=== PATIENT | male | born 1955 | race Caucasian/White ===

== ENCOUNTER 2023-07-23 20:56 | Emergency (ER) | payer MEDICARE ==
--- NOTE | 2023-07-23 22:10 | ED ---
Skin/Abscess/FB HPI - General Chief complaint: Skin/Abscess/Foreign Body Stated complaint: Left foot infection Time Seen by Provider: 07/23/23 21:07 Source: family, RN notes reviewed, old records reviewed Mode of arrival: wheelchair Limitations: no limitations - History of Present Illness Initial comments: This is a 66-year-old male to the emergency department for evaluation today. Stay patient presents for evaluation of left foot pain. Significant swelling and redness to left foot with known foot ulcer. Patient has no significant drainage from the ulcer is not malodorous but is here for wound evaluation and reevaluation as family saw nonhealing ulcer today and bandage had not been change in a few days. MD complaint: other Location: L foot Severity: mild (Lesion is painless) Improves with: none Worsens with: none Context: none Associated symptoms: denies other symptoms Treatments Prior to Arrival: bandages, antibiotic - Related Data Allergies Allergy/AdvReac Type Severity Reaction Status Date / Time No Known Allergies Allergy Verified 07/23/23 21:03 Review of Systems ROS Statement: Those systems with pertinent positive or pertinent negative responses have been documented in the HPI. ROS Other: All systems not noted in ROS Statement are negative. Past Medical History Past Medical History: Diabetes Mellitus History of Any Multi-Drug Resistant Organisms: MRSA Past Surgical History: No Surgical Hx Reported Past Psychological History: Anxiety Smoking Status: Former smoker Past Alcohol Use History: Occasional Past Drug Use History: None Reported General Exam Limitations: no limitations General appearance: alert, in no apparent distress Head exam: Present: atraumatic, normocephalic, normal inspection Eye exam: Present: normal appearance, PERRL, EOMI. Absent: scleral icterus, conjunctival injection, periorbital swelling ENT exam: Present: normal exam, mucous membranes moist Neck exam: Present: normal inspection. Absent: tenderness, meningismus, lymphadenopathy Respiratory exam: Present: normal lung sounds bilaterally. Absent: respiratory distress, wheezes, rales, rhonchi, stridor Cardiovascular Exam: Present: regular rate, normal rhythm, normal heart sounds. Absent: systolic murmur, diastolic murmur, rubs, gallop, clicks GI/Abdominal exam: Present: soft, normal bowel sounds. Absent: distended, tenderness, guarding, rebound, rigid Extremities exam: Present: normal inspection, full ROM, normal capillary refill. Absent: tenderness, pedal edema, joint swelling, calf tenderness Back exam: Present: normal inspection Neurological exam: Present: alert, oriented X3, CN II-XII intact Psychiatric exam: Present: normal affect, normal mood Skin exam: Present: warm, dry, intact, normal color. Absent: rash Course Vital Signs 07/23/23 07/23/23 21:00 22:31 Temperature 97.9 F 98.0 F Pulse Rate 78 77 Respiratory 18 16 Rate Blood Pressure 116/64 137/61 O2 Sat by Pulse 99 96 Oximetry - Reevaluation(s) Reevaluation #1: 07/23/23 22:09 Medical record is reviewed Reevaluation #2: 07/23/23 22:09 Patient informed of wound care, questions answered Reevaluation #3: 07/23/23 22:09 Patient himself remains without complaint Reevaluation #4: 07/23/23 22:56 Was pt. sent in by a medical professional or institution (, PA, UNHAIRING MACHINE OPERATOR, urgent care, hospital, or alf...) When possible be specific @ -no Did you speak to anyone other than the patient for history (EMS, parent, family, police, friend...)? What history was obtained from this source @ -no Did you review nursing and triage notes (agree or disagree)? Why? @ -agree Are old charts reviewed (outside hosp., previous admission, EMS record, old EKG, old radiological studies, urgent care reports/EKG's, alf records)? Report findings @ -yes Differential Diagnosis (chest pain, altered mental status, abdominal pain women, abdominal pain men, vaginal bleeding, weakness, fever, dyspnea, syncope, headache, dizziness, GI bleed, back pain, seizure, CVA, palpatations, mental health, musculoskeletal)? @ -prior EKG interpreted by me (3pts min.). @ -no X-rays interpreted by me (1pt min.). @ -no CT interpreted by me (1pt min.). @ -no U/S interpreted by me (1pt. min.). @ -no What testing was considered but not performed or refused? (CT, X-rays, U/S, labs)? Why? @ -none What meds were considered but not given or refused? Why? @ -none Did you discuss the management of the patient with other professionals (professionals i.e. , PA, UNHAIRING MACHINE OPERATOR, lab, RT, psych nurse, forensic social worker, rack production worker, te acher, chief resource officer, pillowcase cutter)? Give summary @ -no Was smoking cessation discussed for >3mins.? @ -no Was critical care preformed (if so, how long)? @ -no Were there social determinants of health that impacted care today? How? (Homelessness, low income, unemployed, alcoholism, drug addiction, transportation, low edu. Level, literacy, decrease access to med. care, assisted, rehab)? @ -none Was there de-escalation of care discussed even if they declined (Discuss DNR or withdrawal of care, Hospice)? DNR status @ -no What co-morbidities impacted this encounter? (DM, HTN, Smoking, COPD, CAD, Cancer, CVA, ARF, Chemo, Hep., AIDS, mental health diagnosis, sleep apnea, morbid obesity)? @ -none Was patient admitted / discharged? Hospital course, mention meds given and route, prescriptions, significant lab abnormalities, going to OR and other pertinent info. @ - 68 female to the ER for evaluation of left foot diabetic ulcer, healing well and in stages. Patient informed and educated on wound care and cleaning and can be discharged home Discharge Undiagnosed new problem with uncertain prognosis? @ -no Drug Therapy requiring intensive monitoring for toxicity (Heparin, Nitro, Insulin, Cardizem)? @ -no Were any procedures done? @ -no Diagnosis/symptom? @ -Diabetic foot ulcer, wound care Acute, or Chronic, or Acute on Chronic? @ -Acute Uncomplicated (without systemic symptoms) or Complicated (systemic symptoms)? @ -Complicated Side effects of treatment? @ -no Exacerbation, Progression, or Severe Exacerbation? @ -exacerbation Poses a threat to life or bodily function? How? (Chest pain, [place], [place], pneumonia, PE, COPD, DKA, ARF, appy, cholecystitis, CVA, Diverticulitis, Homicidal, Suicidal, threat to staff... and all critical care pts) @ -no Medical Decision Making - Medical Decision Making 68 female to the ER for evaluation of left foot diabetic ulcer, healing well and in stages. Patient informed and educated on wound care and cleaning and can be discharged home Disposition Clinical Impression: Foot ulcer, left, Diabetic foot ulcer Disposition: HOME SELF-CARE Instructions (If sedation given, give patient instructions): Foot Care for People with Diabetes (ED), Acute Wound Care (ED), Chronic Wound Care (ED), Diabetic Foot Ulcers (ED), Pressure Injury (ED) Is patient prescribed a controlled substance at d/c from ED?: No Referrals: None,Stated [REFERRING] - 1-2 days Time of Disposition: 22:00
[2023-07-23 22:47] VITALS: BP 137/61; PULSE 77; RESP 16; TEMP 98
== END 2023-07-23 22:50 | disposition home or self-care (01) ==
LOC: EC 20:56
DX: E11.621 Type 2 diabetes mellitus with foot ulcer (principal); L97.529 Non-pressure chronic ulcer of other part of left foot with unspecified severity; Z87.891 Personal history of nicotine dependence
CPT/HCPCS: 99283

== ENCOUNTER 2023-08-20 14:35 | Inpatient (IN) | payer MEDICARE ==
--- NOTE | 2023-08-20 14:43 | ED ---
General Adult HPI - General Source: patient, RN notes reviewed Mode of arrival: ambulatory Limitations: no limitations <Nolan De Paz - Last Filed: 08/20/23 14:42> <Nacho Llamas - Last Filed: 08/20/23 18:39> - General Stated complaint: abscess foot-sent by drs Time Seen by Provider: 08/20/23 14:42 - History of Present Illness Initial comments: 68-year-old male presents emergency Department chief complaint left foot infection. Patient was sent over here by Dr. Zurita for admission, surgery. Patient reportedly is having worsening infection of his foot. Patient is known diabetic. (Nolan De Paz) This is a 68-year-old male who was sent into the emergency department by Dr. Zurita the patient has a wound which according to Sayilana was expressing pus in the left foot. Patient is to be put on antibiotics have a CAT scan of the foot he also wants vascular surgery as well as himself on consult. Patient himself states the foot is been getting worse for quite a while now (Nacho Llamas) - Related Data Allergies Allergy/AdvReac Type Severity Reaction Status Date / Time bupropion [From Wellbutrin] Allergy Unknown Verified 08/20/23 14:46 varenicline [From Chantix] Allergy Unknown Verified 08/20/23 14:45 Review of Systems ROS Other: All systems not noted in ROS Statement are negative. <Nolan De Paz - Last Filed: 08/20/23 14:42> ROS Other: All systems not noted in ROS Statement are negative. <Nacho Llamas - Last Filed: 08/20/23 18:39> ROS Statement: Those systems with pertinent positive or pertinent negative responses have been documented in the HPI. Past Medical History Past Medical History: Diabetes Mellitus History of Any Multi-Drug Resistant Organisms: MRSA Past Surgical History: No Surgical Hx Reported Past Psychological History: Anxiety Smoking Status: Former smoker Past Alcohol Use History: Occasional Past Drug Use History: None Reported <Nolan De Paz - Last Filed: 08/20/23 14:42> General Exam <Nolan De Paz - Last Filed: 08/20/23 14:42> <Nacho Llamas - Last Filed: 08/20/23 18:39> - General Exam Comments Initial Comments: Visual Physical Exam Vital signs reviewed General: Well-appearing, nontoxic, no acute distress. Head: Normocephalic, atraumatic Eyes: PERRLA, EOMI ENT: Airway patent Chest: Nonlabored breathing Skin: No visual rash, normal skin tone Neuro: Alert and oriented 3 Musculoskeletal: No gross abnormalities (Nolan De Paz) GENERAL: Patient is well-developed and well-nourished. Patient is nontoxic and well- hydrated and is in no acute distress. ENT: Neck is soft and supple. No significant lymphadenopathy is noted. Oropharynx is clear. Moist mucous membranes. Neck has full range of motion without eliciting any pain. EYES: The sclera were anicteric and conjunctiva were pink and moist. Extraocular movements were intact and pupils were equal round and reactive to light. Eyelids were unremarkable. PULMONARY: Unlabored respirations. Good breath sounds bilaterally. No audible rales rhonchi or wheezing was noted. CARDIOVASCULAR: There is a regular rate and rhythm without any murmurs gallops or rubs. ABDOMEN: Soft and nontender with normal bowel sounds. SKIN: Skin is clear with no lesions or rashes and otherwise unremarkable. NEUROLOGIC: Patient is alert and oriented x3. Cranial nerves II through XII are grossly intact. Motor and sensory are also intact. Normal speech, volume and content. Symmetrical smile. MUSCULOSKELETAL: Normal extremities with adequate strength and full range of motion. Patient has a left foot wound that is malodorous and draining some pus LYMPHATICS: No significant lymphadenopathy is noted PSYCHIATRIC: Normal psychiatric evaluation. (Nacho Llamas) Course Vital Signs 08/20/23 08/20/23 08/20/23 14:40 16:23 18:01 Temperature 98 F Pulse Rate 101 H 81 80 Respiratory 16 18 18 Rate Blood Pressure 114/64 132/76 128/65 O2 Sat by Pulse 99 98 98 Oximetry Medical Decision Making <Nolan De Paz - Last Filed: 08/20/23 14:42> - Lab Data Result diagrams: 08/20/23 15:04 08/20/23 15:04 <Nacho Llamas - Last Filed: 08/20/23 18:39> - Medical Decision Making I performed a quick note portion of this chart signed Nolan De Paz PA-C (Nolan De Paz) Was pt. sent in by a medical professional or institution (EMILY Malcolm, COLLATERAL SPECIALIST, urgent care, hospital, or skilled nursing...) When possible be specific @ -Patient was sent in by Dr. Zurita Did you speak to anyone other than the patient for history (EMS, parent, family, police, friend...)? What history was obtained from this source @ -Dr. Zurita gave most of the history prior to arrival Did you review nursing and triage notes (agree or disagree)? Why? @ -[I reviewed and agree with nursing and triage notes] Were old charts reviewed (outside hosp., previous admission, EMS record, old EKG, old radiological studies, urgent care reports/EKG's, skilled nursing records)? Report findings @ -I reviewed prior charts lab work on this patient Differential Diagnosis (chest pain, altered mental status, abdominal pain women, abdominal pain men, vaginal bleeding, weakness, fever, dyspnea, syncope, headache, dizziness, GI bleed, back pain, seizure, CVA, palpatations, mental health, musculoskeletal)? @ -Differential Fever: Pneumonia, viral URI, endocarditis, myocarditis, pericarditis, otitis, sinusi tis, peritonsillar Abscess, retropharyngeal Abscess, epiglottitis, peritonitis, appendicitis, Betina cystitis, diverticulitis, hepatitis, colitis, UTI, PID, TOA, pyelonephritis, prostatitis, epididymitis, meningitis, encephalitis, pulmonary embolism, CVA, thyroid storm, pancreatitis, adrenal crisis, cavernous sinus thrombosis, this is not meant to be an all-inclusive list. EKG interpreted by me (3pts min.). @ -[As above] X-rays interpreted by me (1pt min.). @ -[None done] CT interpreted by me (1pt min.). @ -Showed a Charcot joint with possible osteomyelitis U/S interpreted by me (1pt. min.). @ -[None done] What testing was considered but not performed or refused? (CT, X-rays, U/S, labs)? Why? @ -[None] What meds were considered but not given or refused? Why? @ -[None] Did you discuss the management of the patient with other professionals (professionals i.e. EMILY Malcolm, COLLATERAL SPECIALIST, lab, RT, psych nurse, social service director, internal control consultant, teacher, cash management officer, medical case worker)? Give summary @ -I spoke with Dr. Torres and he accepted the patient Was smoking cessation discussed for >3mins.? @ -[No] Was critical care preformed (if so, how long)? @ -[No] Were there social determinants of health that impacted care today? How? (H omelessness, low income, unemployed, alcoholism, drug addiction, transportation, low edu. Level, literacy, decrease access to med. care, skilled nursing, rehab)? @ -[No] Was there de-escalation of care discussed even if they declined (Discuss DNR or withdrawal of care, Hospice)? DNR status @ -[No] What co-morbidities impacted this encounter? (DM, HTN, Smoking, COPD, CAD, Cancer, CVA, ARF, Chemo, Hep., AIDS, mental health diagnosis, sleep apnea, morbid obesity)? @ -Diabetes Was patient admitted / discharged? Hospital course, mention meds given and route, prescriptions, significant lab abnormalities, going to OR and other pertinent info. @ -Patient was started on Unasyn and vancomycin. CT of the foot showed a Charcot joint with osteomyelitis and patient will be admitted to Dr. Torres and consult for vascular as well as infectious disease Undiagnosed new problem with uncertain prognosis? @ -[No] Drug Therapy requiring intensive monitoring for toxicity (Heparin, Nitro, Insulin, Cardizem)? @ -[No] Were any procedures done? @ -[No] Diagnosis/symptom? @ -Osteomyelitis left foot Acute, or Chronic, or Acute on Chronic? @ -Acute on chronic Uncomplicated (without systemic symptoms) or Complicated (systemic symptoms)? @ -Complicated Side effects of treatment? @ -[No] Exacerbation, Progression, or Severe Exacerbation? @ -[No] Poses a threat to life or bodily function? How? (Chest pain, [place], [place], pneumonia, PE, COPD, DKA, ARF, appy, cholecystitis, CVA, Diverticulitis, Homicidal, Suicidal, threat to staff... and all critical care pts) @ -Yes this leads to sepsis and possible end organ dysfunction (Carrington Llamas) - Lab Data Lab Results 08/20/23 08/20/23 08/20/23 Range/Units 15:04 15:04 15:04 WBC 7.9 (3.8-10.6) k/uL RBC 3.17 L (4.30-5.90) m/uL Hgb 8.7 L (13.0-17.5) gm/dL Hct 27.0 L (39.0-53.0) % MCV 85.2 (80.0-100.0) fL MCH 27.3 (25.0-35.0) pg MCHC 32.1 (31.0-37.0) g/dL RDW 14.0 (11.5-15.5) % Plt Count 496 H (150-450) k/uL MPV 7.4 Neutrophils % 69 % Lymphocytes % 21 % Monocytes % 5 % Eosinophils % 3 % Basophils % 0 % Neutrophils # 5.4 (1.3-7.7) k/uL Lymphocytes # 1.7 (1.0-4.8) k/uL Monocytes # 0.4 (0-1.0) k/uL Eosinophils # 0.3 (0-0.7) k/uL Basophils # 0.0 (0-0.2) k/uL Hypochromasia Slight ESR 125 H (0-15) mm/hr Sodium 138 (137-145) mmol/L Potassium 4.3 (3.5-5.1) mmol/L Chloride 104 (98-107) mmol/L Carbon Dioxide 20 L (22-30) mmol/L Anion Gap 14 mmol/L BUN 37 H (9-20) mg/dL Creatinine 1.41 H (0.66-1.25) mg/dL Est GFR (CKD-EPI)AfAm 59 (>60 ml/min/1.73 sqM) Est GFR (CKD-EPI)NonAf 51 (>60 ml/min/1.73 sqM) Glucose 134 H (74-99) mg/dL Plasma Lactic Acid Isael 1.1 (0.7-2.0) mmol/L Calcium 9.1 (8.4-10.2) mg/dL Total Bilirubin 0.4 (0.2-1.3) mg/dL AST 24 (17-59) U/L ALT 16 (4-49) U/L Alkaline Phosphatase 73 (38-126) U/L C-Reactive Protein 7.8 H (<1.0) mg/dL Total Protein 7.3 (6.3-8.2) g/dL Albumin 3.6 (3.5-5.0) g/dL Disposition <Nolan De Paz - Last Filed: 08/20/23 14:42> Time of Disposition: 18:39 <Nacho Llamas - Last Filed: 08/20/23 18:39> Clinical Impression: Diabetic foot ulcer, Osteomyelitis Disposition: ADMITTED IP TO THIS HOSP Referrals: Barrington Swanson MD [Primary Care Provider] - 1-2 days
[2023-08-20] MEDS ORDERED: AMPICILLIN-SULBACTAM 3 GM in SODIUM CHLORIDE 0.9% 100 ML IVPB STA (14:58)
[2023-08-20] MEDS ORDERED: VANCOMYCIN IV PER PHARMACY 1 EACH MISC MISCELLANE PRN (14:59)
[2023-08-20] MEDS ORDERED: VANCOMYCIN 1,500 MG in SODIUM CHLORIDE 0.9% 500 ML 500 ML IVPB STA (15:06)
[2023-08-20 15:41] LABS: ALT 16 U/L (4-49); AST 24 U/L (17-59); African American GFR (CKD) 59 (>60 ml/min/1.73 sqM); Albumin 3.6 g/dL (3.5-5.0); Alkaline Phosphatase 73 U/L (38-126); Anion Gap 14 mmol/L; Blood Urea Nitrogen 37 mg/dL (9-20); C Reactive Protein 7.8 mg/dL (<1.0); Calcium 9.1 mg/dL (8.4-10.2); Carbon Dioxide 20 mmol/L (22-30); Chloride 104 mmol/L (98-107); Glucose 134 mg/dL (74-99); Non-African American GFR(CKD) 51 (>60 ml/min/1.73 sqM); Potassium 4.3 mmol/L (3.5-5.1); Sodium 138 mmol/L (137-145); Total Bilirubin 0.4 mg/dL (0.2-1.3); Total Protein 7.3 g/dL (6.3-8.2)
[2023-08-20 15:42] LABS: Basophils % (A) 0 %; Eosinophils # (A) 0.3 k/uL (0-0.7); Eosinophils % (A) 3 %; HGB 8.7 gm/dL (13.0-17.5); Hypochromasia Slight; Lymphocytes # (A) 1.7 k/uL (1.0-4.8); Lymphocytes % (A) 21 %; MCH 27.3 pg (25.0-35.0); MCHC 32.1 g/dL (31.0-37.0); MCV 85.2 fL (80.0-100.0); Mean Platelet Volume 7.4; Monocytes # (A) 0.4 k/uL (0-1.0); Monocytes % (A) 5 %; Neutrophils # (A) 5.4 k/uL (1.3-7.7); Neutrophils % (A) 69 %; Platelet Count 496 k/uL (150-450); RBC 3.17 m/uL (4.30-5.90); WBC 7.9 k/uL (3.8-10.6)
--- NOTE | 2023-08-20 17:51 | CT ---
EXAMINATION TYPE: CT foot LT w con CT DLP: 349.10 mGycm, Automated exposure control for dose reduction was used. DATE OF EXAM: 08/20/2023 5:23 PM COMPARISON: None CLINICAL INDICATION:Male, 68 years old with history of Infection foot; PHH, LT foot abscess TECHNIQUE: Axial images were obtained of the . Additional coronal and sagittal reformatted images an d soft tissue and bone window were obtained for review. 3-D reconstruction was created on a separate workstation. Contrast used:80 mL of Isovue 300 with IV Contrast, Oral contrast used: None FINDINGS: There is diffuse abnormality to the midfoot with osseous erosion, sclerosis of the osseous structures present. Joint spaces are relatively destroyed. No discrete acute fracture line definitive ly visualized. There is foci of gas present in the dorsal aspect of the foot. Diffuse soft tissue swe lling is present. 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
[2023-08-20 18:23] LABS: Erythrocyte Sedimentation Rate 125 mm/hr (0-15)
[2023-08-20] MEDS: AMPICILLIN-SULBACTAM 3 GM in SODIUM CHLORIDE 0.9% 100 ML IVPB SCH (21:46)
[2023-08-20 22:37] LABS: Glucose,Whole Blood 205 mg/dL (70-110)
[2023-08-20] MEDS ORDERED: DEXTROSE 50% SYRINGE 50 ML IVP PRN ×2 (23:24)
[2023-08-20] MEDS: ALPRAZolam 1 MG TAB PO SCH (23:44)
[2023-08-20] MEDS: INSULIN ASPART (NovoLOG) 100 UNIT/ML VIAL SQ SCH (23:44)
[2023-08-21] MEDS: AMPICILLIN-SULBACTAM 3 GM in SODIUM CHLORIDE 0.9% 100 ML IVPB SCH ×4 (03:29→21:16)
[2023-08-21] MEDS ORDERED: VANCOMYCIN IV PER PHARMACY 1 EACH MISC MISCELLANE PRN (04:12)
--- NOTE | 2023-08-21 04:13 | P.HPIM ---
History of Present Illness H&P Date: 08/20/23 Chief Complaint: left foot wound 68 year old male with DM Patient was sent in from his infectious disease specialist office for worsening left foot wound despite outpatient antibiotics for the past 10 days. Patient reports that he has large wound over the dorsum of his left foot approximately which has been going on all summer he believes it's been healing no drainage . However 10 days ago he noticed another wound over the sole of his left foot which has been draining for the past 10 days despite regular visits to his infectious disease specialist office and antibiotics at home with clindamycin and Augmentin he denies any fevers or chills denies any nausea vom iting chest pain or trouble breathing he is not sure of type of injury that resulted in the wound at the bottom of his left foot he noticed increased swelling and edema over the past few days along with increased drainage for which his doctor suggested he comes to the ED for IV antibiotics He denies any tobacco smoking and illicit drugs or alcohol review of systems Pertinent positives as noted in HPI. All other systems were reviewed and are negative on exam Constitutional: No acute distress, conversant, pleasant Eyes: Anicteric sclerae, moist conjunctiva, Pupils equal round reactive to light ENMT: NC/AT Oropharynx clear, no erythema, or exudates Neck: Supple, no masses, or JVD No carotid bruits No thyromegaly Lungs: Clear to auscultation Clear to percussion Normal respiratory effort, no accessory muscle use Cardiovascular: Heart regular in rate and rhythm, No murmurs, gallops, or rubs No peripheral edema Abdominal: Soft Nontender, no guarding, rebound or rigidity Abdomen moving with respiration Normoactive bowel sounds No hepatomegaly, No splenomegaly No palpable mass No abdominal wall hernia noted Skin: Large 5 x 5 cm wound over the dorsum of the left foot proximally no surrounding erythema or induration no active drainage. Small deep wound on the plantar aspect of his left foot distally with. Purulent Discharge Extremities: No digital cyanosis No clubbing Pedal pulses intact and symmetrical Radial pulses intact and symmetrical No calf tenderness Psychiatric: Alert and oriented to person, place and time Appropriate affect fair judgement Neuro Muscles Strength 5/5 in all 4 extremities Decreased sensation over bilateral feet to light touch Cranial nerves II-XII grossly intact Lymphatics: no palpable cervical or supraclavicular lymph nodes Past Medical History Past Medical History: Diabetes Mellitus, Hypertension History of Any Multi-Drug Resistant Organisms: MRSA Date of last positivie culture/infection: 1997 MDRO Source:: Unsure Past Surgical History: No Surgical Hx Reported Additional Past Surgical History / Comment(s): eye surgery Past Anesthesia/Blood Transfusion Reactions: No Reported Reaction Past Psychological History: Anxiety Smoking Status: Former smoker Past Alcohol Use History: Occasional Past Drug Use History: None Reported Medications and Allergies Home Medications Medication Instructions Recorded Confirmed Type ALPRAZolam [Xanax] 1 mg PO BID PRN 08/20/23 08/20/23 History ALPRAZolam [Xanax] 1 mg PO HS 08/20/23 08/20/23 History Lisinopril-Hctz 20-12.5 mg 2 tab PO DAILY 08/20/23 08/20/23 History [Zestoretic 20-12.5] amLODIPine [Norvasc] 5 mg PO DAILY 08/20/23 08/20/23 History metFORMIN HCL [Glucophage] 1,000 mg PO W/BRKFST 08/20/23 08/20/23 History metFORMIN HCL [Glucophage] 500 mg PO W/SUPPER 08/20/23 08/20/23 History Allergies Allergy/AdvReac Type Severity Reaction Status Date / Time bupropion [From Wellbutrin] Allergy Unknown Verified 08/20/23 19:07 varenicline [From Chantix] Allergy Unknown Verified 08/20/23 19:07 Physical Exam Vitals: Vital Signs Temp Pulse Pulse Resp BP BP BP 08/21/23 01:58 97.8 F 70 16 97/57 08/20/23 19:54 98.2 F 85 16 119/65 08/20/23 18:01 80 18 128/65 08/20/23 16:23 81 18 132/76 08/20/23 14:40 98 F 101 H 16 114/64 Pulse Ox 08/21/23 01:58 97 08/20/23 19:54 98 08/20/23 18:01 98 08/20/23 16:23 98 08/20/23 14:40 99 Intake and Output 08/20/23 08/20/23 08/21/23 14:59 22:59 06:59 Other: Weight 98.43 kg 98.43 kg Results CBC & Chem 7: 08/20/23 15:04 08/20/23 15:04 Labs: Abnormal Lab Results - Last 24 Hours (Table) 08/20/23 08/20/23 08/20/23 Range/Units 15:04 15:04 22:36 RBC 3.17 L (4.30-5.90) m/uL Hgb 8.7 L (13.0-17.5) gm/dL Hct 27.0 L (39.0-53.0) % Plt Count 496 H (150-450) k/uL ESR 125 H (0-15) mm/hr Carbon Dioxide 20 L (22-30) mmol/L BUN 37 H (9-20) mg/dL Creatinine 1.41 H (0.66-1.25) mg/dL Glucose 134 H (74-99) mg/dL POC Glucose (mg/dL) 205 H (70-110) mg/dL C-Reactive Protein 7.8 H (<1.0) mg/dL Thrombosis Risk Factor Assmnt - Choose All That Apply Each Factor Represents 1 point: Obesity (BMI >25), Swollen legs (current) Each Risk Factor Represents 2 Points: Age 61-74 years Each Risk Factor Represents 3 Points: History of DVT/PE Thrombosis Risk Factor Assessment Total Risk Factor Score: 7 Thrombosis Risk Factor Assessment Level: High Risk Assessment and Plan Assessment: [id number] male with diabetes mellitus coming in for worsening left foot wound I discussed the case with the ED doctor I accepted the admission for diabetic foot ulcer failed outpatient therapy with anticipated length of stay more than 2 nights Diabetic foot ulcer failed outpatient therapy with antibiotics Cellulitis and osteomyelitis Follow-up cultures Initiated on Unasyn 3 g IV piggyback every 6 hours Vancomycin dosing by pharmacy Infectious disease consult vascular surgery consult Pain control with opiates Tylenol for fever and Gentle IV fluid hydration normal saline 75 mL per hour R Computed tomography scan of the foot showing chart current hepatic osteo- arthroplasty with collapse of the foot suspected underlying cellulitis/osteomyelitis involving majority of the joints of the foot ESR 125 CRP 7.8 White count 7.9 Diabetes mellitus Insulin sliding scale Hypertension Continue amlodipine Hold lisinopril secondary to unknown baseline renal function Anemia 18.7 Denies GI bleeding Continue to monitor hemoglobin No baseline Unknown baseline renal function Creatinine 1.4 BUN 37 both elevated Sodium 138 potassium 4.3 Trend renal function Monitor urine output Avoid toxic meds Full code DVT prophylaxis heparin subcu 3 times a day
[2023-08-21 05:09] LABS: Glucose,Whole Blood 124 mg/dL (70-110)
[2023-08-21] MEDS: INSULIN ASPART (NovoLOG) 100 UNIT/ML VIAL SQ SCH ×4 (05:31→21:17)
[2023-08-21] MEDS: SODIUM CHLORIDE 0.9% 1,000 ML IV SCH ×2 (05:43→18:35)
[2023-08-21] MEDS ORDERED: VANCOMYCIN 1,500 MG in SODIUM CHLORIDE 0.9% 500 ML 500 ML IVPB SCH (08:00)
[2023-08-21] MEDS ORDERED: LISINOPRIL-HCTZ 20-12.5 MG 1 EACH TAB PO SCH (09:00)
[2023-08-21 09:08] LABS: HCT 23.5 % (39.6-50.0); HGB 7.3 d/dL (13.0-17.0); MCH 26.4 pg (27.0-32.0); MCHC 31.1 d/dL (32.0-37.0); MCV 85.1 FL (80.0-97.0); NRBC Per 100 WBC 0 X 10*3/uL (0.00-0.01); Platelet Count 395 X 10*3/uL (140-440); RBC 2.76 X 10*6/uL (4.40-5.60); WBC 4.84 X 10*3/uL (4.50-10.00)
[2023-08-21 09:09] LABS: Basophils # (A) 0.02 X 10*3/uL (0.00-0.10); Basophils % (A) 0.4 %; Eosinophils # (A) 0.25 X 10*3/uL (0.04-0.35); Eosinophils % (A) 5.2 %; Lymphocytes # (A) 1.61 X 10*3/uL (0.90-5.00); Lymphocytes % (A) 33.3 %; Monocytes # (A) 0.42 X 10*3/uL (0.20-1.00); Monocytes % (A) 8.7 %; Neutrophils % (A) 51.6 %
--- NOTE | 2023-08-21 09:27 | P.GSCN ---
History of Present Illness Consult date: 08/21/23 Reason for Consult: Osteomyelitis left foot Requesting physician: Phyllis Zurita History of present illness: Bhupinder is 68-year-old male who was sent into the emergency department by his infectious disease physician . States today was his first appointment to see him regarding a wound on his left foot that has not been healing. He has had the wound to the dorsal aspect that started off as a blister at the beg inning of the summer. He has been seeing a condenser setter out of [place] for wound care. He noticing a wound to the bottom of his foot with drainage, he was started on oral antibiotics for last 10 days. No improvement. He was sent to infectious disease for further evaluation. He has a past medical history including hypertension and diabetes mellitus. He is a former smoker. States that he recently had lower extremity arterial studies done at [facility] that were inconclusive. He has pain to the left foot and has not been able to walk much. States he has had swelling to that left lower extremity however in the last 10 days he started noticing more of a change to his overall foot. He denies much feeling in his left foot at this time. He denies any shortness of breath, chest pain, abdominal pain, fevers or chills. He is afebrile on admission. Elevated sed rate and CRP. 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 Review of Systems A 14 point review systems was completed all pertinent positives and negatives as stated in the HPI. Past Medical History Past Medical History: Diabetes Mellitus, Hypertension History of Any Multi-Drug Resistant Organisms: MRSA Year Discovered:: 1997 MDRO Source:: Unsure Past Surgical History: No Surgical Hx Reported Additional Past Surgical History / Comment(s): eye surgery Past Anesthesia/Blood Transfusion Reactions: No Reported Reaction Past Psychological History: Anxiety Smoking Status: Former smoker Past Alcohol Use History: Occasional Past Drug Use History: None Reported Medications and Allergies Home Medications Medication Instructions Recorded Confirmed Type ALPRAZolam [Xanax] 1 mg PO BID PRN 08/20/23 08/20/23 History ALPRAZolam [Xanax] 1 mg PO HS 08/20/23 08/20/23 History Lisinopril-Hctz 20-12.5 mg 2 tab PO DAILY 08/20/23 08/20/23 History [Zestoretic 20-12.5] amLODIPine [Norvasc] 5 mg PO DAILY 08/20/23 08/20/23 History metFORMIN HCL [Glucophage] 1,000 mg PO W/BRKFST 08/20/23 08/20/23 History metFORMIN HCL [Glucophage] 500 mg PO W/SUPPER 08/20/23 08/20/23 History Allergies Allergy/AdvReac Type Severity Reaction Status Date / Time bupropion [From Wellbutrin] Allergy Unknown Verified 08/20/23 19:07 varenicline [From Chantix] Allergy Unknown Verified 08/20/23 19:07 Surgical - Exam Vital Signs Temp Pulse Resp BP Pulse Ox 98 F 101 H 16 114/64 99 08/20/23 14:40 08/20/23 14:40 08/20/23 14:40 08/20/23 14:40 08/20/23 14:40 General appearance: The patient is alert, oriented, appears in no acute distress. HET: Head is normocephalic and atraumatic. Pupils are equal and reactive. Neck: Supple. Heart: Regular. Lungs: Equal expansion, normal respiratory effort. Abdomen: Soft, nontender, nondistended. Extremities: Palpable bilateral femoral pulses. Bilateral lower extremities warm to touch. Left lower extremity swelling, left Charcot foot with diabetic wound to the dorsal aspect as well as small wound with clear drainage from the plantar aspect. Right foot with great toe distal tip with a healed wound. Left foot able to gas pedal, but no movement in his toes. Neurological: No focal deficits. Alert and oriented 3 Results - Labs 08/20/23 15:04 08/20/23 15:04 Abnormal Lab Results - Last 24 Hours (Table) 08/20/23 08/20/23 08/20/23 Range/Units 15:04 15:04 22:36 RBC 3.17 L (4.30-5.90) m/uL Hgb 8.7 L (13.0-17.5) gm/dL Hct 27.0 L (39.0-53.0) % Plt Count 496 H (150-450) k/uL ESR 125 H (0-15) mm/hr Carbon Dioxide 20 L (22-30) mmol/L BUN 37 H (9-20) mg/dL Creatinine 1.41 H (0.66-1.25) mg/dL Glucose 134 H (74-99) mg/dL POC Glucose (mg/dL) 205 H (70-110) mg/dL C-Reactive Protein 7.8 H (<1.0) mg/dL 08/21/23 Range/Units 05:07 RBC (4.30-5.90) m/uL Hgb (13.0-17.5) gm/dL Hct (39.0-53.0) % Plt Count (150-450) k/uL ESR (0-15) mm/hr Carbon Dioxide (22-30) mmol/L BUN (9-20) mg/dL Creatinine (0.66-1.25) mg/dL Glucose (74-99) mg/dL POC Glucose (mg/dL) 124 H (70-110) mg/dL C-Reactive Protein (<1.0) mg/dL Diabetes panel 08/20/23 Range/Units 15:04 Sodium 138 (137-145) mmol/L Potassium 4.3 (3.5-5.1) mmol/L Chloride 104 (98-107) mmol/L Carbon Dioxide 20 L (22-30) mmol/L BUN 37 H (9-20) mg/dL Creatinine 1.41 H (0.66-1.25) mg/dL Glucose 134 H (74-99) mg/dL Calcium 9.1 (8.4-10.2) mg/dL AST 24 (17-59) U/L ALT 16 (4-49) U/L Alkaline Phosphatase 73 (38-126) U/L Total Protein 7.3 (6.3-8.2) g/dL Albumin 3.6 (3.5-5.0) g/dL Calcium panel 08/20/23 Range/Units 15:04 Calcium 9.1 (8.4-10.2) mg/dL Albumin 3.6 (3.5-5.0) g/dL Pituitary panel 08/20/23 Range/Units 15:04 Sodium 138 (137-145) mmol/L Potassium 4.3 (3.5-5.1) mmol/L Chloride 104 (98-107) mmol/L Carbon Dioxide 20 L (22-30) mmol/L BUN 37 H (9-20) mg/dL Creatinine 1.41 H (0.66-1.25) mg/dL Glucose 134 H (74-99) mg/dL Calcium 9.1 (8.4-10.2) mg/dL Adrenal panel 08/20/23 Range/Units 15:04 Sodium 138 (137-145) mmol/L Potassium 4.3 (3.5-5.1) mmol/L Chloride 104 (98-107) mmol/L Carbon Dioxide 20 L (22-30) mmol/L BUN 37 H (9-20) mg/dL Creatinine 1.41 H (0.66-1.25) mg/dL Glucose 134 H (74-99) mg/dL Calcium 9.1 (8.4-10.2) mg/dL Total Bilirubin 0.4 (0.2-1.3) mg/dL AST 24 (17-59) U/L ALT 16 (4-49) U/L Alkaline Phosphatase 73 (38-126) U/L Total Protein 7.3 (6.3-8.2) g/dL Albumin 3.6 (3.5-5.0) g/dL - Imaging Comments: CT of the left foot with contrast which reported 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 Assessment and Plan Assessment: 1. Infected Left diabetic foot wounds 2. Left Charcot foot, Osteomyelitis 3. Diabetes mellitus 4. Hypertension Plan: 1. Keep patient nothing by mouth 2. Antibiotic recommendations per infectious disease 3. Plan for left foot debridement with deep tissue cultures this afternoon 4. Offload weight to left foot Thank you for this consultation, we will continue to follow. The impression and plan of care has been dictated as directed. I performed a history and examination of this patient, discussed the same with the dictator. I agree with the dictator's note ,documented as a scribe. Any additional findings or plans will be noted.
[2023-08-21] MEDS: ALPRAZolam 1 MG TAB PO PRN (09:39)
[2023-08-21] MEDS: amLODIPine 5 MG TAB PO SCH (09:39)
[2023-08-21] MEDS: HEPARIN SODIUM,PORCINE 5,000 UNIT/ML 1 ML VIAL SQ SCH ×2 (09:40→21:15)
[2023-08-21 09:42] LABS: ALT 12 U/L (10-49); AST 13 U/L (14-35); Albumin 3.2 d/dL (3.8-4.9); Albumin/Globulin Ratio 1.19 Ratio (1.60-3.17); Alkaline Phosphatase 57 U/L (41-126); BUN/Creat Ratio 28.64 Ratio (12.00-20.00); Blood Urea Nitrogen 31.5 mg/dL (9.0-27.0); Calcium 8.4 mg/dL (8.7-10.3); Carbon Dioxide 22.9 mmol/L (21.6-31.8); Chloride 104 mmol/L (96-109); Globulin 2.7 d/dL (1.6-3.3); Glucose 111 mg/dL (70-110); Potassium 4.2 mmol/L (3.5-5.5); Sodium 140 mmol/L (135-145); Total Bilirubin <0.2 mg/dL (0.3-1.2); Total Protein 5.9 d/dL (6.2-8.2)
[2023-08-21 11:24] LABS: Erythrocyte Sedimentation Rate 96 mm/Hr (0-20)
[2023-08-21 11:41] LABS: Glucose,Whole Blood 133 mg/dL (70-110)
[2023-08-21 12:22] VITALS: BMI 31.1
--- NOTE | 2023-08-21 13:07 | P.PN ---
Subjective Progress Note Date: 08/21/23 68-year-old male with PMH of hypertension, diabetes mellitus presents to the ED after being told to come in by Dr. Zurita for failed outpatient treatment of PO antibiotics (Augmentin and Clindamycin) for the past 10 days. He reports a blister that started in March that has been progressively getting worse. In the ED, he was noted to be tachycardic with heart rate in the 100s. Vital signs were otherwise stable. CBC showed hemoglobin of 8.7 and platelet count of 496. ESR was 125. CMP showed bicarb of 20, BUN 37, creatinine 1.41, glucose 134. CRP was 7.8. Lactic acid 1.1. Foot CT showed Charcot neuropathic osteoarthropathy with suspected underlying cellulitis/osteomyelitis involving the majority of the joints of the foot. Patient was admitted for further management of symptoms. 08/21 Patient was seen and examined. No acute events overnight. He reports well-controlled pain of his left foot. Vascular surgery has seen the patient and plans for wound debridement and deep culture later on today. He is continued on vancomycin dosed per pharmacy and Unasyn 3 g IV every 6 hours. CBC shows hemoglobin of 7.3. ESR is 96. CMP shows BUN 31.5, glucose 111, calcium 8.4, albumin 3.1. CRP is 7.9. Hemoglobin A1c 8.4. General: non toxic, no distress, appears at stated age Derm: warm, dry Head: atraumatic, normocephalic, symmetric Eyes: EOMI, no lid lag, anicteric sclera Cardiovascular: S1S2 reg, no murmur Lungs: CTA bilateral, no rhonchi, no rales , no accessory muscle use Ext: no gross muscle atrophy, no edema, no contractures, wound over the dorsum of the left foot, wound over the plantar aspect of the left foot with purulent drainage Neuro: no focal neuro deficits Psych: Alert, oriented, appropriate affect Diabetic foot ulcer with cellulitis Osteomyelitis of the left foot Normocytic anemia Prerenal azotemia Chronic conditions: Hypertension, diabetes mellitus Based on my assessment of this patient, this patient meets a high complexity level of care. Patient has an acute diagnosis of cellulitis of the L foot with concerns for osteomyelitis in the setting of DM and poor wound healing that poses a threat to life or bodily function. Diabetic foot ulcer with cellulitis: Continue Vancomycin dosed by pharmacy and Unasyn 3g IV Q8H. Daily monitoring of renal function given nephrotoxicty of Vancomycin. Plans for debridement and deep WCx today by Vascular surgery. ID consulted. Osteomyelitis of the left foot: As above. Normocytic anemia: Obtain iron studies, B12, Folate. Transfuse if Hg < 7. Prerenal azotemia: NS at 75 cc/hr. Continue Amlodipine 5 mg PO QD. Restart Lisinopril 20 mg PO QD but hold HCTZ. ISS with Accuechecks ACHS and hypoglycemic precations. I have reviewed the following network consultant notes: Vascular surgery notes. I have reviewed the results of the following tests: CBC, CMP, ESR, CRP, A1c. I have ordered the following tests: CBC, BMP. Iron studies. B12, Folate. I have discussed the care of this patient with the following independent histori an: I have independently interpreted the following test below: I have discussed the management of this patient with the following physician: Objective - Vital Signs Vital signs: Vital Signs Temp 98.5 F 08/21/23 07:28 Pulse 68 08/21/23 07:28 Resp 16 08/21/23 07:28 BP 104/55 08/21/23 07:28 Pulse Ox 97 08/21/23 07:28 FiO2 Intake & Output 08/20/23 08/21/23 08/21/23 18:59 06:59 18:59 Weight 98.43 kg 98.43 kg 98.43 kg Other: Voiding Method Toilet # Voids 1 - Labs CBC & Chem 7: 08/21/23 05:28 08/21/23 05:28 Labs: Abnormal Lab Results - Last 24 Hours (Table) 08/20/23 08/20/23 08/20/23 Range/Units 15:04 15:04 22:36 RBC 3.17 L (4.30-5.90) m/uL Hgb 8.7 L (13.0-17.5) gm/dL Hct 27.0 L (39.0-53.0) % MCH (27.0-32.0) pg MCHC (32.0-37.0) d/dL Plt Count 496 H (150-450) k/uL MPV (9.5-12.2) FL ESR 125 H (0-15) mm/hr Carbon Dioxide 20 L (22-30) mmol/L Anion Gap (4.00-12.00) mmol/L BUN 37 H (9-20) mg/dL Creatinine 1.41 H (0.66-1.25) mg/dL BUN/Creatinine Ratio (12.00-20.00) Ratio Glucose 134 H (74-99) mg/dL POC Glucose (mg/dL) 205 H (70-110) mg/dL Hemoglobin A1c (<=6.0) % Calcium (8.7-10.3) mg/dL Total Bilirubin (0.3-1.2) mg/dL AST (14-35) U/L C-Reactive Protein 7.8 H (<1.0) mg/dL Total Protein (6.2-8.2) d/dL Albumin (3.8-4.9) d/dL Albumin/Globulin Ratio (1.60-3.17) Ratio 08/21/23 08/21/23 08/21/23 Range/Units 05:07 05:28 05:28 RBC 2.76 L (4.30-5.90) m/uL Hgb 7.3 L (13.0-17.5) gm/dL Hct 23.5 L (39.0-53.0) % MCH 26.4 L (27.0-32.0) pg MCHC 31.1 L (32.0-37.0) d/dL Plt Count (150-450) k/uL MPV 9.0 L (9.5-12.2) FL ESR 96 H (0-15) mm/hr Carbon Dioxide (22-30) mmol/L Anion Gap 13.10 H (4.00-12.00) mmol/L BUN 31.5 H (9-20) mg/dL Creatinine (0.66-1.25) mg/dL BUN/Creatinine Ratio 28.64 H (12.00-20.00) Ratio Glucose 111 H (74-99) mg/dL POC Glucose (mg/dL) 124 H (70-110) mg/dL Hemoglobin A1c (<=6.0) % Calcium 8.4 L (8.7-10.3) mg/dL Total Bilirubin <0.2 L (0.3-1.2) mg/dL AST 13 L (14-35) U/L C-Reactive Protein 7.90 H (<1.0) mg/dL Total Protein 5.9 L (6.2-8.2) d/dL Albumin 3.2 L (3.8-4.9) d/dL Albumin/Globulin Ratio 1.19 L (1.60-3.17) Ratio 08/21/23 08/21/23 Range/Units 05:28 11:38 RBC (4.30-5.90) m/uL Hgb (13.0-17.5) gm/dL Hct (39.0-53.0) % MCH (27.0-32.0) pg MCHC (32.0-37.0) d/dL Plt Count (150-450) k/uL MPV (9.5-12.2) FL ESR (0-15) mm/hr Carbon Dioxide (22-30) mmol/L Anion Gap (4.00-12.00) mmol/L BUN (9-20) mg/dL Creatinine (0.66-1.25) mg/dL BUN/Creatinine Ratio (12.00-20.00) Ratio Glucose (74-99) mg/dL POC Glucose (mg/dL) 133 H (70-110) mg/dL Hemoglobin A1c 8.4 H (<=6.0) % Calcium (8.7-10.3) mg/dL Total Bilirubin (0.3-1.2) mg/dL AST (14-35) U/L C-Reactive Protein (<1.0) mg/dL Total Protein (6.2-8.2) d/dL Albumin (3.8-4.9) d/dL Albumin/Globulin Ratio (1.60-3.17) Ratio
[2023-08-21] MEDS ORDERED: DEXAMETHASONE SOD PHOSPHATE 4 MG/ML 1 ML VIAL IV ONE (15:58)
[2023-08-21] MEDS ORDERED: ONDANSETRON 4 MG/2 ML VIAL IVP ONE ×2 (15:58→16:26)
[2023-08-21] MEDS ORDERED: LACTATED RINGERS 1,000 ML IV ONE (16:11)
[2023-08-21 16:18] LABS: Glucose,Whole Blood 117 mg/dL (70-110)
[2023-08-21] MEDS ORDERED: KETAMINE HCL IN 0.9 % NACL 50 MG/5 ML SYRINGE ONE (16:26)
[2023-08-21] MEDS ORDERED: fentaNYL (PF) 50 MCG/ML 2 ML AMP ONE (16:26)
[2023-08-21] MEDS ORDERED: PROPOFOL 10 MG/ML 20 ML VIAL IV ONE (16:26)
[2023-08-21] MEDS ORDERED: MIDAZOLAM 2 MG/2 ML VIAL ONE (16:26)
--- NOTE | 2023-08-21 17:03 | P.OP ---
Date of Procedure: 08/21/23 Preoperative Diagnosis: Chronic left foot wound with deep abscess Chronic left foot osteo Postoperative Diagnosis: same Procedure(s) Performed: Excisional debridement left dorsal foot wound measuring 7 x 5 cm Incision and drainage of deep foot abscess Anesthesia: MAC Surgeon: Carroll Tinajero Pathology: other (Deep wound culture) Condition: stable Disposition: PACU Indications for Procedure: 68-year-old gentleman with history of diabetic foot ulcer, Charcot foot with chronic dorsal foot wound which he has been dealing with for several months without any improvement. He has been on antibiotics in the past. He underwent imaging during his hospitalization and computed tomography scan demonstrated osteomyelitis involving the bones of the foot. I did discuss with the patient options including drainage of the abscess as well as possible need of amputation in the future which would involve the below-knee amputation. He does not want to go forward with any amputation at this time and would like to try IV antibiotics and continued wound treatment. Description of Procedure: After written and informed consent was obtained the patient all risks benefits and complications were described the patient is brought to the operative suite and laid in the supine position. The area of the left foot was prepped and draped in usual sterile fashion after appropriate anesthetic was performed per the anesthesiologist. A timeout was performed in normal fashion. He is current ly on antibiotics. Utilizing a 10 blade scalpel the dorsal wound which measured 7 x 5 cm with 1 mm in depth down to the subcutaneous tissue was debrided sharply. The wound had hyper-granulation tissue that was debrided down to good bleeding subcutaneous tissue. There was no exposed tendon or bone. Attention was then placed to the plantar wound. There was a hole within the plantar surface which was incised and utilizing a stat the subcutaneous tissue was fractured with large amount of gelatinous-appearing material and serosanguineous fluid remove. The wound extended throughout the deep aspect of the foot and there was noted bone fragments floating within the foot. Deep wound cultures were obtained at that point. The area was then copiously irrigated and packed with iodoform gauze packing. Skin was then cleansed and dressed with Adaptic 4 x 4 and Kerlix. Patient tolerated procedure well and was sent to PACU for recovery. Due to the extent of bone involvement and destruction and the unlikelihood of healing, he will likely require a below-knee amputation.
[2023-08-21 17:15] LABS: Glucose,Whole Blood 129 mg/dL (70-110)
[2023-08-21] MEDS: LACTATED RINGERS 1,000 ML IV SCH (18:35)
[2023-08-21 20:35] LABS: Glucose,Whole Blood 176 mg/dL (70-110)
[2023-08-21] MEDS: ALPRAZolam 1 MG TAB PO SCH (21:16)
[2023-08-21] MEDS: VANCOMYCIN 1,500 MG in SODIUM CHLORIDE 0.9% 500 ML 500 ML IVPB SCH (23:03)
[2023-08-22] MEDS: AMPICILLIN-SULBACTAM 3 GM in SODIUM CHLORIDE 0.9% 100 ML IVPB SCH ×3 (03:57→17:19)
[2023-08-22 05:39] LABS: Glucose,Whole Blood 130 mg/dL (70-110)
[2023-08-22 05:59] LABS: HCT 27.3 % (39.0-53.0); HGB 8.8 gm/dL (13.0-17.5); Hypochromasia Slight; MCH 27.9 pg (25.0-35.0); MCHC 32.1 g/dL (31.0-37.0); MCV 86.9 fL (80.0-100.0); Mean Platelet Volume 7.2; Platelet Count 397 k/uL (150-450); RBC 3.14 m/uL (4.30-5.90); RDW 14.2 % (11.5-15.5); WBC 5.5 k/uL (3.8-10.6)
[2023-08-22 06:11] LABS: African American GFR (CKD) 82 (>60 ml/min/1.73 sqM); Anion Gap 8 mmol/L; Blood Urea Nitrogen 22 mg/dL (9-20); Calcium 8.3 mg/dL (8.4-10.2); Carbon Dioxide 25 mmol/L (22-30); Chloride 107 mmol/L (98-107); Glucose 127 mg/dL (74-99); Non-African American GFR(CKD) 71 (>60 ml/min/1.73 sqM); Sodium 140 mmol/L (137-145)
[2023-08-22] MEDS: HEPARIN SODIUM,PORCINE 5,000 UNIT/ML 1 ML VIAL SQ SCH ×3 (06:38→21:08)
[2023-08-22] MEDS ORDERED: HYDROmorphone 0.5 MG/0.5 ML SYRINGE IVP PRN (07:00)
[2023-08-22] MEDS: INSULIN ASPART (NovoLOG) 100 UNIT/ML VIAL SQ SCH ×4 (08:08→21:08)
--- NOTE | 2023-08-22 08:30 | P.CONS ---
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 with collapse of the midfoot suspected underlying cellulitis osteomyelitis involving the majority of the joints of the foot, patient was started on vancomycin and Unasyn infectious disease was consulted for further management of antibiotic therapy Patient on today's evaluation that is 08/21/2023, the patient denies having any fever or any chills, patient did have diabetic neuropathy denies pain to the left foot area still complaining of nonhealing of the wound to the dorsum and the plantar aspect of his left foot that has been there for few months now overall drainage from from the wound on the plantar spine has decreased no foul- smelling still have swelling and redness to the left foot area patient denies having any chest pain shortness of breath or cough no nausea vomiting no abdominal pain no diarrhea, patient has been evaluated by vascular surgery planning for surgery this afternoon Review of Systems Positive point and negatives has been mentioned in the HPI, complete review of systems was performed and all other systems are negative Past Medical History Past Medical History: Diabetes Mellitus, Hypertension History of Any Multi-Drug Resistant Organisms: MRSA Year Discovered:: 1997 MDRO Source:: Unsure Past Surgical History: No Surgical Hx Reported Additional Past Surgical History / Comment(s): eye surgery Past Anesthesia/Blood Transfusion Reactions: No Reported Reaction Past Psychological History: Anxiety Smoking Status: Former smoker Past Alcohol Use History: Occasional Past Drug Use History: None Reported Medications and Allergies Home Medications Medication Instructions Recorded Confirmed Type ALPRAZolam [Xanax] 1 mg PO BID PRN 08/20/23 08/20/23 History ALPRAZolam [Xanax] 1 mg PO HS 08/20/23 08/20/23 History Lisinopril-Hctz 20-12.5 mg 2 tab PO DAILY 08/20/23 08/20/23 History [Zestoretic 20-12.5] amLODIPine [Norvasc] 5 mg PO DAILY 08/20/23 08/20/23 History metFORMIN HCL [Glucophage] 1,000 mg PO W/BRKFST 08/20/23 08/20/23 History metFORMIN HCL [Glucophage] 500 mg PO W/SUPPER 08/20/23 08/20/23 History Allergies Allergy/AdvReac Type Severity Reaction Status Date / Time bupropion [From Wellbutrin] Allergy Unknown Verified 08/20/23 19:07 varenicline [From Chantix] Allergy Unknown Verified 08/20/23 19:07 Physical Exam Vitals: Vital Signs Temp Pulse Pulse Resp BP BP BP 08/21/23 07:28 98.5 F 68 16 104/55 08/21/23 01:58 97.8 F 70 16 97/57 08/20/23 19:54 98.2 F 85 16 119/65 08/20/23 18:01 80 18 128/65 08/20/23 16:23 81 18 132/76 08/20/23 14:40 98 F 101 H 16 114/64 Pulse Ox 08/21/23 07:28 97 08/21/23 01:58 97 08/20/23 19:54 98 08/20/23 18:01 98 08/20/23 16:23 98 08/20/23 14:40 99 Intake and Output 08/20/23 08/21/23 08/21/23 22:59 06:59 14:59 Other: Voiding Method Toilet # Voids 1 Weight 98.43 kg GENERAL DESCRIPTION: Elderly male lying in bed, no distress. No tachypnea or accessory muscle of respiration use. HEENT: Shows Pallor , no scleral icterus. Oral mucous membrane is dry. NECK: Trachea central, no thyromegaly. LUNGS: Unlabored breathing. Clear to auscultation anteriorly. No wheeze or crackle. HEART: S1, S2, regular rate and rhythm. No loud murmur ABDOMEN: Soft, no tenderness , EXTREMITIES: Left foot dorsum wound with no slough tissue with associated swelling with a wound on the plantar aspect but no foul-smelling drainage today SKIN: No rash, no masses palpable. NEUROLOGICAL: The patient is awake, alert, oriented x3, mood and affect normal. Results CBC & Chem 7: 08/22/23 05:23 08/22/23 05:23 Labs: Abnormal Lab Results - Last 24 Hours (Table) 08/20/23 08/20/23 08/20/23 Range/Units 15:04 15:04 22:36 RBC 3.17 L (4.30-5.90) m/uL Hgb 8.7 L (13.0-17.5) gm/dL Hct 27.0 L (39.0-53.0) % MCH (27.0-32.0) pg MCHC (32.0-37.0) d/dL Plt Count 496 H (150-450) k/uL MPV (9.5-12.2) FL ESR 125 H (0-15) mm/hr Carbon Dioxide 20 L (22-30) mmol/L Anion Gap (4.00-12.00) mmol/L BUN 37 H (9-20) mg/dL Creatinine 1.41 H (0.66-1.25) mg/dL BUN/Creatinine Ratio (12.00-20.00) Ratio Glucose 134 H (74-99) mg/dL POC Glucose (mg/dL) 205 H (70-110) mg/dL Hemoglobin A1c (<=6.0) % Calcium (8.7-10.3) mg/dL Total Bilirubin (0.3-1.2) mg/dL AST (14-35) U/L C-Reactive Protein 7.8 H (<1.0) mg/dL Total Protein (6.2-8.2) d/dL Albumin (3.8-4.9) d/dL Albumin/Globulin Ratio (1.60-3.17) Ratio 08/21/23 08/21/23 08/21/23 Range/Units 05:07 05:28 05:28 RBC 2.76 L (4.30-5.90) m/uL Hgb 7.3 L (13.0-17.5) gm/dL Hct 23.5 L (39.0-53.0) % MCH 26.4 L (27.0-32.0) pg MCHC 31.1 L (32.0-37.0) d/dL Plt Count (150-450) k/uL MPV 9.0 L (9.5-12.2) FL ESR (0-15) mm/hr Carbon Dioxide (22-30) mmol/L Anion Gap 13.10 H (4.00-12.00) mmol/L BUN 31.5 H (9-20) mg/dL Creatinine (0.66-1.25) mg/dL BUN/Creatinine Ratio 28.64 H (12.00-20.00) Ratio Glucose 111 H (74-99) mg/dL POC Glucose (mg/dL) 124 H (70-110) mg/dL Hemoglobin A1c (<=6.0) % Calcium 8.4 L (8.7-10.3) mg/dL Total Bilirubin <0.2 L (0.3-1.2) mg/dL AST 13 L (14-35) U/L C-Reactive Protein 7.90 H (<1.0) mg/dL Total Protein 5.9 L (6.2-8.2) d/dL Albumin 3.2 L (3.8-4.9) d/dL Albumin/Globulin Ratio 1.19 L (1.60-3.17) Ratio 08/21/23 Range/Units 05:28 RBC (4.30-5.90) m/uL Hgb (13.0-17.5) gm/dL Hct (39.0-53.0) % MCH (27.0-32.0) pg MCHC (32.0-37.0) d/dL Plt Count (150-450) k/uL MPV (9.5-12.2) FL ESR (0-15) mm/hr Carbon Dioxide (22-30) mmol/L Anion Gap (4.00-12.00) mmol/L BUN (9-20) mg/dL Creatinine (0.66-1.25) mg/dL BUN/Creatinine Ratio (12.00-20.00) Ratio Glucose (74-99) mg/dL POC Glucose (mg/dL) (70-110) mg/dL Hemoglobin A1c 8.4 H (<=6.0) % Calcium (8.7-10.3) mg/dL Total Bilirubin (0.3-1.2) mg/dL AST (14-35) U/L C-Reactive Protein (<1.0) mg/dL Total Protein (6.2-8.2) d/dL Albumin (3.8-4.9) d/dL Albumin/Globulin Ratio (1.60-3.17) Ratio Assessment and Plan (1) Diabetic foot ulcer Current Visit: Yes Status: Acute Code(s): E11.621 - TYPE 2 DIABETES MELLITUS WITH FOOT ULCER; L97.509 - NON-PRESSURE CHRONIC ULCER OTH PRT UNSP FOOT W UNSP SEVERITY SNOMED Code(s): 188003693 (2) Osteomyelitis Current Visit: Yes Status: Acute Code(s): M86.9 - OSTEOMYELITIS, UNSPECIFIED SNOMED Code(s): 86817556 Plan: 1patient with a left diabetic foot wound and infection with Charcot foot and concerning for underlying osteomyelitis and abscess we will need to cover for the gram-positive as well as gram-negative pathogen failing outpatient oral antibiotic therapy. 2await surgical debridement and deep culture. 3vancomycin pharmacy to dose with a target trough of 15 while watching kidney function and Vanco trough closely. And Unasyn should provide adequate empiric coverage while waiting for the culture to finalize. 4patient will likely need a PICC line for outpatient IV antibiotic therapy. We will follow on clinical condition and cultures to further adjust medication if needed Thank you for this consultation we will follow the patient along with you Dictation was produced using [employer] software. please excuse any grammatical, word or spelling errors.
[2023-08-22 09:11] LABS: % Iron Saturation 11.65 (15.00-50.00)
[2023-08-22] MEDS: VANCOMYCIN 1,500 MG in SODIUM CHLORIDE 0.9% 500 ML 500 ML IVPB SCH ×2 (09:20→21:01)
[2023-08-22] MEDS: amLODIPine 5 MG TAB PO SCH (09:21)
[2023-08-22] MEDS: lisinopriL 20 MG TAB PO SCH (09:21)
[2023-08-22] MEDS: SODIUM CHLORIDE 0.9% 1,000 ML IV SCH ×2 (10:16→22:03)
--- NOTE | 2023-08-22 10:38 | P.CONS ---
History of Present Illness - Reason for Consult Consult date: 08/22/23 wound care - History of Present Illness This is a 68-year-old gentleman being seen by the wound care center for a nonhealing ulceration to the left plantar foot and the left dorsal foot. Patient underwent a surgical debridement with Dr. Benjamin engel for the dorsal and plantar foot. Plantar foot had bone distraction with bone fragments noted and significant amount of Brinda and numbness and serosanguineous drainage. The u lceration to the plantar foot measures approximately 1.5 x 0.6 x 1.2 cm. Bone involvement with necrosis, tunneling noted with undermining. Serosanguineous drainage. Periwound shows maceration. Foot ulceration measures approximately 7 x 5 x 0.1 cm. Fat layer exposed elation seen throughout the wound bed nonviable tissue and slough noted to the lateral aspect of the ulceration. Discussed in length with patient options for planning care. Patient a public speak with his foot doctor before he proceeds with any further plans. Review Of Systems: Constitutional: No fever, no chills, no night sweats. No weight change. No weakness, fatigue or lethargy. No daytime sleepiness. Integumentary:reports wounds, no lesions. No rash or pruritus. No unusual bruising. No change in hair or nails. Physical exam: General Appearance: Alert, cooperative, no distress, appears stated age. Skin: See HPI all other Skin color, texture, tugor normal, no rashes or lesions. Neurologic: Alert oriented x3 Assessment: 1. Nonhealing ulceration with fat layer exposed left dorsal foot 2. Nonhealing ulceration with bone necrosis left plantar foot 3. Diabetic foot ulcer 4. Osteomyelitis Plan: 1.Left dorsal foot: Apply honey gel and border foam. Left plantar foot apply absorptive silver rope, saline moistened gauze, dry gauze, rolled gauze and secure with paper tape. Change Sunday. Nonweightbearing to the left forefoot. Utilize a walker. Discussed in length with patient options for planning care. Patient a public speak with his foot doctor before he proceeds with any further plans. We will be happy to see the patient in the wound care center upon discharge. Thank you for the consultation any questions please contact the wound care center DNP note has been reviewed and discussed with Dr. Graf and the impression and plan of care has been directed as dictated. Past Medical History Past Medical History: Diabetes Mellitus, Hypertension History of Any Multi-Drug Resistant Organisms: MRSA Year Discovered:: 1997 MDRO Source:: Unsure Past Surgical History: No Surgical Hx Reported Additional Past Surgical History / Comment(s): eye surgery Past Anesthesia/Blood Transfusion Reactions: No Reported Reaction Past Psychological History: Anxiety Smoking Status: Former smoker Past Alcohol Use History: Occasional Past Drug Use History: None Reported Medications and Allergies Home Medications Medication Instructions Recorded Confirmed Type ALPRAZolam [Xanax] 1 mg PO BID PRN 08/20/23 08/20/23 History ALPRAZolam [Xanax] 1 mg PO HS 08/20/23 08/20/23 History Lisinopril-Hctz 20-12.5 mg 2 tab PO DAILY 08/20/23 08/20/23 History [Zestoretic 20-12.5] amLODIPine [Norvasc] 5 mg PO DAILY 08/20/23 08/20/23 History metFORMIN HCL [Glucophage] 1,000 mg PO W/BRKFST 08/20/23 08/20/23 History metFORMIN HCL [Glucophage] 500 mg PO W/SUPPER 08/20/23 08/20/23 History Allergies Allergy/AdvReac Type Severity Reaction Status Date / Time bupropion [From Wellbutrin] Allergy Unknown Verified 08/20/23 19:07 varenicline [From Chantix] Allergy Unknown Verified 08/20/23 19:07 Physical Exam Vitals: Vital Signs Temp Pulse Pulse Pulse Pulse Resp BP 08/22/23 07:04 99.2 F 86 17 08/22/23 01:52 98.2 F 93 17 08/21/23 21:13 98.4 F 77 16 119/66 08/21/23 21:09 98.4 F 77 16 119/66 08/21/23 20:00 98.3 F 93 16 08/21/23 19:01 98.3 F 83 16 115/70 08/21/23 18:41 98.3 F 93 16 104/68 08/21/23 18:31 98.2 F 92 16 129/74 08/21/23 17:22 67 16 08/21/23 17:08 74 16 08/21/23 16:53 97.4 F L 70 16 08/21/23 16:17 92 16 08/21/23 12:55 97.7 F 78 14 BP BP Pulse Ox 08/22/23 07:04 121/68 98 08/22/23 01:52 143/69 98 08/21/23 21:13 99 08/21/23 21:09 99 08/21/23 20:00 128/64 98 08/21/23 19:01 08/21/23 18:41 98 08/21/23 18:31 100 08/21/23 17:22 141/68 98 08/21/23 17:08 135/64 99 08/21/23 16:53 114/63 97 08/21/23 16:17 124/59 99 08/21/23 12:55 119/68 98 Intake and Output 08/21/23 08/22/23 08/22/23 22:59 06:59 14:59 Intake Total 628 Output Total 0 Balance 628 Intake: IV 350 Blood Product 278 Rc Pheresis 2 As3 Unit 278 [id number] Output: Estimated Blood Loss 0 Other: # Voids 4 1 Weight 98.43 kg Results CBC & Chem 7: 08/22/23 05:23 08/22/23 05:23 Labs: Abnormal Lab Results - Last 24 Hours (Table) 08/21/23 08/21/23 08/21/23 Range/Units 05:28 11:38 14:23 RBC (4.30-5.90) m/uL Hgb (13.0-17.5) gm/dL Hct (39.0-53.0) % ESR 96 H (0-20) mm/Hr BUN (9-20) mg/dL Glucose (74-99) mg/dL POC Glucose (mg/dL) 133 H (70-110) mg/dL Calcium (8.4-10.2) mg/dL Iron (65-175) UG/DL TIBC (228-460) UG/DL % Saturation (15.00-50.00) Transferrin (204.0-354.0) mg/dL Ferritin (22.0-322.0) ng/mL Vitamin B12 (200.0-944.0) pg/mL Crossmatch See Detail 08/21/23 08/21/23 08/21/23 Range/Units 16:15 17:13 20:33 RBC (4.30-5.90) m/uL Hgb (13.0-17.5) gm/dL Hct (39.0-53.0) % ESR (0-20) mm/Hr BUN (9-20) mg/dL Glucose (74-99) mg/dL POC Glucose (mg/dL) 117 H 129 H 176 H (70-110) mg/dL Calcium (8.4-10.2) mg/dL Iron (65-175) UG/DL TIBC (228-460) UG/DL % Saturation (15.00-50.00) Transferrin (204.0-354.0) mg/dL Ferritin (22.0-322.0) ng/mL Vitamin B12 (200.0-944.0) pg/mL Crossmatch 08/22/23 08/22/23 08/22/23 Range/Units 05:23 05:23 05:23 RBC 3.14 L (4.30-5.90) m/uL Hgb 8.8 L (13.0-17.5) gm/dL Hct 27.3 L (39.0-53.0) % ESR (0-20) mm/Hr BUN 22 H (9-20) mg/dL Glucose 127 H (74-99) mg/dL POC Glucose (mg/dL) (70-110) mg/dL Calcium 8.3 L (8.4-10.2) mg/dL Iron 24 L (65-175) UG/DL TIBC 206 L (228-460) UG/DL % Saturation 11.65 L (15.00-50.00) Transferrin 147.0 L (204.0-354.0) mg/dL Ferritin 396.0 H (22.0-322.0) ng/mL Vitamin B12 1151.0 H (200.0-944.0) pg/mL Crossmatch 08/22/23 Range/Units 05:38 RBC (4.30-5.90) m/uL Hgb (13.0-17.5) gm/dL Hct (39.0-53.0) % ESR (0-20) mm/Hr BUN (9-20) mg/dL Glucose (74-99) mg/dL POC Glucose (mg/dL) 130 H (70-110) mg/dL Calcium (8.4-10.2) mg/dL Iron (65-175) UG/DL TIBC (228-460) UG/DL % Saturation (15.00-50.00) Transferrin (204.0-354.0) mg/dL Ferritin (22.0-322.0) ng/mL Vitamin B12 (200.0-944.0) pg/mL Crossmatch Microbiology - Last 24 Hours (Table) 08/20/23 15:04 Blood Culture - Preliminary Blood 08/20/23 15:04 Blood Culture - Preliminary Blood Assessment and Plan (1) Non-pressure chronic ulcer of other part of left foot with necrosis of bone Current Visit: Yes Status: Acute Code(s): L97.524 - NON-PRS CHRONIC ULCER OTH PRT LEFT FOOT W NECROSIS OF BONE SNOMED Code(s): 76489116829042015 (2) Non-pressure chronic ulcer of other part of left foot with fat layer exposed Current Visit: Yes Status: Acute Code(s): L97.522 - NON-PRS CHRONIC ULCER OTH PRT LEFT FOOT W FAT LAYER EXPOSED SNOMED Code(s): 19976501650797061 (3) Diabetic foot ulcer Current Visit: Yes Status: Acute Code(s): E11.621 - TYPE 2 DIABETES MELLITUS WITH FOOT ULCER; L97.509 - NON-PRESSURE CHRONIC ULCER OTH PRT UNSP FOOT W UNSP SEVERITY SNOMED Code(s): 667894089 (4) Osteomyelitis Current Visit: Yes Status: Acute Code(s): M86.9 - OSTEOMYELITIS, UNSPECIFIED SNOMED Code(s): 96263205
--- NOTE | 2023-08-22 11:03 | P.PN ---
Subjective Progress Note Date: 08/22/23 Principal diagnosis: Left foot infection Patient was seen and examined today as follow-up. Yesterday he underwent excisional debridement of his left foot wound with incision and drainage of deep foot abscess. Wound plantar surface wound was incised and drained with noted to latissimus-appearing material and serosanguineous fluid removed wound was extending throughout the deep aspect of the foot and there was noted bone fragments floating within the foot. Deep wound cultures were obtained and are currently pending. Patient states he is having some pain in that foot he has not asked for any pain medication at this time. Denies any fevers or chills, and has been afebrile. He remains on Unasyn and vancomycin. Objective - Vital Signs Vital signs: Vital Signs Temp 99.2 F 08/22/23 07:04 Pulse 86 08/22/23 07:04 Resp 17 08/22/23 07:04 BP 121/68 08/22/23 07:04 Pulse Ox 98 08/22/23 07:04 FiO2 Intake & Output 08/21/23 08/22/23 08/22/23 18:59 06:59 18:59 Intake Total 350 278 Output Total 0 Balance 350 278 Weight 98.43 kg Intake: IV 350 Blood Product 0 278 Rc Pheresis 2 As3 Unit 0 278 [id number] Output: Estimated Blood Loss 0 Other: Voiding Method Toilet # Voids 4 1 - Exam General appearance: The patient is alert, oriented, appears in no acute distre ss. HET: Head is normocephalic and atraumatic. Pupils are equal and reactive. Neck: Supple. Abdomen: Soft, nondistended. Extremities: Left lower extremity swelling, Charcot foot with dressing with serosanguineous drainage. Neurological: No focal deficits. - Labs CBC & Chem 7: 08/22/23 05:23 08/22/23 05:23 Labs: Abnormal Lab Results - Last 24 Hours (Table) 08/21/23 08/21/23 08/21/23 Range/Units 05:28 11:38 14:23 RBC (4.30-5.90) m/uL Hgb (13.0-17.5) gm/dL Hct (39.0-53.0) % ESR 96 H (0-20) mm/Hr BUN (9-20) mg/dL Glucose (74-99) mg/dL POC Glucose (mg/dL) 133 H (70-110) mg/dL Calcium (8.4-10.2) mg/dL Iron (65-175) UG/DL TIBC (228-460) UG/DL % Saturation (15.00-50.00) Transferrin (204.0-354.0) mg/dL Ferritin (22.0-322.0) ng/mL Vitamin B12 (200.0-944.0) pg/mL Crossmatch See Detail 08/21/23 08/21/23 08/21/23 Range/Units 16:15 17:13 20:33 RBC (4.30-5.90) m/uL Hgb (13.0-17.5) gm/dL Hct (39.0-53.0) % ESR (0-20) mm/Hr BUN (9-20) mg/dL Glucose (74-99) mg/dL POC Glucose (mg/dL) 117 H 129 H 176 H (70-110) mg/dL Calcium (8.4-10.2) mg/dL Iron (65-175) UG/DL TIBC (228-460) UG/DL % Saturation (15.00-50.00) Transferrin (204.0-354.0) mg/dL Ferritin (22.0-322.0) ng/mL Vitamin B12 (200.0-944.0) pg/mL Crossmatch 08/22/23 08/22/23 08/22/23 Range/Units 05:23 05:23 05:23 RBC 3.14 L (4.30-5.90) m/uL Hgb 8.8 L (13.0-17.5) gm/dL Hct 27.3 L (39.0-53.0) % ESR (0-20) mm/Hr BUN 22 H (9-20) mg/dL Glucose 127 H (74-99) mg/dL POC Glucose (mg/dL) (70-110) mg/dL Calcium 8.3 L (8.4-10.2) mg/dL Iron 24 L (65-175) UG/DL TIBC 206 L (228-460) UG/DL % Saturation 11.65 L (15.00-50.00) Transferrin 147.0 L (204.0-354.0) mg/dL Ferritin 396.0 H (22.0-322.0) ng/mL Vitamin B12 1151.0 H (200.0-944.0) pg/mL Crossmatch 08/22/23 Range/Units 05:38 RBC (4.30-5.90) m/uL Hgb (13.0-17.5) gm/dL Hct (39.0-53.0) % ESR (0-20) mm/Hr BUN (9-20) mg/dL Glucose (74-99) mg/dL POC Glucose (mg/dL) 130 H (70-110) mg/dL Calcium (8.4-10.2) mg/dL Iron (65-175) UG/DL TIBC (228-460) UG/DL % Saturation (15.00-50.00) Transferrin (204.0-354.0) mg/dL Ferritin (22.0-322.0) ng/mL Vitamin B12 (200.0-944.0) pg/mL Crossmatch Microbiology - Last 24 Hours (Table) 08/20/23 15:04 Blood Culture - Preliminary Blood 08/20/23 15:04 Blood Culture - Preliminary Blood Assessment and Plan Assessment: 1. Infected Left diabetic foot wounds, status post excisional debridement and I&D of abscess 2. Left Charcot foot, Osteomyelitis 3. Diabetes mellitus 4. Hypertension Plan: 1. Patient is status post excisional debridement of left foot dorsal wound and I&D of plantar wound 2. Wound care clinic consulted for continued local wound care and outpatient follow-up 3. Continue with antibiotic recommendations from infectious disease 4. Consult to physical therapy, offload weight to left foot It was discussed with patient due to the extent of bone involvement and destruction there is a likelihood of healing and will likely require [id number] amputation. Patient verbalizes understanding and would like to continue to move forward with IV antibiotics and wound care. Thank you for this consultation, we will continue to follow. The impression and plan of care has been dictated as directed. Dr. Humphreys I performed a history and examination of this patient, discussed the same with the dictator. I agree with the dictator's note ,documented as a scribe. Any additional findings or plans will be noted.
[2023-08-22 11:24] LABS: Glucose,Whole Blood 229 mg/dL (70-110)
--- NOTE | 2023-08-22 12:00 | P.PN ---
Subjective Progress Note Date: 08/22/23 Principal diagnosis: Left diabetic foot/osteomyelitis Patient is a 68-year-old male with a past medical history significant for diabetes mellitus and hypertension patient has been dealing with a nonhealing wound on the dorsal aspect of his left foot that has been there since March 2023, admitted to the hospital with worsening left diabetic foot infection with underlying osteomyelitis in this patient who is status post debridement of the wound on the dorsal as well as the plantar aspect by surgery on 08/21/2023 On today's evaluation had that is 08/22/2023, the patient continues to be afebrile, the patient is breathing on room air, the patient denies chest pain and no cough, patient denies abdominal pain, no nausea/vomiting /diarrhea , patient denies any pain to the left foot Patient did have a white count of 5.5, creatinine is 1.07 cultures are currently pending Objective - Vital Signs Vital signs: Vital Signs Temp 99.2 F 08/22/23 07:04 Pulse 86 08/22/23 07:04 Resp 17 08/22/23 07:04 BP 121/68 08/22/23 07:04 Pulse Ox 98 08/22/23 07:04 FiO2 Intake & Output 08/21/23 08/22/23 08/22/23 18:59 06:59 18:59 Intake Total 350 278 Output Total 0 Balance 350 278 Weight 98.43 kg Intake: IV 350 Blood Product 0 278 Rc Pheresis 2 As3 Unit 0 278 [id number] Output: Estimated Blood Loss 0 Other: Voiding Method Toilet # Voids 4 1 - Exam GENERAL DESCRIPTION: An elderly male lying in bed in no distress RESPIRATORY SYSTEM: Unlabored breathing , decreased breath sounds at bases HEART: S1 S2 regular rate and rhythm , ABDOMEN: Soft , no tenderness EXTREMITIES: Left foot is currently dressed - Labs CBC & Chem 7: 08/22/23 05:23 08/22/23 05:23 Labs: Abnormal Lab Results - Last 24 Hours (Table) 08/21/23 08/21/23 08/21/23 Range/Units 05:28 11:38 14:23 RBC (4.30-5.90) m/uL Hgb (13.0-17.5) gm/dL Hct (39.0-53.0) % ESR 96 H (0-20) mm/Hr BUN (9-20) mg/dL Glucose (74-99) mg/dL POC Glucose (mg/dL) 133 H (70-110) mg/dL Calcium (8.4-10.2) mg/dL Iron (65-175) UG/DL TIBC (228-460) UG/DL % Saturation (15.00-50.00) Transferrin (204.0-354.0) mg/dL Ferritin (22.0-322.0) ng/mL Vitamin B12 (200.0-944.0) pg/mL Crossmatch See Detail 08/21/23 08/21/23 08/21/23 Range/Units 16:15 17:13 20:33 RBC (4.30-5.90) m/uL Hgb (13.0-17.5) gm/dL Hct (39.0-53.0) % ESR (0-20) mm/Hr BUN (9-20) mg/dL Glucose (74-99) mg/dL POC Glucose (mg/dL) 117 H 129 H 176 H (70-110) mg/dL Calcium (8.4-10.2) mg/dL Iron (65-175) UG/DL TIBC (228-460) UG/DL % Saturation (15.00-50.00) Transferrin (204.0-354.0) mg/dL Ferritin (22.0-322.0) ng/mL Vitamin B12 (200.0-944.0) pg/mL Crossmatch 08/22/23 08/22/23 08/22/23 Range/Units 05:23 05:23 05:23 RBC 3.14 L (4.30-5.90) m/uL Hgb 8.8 L (13.0-17.5) gm/dL Hct 27.3 L (39.0-53.0) % ESR (0-20) mm/Hr BUN 22 H (9-20) mg/dL Glucose 127 H (74-99) mg/dL POC Glucose (mg/dL) (70-110) mg/dL Calcium 8.3 L (8.4-10.2) mg/dL Iron 24 L (65-175) UG/DL TIBC 206 L (228-460) UG/DL % Saturation 11.65 L (15.00-50.00) Transferrin 147.0 L (204.0-354.0) mg/dL Ferritin 396.0 H (22.0-322.0) ng/mL Vitamin B12 1151.0 H (200.0-944.0) pg/mL Crossmatch 08/22/23 Range/Units 05:38 RBC (4.30-5.90) m/uL Hgb (13.0-17.5) gm/dL Hct (39.0-53.0) % ESR (0-20) mm/Hr BUN (9-20) mg/dL Glucose (74-99) mg/dL POC Glucose (mg/dL) 130 H (70-110) mg/dL Calcium (8.4-10.2) mg/dL Iron (65-175) UG/DL TIBC (228-460) UG/DL % Saturation (15.00-50.00) Transferrin (204.0-354.0) mg/dL Ferritin (22.0-322.0) ng/mL Vitamin B12 (200.0-944.0) pg/mL Crossmatch Microbiology - Last 24 Hours (Table) 08/20/23 15:04 Blood Culture - Preliminary Blood 08/20/23 15:04 Blood Culture - Preliminary Blood Assessment and Plan (1) Diabetic foot ulcer Current Visit: Yes Status: Acute Code(s): E11.621 - TYPE 2 DIABETES MELLITUS WITH FOOT ULCER; L97.509 - NON-PRESSURE CHRONIC ULCER OTH PRT UNSP FOOT W UNSP SEVERITY SNOMED Code(s): 882817547 (2) Osteomyelitis Current Visit: Yes Status: Acute Code(s): M86.9 - OSTEOMYELITIS, UNSPECIFIED SNOMED Code(s): 77084652 Plan: 1patient with a left diabetic foot wound and infection with Charcot foot and concerning for underlying osteomyelitis and abscess we will need to cover for the gram-positive as well as gram-negative pathogen failing outpatient oral antibiotic therapy. 2patient is status post surgical debridement and deep culture which are currently pending. 3patient to continue with vancomycin pharmacy to dose with a target trough of 15 And Unasyn while waiting for the cultures to finalize Dictation was produced using [employer] dictation software. please excuse any grammatical, word or spelling errors. Time with Patient: Less than 30
[2023-08-22] MEDS: Acetaminophen-Codeine 300-30mg TAB PO PRN ×2 (12:07→21:06)
[2023-08-22 16:35] LABS: Glucose,Whole Blood 154 mg/dL (70-110)
[2023-08-22] MEDS: LACTATED RINGERS 1,000 ML IV SCH (16:49)
[2023-08-22] MEDS: ALPRAZolam 1 MG TAB PO PRN (17:22)
[2023-08-22 20:18] LABS: Glucose,Whole Blood 167 mg/dL (70-110)
--- NOTE | 2023-08-22 20:33 | P.PN ---
Subjective Progress Note Date: 08/22/23 (delayed charting seen at 1145) Patient is a 68-year-old male with hypertension, diabetes mellitus, and neuropathy who presented to the ED at the direction of Dr. Zurita for failed outpatient treatment of infected diabetic foot ulcer (Augmentin and Clindamycin). In the ED, he was found to be tachycardic with heart rate in the 100s. Initial laboratory analysis was remarkable for CBC hemoglobin of 8.7, platelet count of 496, ESR 125, bicarb 20, BUN 37, creatinine 1.41, and CRP was 7.8.Foot CT showed Charcot neuropathic osteoarthropathy with suspected underlying cellulitis/osteomyelitis involving the majority of the joints of the foot. Patient was admitted for further management. Infectious disease and vascular surgery were consulted. He was started on IV antibiotics. On 09/17/23 patient 1 excisional debridement of the left dorsal foot wound measuring 7 x 5 m with incision and drainage of deep foot abscess. Vascular surgery recommended BKA. Patient seen and examined at bedside. He is worried about losing his foot, and he is also worried about the infection getting worse and moving further of his leg requiring further amputation. He would like to discuss this with the gelatin maker utility he isn't seeing in [place] but then would likely like to proceed with BKA. He denies any chest pain, shortness breath, nausea, vomiting, diarrhea. Vital signs reviewed General: nontoxic, no distress, appears at stated age Cardiovascular: S1S2 reg, no murmur, positive posterior tibial pulse bilateral, Lungs: Decreased breath sounds bilateral bilateral, no rhonchi, no rales , no accessory muscle use Ext: no gross muscle atrophy, no edema b/l lower extremities, no contractures, left foot with dressing in place Neuro: CN II-XI grossly intact, no focal neuro deficits Psych: Alert, oriented, appropriate affect Assessment/Plan: Left foot osteal myelitis secondary to diabetic foot ulcer, failed outpatient treatment Anemia of chronic disease and accommodation with iron deficiency anemia -Start Tylenol 3 one tablet every 6 hours as needed for pain -Continue with Unasyn 3 g IV piggyback every 6 hours day #3 -Continue with vancomycin 1500 mg IV piggyback every 12 hours day #3. Monitor for renal toxicity with vancomycin trough and creatinine - await cultures from wound Diabetes mellitus type 2 with hyperglycemia -Hemoglobin A1 C8.4 -Continue with sliding scale insulin -Hold Glucophage -Will likely need increased diabetic medications on discharge Acute kidney injury, resolved Anion gap metabolic acidosis, resolved Imaging: None new Data Review: Labs reviewed from today include CBC, basic metabolic profile, iron studies, B12, and folic acid and they are remarkable for hemoglobin 8.8, iron 24, TIBC 206, percent sat 11.5, ferritin 396, B12 1151 Wound cultures-pending Blood cultures-negative 24 hours DVT prophylaxis: Heparin Anticipated discharge date: Pending clinical Course Anticipated discharge place: Pending clinical Course This dictation was prepared using [employer] voice recognition software. Though every attempt is made to correct errors during dictation some may still exist. Objective - Vital Signs Vital signs: Vital Signs Temp 99.5 F 08/22/23 19:08 Pulse 81 08/22/23 19:08 Resp 17 08/22/23 19:08 BP 112/68 08/22/23 19:08 Pulse Ox 96 08/22/23 19:08 FiO2 Intake & Output 08/22/23 08/22/23 08/23/23 06:59 18:59 06:59 Intake Total 278 Balance 278 Intake: Blood Product 278 Rc Pheresis 2 As3 Unit 278 [id number] Other: # Voids 1 3 - Labs CBC & Chem 7: 08/22/23 05:23 08/22/23 05:23 Labs: Abnormal Lab Results - Last 24 Hours (Table) 08/21/23 08/21/23 08/22/23 Range/Units 14:23 20:33 05:23 RBC (4.30-5.90) m/uL Hgb (13.0-17.5) gm/dL Hct (39.0-53.0) % BUN (9-20) mg/dL Glucose (74-99) mg/dL POC Glucose (mg/dL) 176 H (70-110) mg/dL Calcium (8.4-10.2) mg/dL Iron 24 L (65-175) UG/DL TIBC 206 L (228-460) UG/DL % Saturation 11.65 L (15.00-50.00) Transferrin 147.0 L (204.0-354.0) mg/dL Ferritin 396.0 H (22.0-322.0) ng/mL Vitamin B12 1151.0 H (200.0-944.0) pg/mL Crossmatch See Detail 08/22/23 08/22/23 08/22/23 Range/Units 05:23 05:23 05:38 RBC 3.14 L (4.30-5.90) m/uL Hgb 8.8 L (13.0-17.5) gm/dL Hct 27.3 L (39.0-53.0) % BUN 22 H (9-20) mg/dL Glucose 127 H (74-99) mg/dL POC Glucose (mg/dL) 130 H (70-110) mg/dL Calcium 8.3 L (8.4-10.2) mg/dL Iron (65-175) UG/DL TIBC (228-460) UG/DL % Saturation (15.00-50.00) Transferrin (204.0-354.0) mg/dL Ferritin (22.0-322.0) ng/mL Vitamin B12 (200.0-944.0) pg/mL Crossmatch 08/22/23 08/22/23 08/22/23 Range/Units 11:23 16:33 20:16 RBC (4.30-5.90) m/uL Hgb (13.0-17.5) gm/dL Hct (39.0-53.0) % BUN (9-20) mg/dL Glucose (74-99) mg/dL POC Glucose (mg/dL) 229 H 154 H 167 H (70-110) mg/dL Calcium (8.4-10.2) mg/dL Iron (65-175) UG/DL TIBC (228-460) UG/DL % Saturation (15.00-50.00) Transferrin (204.0-354.0) mg/dL Ferritin (22.0-322.0) ng/mL Vitamin B12 (200.0-944.0) pg/mL Crossmatch Microbiology - Last 24 Hours (Table) 08/21/23 16:46 Gram Stain - Preliminary Foot - Left Wound Culture - Preliminary 08/20/23 15:04 Blood Culture - Preliminary Blood 08/20/23 15:04 Blood Culture - Preliminary Blood
[2023-08-22] MEDS: ALPRAZolam 1 MG TAB PO SCH (22:03)
[2023-08-23] MEDS: AMPICILLIN-SULBACTAM 3 GM in SODIUM CHLORIDE 0.9% 100 ML IVPB SCH ×5 (00:37→20:18)
[2023-08-23 06:21] LABS: Glucose,Whole Blood 133 mg/dL (70-110)
[2023-08-23] MEDS: INSULIN ASPART (NovoLOG) 100 UNIT/ML VIAL SQ SCH ×4 (06:26→20:18)
[2023-08-23] MEDS: HEPARIN SODIUM,PORCINE 5,000 UNIT/ML 1 ML VIAL SQ SCH ×3 (06:28→20:18)
[2023-08-23] MEDS: amLODIPine 5 MG TAB PO SCH (07:39)
[2023-08-23] MEDS: lisinopriL 20 MG TAB PO SCH (07:39)
[2023-08-23] MEDS: Acetaminophen-Codeine 300-30mg TAB PO PRN ×2 (07:40→20:15)
[2023-08-23] MEDS ORDERED: VANCOMYCIN TROUGH DUE 1 EACH MISC MISCELLANE ONE (09:00)
[2023-08-23] MEDS: VANCOMYCIN 1,500 MG in SODIUM CHLORIDE 0.9% 500 ML 500 ML IVPB SCH (09:51)
--- NOTE | 2023-08-23 10:12 | P.PN ---
Subjective Progress Note Date: 08/23/23 Principal diagnosis: Left foot infection Adenosine as a follow-up. He is status post left foot debridement and I&D of abscess. He remains on IV antibiotics. He denies any fevers, chills, abdominal pain, nausea, vomiting or diarrhea. He does state today that he would like to proceed with the left lower extremity below the knee amputation however would like to do it as an outpatient. He had a low-grade temp through the night with max temp of 99.8, afebrile this morning. Objective - Vital Signs Vital signs: Vital Signs Temp 98.5 F 08/23/23 07:21 Pulse 77 08/23/23 07:21 Resp 18 08/23/23 07:21 BP 113/68 08/23/23 07:21 Pulse Ox 97 08/23/23 07:21 FiO2 Intake & Output 08/22/23 08/23/23 08/23/23 18:59 06:59 18:59 Weight 98.43 kg Other: # Voids 3 - Exam General appearance: The patient is alert, oriented, appears in no acute distress. HET: Head is normocephalic and atraumatic. Pupils are equal and reactive. Neck: Supple. Abdomen: Soft, nondistended. Extremities: Left lower extremity swelling, Charcot foot with dressing clean dry and intact. Neurological: No focal deficits. - Labs CBC & Chem 7: 08/22/23 05:23 08/22/23 05:23 Labs: Abnormal Lab Results - Last 24 Hours (Table) 08/22/23 08/22/23 08/22/23 Range/Units 11:23 16:33 20:16 POC Glucose (mg/dL) 229 H 154 H 167 H (70-110) mg/dL 08/23/23 Range/Units 06:18 POC Glucose (mg/dL) 133 H (70-110) mg/dL Microbiology - Last 24 Hours (Table) 08/20/23 15:04 Blood Culture - Preliminary Blood 08/20/23 15:04 Blood Culture - Preliminary Blood 08/21/23 16:46 Gram Stain - Preliminary Foot - Left Wound Culture - Preliminary Assessment and Plan Assessment: 1. Infected Left diabetic foot wounds, status post excisional debridement and I&D of abscess 2. Left Charcot foot, Osteomyelitis 3. Diabetes mellitus 4. Hypertension Plan: 1. Patient is status post excisional debridement of left foot dorsal wound and I&D of plantar wound 2. Wound care clinic consulted for continued local wound care and outpatient follow-up 3. Continue with antibiotic recommendations from infectious disease 4. Consult to physical therapy, nonweightbearing left foot It was discussed with patient due to the extent of bone involvement and destruction there is a likelihood of not healing and will likely require [id number] amputation. Patient has now decided he would like to move forward with [id number] amputation, however he would like to do this as an outpatient and follow-up with his primary medical physician first. We feel this is reasonable and can certainly set up an outpatient follow-up appointment next week with scheduling then of a left [id number] amputation. Thank you for this consultation, we will continue to follow. The impression and plan of care has been dictated as directed. Dr. Hernández I performed a history and examination of this patient, discussed the same with the dictator. I agree with the dictator's note ,documented as a scribe. Any additional findings or plans will be noted.
[2023-08-23] MEDS: SODIUM CHLORIDE 0.9% 1,000 ML IV SCH ×2 (11:02→23:38)
[2023-08-23 11:23] LABS: Glucose,Whole Blood 156 mg/dL (70-110)
--- NOTE | 2023-08-23 14:56 | P.PN ---
Subjective Progress Note Date: 08/23/23 Principal diagnosis: Left diabetic foot/osteomyelitis Patient is a 68-year-old male with a past medical history significant for diabetes mellitus and hypertension patient has been dealing with a nonhealing wound on the dorsal aspect of his left foot that has been there since March 2023, admitted to the hospital with worsening left diabetic foot infection with underlying osteomyelitis in this patient who is status post debridement of the wound on the dorsal as well as the plantar aspect by surgery on 08/21/2023 On today's evaluation had that is 08/23/2023, the patient remains to be afebrile, the patient is breathing comfortably on room air , the patient denies chest pain shortness of breath or cough, patient denies nausea/vomiting /diarrhea and no abdominal pain patient denies any pain to the left foot Patient did have a white count of 5.5, creatinine is 1.07 as of yesterday no CBC was done today cultures are currently pending Objective - Vital Signs Vital signs: Vital Signs Temp 98.5 F 08/23/23 07:21 Pulse 77 08/23/23 07:21 Resp 18 08/23/23 07:21 BP 113/68 08/23/23 07:21 Pulse Ox 97 08/23/23 07:21 FiO2 Intake & Output 08/22/23 08/23/23 08/23/23 18:59 06:59 18:59 Weight 98.43 kg Other: # Voids 3 - Exam GENERAL DESCRIPTION: An elderly male lying in bed in no distress RESPIRATORY SYSTEM: Unlabored breathing , decreased breath sounds at bases HEART: S1 S2 regular rate and rhythm , ABDOMEN: Soft , no tenderness EXTREMITIES: Left foot is currently dressed - Labs CBC & Chem 7: 08/22/23 05:23 08/22/23 05:23 Labs: Abnormal Lab Results - Last 24 Hours (Table) 08/22/23 08/22/23 08/23/23 Range/Units 16:33 20:16 06:18 POC Glucose (mg/dL) 154 H 167 H 133 H (70-110) mg/dL 08/23/23 Range/Units 11:22 POC Glucose (mg/dL) 156 H (70-110) mg/dL Microbiology - Last 24 Hours (Table) 08/20/23 15:04 Blood Culture - Preliminary Blood 08/20/23 15:04 Blood Culture - Preliminary Blood 08/21/23 16:46 Gram Stain - Preliminary Foot - Left Wound Culture - Preliminary Assessment and Plan (1) Diabetic foot ulcer Current Visit: Yes Status: Acute Code(s): E11.621 - TYPE 2 DIABETES MELLITUS WITH FOOT ULCER; L97.509 - NON-PRESSURE CHRONIC ULCER OTH PRT UNSP FOOT W UNSP SEVERITY SNOMED Code(s): 087217455 (2) Osteomyelitis Current Visit: Yes Status: Acute Code(s): M86.9 - OSTEOMYELITIS, UNSPECIFIED SNOMED Code(s): 66219649 Plan: 1patient with a left diabetic foot wound and infection with Charcot foot and concerning for underlying osteomyelitis and abscess we will need to cover for the gram-positive as well as gram-negative pathogen failing outpatient oral antibiotic therapy. 2patient is status post surgical debridement and deep culture which are currently pending. 3patient to continue with vancomycin pharmacy to dose with a target trough of 15 And Unasyn, patient seemed to be agreeable for left [id number] amputation if that happens the patient will not need any IV antibiotics on discharge Dictation was produced using [employer] dictation software. please excuse any grammatical, word or spelling errors. Time with Patient: Less than 30
[2023-08-23] MEDS: LACTATED RINGERS 1,000 ML IV SCH (15:06)
[2023-08-23 16:12] LABS: Glucose,Whole Blood 161 mg/dL (70-110)
[2023-08-23 16:34] LABS: Calcium 8.4 mg/dL (8.7-10.3); Carbon Dioxide 24.3 mmol/L (21.6-31.8); Chloride 109 mmol/L (96-109); Glucose 157 mg/dL (70-110); Potassium 4.8 mmol/L (3.5-5.5); Sodium 142 mmol/L (135-145)
[2023-08-23 16:49] LABS: HCT 27.6 % (39.6-50.0); HGB 8.3 d/dL (13.0-17.0); MCH 26.6 pg (27.0-32.0); MCHC 30.1 d/dL (32.0-37.0); MCV 88.5 FL (80.0-97.0); Mean Platelet Volume 9.6 FL (9.5-12.2); NRBC Per 100 WBC 0 X 10*3/uL (0.00-0.01); Platelet Count 381 X 10*3/uL (140-440); RBC 3.12 X 10*6/uL (4.40-5.60); WBC 6.35 X 10*3/uL (4.50-10.00)
[2023-08-23] MEDS: ALPRAZolam 1 MG TAB PO PRN (17:08)
--- NOTE | 2023-08-23 18:19 | P.PN ---
Subjective Progress Note Date: 08/23/23 (delayed charting seen at approx 1020) Patient is a 68-year-old male with hypertension, diabetes mellitus, and neuropathy who presented to the ED at the direction of Dr. Zurita for failed o utpatient treatment of infected diabetic foot ulcer (Augmentin and Clindamycin). In the ED, he was found to be tachycardic with heart rate in the 100s. Initial laboratory analysis was remarkable for CBC hemoglobin of 8.7, platelet count of 496, ESR 125, bicarb 20, BUN 37, creatinine 1.41, and CRP was 7.8.Foot CT showed Charcot neuropathic osteoarthropathy with suspected underlying cellulitis/osteomyelitis involving the majority of the joints of the foot. Patient was admitted for further management. Infectious disease and vascular surgery were consulted. He was started on IV antibiotics. On 09/17/23 patient 1 excisional debridement of the left dorsal foot wound measuring 7 x 5 m with in cision and drainage of deep foot abscess. Vascular surgery recommended BKA. Patient seen and examined at bedside. He reports pain was well-controlled. He denies any nausea, vomiting, diarrhea. We again discussed plan of care. Patient thought he ought to go home to have an amputation performed at a later date. I explianed to him that this does not have to be the case, but that he had requested such. Vital signs reviewed General: nontoxic, no distress, appears at stated age Cardiovascular: S1S2 reg, no murmur, positive posterior tibial pulse bilateral, Lungs: Decreased breath sounds bilateral bilateral, no rhonchi, no rales , no accessory muscle use Ext: no gross muscle atrophy, no edema b/l lower extremities, no contractures, left foot with dressing in place Neuro: CN II-XI grossly intact, no focal neuro deficits Psych: Alert, oriented, appropriate affect Assessment/Plan: Left foot osteal myelitis secondary to diabetic foot ulcer, failed outpatient treatment Anemia of chronic disease and accommodation with iron deficiency anemia -Case discussed with Lawrence, nurse practitioner with vascular surgery multiple times throughout the day. Plan of care will now be for patient to undergo BKA on 08/25/23. -Infectious disease note reviewed: Continue with vancomycin and Unasyn. If the patient does undergo BKA he will not need IV antibiotics on discharge. -Tylenol #3 one tablet every 6 hours as needed for pain -Continue with Unasyn 3 g IV piggyback every 6 hours day #4 -Continue with vancomycin 1500 mg IV piggyback every 12 hours day #4. Monitor for renal toxicity with vancomycin trough and creatinine Diabetes mellitus type 2 with hyperglycemia -Hemoglobin A1C 8.4 -Continue with sliding scale insulin -Hold Glucophage -Will likely need increased diabetic medications on discharge Acute kidney injury, resolved Anion gap metabolic acidosis, resolved Imaging: None new Data Review: Patient's T-max last 24 hours 99.7 -Labs reviewed from today include CBC, basic metabolic profile, and vancomycin trough which are remarkable for hemoglobin 8.3 (stable from yesterday). Wound culture- no growth at 48 hours Blood cultures-negative 48 hours DVT prophylaxis: Heparin Anticipated discharge date: Pending clinical Course Anticipated discharge place: Pending clinical Course This dictation was prepared using [employer] voice recognition software. Though every attempt is made to correct errors during dictation some may still exist. Objective - Vital Signs Vital signs: Vital Signs Temp 98.6 F 08/23/23 13:26 Pulse 77 08/23/23 07:21 Resp 18 08/23/23 13:26 BP 145/72 08/23/23 13:26 Pulse Ox 99 08/23/23 13:26 FiO2 Intake & Output 08/22/23 08/23/23 08/23/23 18:59 06:59 18:59 Weight 98.43 kg Other: # Voids 3 4 - Labs CBC & Chem 7: 08/23/23 08:34 08/23/23 08:34 Labs: Abnormal Lab Results - Last 24 Hours (Table) 08/22/23 08/23/23 08/23/23 Range/Units 20:16 06:18 08:34 RBC 3.12 L (4.40-5.60) X 10*6/uL Hgb 8.3 L (13.0-17.0) d/dL Hct 27.6 L (39.6-50.0) % MCH 26.6 L (27.0-32.0) pg MCHC 30.1 L (32.0-37.0) d/dL BUN/Creatinine Ratio (12.00-20.00) Ratio Glucose (70-110) mg/dL POC Glucose (mg/dL) 167 H 133 H (70-110) mg/dL Calcium (8.7-10.3) mg/dL 08/23/23 08/23/23 08/23/23 Range/Units 08:34 11:22 16:10 RBC (4.40-5.60) X 10*6/uL Hgb (13.0-17.0) d/dL Hct (39.6-50.0) % MCH (27.0-32.0) pg MCHC (32.0-37.0) d/dL BUN/Creatinine Ratio 21.00 H (12.00-20.00) Ratio Glucose 157 H (70-110) mg/dL POC Glucose (mg/dL) 156 H 161 H (70-110) mg/dL Calcium 8.4 L (8.7-10.3) mg/dL Microbiology - Last 24 Hours (Table) 08/21/23 16:46 Gram Stain - Final Foot - Left Wound Culture - Final 08/20/23 15:04 Blood Culture - Preliminary Blood 08/20/23 15:04 Blood Culture - Preliminary Blood
[2023-08-23 19:46] LABS: Glucose,Whole Blood 178 mg/dL (70-110)
[2023-08-23] MEDS: ALPRAZolam 1 MG TAB PO SCH (20:18)
[2023-08-23] MEDS: VANCOMYCIN 1,750 MG in SODIUM CHLORIDE 0.9% 500 ML 500 ML IVPB SCH (23:38)
[2023-08-24] MEDS: AMPICILLIN-SULBACTAM 3 GM in SODIUM CHLORIDE 0.9% 100 ML IVPB SCH ×4 (04:23→20:09)
[2023-08-24 06:27] LABS: Glucose,Whole Blood 141 mg/dL (70-110)
[2023-08-24] MEDS: INSULIN ASPART (NovoLOG) 100 UNIT/ML VIAL SQ SCH ×4 (06:29→21:01)
[2023-08-24] MEDS: HEPARIN SODIUM,PORCINE 5,000 UNIT/ML 1 ML VIAL SQ SCH ×3 (06:31→20:08)
[2023-08-24 06:54] LABS: African American GFR (CKD) 85 (>60 ml/min/1.73 sqM); Non-African American GFR(CKD) 73 (>60 ml/min/1.73 sqM)
[2023-08-24 08:09] LABS: HGB 8.1 gm/dL (13.0-17.5); Hypochromasia Marked; MCH 27.4 pg (25.0-35.0); MCHC 31.1 g/dL (31.0-37.0); MCV 88.3 fL (80.0-100.0); Mean Platelet Volume 7.9; Platelet Count 348 k/uL (150-450); RBC 2.94 m/uL (4.30-5.90); RDW 14.3 % (11.5-15.5); WBC 5.9 k/uL (3.8-10.6)
--- NOTE | 2023-08-24 08:36 | P.PN ---
Subjective Progress Note Date: 08/24/23 Principal diagnosis: Left foot infection Patient is seen and examined today as a follow-up for left foot osteomyelitis. He is status post debridement and I&D. Decision was made to move forward with left inneo-uxx-wost amputation. Patient is scheduled for tomorrow. He is with out any acute changes through the night. He denies any increased pain, fevers, chills, nausea or vomiting. No shortness breath or chest pain. Patient was transfused with 1 unit of blood on 08/21/2023 with repeat hemoglobin today at 8.1. Anemia profile shows iron deficiency anemia. Objective - Vital Signs Vital signs: Vital Signs Temp 98.9 F 08/24/23 00:42 Pulse 76 08/24/23 00:42 Resp 15 08/24/23 00:42 BP 128/74 08/24/23 00:42 Pulse Ox 96 08/24/23 00:42 FiO2 Intake & Output 08/23/23 08/24/23 08/24/23 18:59 06:59 18:59 Output Total 300 Balance -300 Weight 98.43 kg Output: Urine 300 Other: Voiding Method Toilet # Voids 4 - Exam General appearance: The patient is alert, oriented, appears in no acute distress. HET: Head is normocephalic and atraumatic. Pupils are equal and reactive. Neck: Supple. Abdomen: Soft, nondistended. Extremities: Left lower extremity swelling, Charcot foot with dressing clean dry and intact. Neurological: No focal deficits. - Labs CBC & Chem 7: 08/24/23 05:56 08/24/23 05:56 Labs: Abnormal Lab Results - Last 24 Hours (Table) 08/23/23 08/23/23 08/23/23 Range/Units 08:34 08:34 11:22 RBC 3.12 L (4.40-5.60) X 10*6/uL Hgb 8.3 L (13.0-17.0) d/dL Hct 27.6 L (39.6-50.0) % MCH 26.6 L (27.0-32.0) pg MCHC 30.1 L (32.0-37.0) d/dL BUN/Creatinine Ratio 21.00 H (12.00-20.00) Ratio Glucose 157 H (70-110) mg/dL POC Glucose (mg/dL) 156 H (70-110) mg/dL Calcium 8.4 L (8.7-10.3) mg/dL 08/23/23 08/23/23 08/24/23 Range/Units 16:10 19:45 05:56 RBC 2.94 L (4.40-5.60) X 10*6/uL Hgb 8.1 L (13.0-17.0) d/dL Hct 26.0 L (39.6-50.0) % MCH (27.0-32.0) pg MCHC (32.0-37.0) d/dL BUN/Creatinine Ratio (12.00-20.00) Ratio Glucose (70-110) mg/dL POC Glucose (mg/dL) 161 H 178 H (70-110) mg/dL Calcium (8.7-10.3) mg/dL 08/24/23 Range/Units 06:26 RBC (4.40-5.60) X 10*6/uL Hgb (13.0-17.0) d/dL Hct (39.6-50.0) % MCH (27.0-32.0) pg MCHC (32.0-37.0) d/dL BUN/Creatinine Ratio (12.00-20.00) Ratio Glucose (70-110) mg/dL POC Glucose (mg/dL) 141 H (70-110) mg/dL Calcium (8.7-10.3) mg/dL Microbiology - Last 24 Hours (Table) 08/21/23 16:46 Anaerobic Culture - Preliminary Foot - Left 08/20/23 15:04 Blood Culture - Preliminary Blood 08/20/23 15:04 Blood Culture - Preliminary Blood 08/21/23 16:46 Gram Stain - Final Foot - Left Wound Culture - Final Assessment and Plan Assessment: 1. Infected Left diabetic foot wounds, status post excisional debridement and I&D of abscess 2. Left Charcot foot, Osteomyelitis 3. Diabetes mellitus 4. Hypertension 5. Anemia of chronic disease with iron deficiency anemia Plan: 1. Patient is status post excisional debridement of left foot dorsal wound and I&D of plantar wound 2. Wound care clinic consulted for continued local wound care and outpatient follow-up 3. Continue with antibiotic recommendations from infectious disease 4. Nothing by mouth after midnight 5. Plan for a left xiqwh-uqn-tntr amputation tomorrow 6. Will give 1 unit of PRBC transfusion for preop hemoglobin 8.1 Thank you for this consultation, we will continue to follow. The impression and plan of care has been dictated as directed. Dr. Hernández I performed a history and examination of this patient, discussed the same with the dictator. I agree with the dictator's note ,documented as a scribe. Any additional findings or plans will be noted.
[2023-08-24] MEDS: amLODIPine 5 MG TAB PO SCH (08:59)
[2023-08-24] MEDS: lisinopriL 20 MG TAB PO SCH (08:59)
[2023-08-24] MEDS: ALPRAZolam 1 MG TAB PO PRN (09:11)
--- NOTE | 2023-08-24 10:24 | P.PN ---
Subjective Progress Note Date: 08/24/23 Principal diagnosis: Left diabetic foot/osteomyelitis Patient is a 68-year-old male with a past medical history significant for diabetes mellitus and hypertension patient has been dealing with a nonhealing wound on the dorsal aspect of his left foot that has been there since March 2023, admitted to the hospital with worsening left diabetic foot infection with underlying osteomyelitis in this patient who is status post debridement of the wound on the dorsal as well as the plantar aspect by surgery on 08/21/2023 On today's evaluation had that is 08/24/2023, the patient is afebrile, the patient is breathing comfortably on room air , the patient denies chest pain or cough, patient denies Abdominal pain , no nausea/vomiting /diarrhea patient continued to deny any pain to the left foot Patient did have a white count of 5.9, creatinine is 1.04, cultures are currently pending Objective - Vital Signs Vital signs: Vital Signs Temp 98.9 F 08/24/23 00:42 Pulse 76 08/24/23 00:42 Resp 15 08/24/23 00:42 BP 128/74 08/24/23 00:42 Pulse Ox 96 08/24/23 00:42 FiO2 Intake & Output 08/23/23 08/24/23 08/24/23 18:59 06:59 18:59 Output Total 300 Balance -300 Weight 98.43 kg Output: Urine 300 Other: Voiding Method Toilet # Voids 4 - Exam GENERAL DESCRIPTION: An elderly male lying in bed in no distress RESPIRATORY SYSTEM: Unlabored breathing , decreased breath sounds at bases HEART: S1 S2 regular rate and rhythm , ABDOMEN: Soft , no tenderness EXTREMITIES: Left foot is currently dressed - Labs CBC & Chem 7: 08/24/23 05:56 08/24/23 05:56 Labs: Abnormal Lab Results - Last 24 Hours (Table) 08/23/23 08/23/23 08/23/23 Range/Units 08:34 08:34 11:22 RBC 3.12 L (4.40-5.60) X 10*6/uL Hgb 8.3 L (13.0-17.0) d/dL Hct 27.6 L (39.6-50.0) % MCH 26.6 L (27.0-32.0) pg MCHC 30.1 L (32.0-37.0) d/dL BUN/Creatinine Ratio 21.00 H (12.00-20.00) Ratio Glucose 157 H (70-110) mg/dL POC Glucose (mg/dL) 156 H (70-110) mg/dL Calcium 8.4 L (8.7-10.3) mg/dL 08/23/23 08/23/23 08/24/23 Range/Units 16:10 19:45 05:56 RBC 2.94 L (4.40-5.60) X 10*6/uL Hgb 8.1 L (13.0-17.0) d/dL Hct 26.0 L (39.6-50.0) % MCH (27.0-32.0) pg MCHC (32.0-37.0) d/dL BUN/Creatinine Ratio (12.00-20.00) Ratio Glucose (70-110) mg/dL POC Glucose (mg/dL) 161 H 178 H (70-110) mg/dL Calcium (8.7-10.3) mg/dL 08/24/23 Range/Units 06:26 RBC (4.40-5.60) X 10*6/uL Hgb (13.0-17.0) d/dL Hct (39.6-50.0) % MCH (27.0-32.0) pg MCHC (32.0-37.0) d/dL BUN/Creatinine Ratio (12.00-20.00) Ratio Glucose (70-110) mg/dL POC Glucose (mg/dL) 141 H (70-110) mg/dL Calcium (8.7-10.3) mg/dL Microbiology - Last 24 Hours (Table) 08/21/23 16:46 Anaerobic Culture - Preliminary Foot - Left 08/20/23 15:04 Blood Culture - Preliminary Blood 08/20/23 15:04 Blood Culture - Preliminary Blood 08/21/23 16:46 Gram Stain - Final Foot - Left Wound Culture - Final Assessment and Plan (1) Diabetic foot ulcer Current Visit: Yes Status: Acute Code(s): E11.621 - TYPE 2 DIABETES MELLITUS WITH FOOT ULCER; L97.509 - NON-PRESSURE CHRONIC ULCER OTH PRT UNSP FOOT W UNSP SEVERITY SNOMED Code(s): 230522834 (2) Osteomyelitis Current Visit: Yes Status: Acute Code(s): M86.9 - OSTEOMYELITIS, UNSPECIFIED SNOMED Code(s): 32528889 Plan: 1patient with a left diabetic foot wound and infection with Charcot foot and concerning for underlying osteomyelitis and abscess we will need to cover for the gram-positive as well as gram-negative pathogen failing outpatient oral antibiotic therapy. 2patient is status post surgical debridement and deep culture which are current ly pending. 3patient to continue with vancomycin pharmacy to dose And Unasyn, patient seemed to be agreeable for left eskna-evh-usfq amputation which has been scheduled for tomorrow morning, patient will not need any IV antibiotics on discharge Dictation was produced using [employer] dictation software. please excuse any grammatical, word or spelling errors.
[2023-08-24 11:21] LABS: Glucose,Whole Blood 160 mg/dL (70-110)
[2023-08-24] MEDS: SODIUM CHLORIDE 0.9% 1,000 ML IV SCH (12:15)
[2023-08-24] MEDS: LACTATED RINGERS 1,000 ML IV SCH (16:13)
[2023-08-24 16:40] LABS: Glucose,Whole Blood 205 mg/dL (70-110)
--- NOTE | 2023-08-24 16:41 | P.PN ---
Subjective Progress Note Date: 08/24/23 (delayed charting seen at 1005) Patient is a 68-year-old male with hypertension, diabetes mellitus, and neuropathy who presented to the ED at the direction of Dr. Zurita for failed outpatient treatment of infected diabetic foot ulcer (Augmentin and Clindamycin). In the ED, he was found to be tachycardic with heart rate in the 100s. Initial laboratory analysis was remarkable for CBC hemoglobin of 8.7, platelet count of 496, ESR 125, bicarb 20, BUN 37, creatinine 1.41, and CRP was 7.8.Foot CT showed Charcot neuropathic osteoarthropathy with suspected underlying cellulitis/osteomyelitis involving the majority of the joints of the foot. Patient was admitted for further management. Infectious disease and vascular surgery were consulted. He was started on IV antibiotics. On 09/17/23 patient 1 excisional debridement of the left dorsal foot wound measuring 7 x 5 m with incision and drainage of deep foot abscess. Vascular surgery recommended BKA. Patient seen and examined at bedside. He has no complaints today. No significant changes from yesterday. Pain is well tolerated. He agreed to amputation has been scheduled for tomorrow. Vital signs reviewed General: nontoxic, no distress, appears at stated age Cardiovascular: S1S2 reg, no murmur, positive posterior tibial pulse bilateral, Lungs: Decreased breath sounds bilateral bilateral, no rhonchi, no rales , no accessory muscle use Ext: no gross muscle atrophy, no edema b/l lower extremities, no contractures, left foot with dressing in place Neuro: CN II-XI grossly intact, no focal neuro deficits Psych: Alert, oriented, appropriate affect Assessment/Plan: Left Charcot foot with osteomyelitis, secondary to diabetic foot ulcer, failed outpatient treatment Anemia of chronic disease and accommodation with iron deficiency anemia -Infectious disease note reviewed: Continue with vancomycin and Unasyn. She will not need IV antibiotics on discharge. - Vascular surgery note reviewed. 1 unit PRBCs for preop hemoglobin of 8.1, left BKA tomorrow -Tylenol #3 one tablet every 6 hours as needed for pain -Continue with Unasyn 3 g IV piggyback every 6 hours day #5 -Continue with vancomycin 1500 mg IV piggyback every 12 hours day #5. Monitor for renal toxicity with vancomycin trough and creatinine Diabetes mellitus type 2 with hyperglycemia -Hemoglobin A1C 8.4 -Continue with sliding scale insulin -Hold Glucophage -Will likely need increased diabetic medications on discharge Acute kidney injury, resolved Anion gap metabolic acidosis, resolved Imaging: None new Data Review: T max in the last 24 hours 99.4 Lab reviewed from today and remarkable for hemoglobin 8.1 Wound culture- no growth at 48 hours Blood cultures-negative 48 hours DVT prophylaxis: Heparin Anticipated discharge date: Pending clinical Course Anticipated discharge place: Pending clinical Course This dictation was prepared using [employer] voice recognition software. Though every attempt is made to correct errors during dictation some may still exist. Objective - Vital Signs Vital signs: Vital Signs Temp 98.7 F 08/24/23 14:44 Pulse 75 08/24/23 14:44 Resp 16 08/24/23 14:44 BP 130/73 08/24/23 14:44 Pulse Ox 97 08/24/23 14:44 FiO2 Intake & Output 08/23/23 08/24/23 08/24/23 18:59 06:59 18:59 Intake Total 310 Output Total 300 Balance -300 310 Weight 98.43 kg Intake: Blood Product 310 Rc As-1 Unit 310 [id number] Output: Urine 300 Other: Voiding Method Toilet # Voids 4 - Labs CBC & Chem 7: 08/24/23 05:56 08/24/23 05:56 Labs: Abnormal Lab Results - Last 24 Hours (Table) 08/21/23 08/23/23 08/23/23 Range/Units 14:23 08:34 08:34 RBC 3.12 L (4.40-5.60) X 10*6/uL Hgb 8.3 L (13.0-17.0) d/dL Hct 27.6 L (39.6-50.0) % MCH 26.6 L (27.0-32.0) pg MCHC 30.1 L (32.0-37.0) d/dL BUN/Creatinine Ratio 21.00 H (12.00-20.00) Ratio Glucose 157 H (70-110) mg/dL POC Glucose (mg/dL) (70-110) mg/dL Calcium 8.4 L (8.7-10.3) mg/dL Crossmatch See Detail 08/23/23 08/24/23 08/24/23 Range/Units 19:45 05:56 06:26 RBC 2.94 L (4.40-5.60) X 10*6/uL Hgb 8.1 L (13.0-17.0) d/dL Hct 26.0 L (39.6-50.0) % MCH (27.0-32.0) pg MCHC (32.0-37.0) d/dL BUN/Creatinine Ratio (12.00-20.00) Ratio Glucose (70-110) mg/dL POC Glucose (mg/dL) 178 H 141 H (70-110) mg/dL Calcium (8.7-10.3) mg/dL Crossmatch 08/24/23 Range/Units 11:18 RBC (4.40-5.60) X 10*6/uL Hgb (13.0-17.0) d/dL Hct (39.6-50.0) % MCH (27.0-32.0) pg MCHC (32.0-37.0) d/dL BUN/Creatinine Ratio (12.00-20.00) Ratio Glucose (70-110) mg/dL POC Glucose (mg/dL) 160 H (70-110) mg/dL Calcium (8.7-10.3) mg/dL Crossmatch Microbiology - Last 24 Hours (Table) 08/21/23 16:46 Anaerobic Culture - Preliminary Foot - Left 08/20/23 15:04 Blood Culture - Preliminary Blood 08/20/23 15:04 Blood Culture - Preliminary Blood 08/21/23 16:46 Gram Stain - Final Foot - Left Wound Culture - Final
[2023-08-24] MEDS: VANCOMYCIN 1,750 MG in SODIUM CHLORIDE 0.9% 500 ML 500 ML IVPB SCH (16:55)
[2023-08-24] MEDS: ALPRAZolam 1 MG TAB PO SCH (20:08)
[2023-08-24 20:41] LABS: Glucose,Whole Blood 154 mg/dL (70-110)
[2023-08-25] MEDS: SODIUM CHLORIDE 0.9% 1,000 ML IV SCH ×2 (03:24→16:05)
[2023-08-25] MEDS: AMPICILLIN-SULBACTAM 3 GM in SODIUM CHLORIDE 0.9% 100 ML IVPB SCH ×4 (03:31→21:45)
[2023-08-25] MEDS: HEPARIN SODIUM,PORCINE 5,000 UNIT/ML 1 ML VIAL SQ SCH ×3 (04:27→21:45)
[2023-08-25 05:14] LABS: HCT 28.2 % (39.0-53.0); Hypochromasia Moderate; MCH 28.2 pg (25.0-35.0); MCHC 31.9 g/dL (31.0-37.0); MCV 88.4 fL (80.0-100.0); Mean Platelet Volume 7.4; Platelet Count 318 k/uL (150-450); RBC 3.19 m/uL (4.30-5.90); RDW 14.5 % (11.5-15.5)
[2023-08-25 05:29] LABS: African American GFR (CKD) >90 (>60 ml/min/1.73 sqM); Non-African American GFR(CKD) 86 (>60 ml/min/1.73 sqM)
[2023-08-25 06:12] LABS: Glucose,Whole Blood 144 mg/dL (70-110)
[2023-08-25] MEDS: INSULIN ASPART (NovoLOG) 100 UNIT/ML VIAL SQ SCH ×4 (06:15→21:45)
[2023-08-25] MEDS ORDERED: MIDAZOLAM 2 MG/2 ML VIAL ONE (08:07)
[2023-08-25] MEDS ORDERED: NEOSTIGMINE 1 MG/ML 10 ML VIAL ONE (08:07)
[2023-08-25] MEDS ORDERED: SUCCINYLCHOLINE CHLORIDE 200 MG/10 ML VIAL IV ONE (08:07)
[2023-08-25] MEDS ORDERED: DEXAMETHASONE SOD PHOSPHATE 4 MG/ML 1 ML VIAL ONE (08:07)
[2023-08-25] MEDS ORDERED: fentaNYL (PF) 50 MCG/ML 2 ML AMP ONE (08:07)
[2023-08-25] MEDS ORDERED: PROPOFOL 10 MG/ML 20 ML VIAL IV ONE (08:07)
[2023-08-25] MEDS ORDERED: GLYCOPYRROLATE 0.2 MG/ML 2 ML VIAL ONE (08:07)
[2023-08-25] MEDS ORDERED: HYDROmorphone (PF) 1 MG/ML ONE (08:07)
[2023-08-25] MEDS ORDERED: ONDANSETRON 4 MG/2 ML VIAL ONE (08:07)
[2023-08-25] MEDS ORDERED: ROCURONIUM 10 MG/ML (5 ML VIAL) IV ONE (08:07)
[2023-08-25] MEDS ORDERED: LIDOCAINE 1% INJ 10MG/ML (20 ML MDV) ONE (08:07)
[2023-08-25] MEDS ORDERED: LACTATED RINGERS 1,000 ML IV ONE ×2 (08:10→10:13)
--- NOTE | 2023-08-25 10:39 | P.OP ---
Date of Procedure: 08/25/23 Preoperative Diagnosis: Irreversible ischemia left lower extremity. Postoperative Diagnosis: Same. Procedure(s) Performed: Left below the knee amputation. Anesthesia: OPHELIA Surgeon: Malcolm Hernández Estimated Blood Loss (ml): 300 Pathology: other (Left below the amputation.) Condition: stable Disposition: PACU Indications for Procedure: Patient is a 68-year-old male with a long-standing history of diabetes who presented with a chronic wound of the left foot. The patient had severe Charcot foot as result of diabetic vascular disease. This was not felt to be amenable to repair/islam and the patient was offered below the knee amputation. The procedure, risk and benefits were discussed. All questions were answered to patient's satisfaction. Description of Procedure: Patient was brought the upper and placed in the supine position Mr. general endotracheal anesthesia admission by the department anesthesiology. Patient received his ongoing antibiotic regimen. The left lower extremity sterilely prepped and draped in usual manner. Beginning 10 cm below the tibial tuberosity skin incision was made carried both medially and laterally. Hemostasis was achieved using electrocautery. The incision was then extended inferiorly both medially and laterally. Incision was deepened through the subcutaneous tissues. The muscle groups were divided with electrocautery. The great saphenous vein was identified, doubly ligated and transected. Periosteum was elevated off the tibia and the tibia was then transected. The fibula was then transected approximate 1 cm proximal to the transection line of the tibia. The amputation was then completed with an amputation knife and the specimen sent to pathology. The neural muscular bundle was identified and controlled. The femoral nerve was mobilized as far proximally as possible and transected after being ligated. The distal popliteal artery/tibial arteries and accompanying veins were ligated with silk suture and transected. The tibia anteriorly was beveled. Additional muscle tissue was removed with the aid of electrocautery. Bleeding points were controlled with electrocautery and suture ligature where appropriate. The wound was then copiously irrigated. Hemostasis was judged be adequate. Fascia was closed with 2-0 Vicryl suture with a Dipika drain placed from the medial to lateral aspect. Skin tio were used to approximate this skin. Adaptic, fluffs, Kerlix and a Calvin wrap were then applied. The leg was then placed in a knee immobilizer. Patient tolerated the procedure well and was taken the recovery area satisfactory and stable condition.
[2023-08-25] MEDS ORDERED: MORPHINE SULFATE 2 MG/ML SYRINGE IVP PRN (10:41)
[2023-08-25] MEDS ORDERED: HYDROmorphone 0.5 MG/0.5 ML SYRINGE IVP ONE (10:45)
--- NOTE | 2023-08-25 11:31 | P.PN ---
Subjective Progress Note Date: 08/25/23 Principal diagnosis: Left diabetic foot/osteomyelitis Patient is a 68-year-old male with a past medical history significant for diabetes mellitus and hypertension patient has been dealing with a nonhealing wound on the dorsal aspect of his left foot that has been there since March 2023, admitted to the hospital with worsening left diabetic foot infection with underlying osteomyelitis in this patient who is status post debridement of the wound on the dorsal as well as the plantar aspect by surgery on 08/21/2023, the patient is status post left [id number]-[id number]-xpil amputation completed on 08/25/2023 On today's evaluation that is 08/25/2023, the patient remains to be afebrile, the patient is breathing comfortably on room air, the patient denies chest pain shortness of breath and no cough, patient denies nausea/vomiting /diarrhea, and denies any abdominal pain, the patient pain to the left BKA stump is controlled Patient did have a white count of 5.0, cultures are currently pending Objective - Vital Signs Vital signs: Vital Signs Temp 98.5 F 08/25/23 10:27 Pulse 80 08/25/23 10:42 Resp 16 08/25/23 10:42 BP 129/56 08/25/23 10:42 Pulse Ox 91 L 08/25/23 10:42 FiO2 Intake & Output 08/24/23 08/25/23 08/25/23 18:59 06:59 18:59 Intake Total 310 1000 Output Total 300 Balance 310 700 Intake: IV 1000 Blood Product 310 Rc As-1 Unit 310 [id number] Output: Estimated Blood Loss 300 Other: Voiding Method Toilet # Voids 3 2 # Bowel Movements 0 0 - Exam GENERAL DESCRIPTION: An elderly male lying in bed in no distress RESPIRATORY SYSTEM: Unlabored breathing , decreased breath sounds at bases HEART: S1 S2 regular rate and rhythm , ABDOMEN: Soft , no tenderness EXTREMITIES: Left BKA stump is covered in surgical dressing - Labs CBC & Chem 7: 08/25/23 04:14 08/25/23 04:14 Labs: Abnormal Lab Results - Last 24 Hours (Table) 08/21/23 08/24/23 08/24/23 Range/Units 14:23 11:18 16:39 RBC (4.30-5.90) m/uL Hgb (13.0-17.5) gm/dL Hct (39.0-53.0) % POC Glucose (mg/dL) 160 H 205 H (70-110) mg/dL Crossmatch See Detail 08/24/23 08/25/23 08/25/23 Range/Units 20:39 04:14 06:10 RBC 3.19 L (4.30-5.90) m/uL Hgb 9.0 L (13.0-17.5) gm/dL Hct 28.2 L (39.0-53.0) % POC Glucose (mg/dL) 154 H 144 H (70-110) mg/dL Crossmatch Microbiology - Last 24 Hours (Table) 08/20/23 22:33 Gram Stain - Preliminary Foot - Left 08/20/23 18:01 Anaerobic Culture - Final Foot - Left Assessment and Plan (1) Diabetic foot ulcer Current Visit: Yes Status: Acute Code(s): E11.621 - TYPE 2 DIABETES MELLITUS WITH FOOT ULCER; L97.509 - NON-PRESSURE CHRONIC ULCER OTH PRT UNSP FOOT W UNSP SEVERITY SNOMED Code(s): 727418187 (2) Osteomyelitis Current Visit: Yes Status: Acute Code(s): M86.9 - OSTEOMYELITIS, UNSPECIFIED SNOMED Code(s): 44227051 Plan: 1patient with a left diabetic foot wound and infection with Charcot foot and concerning for underlying osteomyelitis and abscess we will need to cover for the gram-positive as well as gram-negative pathogen failing outpatient oral antibiotic therapy. 2patient is status post surgical debridement and deep culture which are currently pending. Patient is status post left [id number]-[id number] amputation completed on 08/25/2023 3patient to continue with vancomycin pharmacy to dose And Unasyn, however the patient will not need any IV antibiotics on discharge Dictation was produced using [employer] dictation software. please excuse any grammatical, word or spelling errors. Time with Patient: Less than 30
[2023-08-25] MEDS: VANCOMYCIN 1,750 MG in SODIUM CHLORIDE 0.9% 500 ML 500 ML IVPB SCH (11:57)
[2023-08-25] MEDS: lisinopriL 20 MG TAB PO SCH (12:07)
[2023-08-25] MEDS: amLODIPine 5 MG TAB PO SCH (12:08)
--- NOTE | 2023-08-25 12:10 | P.PN ---
Subjective Progress Note Date: 08/25/23 Patient is a 68-year-old male with hypertension, diabetes mellitus, and neuropathy who presented to the ED at the direction of Dr. Zurita for failed outpatient treatment of infected diabetic foot ulcer (Augmentin and Clindamycin). In the ED, he was found to be tachycardic with heart rate in the 100s. Initial laboratory analysis was remarkable for CBC hemoglobin of 8.7, platelet count of 496, ESR 125, bicarb 20, BUN 37, creatinine 1.41, and CRP was 7.8.Foot CT showed Charcot neuropathic osteoarthropathy with suspected underlying cellulitis/osteomyelitis involving the majority of the joints of the foot. Patient was admitted for further management. Infectious disease and vascular surgery were consulted. He was started on IV antibiotics. On 09/17/23 patient 1 excisional debridement of the left dorsal foot wound measuring 7 x 5 m with incision and drainage of deep foot abscess. Vascular surgery recommended Left BKA which was completed on 08/25/23. Patient seen and examined at bedside. He recently returned from the OR after having his left BKA performed. He is distressed as he still feels like he feels his toes on his left side. He denies any nausea, vomiting, lightheadedness, dizziness. Vital signs reviewed General: nontoxic, no distress, appears at stated age Cardiovascular: S1S2 reg, no murmur, positive posterior tibial pulse bilateral, Lungs: Decreased breath sounds bilateral bilateral, no rhonchi, no rales , no accessory muscle use Ext: no gross muscle atrophy, no edema b/l lower extremities, no contractures, left foot with dressing in place Neuro: CN II-XI grossly intact, no focal neuro deficits Psych: Alert, oriented, appropriate affect Assessment/Plan: Left Charcot foot with osteomyelitis, secondary to diabetic foot ulcer, failed outpatient treatment Anemia of chronic disease and accommodation with iron deficiency anemia Phantomy limb pain -Infectious disease note reviewed: Continue with Vanco and Unasyn. Will not need IV antibiotics on discharge. - s/p 2 units pRBC -Tylenol #3 one tablet every 6 hours as needed for pain -Continue with Unasyn 3 g IV piggyback every 6 hours day #6 -Continue with vancomycin 1500 mg IV piggyback every 12 hours day #6. Monitor for renal toxicity with vancomycin trough and creatinine -Gabapentin 300 mg 3 times daily Diabetes mellitus type 2 with hyperglycemia -Hemoglobin A1C 8.4 -Continue with sliding scale insulin -Hold Glucophage -Will likely need increased diabetic medications on discharge Acute kidney injury, resolved Anion gap metabolic acidosis, resolved Imaging: None new Data Review: Labs reviewed from today include CBC, creatinine, and blood sugars which are r emarkable for hemoglobin 9. Glucose 144. Wound culture- no growth at 48 hours Blood cultures-negative 72 hours DVT prophylaxis: Heparin Anticipated discharge date: Pending clinical Course Anticipated discharge place: Pending clinical Course This dictation was prepared using [employer] voice recognition software. Though every attempt is made to correct errors during dictation some may still exist. Objective - Vital Signs Vital signs: Vital Signs Temp 98.1 F 08/25/23 11:41 Pulse 80 08/25/23 11:56 Resp 17 08/25/23 11:56 BP 146/73 08/25/23 11:56 Pulse Ox 96 08/25/23 11:56 FiO2 Intake & Output 08/24/23 08/25/23 08/25/23 18:59 06:59 18:59 Intake Total 310 1600 Output Total 300 Balance 310 1300 Intake: IV 1600 Blood Product 310 Rc As-1 Unit 310 [id number] Output: Estimated Blood Loss 300 Other: Voiding Method Toilet # Voids 3 2 # Bowel Movements 0 0 - Labs CBC & Chem 7: 08/25/23 04:14 08/25/23 04:14 Labs: Abnormal Lab Results - Last 24 Hours (Table) 08/21/23 08/24/23 08/24/23 Range/Units 14:23 16:39 20:39 RBC (4.30-5.90) m/uL Hgb (13.0-17.5) gm/dL Hct (39.0-53.0) % POC Glucose (mg/dL) 205 H 154 H (70-110) mg/dL Crossmatch See Detail 08/25/23 08/25/23 Range/Units 04:14 06:10 RBC 3.19 L (4.30-5.90) m/uL Hgb 9.0 L (13.0-17.5) gm/dL Hct 28.2 L (39.0-53.0) % POC Glucose (mg/dL) 144 H (70-110) mg/dL Crossmatch Microbiology - Last 24 Hours (Table) 08/20/23 22:33 Gram Stain - Preliminary Foot - Left 08/20/23 18:01 Anaerobic Culture - Final Foot - Left
[2023-08-25 12:32] LABS: Glucose,Whole Blood 196 mg/dL (70-110)
[2023-08-25] MEDS: GABAPENTIN 300 MG CAP PO SCH ×3 (13:03→21:45)
[2023-08-25] MEDS: oxyCODONE-APAP 5-325MG 1 EACH TAB PO PRN ×2 (16:04→21:45)
[2023-08-25] MEDS: LACTATED RINGERS 1,000 ML IV SCH (16:06)
[2023-08-25 17:28] LABS: Glucose,Whole Blood 234 mg/dL (70-110)
[2023-08-25 21:36] LABS: Glucose,Whole Blood 246 mg/dL (70-110)
[2023-08-25] MEDS: ALPRAZolam 1 MG TAB PO SCH (21:45)
[2023-08-25 22:56] LABS: HCT 27.4 % (39.6-50.0); HGB 8.6 d/dL (13.0-17.0); MCH 27.2 pg (27.0-32.0); MCHC 31.4 d/dL (32.0-37.0); MCV 86.7 FL (80.0-97.0); Mean Platelet Volume 9.7 FL (9.5-12.2); NRBC Per 100 WBC 0 X 10*3/uL (0.00-0.01); Platelet Count 364 X 10*3/uL (140-440); RBC 3.16 X 10*6/uL (4.40-5.60); RDW 13.6 % (11.5-14.5); WBC 6.67 X 10*3/uL (4.50-10.00)
[2023-08-25 23:29] LABS: Glucose,Whole Blood 262 mg/dL (70-110)
[2023-08-26] MEDS: oxyCODONE-APAP 5-325MG 1 EACH TAB PO PRN ×4 (01:48→19:48)
[2023-08-26] MEDS: AMPICILLIN-SULBACTAM 3 GM in SODIUM CHLORIDE 0.9% 100 ML IVPB SCH ×4 (04:07→19:48)
[2023-08-26] MEDS: SODIUM CHLORIDE 0.9% 1,000 ML IV SCH ×2 (04:07→19:49)
[2023-08-26 06:21] LABS: Glucose,Whole Blood 225 mg/dL (70-110)
[2023-08-26] MEDS: INSULIN ASPART (NovoLOG) 100 UNIT/ML VIAL SQ SCH ×4 (06:26→21:03)
[2023-08-26] MEDS: HEPARIN SODIUM,PORCINE 5,000 UNIT/ML 1 ML VIAL SQ SCH ×3 (06:26→19:49)
[2023-08-26 06:42] LABS: HGB 8.1 gm/dL (13.0-17.5); Hypochromasia Moderate; MCH 27.3 pg (25.0-35.0); MCHC 31.2 g/dL (31.0-37.0); MCV 87.5 fL (80.0-100.0); Mean Platelet Volume 7.4; Platelet Count 326 k/uL (150-450); RBC 2.97 m/uL (4.30-5.90); RDW 14.4 % (11.5-15.5)
[2023-08-26 07:03] LABS: African American GFR (CKD) >90 (>60 ml/min/1.73 sqM); Anion Gap 8 mmol/L; Blood Urea Nitrogen 17 mg/dL (9-20); Calcium 7.9 mg/dL (8.4-10.2); Carbon Dioxide 23 mmol/L (22-30); Chloride 107 mmol/L (98-107); Glucose 203 mg/dL (74-99); Non-African American GFR(CKD) >90 (>60 ml/min/1.73 sqM); Potassium 4.1 mmol/L (3.5-5.1); Sodium 138 mmol/L (137-145)
[2023-08-26] MEDS: GABAPENTIN 300 MG CAP PO SCH ×3 (08:18→19:48)
[2023-08-26] MEDS: lisinopriL 20 MG TAB PO SCH (08:18)
[2023-08-26] MEDS: amLODIPine 5 MG TAB PO SCH (08:18)
[2023-08-26 12:16] LABS: Glucose,Whole Blood 168 mg/dL (70-110)
[2023-08-26] MEDS: guaiFENesin SYRUP 100MG/5ML 200 MG/10 ML CUP PO PRN ×2 (12:30→21:43)
--- NOTE | 2023-08-26 13:24 | P.PN ---
Subjective Progress Note Date: 08/26/23 Principal diagnosis: Left diabetic foot/osteomyelitis Patient is a 68-year-old male with a past medical history significant for diabetes mellitus and hypertension patient has been dealing with a nonhealing wound on the dorsal aspect of his left foot that has been there since March 2023, admitted to the hospital with worsening left diabetic foot infection with underlying osteomyelitis in this patient who is status post debridement of the wound on the dorsal as well as the plantar aspect by surgery on 08/21/2023, the patient is status post left [id number]-qver amputation completed on 08/25/2023 On today's evaluation that is 08/26/2023, the patient continues to be afebrile, the patient is breathing comfortably on room air, the patient denies chest pain or cough, patient denies abdominal pain and no nausea/vomiting /diarrhea, the patient pain to the left BKA stump is controlled Patient did have a white count of 7.0, creatinine 0.75 culture has been negative Objective - Vital Signs Vital signs: Vital Signs Temp 97.7 F 08/26/23 08:00 Pulse 85 08/26/23 08:00 Resp 17 08/26/23 08:00 BP 131/73 08/26/23 08:00 Pulse Ox 93 L 08/26/23 08:00 FiO2 Intake & Output 08/25/23 08/26/23 08/26/23 18:59 06:59 18:59 Intake Total 2955 Output Total 550 600 Balance 2405 -600 Intake: IV 1600 Intake, IV Titration 875 Amount Ampicillin-Sulbactam 3 gm 200 In Sodium Chloride 0.9% 100 ml @ 200 mls/hr IVPB Q6H [facility] Rx#:[id number] Sodium Chloride 0.9% 1, 675 000 ml @ 75 mls/hr IV . [id number] [facility] Rx#:[id number] Oral 480 Output: Urine 250 600 Estimated Blood Loss 300 Other: Voiding Method Toilet Urinal Urinal # Voids 2 # Bowel Movements 0 0 - Exam GENERAL DESCRIPTION: An elderly male lying in bed in no distress RESPIRATORY SYSTEM: Unlabored breathing , decreased breath sounds at bases HEART: S1 S2 regular rate and rhythm , ABDOMEN: Soft , no tenderness EXTREMITIES: Left BKA stump is covered in surgical dressing - Labs CBC & Chem 7: 08/26/23 06:03 08/26/23 06:03 Labs: Abnormal Lab Results - Last 24 Hours (Table) 08/25/23 08/25/23 08/25/23 Range/Units 17:26 18:13 21:35 RBC 3.16 L (4.40-5.60) X 10*6/uL Hgb 8.6 L (13.0-17.0) d/dL Hct 27.4 L (39.6-50.0) % MCHC 31.4 L (32.0-37.0) d/dL Glucose (74-99) mg/dL POC Glucose (mg/dL) 234 H 246 H (70-110) mg/dL Calcium (8.4-10.2) mg/dL 08/25/23 08/26/23 08/26/23 Range/Units 23:28 06:03 06:03 RBC 2.97 L (4.40-5.60) X 10*6/uL Hgb 8.1 L (13.0-17.0) d/dL Hct 26.0 L (39.6-50.0) % MCHC (32.0-37.0) d/dL Glucose 203 H (74-99) mg/dL POC Glucose (mg/dL) 262 H (70-110) mg/dL Calcium 7.9 L (8.4-10.2) mg/dL 08/26/23 08/26/23 Range/Units 06:20 12:14 RBC (4.40-5.60) X 10*6/uL Hgb (13.0-17.0) d/dL Hct (39.6-50.0) % MCHC (32.0-37.0) d/dL Glucose (74-99) mg/dL POC Glucose (mg/dL) 225 H 168 H (70-110) mg/dL Calcium (8.4-10.2) mg/dL Microbiology - Last 24 Hours (Table) 08/21/23 16:46 Anaerobic Culture - Final Foot - Left 08/20/23 15:04 Blood Culture - Final Blood 08/20/23 15:04 Blood Culture - Final Blood 08/20/23 22:33 Gram Stain - Preliminary Foot - Left Wound Culture - Preliminary Assessment and Plan (1) Diabetic foot ulcer Current Visit: Yes Status: Acute Code(s): E11.621 - TYPE 2 DIABETES MELLITUS WITH FOOT ULCER; L97.509 - NON-PRESSURE CHRONIC ULCER OTH PRT UNSP FOOT W UNSP SEVERITY SNOMED Code(s): 513269915 (2) Osteomyelitis Current Visit: Yes Status: Acute Code(s): M86.9 - OSTEOMYELITIS, UNSPECIFIED SNOMED Code(s): 07490490 Plan: 1patient with a left diabetic foot wound and infection with Charcot foot and concerning for underlying osteomyelitis and abscess we will need to cover for the gram-positive as well as gram-negative pathogen failing outpatient oral antibiotic therapy. 2patient is status post surgical debridement and deep culture which are so far negative. Patient is status post left yoraa-[id number]-gihj amputation completed on 08/25/2023 3patient to continue with Unasyn, vancomycin has been discontinued and Unasyn can be discontinued on discharge as well Dictation was produced using [employer]un[employer] dictation software. please excuse any grammatical, word or spelling errors.
--- NOTE | 2023-08-26 13:56 | P.PN ---
Subjective Progress Note Date: 08/26/23 (delayed charting seen at 1015) Patient is a 68-year-old male with hypertension, diabetes mellitus, and neuropathy who presented to the ED at the direction of Dr. Zurita for failed outpatient treatment of infected diabetic foot ulcer (Augmentin and Clindamycin). In the ED, he was found to be tachycardic with heart rate in the 100s. Initial laboratory analysis was remarkable for CBC hemoglobin of 8.7, platelet count of 496, ESR 125, bicarb 20, BUN 37, creatinine 1.41, and CRP was 7.8.Foot CT showed Charcot neuropathic osteoarthropathy with suspected underlying cellulitis/osteomyelitis involving the majority of the joints of the foot. Patient was admitted for further management. Infectious disease and vascular surgery were consulted. He was started on IV antibiotics. On 09/17/23 patient 1 excisional debridement of the left dorsal foot wound measuring 7 x 5 m with incision and drainage of deep foot abscess. Vascular surgery recommended Left BKA which was completed on 08/25/23. Patient seen and examined at bedside. Patient complains of still being able to feel his left lower extremity. He denies any chest pain, shortness breath, nausea, vomiting. Vital signs reviewed General: nontoxic, no distress, appears at stated age Cardiovascular: S1S2 reg, no murmur, positive posterior tibial pulse bilateral, Lungs: Decreased breath sounds bilateral bilateral, no rhonchi, no rales , no accessory muscle use Ext: no gross muscle atrophy, no edema b/l lower extremities, no contractures, Left leg with immobilizer in place Neuro: CN II-XI grossly intact, no focal neuro deficits Psych: Alert, oriented, appropriate affect Assessment/Plan: Left Charcot foot with osteomyelitis, secondary to diabetic foot ulcer, failed outpatient treatment s/p Left BKA Anemia of chronic disease and accommodation with iron deficiency anemia Phantomy limb pain - infectious disease note reviewed: Continue with Unasyn, discontinue vancomycin, Unasyn can be discontinued on discharge -Tylenol #3 one tablet every 6 hours as needed for pain, Percocet and morphine for pain per vascular surgery - s/p 2 units pRBC -Continue with Unasyn 3 g IV piggyback every 6 hours day #7 -Gabapentin 300 mg 3 times daily Diabetes mellitus type 2 with hyperglycemia -Hemoglobin A1C 8.4 -Continue with sliding scale insulin, Levemir 5 units at night. -Hold Glucophage -Will likely need increased diabetic medications on discharge Acute kidney injury, resolved Anion gap metabolic acidosis, resolved Imaging: None new Data Review: Afebrile for the last 24 hours Labs from today include CBC and basic metabolic profile which were remarkable for hemoglobin 8.1 and glucose 203 Wound culture- no growth Blood cultures-negative DVT prophylaxis: Heparin Anticipated discharge date: Pending clinical Course Anticipated discharge place: Pending clinical Course This dictation was prepared using [employer] voice recognition software. Though every attempt is made to correct errors during dictation some may still exist. Objective - Vital Signs Vital signs: Vital Signs Temp 97.7 F 08/26/23 08:00 Pulse 85 08/26/23 08:00 Resp 17 08/26/23 08:00 BP 131/73 08/26/23 08:00 Pulse Ox 93 L 08/26/23 08:00 FiO2 Intake & Output 08/25/23 08/26/23 08/26/23 18:59 06:59 18:59 Intake Total 2955 Output Total 550 600 Balance 2405 -600 Intake: IV 1600 Intake, IV Titration 875 Amount Ampicillin-Sulbactam 3 gm 200 In Sodium Chloride 0.9% 100 ml @ 200 mls/hr IVPB Q6H [facility] Rx#:[id number] Sodium Chloride 0.9% 1, 675 000 ml @ 75 mls/hr IV . [id number] [facility] Rx#:[id number] Oral 480 Output: Urine 250 600 Estimated Blood Loss 300 Other: Voiding Method Toilet Urinal Urinal # Voids 2 # Bowel Movements 0 0 - Labs CBC & Chem 7: 08/26/23 06:03 08/26/23 06:03 Labs: Abnormal Lab Results - Last 24 Hours (Table) 08/25/23 08/25/23 08/25/23 Range/Units 17:26 18:13 21:35 RBC 3.16 L (4.40-5.60) X 10*6/uL Hgb 8.6 L (13.0-17.0) d/dL Hct 27.4 L (39.6-50.0) % MCHC 31.4 L (32.0-37.0) d/dL Glucose (74-99) mg/dL POC Glucose (mg/dL) 234 H 246 H (70-110) mg/dL Calcium (8.4-10.2) mg/dL 08/25/23 08/26/23 08/26/23 Range/Units 23:28 06:03 06:03 RBC 2.97 L (4.40-5.60) X 10*6/uL Hgb 8.1 L (13.0-17.0) d/dL Hct 26.0 L (39.6-50.0) % MCHC (32.0-37.0) d/dL Glucose 203 H (74-99) mg/dL POC Glucose (mg/dL) 262 H (70-110) mg/dL Calcium 7.9 L (8.4-10.2) mg/dL 08/26/23 08/26/23 Range/Units 06:20 12:14 RBC (4.40-5.60) X 10*6/uL Hgb (13.0-17.0) d/dL Hct (39.6-50.0) % MCHC (32.0-37.0) d/dL Glucose (74-99) mg/dL POC Glucose (mg/dL) 225 H 168 H (70-110) mg/dL Calcium (8.4-10.2) mg/dL Microbiology - Last 24 Hours (Table) 08/21/23 16:46 Anaerobic Culture - Final Foot - Left 08/20/23 15:04 Blood Culture - Final Blood 08/20/23 15:04 Blood Culture - Final Blood 08/20/23 22:33 Gram Stain - Preliminary Foot - Left Wound Culture - Preliminary
[2023-08-26] MEDS ORDERED: VANCOMYCIN TROUGH DUE 1 EACH MISC MISCELLANE ONE (15:00)
[2023-08-26] MEDS: LACTATED RINGERS 1,000 ML IV SCH (15:11)
[2023-08-26 16:52] LABS: Glucose,Whole Blood 184 mg/dL (70-110)
[2023-08-26] MEDS: ALPRAZolam 1 MG TAB PO SCH (19:48)
[2023-08-26 20:57] LABS: Glucose,Whole Blood 171 mg/dL (70-110)
[2023-08-26] MEDS: INSULIN DETEMIR (LEVEMIR) 100 UNIT/ML SYR SQ SCH (21:03)
[2023-08-27] MEDS: oxyCODONE-APAP 5-325MG 1 EACH TAB PO PRN ×4 (03:42→20:36)
[2023-08-27] MEDS: AMPICILLIN-SULBACTAM 3 GM in SODIUM CHLORIDE 0.9% 100 ML IVPB SCH ×4 (03:42→20:38)
[2023-08-27] MEDS: ALPRAZolam 1 MG TAB PO PRN ×2 (05:20→15:24)
[2023-08-27] MEDS: guaiFENesin SYRUP 100MG/5ML 200 MG/10 ML CUP PO PRN ×3 (05:24→20:36)
[2023-08-27 06:11] LABS: Glucose,Whole Blood 160 mg/dL (70-110)
[2023-08-27] MEDS: INSULIN ASPART (NovoLOG) 100 UNIT/ML VIAL SQ SCH ×4 (06:14→20:36)
[2023-08-27] MEDS: HEPARIN SODIUM,PORCINE 5,000 UNIT/ML 1 ML VIAL SQ SCH ×3 (06:15→20:35)
[2023-08-27] MEDS: Acetaminophen-Codeine 300-30mg TAB PO PRN (06:29)
[2023-08-27] MEDS: SODIUM CHLORIDE 0.9% 1,000 ML IV SCH ×2 (09:12→20:38)
--- NOTE | 2023-08-27 09:19 | P.PN ---
Subjective Progress Note Date: 08/27/23 Postoperative day #2, status post left below the knee amputation. Objective - Vital Signs Vital signs: Vital Signs Temp 98.4 F 08/27/23 07:11 Pulse 97 08/27/23 07:11 Resp 17 08/27/23 07:11 BP 155/74 08/27/23 07:11 Pulse Ox 96 08/27/23 07:11 FiO2 Intake & Output 08/26/23 08/27/23 08/27/23 18:59 06:59 18:59 Output Total 350 400 Balance -350 -400 Output: Urine 350 400 Other: Voiding Method Urinal Urinal # Bowel Movements 0 - Exam Patient is awake and alert. Indicates pain is relatively well controlled. He is anxious to proceed with rehab etc. Surgical dressings are taken down. The wound is healing appropriately. Surgical drain is removed. The wound is redressed. It was discussed with the patient the need for him to flex and extend his knee to help avoid flexion contracture. Indicated that physical therapy will begin. We will have the prostatitis evaluate the patient. Hemoglobin remained stable. - Labs CBC & Chem 7: 08/26/23 06:03 08/26/23 06:03 Labs: Abnormal Lab Results - Last 24 Hours (Table) 08/26/23 08/26/23 08/26/23 Range/Units 12:14 16:50 20:56 POC Glucose (mg/dL) 168 H 184 H 171 H (70-110) mg/dL 08/27/23 Range/Units 06:10 POC Glucose (mg/dL) 160 H (70-110) mg/dL Microbiology - Last 24 Hours (Table) 08/20/23 22:33 Gram Stain - Final Foot - Left Wound Culture - Final Assessment and Plan Assessment: 1: Status post left below the knee amputation for irreversible ischemia. Wound is healing well. Begin physical therapy and anesthetic care. Plan: Physical therapy and prosthetic evaluation. Excellent discussed with Dr. Jim Time with Patient: Less than 30
[2023-08-27] MEDS: GABAPENTIN 300 MG CAP PO SCH ×3 (09:29→20:36)
[2023-08-27] MEDS: lisinopriL 20 MG TAB PO SCH (09:29)
[2023-08-27] MEDS: amLODIPine 5 MG TAB PO SCH (09:29)
[2023-08-27 11:26] LABS: Glucose,Whole Blood 151 mg/dL (70-110)
[2023-08-27] MEDS ORDERED: bisacodyL 5 MG TABLET.DR PO PRN (15:27)
--- NOTE | 2023-08-27 15:34 | P.PN ---
Subjective Progress Note Date: 08/27/23 Patient is a 68-year-old male with hypertension, diabetes mellitus, and neuropathy who presented to the ED at the direction of Dr. Zurita for failed outpatient treatment of infected diabetic foot ulcer (Augmentin and Clindamycin). In the ED, he was found to be tachycardic with heart rate in the 100s. Initial laboratory analysis was remarkable for CBC hemoglobin of 8.7, platelet count of 496, ESR 125, bicarb 20, BUN 37, creatinine 1.41, and CRP was 7.8.Foot CT showed Charcot neuropathic osteoarthropathy with suspected underlying cellulitis/osteomyelitis involving the majority of the joints of the foot. Patient was admitted for further management. Infectious disease and vascular surgery were consulted. He was started on IV antibiotics. On 09/17/23 patient 1 excisional debridement of the left dorsal foot wound measuring 7 x 5 m with incision and drainage of deep foot abscess. Vascular surgery recommended Left BKA which was completed on 08/25/23. Patient seen and examined at bedside. He is doing okay. Pain is managemenable. No chest pain or shortness of breath. Still no BM in 6 days . Vital signs reviewed General: nontoxic, no distress, appears at stated age Cardiovascular: S1S2 reg, no murmur, positive posterior tibial pulse bilateral, Lungs: Decreased breath sounds bilateral bilateral, no rhonchi, no rales , no accessory muscle use Ext: no gross muscle atrophy, no edema b/l lower extremities, no contractures, Left leg with immobilizer in place Neuro: CN II-XI grossly intact, no focal neuro deficits Psych: Alert, oriented, appropriate affect Assessment/Plan: Left Charcot foot with osteomyelitis, secondary to diabetic foot ulcer, failed outpatient treatment s/p Left BKA Anemia of chronic disease in combination with iron deficiency anemia Phantom limb pain - Await further infectious disease recs - D/W Dr. Munoz who will ask mohit and Krish to start on work for prosthesis. Okay for discharge to rehab. -Tylenol #3 one tablet every 6 hours as needed for pain, Percocet and morphine for pain per vascular surgery - s/p 2 units pRBC -Continue with Unasyn 3 g IV piggyback every 6 hours day #8, could likely D/C as 48 hours after amputation -Gabapentin 300 mg 3 times daily - ferrous sulfated 325 mg daily Constipation - add dulcolax prn - miralax scheduled daily Diabetes mellitus type 2 with hyperglycemia -Hemoglobin A1C 8.4 -Continue with sliding scale insulin, Levemir 5 units at night. -Hold Glucophage -Will likely need increased diabetic medications on discharge Acute kidney injury, resolved Anion gap metabolic acidosis, resolved HTN, elevated - Continue with Norvasc 5 mg daily, lisinopril 20 mg daily, resume hydrochlorothiazide 12.5 mg daily -Follow blood pressures Imaging: None new Data Review: Afebrile for the last 24 hours Labs from today show blood sugars around 150s DVT prophylaxis: Heparin Anticipated discharge date: Pending clinical Course Anticipated discharge place: Pending clinical Course This dictation was prepared using [employer] voice recognition software. Though every attempt is made to correct errors during dictation some may still exist. Active Medications Generic Name Dose Route Start Last Admin Trade Name Freq PRN Reason Stop Dose Admin Acetaminophen/Codeine Phosphate 1 each 08/22/23 11:44 08/27/23 06:29 Acetaminophen-Codeine 300-30mg Tab PO 1 each Q6HR PRN Administration Pain Alprazolam 1 mg 08/20/23 23:24 08/27/23 15:24 Alprazolam 1 Mg Tab PO 1 mg BID PRN Administration Anxiety Alprazolam 1 mg 08/20/23 23:30 08/26/23 19:48 Alprazolam 1 Mg Tab PO 1 mg HS [facility] Administration Amlodipine Besylate 5 mg 08/21/23 09:00 08/27/23 09:29 Amlodipine 5 Mg Tab PO 5 mg DAILY [facility] Administration Bisacodyl 5 mg 08/27/23 15:27 Bisacodyl 5 Mg Tablet.Dr PO DAILY PRN Constipation Dextrose/Water 25 ml 08/20/23 23:24 Dextrose 50% Syringe 50 Ml IVP PER PROTOCOL PRN Hypoglycemia Protocol Dextrose/Water 50 ml 08/20/23 23:24 Dextrose 50% Syringe 50 Ml IVP PER PROTOCOL PRN Hypoglycemia Protocol Gabapentin 300 mg 08/25/23 12:15 08/27/23 15:19 Gabapentin 300 Mg Cap PO 300 mg TID [facility] Administration Guaifenesin 200 mg 08/26/23 12:15 08/27/23 12:05 Guaifenesin Syrup 100mg/5ml 200 Mg/10 Ml Cup PO 200 mg Q6HR PRN Administration Cough Heparin Sodium (Porcine) 5,000 unit 08/22/23 06:00 08/27/23 15:19 Heparin Sodium,Porcine 5,000 Unit/Ml 1 Ml Vial SQ 5,000 unit Q8H [facility] Administration Ampicillin Sodium/Sulbactam 100 mls @ 200 mls/hr 08/20/23 22:00 08/27/23 15:18 Sodium 3 gm/ Sodium Chloride IVPB 200 mls/hr Q6H [facility] Administration Protocol Sodium Chloride 1,000 mls @ 75 mls/hr 08/21/23 05:00 08/27/23 09:12 Saline 0.9% IV 75 mls/hr .[id number] [facility] Administration Lactated Ringer's 1,000 mls @ 20 mls/hr 08/21/23 16:00 08/26/23 15:11 Lactated Ringers IV Not Given .Q24H [facility] Insulin Aspart 0 unit 08/20/23 23:24 08/27/23 12:27 Insulin Aspart (Novolog) 100 Unit/Ml Vial SQ 3 unit ACHS [facility] Administration Protocol Insulin Detemir 5 unit 08/26/23 21:00 08/26/23 21:03 Insulin Detemir (Levemir) 100 Unit/Ml Syr SQ 5 unit HS [facility] Administration Lisinopril 20 mg 08/22/23 09:00 08/27/23 09:29 Lisinopril 20 Mg Tab PO 20 mg DAILY [facility] Administration Morphine Sulfate 2 mg 08/25/23 10:41 08/25/23 11:48 Morphine Sulfate 2 Mg/Ml Syringe IVP 2 mg Q4HR PRN Administration Pain/Discomfort Oxycodone/Acetaminophen 1 each 08/25/23 10:41 08/27/23 14:05 Oxycodone-Apap 5-325mg 1 Each Tab PO 1 each Q4HR PRN Administration Pain Polyethylene Glycol 17 gm 08/28/23 09:00 Polyethylene Glycol 3350 17 Gm Powd.Pack PO DAILY [facility] Objective - Vital Signs Vital signs: Vital Signs Temp 98.2 F 08/27/23 13:56 Pulse 94 08/27/23 13:56 Resp 16 08/27/23 13:56 BP 156/70 08/27/23 13:56 Pulse Ox 98 08/27/23 13:56 FiO2 Intake & Output 08/26/23 08/27/23 08/27/23 18:59 06:59 18:59 Output Total 750 056 4512 Balance -350 -400 -1150 Output: Urine 256 043 0916 Other: Voiding Method Urinal Urinal # Bowel Movements 0 - Labs CBC & Chem 7: 08/26/23 06:03 08/26/23 06:03 Labs: Abnormal Lab Results - Last 24 Hours (Table) 08/26/23 08/26/23 08/27/23 Range/Units 16:50 20:56 06:10 POC Glucose (mg/dL) 184 H 171 H 160 H (70-110) mg/dL 08/27/23 Range/Units 11:25 POC Glucose (mg/dL) 151 H (70-110) mg/dL Microbiology - Last 24 Hours (Table) 08/20/23 22:33 Gram Stain - Final Foot - Left Wound Culture - Final
[2023-08-27] MEDS: LACTATED RINGERS 1,000 ML IV SCH (15:59)
[2023-08-27] MEDS: hydroCHLOROthiazide 12.5 MG CAP PO SCH (16:18)
[2023-08-27 16:30] LABS: Glucose,Whole Blood 151 mg/dL (70-110)
[2023-08-27 19:24] LABS: Glucose,Whole Blood 156 mg/dL (70-110)
[2023-08-27] MEDS: ALPRAZolam 1 MG TAB PO SCH (20:35)
[2023-08-27] MEDS: INSULIN DETEMIR (LEVEMIR) 100 UNIT/ML SYR SQ SCH (20:36)
[2023-08-28] MEDS: AMPICILLIN-SULBACTAM 3 GM in SODIUM CHLORIDE 0.9% 100 ML IVPB SCH ×2 (03:42→09:28)
[2023-08-28] MEDS: oxyCODONE-APAP 5-325MG 1 EACH TAB PO PRN ×2 (03:44→09:11)
[2023-08-28 06:09] LABS: Glucose,Whole Blood 147 mg/dL (70-110)
[2023-08-28] MEDS: INSULIN ASPART (NovoLOG) 100 UNIT/ML VIAL SQ SCH ×2 (06:25→11:49)
[2023-08-28] MEDS: HEPARIN SODIUM,PORCINE 5,000 UNIT/ML 1 ML VIAL SQ SCH (06:27)
[2023-08-28] MEDS ORDERED: polyethylene glycoL 3350 17 GM POWD.PACK PO SCH (09:00)
[2023-08-28] MEDS: guaiFENesin SYRUP 100MG/5ML 200 MG/10 ML CUP PO PRN (09:11)
--- NOTE | 2023-08-28 09:15 | P.PN ---
Subjective Progress Note Date: 08/28/23 Principal diagnosis: Left foot infection Patient seen and examined today as a follow-up. He is postop day #3 for left [id number] amputation. Yesterday he was fitted for stump vehicle operator technician and rigid dressing. He currently has those in place along with the knee immobilizer. Maykel grossman sitting up in the chair. He has been seen and evaluated by physical therapy. Plan is for discharge to subacute rehab. He has been afebrile. Objective - Vital Signs Vital signs: Vital Signs Temp 98.6 F 08/28/23 01:41 Pulse 93 08/28/23 01:41 Resp 18 08/28/23 01:41 BP 163/71 08/28/23 01:41 Pulse Ox 93 L 08/28/23 01:41 FiO2 Intake & Output 08/27/23 08/28/23 08/28/23 18:59 06:59 18:59 Intake Total 1100 Output Total 1550 2000 Balance -1550 -900 Intake: Intake, IV Titration 1100 Amount Ampicillin-Sulbactam 3 gm 200 In Sodium Chloride 0.9% 100 ml @ 200 mls/hr IVPB Q6H [facility] Rx#:[id number] Sodium Chloride 0.9% 1, 900 000 ml @ 75 mls/hr IV . [id number] [facility] Rx#:[id number] Output: Urine 1550 1999 - Exam General appearance: The patient is alert, oriented, appears in no acute distress. HET: Head is normocephalic and atraumatic. Pupils are equal and reactive. Neck: Supple. Abdomen: Soft, nondistended. Extremities: Left lower extremity with stump vehicle operator technician, rigid dressing and knee immobilizer in place. Neurological: No focal deficits. - Labs CBC & Chem 7: 08/26/23 06:03 08/26/23 06:03 Labs: Abnormal Lab Results - Last 24 Hours (Table) 08/27/23 08/27/23 08/27/23 Range/Units 11:25 16:28 19:23 POC Glucose (mg/dL) 151 H 151 H 156 H (70-110) mg/dL 08/28/23 Range/Units 06:08 POC Glucose (mg/dL) 147 H (70-110) mg/dL Assessment and Plan Assessment: 1. Infected Left diabetic foot wounds, osteomyelitis status post left owyxk-ytq-yomw amputation. 2. Diabetes mellitus 3. Hypertension 4. Anemia of chronic disease with iron deficiency anemia Plan: 1. Patient is status post left pycpf-qmi-xpty amputation 2. Continue with stump vehicle operator technician, rigid dressing and knee immobilizer 3. Recommend inpatient rehab 4. Patient is cleared from vascular surgery for discharge The impression and plan of care has been dictated as directed. I performed a history and examination of this patient, discussed the same with the dictator. I agree with the dictator's note ,documented as a scribe. Any additional findings or plans will be noted.
[2023-08-28] MEDS: amLODIPine 5 MG TAB PO SCH (09:28)
[2023-08-28] MEDS: lisinopriL 20 MG TAB PO SCH (09:28)
[2023-08-28] MEDS: hydroCHLOROthiazide 12.5 MG CAP PO SCH (09:28)
[2023-08-28] MEDS: GABAPENTIN 300 MG CAP PO SCH (09:28)
[2023-08-28 09:31] VITALS: BP 160/68; PULSE 89; RESP 14; TEMP 98.9
[2023-08-28] MEDS: ALPRAZolam 1 MG TAB PO PRN (09:35)
[2023-08-28 11:12] LABS: HCT 26.5 % (39.6-50.0); HGB 8.1 d/dL (13.0-17.0); MCH 27.1 pg (27.0-32.0); MCHC 30.6 d/dL (32.0-37.0); MCV 88.6 FL (80.0-97.0); Mean Platelet Volume 9.6 FL (9.5-12.2); NRBC Per 100 WBC 0 X 10*3/uL (0.00-0.01); Platelet Count 356 X 10*3/uL (140-440); RBC 2.99 X 10*6/uL (4.40-5.60); RDW 14.2 % (11.5-14.5); WBC 7.87 X 10*3/uL (4.50-10.00)
[2023-08-28 11:17] LABS: BUN/Creat Ratio 20.75 Ratio (12.00-20.00); Blood Urea Nitrogen 16.6 mg/dL (9.0-27.0); Calcium 8.1 mg/dL (8.7-10.3); Carbon Dioxide 25.4 mmol/L (21.6-31.8); Chloride 107 mmol/L (96-109); Glucose 128 mg/dL (70-110); Potassium 4.3 mmol/L (3.5-5.5); Sodium 140 mmol/L (135-145)
[2023-08-28 11:50] LABS: Glucose,Whole Blood 151 mg/dL (70-110)
[2023-08-28] MEDS ORDERED: FERROUS SULFATE 325 MG TAB PO SCH (12:30)
--- NOTE | 2023-08-28 13:48 | P.DS ---
Providers Date of admission: 08/20/23 18:39 Expected date of discharge: 08/28/23 Attending physician: Gillian Torres MD Consults: 08/20/23 18:39 Consult Physician Urgent Consulting Provider: Bria Humphreys Consult Reason/Comments: Osteomyelitis foot Do you want consulting provider notified?: Yes Consult Physician Urgent Consulting Provider: Phyllis Zurita Consult Reason/Comments: Osteomyelitis of the foot Do you want consulting provider notified?: Yes Primary care physician: Barrington Dexter [facility] [place] Course: Patient is a 68-year-old male with hypertension, diabetes mellitus, and neuropathy who presented to the ED at the direction of Dr. Zurita for failed outpatient treatment of infected diabetic foot ulcer (Augmentin and Clindamycin). In the ED, he was found to be tachycardic with heart rate in the 100s. Initial laboratory analysis was remarkable for CBC hemoglobin of 8.7, platelet count of 496, ESR 125, bicarb 20, BUN 37, creatinine 1.41, and CRP was 7.8.Foot CT showed Charcot neuropathic osteoarthropathy with suspected underlying cellulitis/osteomyelitis involving the majority of the joints of the foot. Patient was admitted for further management. Infectious disease and vascular surgery were consulted. He was started on IV antibiotics. On 09/17/23 patient 1 excisional debridement of the left dorsal foot wound measuring 7 x 5 m with incision and drainage of deep foot abscess. Vascular surgery recommended Left BKA which was completed on 08/25/23. 08/28 Patient seen and examined at bedside. Pain is manageable. No chest pain or shortness of breath. Pertinent studies include foot CT. Pertinent procedures include excisional debridement left dorsal foot wound measuring 7 x 5 cm, incision and drainage of deep foot abscess, left below the knee amputation. Plans to discharge to SNF today. No antibiotics on discharge. Follow up with PCP within 1-2 days of discharge. Follow up with Vascular surgery within 2 week of discharge. Vital signs reviewed General: nontoxic, no distress, appears at stated age Cardiovascular: S1S2 reg, no murmur Lungs: Decreased breath sounds bilateral bilateral, no rhonchi, no rales , no accessory muscle use Ext: no gross muscle atrophy, no contractures, Left leg with immobilizer in place Neuro: no focal neuro deficits Psych: Alert, oriented, appropriate affect Discharge Diagnosis: Left Charcot foot with osteomyelitis, secondary to diabetic foot ulcer, failed outpatient treatment s/p Left BKA Anemia of chronic disease in combination with iron deficiency anemia Phantom limb pain Constipation Diabetes mellitus type 2 with hyperglycemia Acute kidney injury, resolved Anion gap metabolic acidosis, resolved HTN, elevated This complex discharge took 35 minutes to complete. Patient Condition at Discharge: Stable Plan - Discharge Summary Discharge Rx Participant: No New Discharge Prescriptions: New Ferrous Sulfate [Iron (65 MG Elemental)] 325 mg PO W/LUNCH #0 tab guaiFENesin SYRUP 100MG/5ML [Robitussin] 200 mg PO Q6HR PRN ml PRN Reason: Cough bisacodyL [Dulcolax] 5 mg PO DAILY PRN tab PRN Reason: Constipation Insulin Detemir (Levemir) [Levemir] 5 unit SQ HS each polyethylene glycoL 3350 [Miralax] 17 gm PO DAILY packet Gabapentin [Neurontin] 300 mg PO TID #9 cap oxyCODONE-APAP 5-325MG [Percocet 5-325 mg] 1 each PO Q4HR PRN #18 tab PRN Reason: Pain Acetaminophen-Codeine 300-30mg [Tylenol w/codeine #3] 1 each PO Q6HR PRN #12 tab PRN Reason: Pain Continue amLODIPine [Norvasc] 5 mg PO DAILY metFORMIN HCL [Glucophage] 1,000 mg PO W/BRKFST ALPRAZolam [Xanax] 1 mg PO BID PRN #6 tab PRN Reason: Anxiety ALPRAZolam [Xanax] 1 mg PO HS #3 tab Lisinopril-Hctz 20-12.5 mg [Zestoretic 20-12.5] 2 tab PO DAILY metFORMIN HCL [Glucophage] 500 mg PO W/SUPPER Discharge Medication List Lisinopril-Hctz 20-12.5 mg [Zestoretic 20-12.5] 2 tab PO DAILY 08/20/23 [History] amLODIPine [Norvasc] 5 mg PO DAILY 08/20/23 [History] metFORMIN HCL [Glucophage] 1,000 mg PO W/BRKFST 08/20/23 [History] metFORMIN HCL [Glucophage] 500 mg PO W/SUPPER 08/20/23 [History] ALPRAZolam [Xanax] 1 mg PO BID PRN #6 tab 08/28/23 [Rx] ALPRAZolam [Xanax] 1 mg PO HS #3 tab 08/28/23 [Rx] Acetaminophen-Codeine 300-30mg [Tylenol w/codeine #3] 1 each PO Q6HR PRN #12 tab 08/28/23 [Rx] Ferrous Sulfate [Iron (65 MG Elemental)] 325 mg PO W/LUNCH #0 tab 08/28/23 [Rx] Gabapentin [Neurontin] 300 mg PO TID #9 cap 08/28/23 [Rx] Insulin Detemir (Levemir) [Levemir] 5 unit SQ HS each 08/28/23 [Rx] bisacodyL [Dulcolax] 5 mg PO DAILY PRN tab 08/28/23 [Rx] guaiFENesin SYRUP 100MG/5ML [Robitussin] 200 mg PO Q6HR PRN ml 08/28/23 [Rx] oxyCODONE-APAP 5-325MG [Percocet 5-325 mg] 1 each PO Q4HR PRN #18 tab 08/28/23 [Rx] polyethylene glycoL 3350 [Miralax] 17 gm PO DAILY packet 08/28/23 [Rx] Follow up Appointment(s)/Referral(s): Malcolm Hernández DO [Doctor of Osteopathic Medicine] - 2 Weeks [facility], [NON-STAFF] - 1 Week ([facility] homecare will call you to arrange a visit) [facility], [REFERRING] - 1 Week ([facility] will service your iv abx need) [facility] [NON-STAFF] - 1 Week Barrington Swanson MD [Primary Care Provider] - 1-2 days Activity/Diet/Wound Care/Special Instructions: Plans to discharge to SNF today. No antibiotics on discharge. Follow up with PCP within 1-2 days of discharge. Follow up with Vascular surgery within 2 week of discharge. Discharge Disposition: TRANSFER TO SNF/ECF
[2023-08-28] MEDS: SODIUM CHLORIDE 0.9% 1,000 ML IV SCH (14:02)
--- NOTE | 2023-08-28 14:57 | P.PN ---
Subjective Progress Note Date: 08/27/23 Principal diagnosis: Left diabetic foot/osteomyelitis Patient is a 68-year-old male with a past medical history significant for diabetes mellitus and hypertension patient has been dealing with a nonhealing wound on the dorsal aspect of his left foot that has been there since March 2023, admitted to the hospital with worsening left diabetic foot infection with underlying osteomyelitis in this patient who is status post debridement of the wound on the dorsal as well as the plantar aspect by surgery on 08/21/2023, the patient is status post left [id number] amputation completed on 08/25/2023 On today's evaluation that is 08/27/2023, the patient denies any fever or any chills, the patient is breathing comfortably on room air and no need for supplemental oxygen, patient denies abdominal pain and no nausea/vomiting /diarrhea,the patient denies chest pain or cough, no new symptoms, the patient still complaining of pain to the left BKA stump, no new symptoms, Patient did have a white count of 7.0, creatinine 0.75 as of yesterday no lab draw today culture has been negative Objective - Vital Signs Vital signs: Vital Signs Temp 98.4 F 08/27/23 07:11 Pulse 97 08/27/23 07:11 Resp 17 08/27/23 07:11 BP 155/74 08/27/23 07:11 Pulse Ox 96 08/27/23 07:11 FiO2 Intake & Output 08/26/23 08/27/23 08/27/23 18:59 06:59 18:59 Output Total 350 400 850 Balance -350 -400 -850 Output: Urine 350 400 850 Other: Voiding Method Urinal Urinal # Bowel Movements 0 - Exam GENERAL DESCRIPTION: An elderly male lying in bed in no distress RESPIRATORY SYSTEM: Unlabored breathing , decreased breath sounds at bases HEART: S1 S2 regular rate and rhythm , ABDOMEN: Soft , no tenderness EXTREMITIES: Left BKA stump is covered in surgical dressing - Labs CBC & Chem 7: 08/28/23 07:47 08/28/23 07:47 Labs: Abnormal Lab Results - Last 24 Hours (Table) 08/26/23 08/26/23 08/27/23 Range/Units 16:50 20:56 06:10 POC Glucose (mg/dL) 184 H 171 H 160 H (70-110) mg/dL 08/27/23 Range/Units 11:25 POC Glucose (mg/dL) 151 H (70-110) mg/dL Microbiology - Last 24 Hours (Table) 08/20/23 22:33 Gram Stain - Final Foot - Left Wound Culture - Final Assessment and Plan (1) Diabetic foot ulcer Current Visit: Yes Status: Acute Code(s): E11.621 - TYPE 2 DIABETES MELLITUS WITH FOOT ULCER; L97.509 - NON-PRESSURE CHRONIC ULCER OTH PRT UNSP FOOT W UNSP SEVERITY SNOMED Code(s): 321584054 (2) Osteomyelitis Current Visit: Yes Status: Acute Code(s): M86.9 - OSTEOMYELITIS, UNSPECIFIED SNOMED Code(s): 09143328 Plan: 1patient with a left diabetic foot wound and infection with Charcot foot and concerning for underlying osteomyelitis and abscess we will need to cover for the gram-positive as well as gram-negative pathogen failing outpatient oral antibiotic therapy. 2patient is status post surgical debridement and deep culture which are so far negative. Patient is status post left [id number] amputation completed on 08/25/2023 3patient to continue with Unasyn which can be discontinued on discharge Dictation was produced using [employer] dictation software. please excuse any grammatical, word or spelling errors. Time with Patient: Less than 30
--- NOTE | 2023-08-28 15:00 | P.PN ---
Subjective Progress Note Date: 08/28/23 Principal diagnosis: Left diabetic foot/osteomyelitis Patient is a 68-year-old male with a past medical history significant for diabetes mellitus and hypertension patient has been dealing with a nonhealing wound on the dorsal aspect of his left foot that has been there since March 2023, admitted to the hospital with worsening left diabetic foot infection with underlying osteomyelitis in this patient who is status post debridement of the wound on the dorsal as well as the plantar aspect by surgery on 08/21/2023, the patient is status post left [id number] amputation completed on 08/25/2023 On today's evaluation that is 08/28/2023, the patient remains to be afebrile the patient is breathing comfortably on room air, the patient denies having any chest pain shortness of breath or cough, patient denies abdominal pain and no nausea/vomiting /diarrhea, the patient pain to the left BKA stump is controlled Patient did have a white count of 7.87, creatinine 0.8 Objective - Vital Signs Vital signs: Vital Signs Temp 98.9 F 08/28/23 07:00 Pulse 89 08/28/23 07:00 Resp 14 08/28/23 07:00 BP 160/68 08/28/23 07:00 Pulse Ox 96 08/28/23 07:00 FiO2 Intake & Output 08/27/23 08/28/23 08/28/23 18:59 06:59 18:59 Intake Total 1100 Output Total 1550 2000 400 Balance -1550 -900 -400 Weight 98.43 kg Intake: Intake, IV Titration 1100 Amount Ampicillin-Sulbactam 3 gm 200 In Sodium Chloride 0.9% 100 ml @ 200 mls/hr IVPB Q6H [facility] Rx#:[id number] Sodium Chloride 0.9% 1, 900 000 ml @ 75 mls/hr IV . [id number] [facility] Rx#:[id number] Output: Urine 1550 2000 400 Other: # Bowel Movements 1 - Exam GENERAL DESCRIPTION: An elderly male lying in bed in no distress RESPIRATORY SYSTEM: Unlabored breathing , decreased breath sounds at bases HEART: S1 S2 regular rate and rhythm , ABDOMEN: Soft , no tenderness EXTREMITIES: Left BKA stump is covered in surgical dressing - Labs CBC & Chem 7: 08/28/23 07:47 08/28/23 07:47 Labs: Abnormal Lab Results - Last 24 Hours (Table) 08/27/23 08/27/23 08/28/23 Range/Units 16:28 19:23 06:08 RBC (4.40-5.60) X 10*6/uL Hgb (13.0-17.0) d/dL Hct (39.6-50.0) % MCHC (32.0-37.0) d/dL BUN/Creatinine Ratio (12.00-20.00) Ratio Glucose (70-110) mg/dL POC Glucose (mg/dL) 151 H 156 H 147 H (70-110) mg/dL Calcium (8.7-10.3) mg/dL 08/28/23 08/28/23 08/28/23 Range/Units 07:47 07:47 11:49 RBC 2.99 L (4.40-5.60) X 10*6/uL Hgb 8.1 L (13.0-17.0) d/dL Hct 26.5 L (39.6-50.0) % MCHC 30.6 L (32.0-37.0) d/dL BUN/Creatinine Ratio 20.75 H (12.00-20.00) Ratio Glucose 128 H (70-110) mg/dL POC Glucose (mg/dL) 151 H (70-110) mg/dL Calcium 8.1 L (8.7-10.3) mg/dL Assessment and Plan (1) Diabetic foot ulcer Current Visit: Yes Status: Acute Code(s): E11.621 - TYPE 2 DIABETES MELLITUS WITH FOOT ULCER; L97.509 - NON-PRESSURE CHRONIC ULCER OTH PRT UNSP FOOT W UNSP SEVERITY SNOMED Code(s): 354672730 (2) Osteomyelitis Current Visit: Yes Status: Acute Code(s): M86.9 - OSTEOMYELITIS, UNSPECIFIED SNOMED Code(s): 36007926 Plan: 1patient with a left diabetic foot wound and infection with Charcot foot and concerning for underlying osteomyelitis and abscess we will need to cover for the gram-positive as well as gram-negative pathogen failing outpatient oral antibiotic therapy. 2patient is status post surgical debridement and deep culture which are so far negative. Patient is status post left [id number] amputation completed on 3no need for any antibiotics on discharge Dictation was produced using [employer] dictation software. please excuse any grammatical, word or spelling errors. Time with Patient: Less than 30
== END 2023-08-28 16:20 | DRG 617 ==
LOC: EC 14:35 → 4SSUR 18:39
PROVIDERS: ADMIT Family Medicine; ATTEND Family Medicine
PROC: 0JBR0ZZ Excision of Left Foot Subcutaneous Tissue and Fascia, Open Approach (ICD-10-PCS; 2023-08-21)
PROC: 30233N1 Transfusion of Nonautologous Red Blood Cells into Peripheral Vein, Percutaneous Approach (ICD-10-PCS; 2023-08-21)
PROC: 0Y6J0Z1 Detachment at Left Lower Leg, High, Open Approach (ICD-10-PCS; principal; 2023-08-25 08:00)
DX: E11.621 Type 2 diabetes mellitus with foot ulcer (principal); E87.20 Acidosis, unspecified; L02.611 Cutaneous abscess of right foot; L03.116 Cellulitis of left lower limb; M86.9 Osteomyelitis, unspecified; D50.9 Iron deficiency anemia, unspecified; D63.8 Anemia in other chronic diseases classified elsewhere; L97.522 Non-pressure chronic ulcer of other part of left foot with fat layer exposed; E11.40 Type 2 diabetes mellitus with diabetic neuropathy, unspecified; E11.69 Type 2 diabetes mellitus with other specified complication; F41.9 Anxiety disorder, unspecified; G54.6 Phantom limb syndrome with pain; E11.65 Type 2 diabetes mellitus with hyperglycemia; I11.9 Hypertensive heart disease without heart failure; K59.00 Constipation, unspecified; L97.524 Non-pressure chronic ulcer of other part of left foot with necrosis of bone; L98.494 Non-pressure chronic ulcer of skin of other sites with necrosis of bone; N17.9 Acute kidney failure, unspecified; Z79.4 Long term (current) use of insulin; Z79.84 Long term (current) use of oral hypoglycemic drugs; Z79.899 Other long term (current) drug therapy; Z88.8 Allergy status to other drugs, medicaments and biological substances; Z87.891 Personal history of nicotine dependence
CPT/HCPCS: 36415; 80048; 80053; 80202; 82565; 82607; 82728; 82746; 83036; 83540; 83550; 83605; 85025; 85027; 85652; 86140; 86850; 86900; 86901; 86920; 87040; 87070; 87075; 87205; 94760; 96365; 96366; 96367; 99285

== ENCOUNTER 2024-04-12 13:36 | Inpatient (IN) | payer MEDICARE ==
--- NOTE | 2024-04-12 14:48 | ED ---
General Adult HPI - General Chief complaint: Extremity Injury, Lower Stated complaint: R foot issue Source: patient, RN notes reviewed Mode of arrival: ambulatory Limitations: no limitations - History of Present Illness Initial comments: 68 year old male presents to the emergency department for evaluation of right foot pain, redness. He reports that has been painful for the past 3 to 4 days. He is able to ambulate on it but it causes pain. He denies any significant injury. He denies fever, chills. He reports that he has had similar issue with the left foot in which he developed osteomyelitis and underwent amputation. He does report that after this he had been bearing more weight on his right but denies injury from this. - Related Data Home Medications Medication Instructions Recorded Confirmed Lisinopril-Hctz 20-12.5 mg 2 tab PO DAILY 08/20/23 04/12/24 [Zestoretic 20-12.5] amLODIPine [Norvasc] 5 mg PO DAILY 08/20/23 04/12/24 metFORMIN HCL [Glucophage] 1,000 mg PO AC-BID 08/20/23 04/12/24 Acetaminophen Tab [Tylenol Tab] 1,000 mg PO Q6HR PRN 04/12/24 04/12/24 Empagliflozin [Jardiance] 25 mg PO DAILY 04/12/24 04/12/24 Insulin Glargine,Hum.rec.anlog 5 units SQ HS 04/12/24 04/12/24 [Lantus Solostar Pen] Previous Rx's Medication Instructions Recorded ALPRAZolam [Xanax] 1 mg PO BID PRN #6 tab 08/28/23 Allergies Allergy/AdvReac Type Severity Reaction Status Date / Time bupropion [From Wellbutrin] Allergy Unknown Verified 04/12/24 18:35 varenicline [From Chantix] Allergy Unknown Verified 04/12/24 18:35 Review of Systems ROS Statement: Those systems with pertinent positive or pertinent negative responses have been documented in the HPI. ROS Other: All systems not noted in ROS Statement are negative. Past Medical History Past Medical History: Diabetes Mellitus, Hypertension History of Any Multi-Drug Resistant Organisms: MRSA Date of last positivie culture/infection: 1997 MDRO Source:: Unsure Past Surgical History: No Surgical Hx Reported Additional Past Surgical History / Comment(s): eye surgery Past Anesthesia/Blood Transfusion Reactions: No Reported Reaction Past Psychological History: Anxiety Smoking Status: Former smoker Past Alcohol Use History: Occasional Past Drug Use History: None Reported General Exam Limitations: no limitations General appearance: alert, in no apparent distress Head exam: Present: atraumatic, normocephalic, normal inspection Respiratory exam: Present: normal lung sounds bilaterally. Absent: respiratory distress, wheezes, rales, rhonchi, stridor Cardiovascular Exam: Present: regular rate, normal rhythm, normal heart sounds. Absent: systolic murmur, diastolic murmur, rubs, gallop, clicks Extremities exam: Present: full ROM, tenderness, normal capillary refill, other (Ulceration, erythema, tenderness over the medial forefoot, tarsal bone) Neurological exam: Present: alert, oriented X3 Psychiatric exam: Present: normal affect, normal mood Skin exam: Present: warm, dry, other (Ulceration, erythema, tenderness over the medial forefoot, tarsal bone). Absent: intact, normal color Course Vital Signs 04/12/24 04/12/24 04/12/24 13:39 15:46 18:00 Temperature 97.7 F 98 F Pulse Rate 84 80 78 Respiratory 16 18 18 Rate Blood Pressure 149/76 130/57 154/78 O2 Sat by Pulse 98 97 97 Oximetry 04/12/24 21:10 Temperature 98.3 F Pulse Rate 75 Respiratory 18 Rate Blood Pressure 156/78 O2 Sat by Pulse 100 Oximetry Medical Decision Making - Medical Decision Making Was pt. sent in by a medical professional or institution (, PA, DOCUMENT PREPARER [employer], urgent ca re, hospital, or [facility]...) When possible be specific @ -No Did you speak to anyone other than the patient for history (EMS, parent, family, police, friend...)? What history was obtained from this source @ -No Did you review nursing and triage notes (agree or disagree)? Why? @ -I reviewed and agree with nursing and triage notes Were old charts reviewed (outside hosp., previous admission, EMS record, old EKG, old radiological studies, urgent care reports/EKG's, [facility] records)? Report findings @ -Reviewed records from August 2023 including prior Charcot foot and osteomyelitis of the left lower extremity leading to amputation Differential Diagnosis (chest pain, altered mental status, abdominal pain women, abdominal pain men, vaginal bleeding, weakness, fever, dyspnea, syncope, headache, dizziness, GI bleed, back pain, seizure, CVA, palpatations, mental health, musculoskeletal)? @ -Differential Musculoskeletal Muscular strain, contusion, ligament sprain, fracture, arthritis, septic arthritis, bursitis, cellulitis, muscle spasm, nerve compression, DVT, arterial occlusion, herpes zoster, electrolyte abnormality, tumor.... This is not meant to be in all inclusive list EKG interpreted by me (3pts min.). @ -None X-rays interpreted by me (1pt min.). @ -X-ray of the right foot shows changes consistent with Charcot arthropathy versus Lisfranc injury CT interpreted by me (1pt min.). @ -None done U/S interpreted by me (1pt. min.). @ -None done What testing was considered but not performed or refused? (CT, X-rays, U/S, labs)? Why? @ -None What meds were considered but not given or refused? Why? @ -None Did you discuss the management of the patient with other professionals (professionals i.e. , PA, DOCUMENT PRE[employer], lab, RT, psych nurse, social service agency director, engraver ornamental design, teacher, artillery officer, case planner)? Give summary @ -Case discussed with Dr. Oviedo who is accepting of the admission Was smoking cessation discussed for >3mins.? @ -No Was critical care preformed (if so, how long)? @ -No Were there social determinants of health that impacted care today? How? (Home lessness, low income, unemployed, alcoholism, drug addiction, transportation, low edu. Level, literacy, decrease access to med. care, senior living, rehab)? @ -No Was there de-escalation of care discussed even if they declined (Discuss DNR or withdrawal of care, Hospice)? DNR status @ -No What co-morbidities impacted this encounter? (DM, HTN, Smoking, COPD, CAD, Cancer, CVA, ARF, Chemo, Hep., AIDS, mental health diagnosis, sleep apnea, morbid obesity)? @ -Diabetes Was patient admitted / discharged? Hospital course, mention meds given and route, prescriptions, significant lab abnormalities, going to OR and other pertinent info. @ -Admitted. Patient presented to the emergency department for evaluation of right foot redness, swelling, pain. He also has overlying diabetic foot ulcer at the medial dorsal aspect of the foot. Laboratory studies obtained. Patient has normal WBC, hemoglobin of 11.7; mild COOKIE with a creatinine of 1.4, CRP 3.0. X-ray obtained which shows changes that could resemble possible Charcot foot versus Lisfranc injury. He has not had any recent injury to the foot. Patient has a similar history with his left lower extremity which led to amputation. Blood cultures obtained. Patient started on vancomycin, cefepime. Patient will be admitted for treatment with consult to infectious disease and vascular. Patient is understanding and agreeable with this plan. Case was discussed with Dr. Oviedo with [facility] who is accepting of the admission. Case discussed with Dr. Rivers Undiagnosed new problem with uncertain prognosis? @ -No Drug Therapy requiring intensive monitoring for toxicity (Heparin, Nitro, Insulin, Cardizem)? @ -No Were any procedures done? @ -No Diagnosis/symptom? @ -Charcot foot, cellulitis Acute, or Chronic, or Acute on Chronic? @ -Acute Uncomplicated (without systemic symptoms) or Complicated (systemic symptoms)? @ -Uncomplicated Side effects of treatment? @ -No Exacerbation, Progression, or Severe Exacerbation? @ -No Poses a threat to life or bodily function? How? (Chest pain, USA, PR, pneumonia, PE, COPD, DKA, ARF, appy, cholecystitis, CVA, Diverticulitis, Homicidal, Suicidal, threat to staff... and all critical care pts) @ -Threat to limb - Lab Data Result diagrams: 04/12/24 14:39 04/12/24 14:39 Lab Results 04/12/24 04/12/24 Range/Units 14:39 14:39 WBC 8.7 (3.8-10.6) k/uL RBC 4.05 L (4.30-5.90) m/uL Hgb 11.7 L (13.0-17.5) gm/dL Hct 36.2 L (39.0-53.0) % MCV 89.3 (80.0-100.0) fL MCH 29.0 (25.0-35.0) pg MCHC 32.5 (31.0-37.0) g/dL RDW 13.0 (11.5-15.5) % Plt Count 306 (150-450) k/uL MPV 7.8 Neutrophils % 65 % Lymphocytes % 20 % Monocytes % 7 % Eosinophils % 7 % Basophils % 1 % Neutrophils # 5.7 (1.3-7.7) k/uL Lymphocytes # 1.7 (1.0-4.8) k/uL Monocytes # 0.6 (0-1.0) k/uL Eosinophils # 0.6 (0-0.7) k/uL Basophils # 0.0 (0-0.2) k/uL Sodium 140 (137-145) mmol/L Potassium 4.2 (3.5-5.1) mmol/L Chloride 109 H (98-107) mmol/L Carbon Dioxide 22 (22-30) mmol/L Anion Gap 9 mmol/L BUN 40 H (9-20) mg/dL Creatinine 1.40 H (0.66-1.25) mg/dL Est GFR (CKD-EPI)AfAm 59 (>60 ml/min/1.73 sqM) Est GFR (CKD-EPI)NonAf 51 (>60 ml/min/1.73 sqM) Glucose 134 H (74-99) mg/dL Calcium 9.9 (8.4-10.2) mg/dL Total Bilirubin 0.5 (0.2-1.3) mg/dL AST 22 (17-59) U/L ALT 17 (4-49) U/L Alkaline Phosphatase 96 (38-126) U/L C-Reactive Protein 3.0 H (<1.0) mg/dL Total Protein 7.1 (6.3-8.2) g/dL Albumin 4.1 (3.5-5.0) g/dL Disposition Clinical Impression: Charcot foot due to diabetes mellitus, Diabetic foot ulcer Disposition: ADMITTED IP TO THIS HOSP Condition: Stable Is patient prescribed a controlled substance at d/c from ED?: No
[2024-04-12 14:52] LABS: Basophils % (A) 1 %; Eosinophils # (A) 0.6 k/uL (0-0.7); Eosinophils % (A) 7 %; HCT 36.2 % (39.0-53.0); HGB 11.7 gm/dL (13.0-17.5); Lymphocytes # (A) 1.7 k/uL (1.0-4.8); Lymphocytes % (A) 20 %; MCHC 32.5 g/dL (31.0-37.0); MCV 89.3 fL (80.0-100.0); Mean Platelet Volume 7.8; Monocytes # (A) 0.6 k/uL (0-1.0); Monocytes % (A) 7 %; Neutrophils # (A) 5.7 k/uL (1.3-7.7); Neutrophils % (A) 65 %; Platelet Count 306 k/uL (150-450); RBC 4.05 m/uL (4.30-5.90); WBC 8.7 k/uL (3.8-10.6)
[2024-04-12 15:09] LABS: ALT 17 U/L (4-49); AST 22 U/L (17-59); African American GFR (CKD) 59 (>60 ml/min/1.73 sqM); Albumin 4.1 g/dL (3.5-5.0); Alkaline Phosphatase 96 U/L (38-126); Anion Gap 9 mmol/L; Blood Urea Nitrogen 40 mg/dL (9-20); Calcium 9.9 mg/dL (8.4-10.2); Carbon Dioxide 22 mmol/L (22-30); Chloride 109 mmol/L (98-107); Glucose 134 mg/dL (74-99); Non-African American GFR(CKD) 51 (>60 ml/min/1.73 sqM); Potassium 4.2 mmol/L (3.5-5.1); Sodium 140 mmol/L (137-145); Total Bilirubin 0.5 mg/dL (0.2-1.3); Total Protein 7.1 g/dL (6.3-8.2)
--- NOTE | 2024-04-12 16:58 | XR ---
EXAMINATION TYPE: XR foot complete RT DATE OF EXAM: 04/12/2024 2:22 PM CLINICAL INDICATION:Male, 68 years old with history of pain, swelling, redness; [facility] COMPARISON: Correlation with CT of the left foot from 08/26/2023 TECHNIQUE: Three views right foot were obtained. FINDINGS: Osseous mineralization appears appropriate. No acute fracture is visualized. The distal digits show m ild osteoarthritic changes throughout. No dislocation. Midfoot forefoot junction appears extensively abnormal. There are abnormal relationships along the Li sfranc joints. In particular, the bases of the metatarsals appear abnormally aligned with respect to the tarsals, shifted/subluxed laterally. The medial cuneiform is prominently subluxed medially in rel ation to the base of the first metatarsal. There are no distinct fractures, or abnormal widening betw een the metatarsal bases. On the lateral view, midfoot bones appear depressed inferiorly along the ta rsometatarsal junctions. No osseous destructive changes are identified. There is a small plantar calc aneal spur. Small spur superiorly along the anterior process of the talus. The visualized ankle shows mild degenerative changes. No specific soft tissue abnormalities seen. There is no radiopaque foreign body identified. IMPRESSION: 1. Changes in the region of the midfoot/forefoot junction, which in the absence of trauma may reflec t Charcot-type arthropathic changes. Otherwise, Lisfranc injury could have this appearance. 2. No evidence of acute fracture or osseous destructive changes.
[2024-04-12] MEDS ORDERED: VANCOMYCIN IV PER PHARMACY 1 EACH MISC MISCELLANE PRN (17:42)
[2024-04-12] MEDS: VANCOMYCIN 1,500 MG in SODIUM CHLORIDE 0.9% 500 ML 500 ML IVPB STA (18:21)
[2024-04-12] MEDS ORDERED: NALOXONE 0.4 MG/ML 1 ML VIAL IV PRN (18:28)
[2024-04-12] MEDS: CEFEPIME 2 GM in SODIUM CHLORIDE 0.9% 100 ML IVPB STA (18:48)
[2024-04-12] MEDS: ALPRAZolam 1 MG TAB PO PRN (22:05)
[2024-04-12] MEDS: MORPHINE SULFATE 4 MG/ML SYRINGE IV PRN (22:56)
[2024-04-12 23:33] LABS: Erythrocyte Sedimentation Rate 52 mm/Hr (0-20)
[2024-04-13] MEDS ORDERED: DEXTROSE 50% SYRINGE 50 ML IVP PRN ×2 (01:24)
[2024-04-13] MEDS ORDERED: VANCOMYCIN IV PER PHARMACY 1 EACH MISC MISCELLANE PRN (01:35)
--- NOTE | 2024-04-13 01:35 | P.HPIM ---
History of Present Illness H&P Date: 04/12/24 Chief Complaint: Right foot ulcer and erythema 68-year-old male with diabetes mellitus, hypertension, left BKA Patient coming in for evaluation of right foot erythema. He noticed some bulging over the medial aspect of the right foot and over the past couple days started having superficial ulcer over the dorsum of the right foot along with increased erythema he denies any pain as he has severe peripheral neuropathy denies any known source of trauma. However since he has left BKA and was waiting for placement on his prosthetics he was putting too much pressure on his right foot recently which made him be concerned and he was checking his right foot on daily basis Otherwise he denies any chest pain trouble breathing fevers chills nausea vomiting GI bleeding Denies tobacco smoking illicit drugs or heavy alcohol review of systems Pertinent positives as noted in HPI. All other systems were reviewed and are negative on exam Constitutional: No acute distress, conversant, pleasant Eyes: Anicteric sclerae, moist conjunctiva, Pupils equal round reactive to light ENMT: NC/AT Oropharynx clear, no erythema, or exudates Neck: Supple, no masses, or JVD No carotid bruits No thyromegaly Lungs: Clear to auscultation Clear to percussion Normal respiratory effort, no accessory muscle use Cardiovascular: Heart regular in rate and rhythm, Systolic murmurs, no gallops, or rubs No peripheral edema Abdominal: Soft Nontender, no guarding, rebound or rigidity Abdomen moving with respiration Normoactive bowel sounds Skin: Superficial ulcer on the dorsum of the right foot on the medial aspect along with surrounding erythema no induration no tenderness to palpation bony prominence over the medial aspect of the right foot Extremities: No digital cyanosis No clubbing Pedal pulses intact and symmetrical Radial pulses intact and symmetrical No calf tenderness Psychiatric: Alert and oriented to person, place and time Appropriate affect fair judgement Neuro Muscles Strength 5/5 in all 4 extremities Sensation to light touch grossly present throughout except for some areas over the right foot Cranial nerves II-XII grossly intact Past Medical History Past Medical History: Diabetes Mellitus, Hypertension History of Any Multi-Drug Resistant Organisms: MRSA Date of last positivie culture/infection: 1997 MDRO Source:: Unsure Past Surgical History: No Surgical Hx Reported Additional Past Surgical History / Comment(s): eye surgery Past Anesthesia/Blood Transfusion Reactions: No Reported Reaction Past Psychological History: Anxiety Smoking Status: Former smoker Past Alcohol Use History: Occasional Past Drug Use History: None Reported Medications and Allergies Home Medications Medication Instructions Recorded Confirmed Type Lisinopril-Hctz 20-12.5 mg 2 tab PO DAILY 08/20/23 04/12/24 History [Zestoretic 20-12.5] amLODIPine [Norvasc] 5 mg PO DAILY 08/20/23 04/12/24 History metFORMIN HCL [Glucophage] 1,000 mg PO AC-BID 08/20/23 04/12/24 History ALPRAZolam [Xanax] 1 mg PO BID PRN #6 tab 08/28/23 04/12/24 Rx Acetaminophen Tab [Tylenol Tab] 1,000 mg PO Q6HR PRN 04/12/24 04/12/24 History Empagliflozin [Jardiance] 25 mg PO DAILY 04/12/24 04/12/24 History Insulin Glargine,Hum.rec.anlog 5 units SQ HS 04/12/24 04/12/24 History [Lantus Solostar Pen] Allergies Allergy/AdvReac Type Severity Reaction Status Date / Time bupropion [From Wellbutrin] Allergy Unknown Verified 04/12/24 18:35 varenicline [From Chantix] Allergy Unknown Verified 04/12/24 18:35 Physical Exam Vitals: Vital Signs Temp Pulse Pulse Resp BP BP Pulse Ox 04/12/24 21:38 97.6 F 89 16 131/70 99 04/12/24 21:10 98.3 F 75 18 156/78 100 04/12/24 18:00 78 18 154/78 97 04/12/24 15:46 98 F 80 18 130/57 97 04/12/24 13:39 97.7 F 84 16 149/76 98 Intake and Output 04/12/24 04/12/24 04/13/24 14:59 22:59 06:59 Other: Weight 97.069 kg 97.069 kg Results CBC & Chem 7: 04/12/24 14:39 04/12/24 14:39 Labs: Abnormal Lab Results - Last 24 Hours (Table) 04/12/24 04/12/24 Range/Units 14:39 14:39 RBC 4.05 L (4.30-5.90) m/uL Hgb 11.7 L (13.0-17.5) gm/dL Hct 36.2 L (39.0-53.0) % Chloride 109 H (98-107) mmol/L BUN 40 H (9-20) mg/dL Creatinine 1.40 H (0.66-1.25) mg/dL Glucose 134 H (74-99) mg/dL C-Reactive Protein 3.0 H (<1.0) mg/dL Thrombosis Risk Factor Assmnt - Choose All That Apply Each Factor Represents 1 point: Swollen legs (current) Other Risk Factors: Yes Each Risk Factor Represents 2 Points: Age 61-74 years Thrombosis Risk Factor Assessment Total Risk Factor Score: 3 Thrombosis Risk Factor Assessment Level: Moderate Risk Assessment and Plan Assessment: No 68-year-old male with hypertension diabetes mellitus coming in for evaluation of right foot erythema bony prominence and superficial ulcer discussed case with ED doctor and accepted the admission for cellulitis of the right foot with anticipated length of stay less than 2 midnights Chart correct foot Rule out cellulitis of the right foot/osteomyelitis Foot x-ray showed CharcoAid type of changes CRP elevated 3 White count unremarkable 8.7 Follow-up cultures Patient started on antibiotic vancomycin dosing by pharmacy Tylenol for fever Normal saline IV fluid hydration 130 cc/h ID consultation Acute kidney injury BUN 40 creatinine 1.4 Sodium 140 potassium 4.2 Avoid nephrotoxic meds Hold lisinopril losartan Monitor urine output Monitor renal function Hypertension continue with amlodipine Diabetes mellitus Insulin sliding scale Check A1c Full code DVT prophylaxis heparin subcu 3 times daily
[2024-04-13 06:02] LABS: Glucose,Whole Blood 144 mg/dL (70-110)
[2024-04-13] MEDS: SODIUM CHLORIDE 0.9% 1,000 ML IV SCH (06:08)
[2024-04-13] MEDS: INSULIN ASPART (NovoLOG) 100 UNIT/ML VIAL SQ SCH (06:08)
[2024-04-13 07:29] LABS: African American GFR (CKD) 49 (>60 ml/min/1.73 sqM); Non-African American GFR(CKD) 42 (>60 ml/min/1.73 sqM)
[2024-04-13] MEDS ORDERED: metFORMIN 500 MG TAB PO SCH (07:30)
[2024-04-13] MEDS ORDERED: LISINOPRIL-HCTZ 20-12.5 MG 1 EACH TAB PO SCH (09:00)
[2024-04-13] MEDS: VANCOMYCIN 1,500 MG in SODIUM CHLORIDE 0.9% 500 ML 500 ML IVPB SCH (09:50)
[2024-04-13] MEDS: HEPARIN SODIUM,PORCINE 5,000 UNIT/ML 1 ML VIAL SQ SCH (09:51)
[2024-04-13] MEDS: amLODIPine 5 MG TAB PO SCH (09:51)
[2024-04-13 11:29] LABS: Glucose,Whole Blood 124 mg/dL (70-110)
--- NOTE | 2024-04-13 13:47 | P.PN ---
Subjective Progress Note Date: 04/13/24 Hospital Course: 68-year-old male with history of diabetes mellitus, hypertension, peripheral n europathy, left BKA presenting with right foot erythema. Vital signs within normal limits. Laboratory workup shows unremarkable CBC, elevated ESR 52, creatinine 1.4 above from baseline, CRP 3. 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 Patient started on IV antibiotics. ID consulted. Admitted for possible cellulitis, versus osteomyelitis in the setting of diabetic foot disease.. Subjective: Patient seen and examined at bedside. No acute events overnight. Pertinent positives and negatives as discussed above, a complete review of systems was performed and all other systems are negative. Vitals Signs Reviewed. General: Nontoxic, no distress, appears at stated age Derm: Warm, dry, Superficial ulcer on the dorsum of the right foot on the medial aspect along with surrounding erythema no induration no tenderness to palpation bony prominence over the medial aspect of the right foot Head: Atraumatic, normocephalic, symmetric Eyes: EOMI, no lid lag, anicteric sclera Mouth: No lip lesion, mucus membranes moist Cardiovascular: S1S2 reg, no murmur Lungs: CTA bilateral, no rhonchi, no rales, no accessory muscle use Abdominal: Soft, nontender to palpation, no guarding, no appreciable organomegaly Ext: No gross muscle atrophy, no edema, no contractures, left BKA Neuro: CN II-XI grossly intact, no focal neuro deficits Psych: Alert, oriented, appropriate affect Data Reviewed Today: Pertinent Labs: Creatinine 1.63, blood sugars range between 1 24-1 44, ESR 52, CRP 3 Imaging: No new imaging Assessment and Plan: Active: Right foot cellulitis Charcot arthropathy of right foot -Continue IV vancomycin, monitor renal function for renal toxicity -ID and vascular surgery consulted, pending recommendations -Inflammatory markers have been elevated -Pain control with oral Tylenol, IV morphine as needed, monitor for sedation Acute kidney injury -Likely prerenal -Renal/bladder ultrasound ordered -Hold lisinopril and hydrochlorothiazide and metformin -Continue normal saline 130 cc an hour Insulin-dependent diabetes -Continue home Levemir 5 units -Sliding scale insulin, monitor for hypoglycemia -Hold empagliflozin and metformin Chronic: Hypertension Anxiety DVT ppx: Subcu heparin Code status: Full code Anticipated discharge place: Pending clinical course Anticipated discharge time: Pending clinical course Objective - Vital Signs Vital signs: Vital Signs Temp 98.7 F 04/13/24 07:23 Pulse 68 04/13/24 09:51 Resp 19 04/13/24 07:23 BP 109/60 04/13/24 07:23 Pulse Ox 98 04/13/24 07:23 FiO2 Intake & Output 04/12/24 04/13/24 04/13/24 18:59 06:59 18:59 Weight 97.069 kg 97.069 kg Other: Voiding Method Toilet # Voids 1 - Labs CBC & Chem 7: 04/12/24 14:39 04/13/24 06:34 Labs: Abnormal Lab Results - Last 24 Hours (Table) 04/12/24 04/12/24 04/13/24 Range/Units 14:39 14:39 06:01 RBC 4.05 L (4.30-5.90) m/uL Hgb 11.7 L (13.0-17.5) gm/dL Hct 36.2 L (39.0-53.0) % ESR 52 H (0-20) mm/Hr Chloride 109 H (98-107) mmol/L BUN 40 H (9-20) mg/dL Creatinine 1.40 H (0.66-1.25) mg/dL Glucose 134 H (74-99) mg/dL POC Glucose (mg/dL) 144 H (70-110) mg/dL C-Reactive Protein 3.0 H (<1.0) mg/dL 04/13/24 04/13/24 Range/Units 06:34 11:28 RBC (4.30-5.90) m/uL Hgb (13.0-17.5) gm/dL Hct (39.0-53.0) % ESR (0-20) mm/Hr Chloride (98-107) mmol/L BUN (9-20) mg/dL Creatinine 1.63 H (0.66-1.25) mg/dL Glucose (74-99) mg/dL POC Glucose (mg/dL) 124 H (70-110) mg/dL C-Reactive Protein (<1.0) mg/dL
--- NOTE | 2024-04-13 15:38 | US ---
EXAMINATION TYPE: US kidneys/renal and bladder DATE OF EXAM: 04/13/2024 COMPARISON: NONE CLINICAL INDICATION: Male, 68 years old with history of cookie; COOKIE EXAM MEASUREMENTS: Right Kidney: 9.7 x 5.0 x 5.2 cm Left Kidney: 10.1 x 4.9 x 3.3 cm Right Kidney: Left Kidney: Anechoic area upper pole 1.5 x 1.6 x 1.9 cm. Bladder: Anechoic Bilateral Jets seen: no There is no evidence for hydronephrosis at this point in time. No nephrolithiasis is seen. No chantale s are identified. The urinary bladder is anechoic. IMPRESSION: 1. Negative for hydronephrosis bilaterally. 2. A 1.9 cm exophytic cyst from the left kidney superior pole.
[2024-04-13 17:03] LABS: Glucose,Whole Blood 139 mg/dL (70-110)
[2024-04-13] MEDS ORDERED: SALINE NASAL GEL 14.1 GM TUBE NASAL PRN (19:02)
[2024-04-13 20:12] LABS: Glucose,Whole Blood 133 mg/dL (70-110)
[2024-04-13] MEDS: ALPRAZolam 1 MG TAB PO SCH (21:10)
[2024-04-13] MEDS: INSULIN DETEMIR (LEVEMIR) 100 UNIT/ML SYR SQ SCH (21:10)
[2024-04-13] MEDS: MORPHINE SULFATE 2 MG/ML SYRINGE IV PRN (22:41)
[2024-04-14] MEDS: CEFEPIME 2 GM in SODIUM CHLORIDE 0.9% 100 ML IVPB SCH ×2 (02:14→14:07)
[2024-04-14 05:05] LABS: Basophils % (A) 1 %; Eosinophils # (A) 0.5 k/uL (0-0.7); Eosinophils % (A) 10 %; HCT 31.2 % (39.0-53.0); HGB 10.1 gm/dL (13.0-17.5); Lymphocytes % (A) 38 %; MCHC 32.4 g/dL (31.0-37.0); MCV 89.6 fL (80.0-100.0); Mean Platelet Volume 8.8; Monocytes # (A) 0.3 k/uL (0-1.0); Monocytes % (A) 6 %; Neutrophils # (A) 2.2 k/uL (1.3-7.7); Neutrophils % (A) 42 %; Platelet Count 242 k/uL (150-450); RBC 3.48 m/uL (4.30-5.90); RDW 13.2 % (11.5-15.5); WBC 5.2 k/uL (3.8-10.6)
[2024-04-14 05:17] LABS: African American GFR (CKD) 55 (>60 ml/min/1.73 sqM); Anion Gap 7 mmol/L; Blood Urea Nitrogen 38 mg/dL (9-20); Calcium 9.4 mg/dL (8.4-10.2); Carbon Dioxide 23 mmol/L (22-30); Chloride 109 mmol/L (98-107); Glucose 105 mg/dL (74-99); Non-African American GFR(CKD) 47 (>60 ml/min/1.73 sqM); Potassium 3.9 mmol/L (3.5-5.1); Sodium 139 mmol/L (137-145)
[2024-04-14 06:14] LABS: Glucose,Whole Blood 113 mg/dL (70-110)
[2024-04-14] MEDS: VANCOMYCIN 1,500 MG in SODIUM CHLORIDE 0.9% 500 ML 500 ML IVPB SCH (10:19)
--- NOTE | 2024-04-14 11:23 | P.CONS ---
History of Present Illness - Reason for Consult Consult date: 04/13/24 - History of Present Illness Patient is a 68-year-old male with a past medical history significant for diabetes mellitus and hypertension former smoker presenting to the hospital for evaluation of right foot pain and redness apparently has been going on for 3 to 4 days before the patient presented to hospital patient denies any history of any trauma and noticed to have any diffuse swelling redness mostly in the dorsum aspect of his right foot patient describing the pain to be moderate in intensity without any radiation he is able to ambulate but it causes pain with the symptoms the patient was evaluated on presentation to the hospital patient was afebrile and no fever has been recorded subsequently patient was not tachycardic hypotensive or hypoxic patient did have a white count of 8.7 creatinine is 1.63 today electrolytes and liver enzymes are normal blood culture has been obtained which are currently pending patient did have x-ray of the foot changes in the region of the midfoot forefoot junction may represent Charcot type arthropathic patient has been started on vancomycin and Zosyn infectious disease was consulted for further management of antibiotic therapy changes Past Medical History Past Medical History: Diabetes Mellitus, Hypertension History of Any Multi-Drug Resistant Organisms: MRSA Year Discovered:: 1997 MDRO Source:: Unsure Past Surgical History: No Surgical Hx Reported Additional Past Surgical History / Comment(s): eye surgery Past Anesthesia/Blood Transfusion Reactions: No Reported Reaction Past Psychological History: Anxiety Smoking Status: Former smoker Past Alcohol Use History: Occasional Past Drug Use History: None Reported Medications and Allergies Home Medications Medication Instructions Recorded Confirmed Type Lisinopril-Hctz 20-12.5 mg 2 tab PO DAILY 08/20/23 04/12/24 History [Zestoretic 20-12.5] amLODIPine [Norvasc] 5 mg PO DAILY 08/20/23 04/12/24 History metFORMIN HCL [Glucophage] 1,000 mg PO AC-BID 08/20/23 04/12/24 History ALPRAZolam [Xanax] 1 mg PO BID PRN #6 tab 08/28/23 04/12/24 Rx Acetaminophen Tab [Tylenol Tab] 1,000 mg PO Q6HR PRN 04/12/24 04/12/24 History Empagliflozin [Jardiance] 25 mg PO DAILY 04/12/24 04/12/24 History Insulin Glargine,Hum.rec.anlog 5 units SQ HS 04/12/24 04/12/24 History [Lantus Solostar Pen] Allergies Allergy/AdvReac Type Severity Reaction Status Date / Time bupropion [From Wellbutrin] Allergy Unknown Verified 04/12/24 18:35 varenicline [From Chantix] Allergy Unknown Verified 04/12/24 18:35 Physical Exam Vitals: Vital Signs Temp Pulse Pulse Resp BP BP Pulse Ox 04/13/24 01:29 97.7 F 70 17 102/61 97 04/12/24 21:38 97.6 F 89 16 131/70 99 04/12/24 21:10 98.3 F 75 18 156/78 100 04/12/24 18:00 78 18 154/78 97 04/12/24 15:46 98 F 80 18 130/57 97 04/12/24 13:39 97.7 F 84 16 149/76 98 Intake and Output 04/12/24 04/13/24 04/13/24 22:59 06:59 14:59 Other: Weight 97.069 kg Results CBC & Chem 7: 04/14/24 04:42 04/14/24 04:42 Labs: Abnormal Lab Results - Last 24 Hours (Table) 04/12/24 04/12/24 04/13/24 Range/Units 14:39 14:39 06:01 RBC 4.05 L (4.30-5.90) m/uL Hgb 11.7 L (13.0-17.5) gm/dL Hct 36.2 L (39.0-53.0) % ESR 52 H (0-20) mm/Hr Chloride 109 H (98-107) mmol/L BUN 40 H (9-20) mg/dL Creatinine 1.40 H (0.66-1.25) mg/dL Glucose 134 H (74-99) mg/dL POC Glucose (mg/dL) 144 H (70-110) mg/dL C-Reactive Protein 3.0 H (<1.0) mg/dL 04/13/24 Range/Units 06:34 RBC (4.30-5.90) m/uL Hgb (13.0-17.5) gm/dL Hct (39.0-53.0) % ESR (0-20) mm/Hr Chloride (98-107) mmol/L BUN (9-20) mg/dL Creatinine 1.63 H (0.66-1.25) mg/dL Glucose (74-99) mg/dL POC Glucose (mg/dL) (70-110) mg/dL C-Reactive Protein (<1.0) mg/dL Assessment and Plan Plan: 1patient presented hospital right foot pain swelling and redness that has been going on for about 3 to 4 days before presentation to the hospital patient noticed to have erythema on the dorsal aspect of the right foot but no open wound or any drainage I did have significant abnormality on the plain x-rays with a question of Charcot versus abscess. 2patient with elevated creatinine and high risk of nephrotoxicity. 3we will wait for the kidney function improved off for the patient benefit from MRI of the right foot to better define underlying pathology. 4we will check CRP and sed rate 5continue with the vancomycin however switch Zosyn to cefepime to decrease risk of nephrotoxicity. We will follow on clinical condition and cultures to further adjust medication if needed Thank you for this consultation we will follow the patient along with you Dictation was produced using [employer] dictation software. please excuse any grammatical, word or spelling errors. Time with Patient: Greater than 30
--- NOTE | 2024-04-14 11:30 | P.PN ---
Subjective Progress Note Date: 04/14/24 Hospital Course: 68-year-old male with history of diabetes mellitus, hypertension, peripheral n europathy, left BKA presenting with right foot erythema. Vital signs within normal limits. Laboratory workup shows unremarkable CBC, elevated ESR 52, creatinine 1.4 above from baseline, CRP 3. 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 Patient started on IV antibiotics. ID consulted. Admitted for possible cellulitis, versus osteomyelitis in the setting of diabetic foot disease. Patient also has COOKIE, renal function not improving. Bladder ultrasound negative for hydronephrosis bilaterally, 1.9 cm exophytic cyst from the left kidney superior pole. Subjective: Patient seen and examined at bedside. No acute events overnight. Pertinent positives and negatives as discussed above, a complete review of systems was performed and all other systems are negative. Vitals Signs Reviewed. General: Nontoxic, no distress, appears at stated age Derm: Warm, dry, Superficial ulcer on the dorsum of the right foot on the medial aspect along with surrounding erythema no induration no tenderness to palpation bony prominence over the medial aspect of the right foot Head: Atraumatic, normocephalic, symmetric Eyes: EOMI, no lid lag, anicteric sclera Mouth: No lip lesion, mucus membranes moist Cardiovascular: S1S2 reg, no murmur Lungs: CTA bilateral, no rhonchi, no rales, no accessory muscle use Abdominal: Soft, nontender to palpation, no guarding, no appreciable organomegaly Ext: No gross muscle atrophy, no edema, no contractures, left BKA Neuro: CN II-XI grossly intact, no focal neuro deficits Psych: Alert, oriented, appropriate affect Data Reviewed Today: Pertinent Labs: Hemoglobin 10.1, creatinine 1.49, A1c 6.6 Imaging: No new imaging Assessment and Plan: Active: Right foot cellulitis Charcot arthropathy of right foot -Continue IV vancomycin, monitor renal function for renal toxicity -ID following, also started IV cefepime 2 g every 12 hours -Inflammatory markers have been elevated -Pain control with oral Tylenol, IV morphine as needed, monitor for sedation Acute kidney injury, improving -Likely prerenal -Hold lisinopril and hydrochlorothiazide and metformin -Continue normal saline 130 cc an hour Insulin-dependent diabetes -Continue home Levemir 5 units -Sliding scale insulin, monitor for hypoglycemia -Hold empagliflozin and metformin Chronic: Hypertension Anxiety DVT ppx: Subcu heparin Code status: Full code Anticipated discharge place: Pending clinical course Anticipated discharge time: Pending clinical course Objective - Vital Signs Vital signs: Vital Signs Temp 97.8 F 04/14/24 07:14 Pulse 72 04/14/24 07:14 Resp 18 04/14/24 10:52 BP 123/61 04/14/24 07:14 Pulse Ox 96 04/14/24 07:14 FiO2 Intake & Output 04/13/24 04/14/24 04/14/24 18:59 06:59 18:59 Intake Total 500 250 Balance 500 250 Intake: Oral 500 250 Other: Voiding Method Urinal Urinal Urinal # Voids 2 2 2 - Labs CBC & Chem 7: 04/14/24 04:42 04/14/24 04:42 Labs: Abnormal Lab Results - Last 24 Hours (Table) 04/13/24 04/13/24 04/13/24 Range/Units 11:28 17:02 20:10 RBC (4.30-5.90) m/uL Hgb (13.0-17.5) gm/dL Hct (39.0-53.0) % Chloride (98-107) mmol/L BUN (9-20) mg/dL Creatinine (0.66-1.25) mg/dL Glucose (74-99) mg/dL POC Glucose (mg/dL) 124 H 139 H 133 H (70-110) mg/dL Hemoglobin A1c (<=6.0) % 04/14/24 04/14/24 04/14/24 Range/Units 04:42 04:42 04:42 RBC 3.48 L (4.30-5.90) m/uL Hgb 10.1 L (13.0-17.5) gm/dL Hct 31.2 L (39.0-53.0) % Chloride 109 H (98-107) mmol/L BUN 38 H (9-20) mg/dL Creatinine 1.49 H (0.66-1.25) mg/dL Glucose 105 H (74-99) mg/dL POC Glucose (mg/dL) (70-110) mg/dL Hemoglobin A1c 6.6 H (<=6.0) % 04/14/24 Range/Units 06:13 RBC (4.30-5.90) m/uL Hgb (13.0-17.5) gm/dL Hct (39.0-53.0) % Chloride (98-107) mmol/L BUN (9-20) mg/dL Creatinine (0.66-1.25) mg/dL Glucose (74-99) mg/dL POC Glucose (mg/dL) 113 H (70-110) mg/dL Hemoglobin A1c (<=6.0) %
[2024-04-14 11:46] LABS: Glucose,Whole Blood 220 mg/dL (70-110)
[2024-04-14 13:10] LABS: Appearance,Urine Clear (Clear); Bilirubin,Urine Negative (Negative); Blood,Urine Negative (Negative); Color,Urine Colorless; Glucose,Urine (UA) 4+ (Negative); Ketones,Urine Negative (Negative); Leukocyte Esterase,Urine Negative (Negative); Nitrite,Urine Negative (Negative); Protein,Urine Negative (Negative); Specific Gravity,Urine 1.007 (1.001-1.035); Urobilinogen,Urine <2.0 mg/dL (<2.0)
[2024-04-14] MEDS ORDERED: RX INFO: IV CONTRAST WAS GIVEN 1 EACH MISC MISCELLANE PRN (13:36)
--- NOTE | 2024-04-14 13:51 | P.GSCN ---
History of Present Illness Consult date: 04/14/24 Reason for Consult: Right foot wound. History of present illness: Patient is a 68-year-old male known to me from previous need for left below the knee amputation. Patient has a long history of diabetes mellitus. He began to experience a wound on the medial aspect at the mid foot level. He denies any chills or fevers or known trauma to the area. There is no previous similar symptoms/history. He is relating this to possibly needing to "hop" while learning to use his left below the amputation prostatic. He has been on IV antibiotics since his admission to the hospital. Past Medical History Past Medical History: Diabetes Mellitus, Hypertension History of Any Multi-Drug Resistant Organisms: MRSA Year Discovered:: 1997 MDRO Source:: Unsure Past Surgical History: No Surgical Hx Reported Additional Past Surgical History / Comment(s): eye surgery Past Anesthesia/Blood Transfusion Reactions: No Reported Reaction Past Psychological History: Anxiety Smoking Status: Former smoker Past Alcohol Use History: Occasional Past Drug Use History: None Reported Additional History: Patient has undergone a left below the knee amputation. Medications and Allergies Home Medications Medication Instructions Recorded Confirmed Type Lisinopril-Hctz 20-12.5 mg 2 tab PO DAILY 08/20/23 04/12/24 History [Zestoretic 20-12.5] amLODIPine [Norvasc] 5 mg PO DAILY 08/20/23 04/12/24 History metFORMIN HCL [Glucophage] 1,000 mg PO AC-BID 08/20/23 04/12/24 History ALPRAZolam [Xanax] 1 mg PO BID PRN #6 tab 08/28/23 04/12/24 Rx Acetaminophen Tab [Tylenol Tab] 1,000 mg PO Q6HR PRN 04/12/24 04/12/24 History Empagliflozin [Jardiance] 25 mg PO DAILY 04/12/24 04/12/24 History Insulin Glargine,Hum.rec.anlog 5 units SQ HS 04/12/24 04/12/24 History [Lantus Solostar Pen] Allergies Allergy/AdvReac Type Severity Reaction Status Date / Time bupropion [From Wellbutrin] Allergy Unknown Verified 04/12/24 18:35 varenicline [From Chantix] Allergy Unknown Verified 04/12/24 18:35 Surgical - Exam Osteopathic Statement: *. No significant issues noted on an osteopathic structural exam other than those noted in the History and Physical/Consult. Vital Signs Temp Pulse Resp BP Pulse Ox 97.7 F 84 16 149/76 98 04/12/24 13:39 04/12/24 13:39 04/12/24 13:39 04/12/24 13:39 04/12/24 13:39 Patient Seen Date: 04/14/24 Patient Seen Time: 13:00 No carotid bruit noted. Heart: Regular without murmur Lungs: Clear to auscultation bilaterally. Abdomen: Soft and otherwise benign. Extremities: Femoral pulses are intact bilaterally. I could not truly feel a palpable popliteal or pedal pulse. A bulla is noted along the medial aspect of the leg at the mid foot level. This was unroofed draining serous fluid. Erythema is noted in this area although I could not express any purulence. The foot is generally edematous however I do not believe there is any abscess in the plantar space. The wound was redressed. Results - Labs 04/14/24 04:42 04/14/24 04:42 Abnormal Lab Results - Last 24 Hours (Table) 04/13/24 04/13/24 04/14/24 Range/Units 17:02 20:10 04:42 RBC (4.30-5.90) m/uL Hgb (13.0-17.5) gm/dL Hct (39.0-53.0) % Chloride (98-107) mmol/L BUN (9-20) mg/dL Creatinine (0.66-1.25) mg/dL Glucose (74-99) mg/dL POC Glucose (mg/dL) 139 H 133 H (70-110) mg/dL Hemoglobin A1c 6.6 H (<=6.0) % Urine Glucose (UA) (Negative) 04/14/24 04/14/24 04/14/24 Range/Units 04:42 04:42 06:13 RBC 3.48 L (4.30-5.90) m/uL Hgb 10.1 L (13.0-17.5) gm/dL Hct 31.2 L (39.0-53.0) % Chloride 109 H (98-107) mmol/L BUN 38 H (9-20) mg/dL Creatinine 1.49 H (0.66-1.25) mg/dL Glucose 105 H (74-99) mg/dL POC Glucose (mg/dL) 113 H (70-110) mg/dL Hemoglobin A1c (<=6.0) % Urine Glucose (UA) (Negative) 04/14/24 04/14/24 Range/Units 11:45 12:43 RBC (4.30-5.90) m/uL Hgb (13.0-17.5) gm/dL Hct (39.0-53.0) % Chloride (98-107) mmol/L BUN (9-20) mg/dL Creatinine (0.66-1.25) mg/dL Glucose (74-99) mg/dL POC Glucose (mg/dL) 220 H (70-110) mg/dL Hemoglobin A1c (<=6.0) % Urine Glucose (UA) 4+ H (Negative) Microbiology - Last 24 Hours (Table) 04/12/24 18:15 Blood Culture - Preliminary Blood 04/12/24 18:00 Blood Culture - Preliminary Blood Diabetes panel 04/14/24 04/14/24 Range/Units 04:42 04:42 Sodium 139 (137-145) mmol/L Potassium 3.9 (3.5-5.1) mmol/L Chloride 109 H (98-107) mmol/L Carbon Dioxide 23 (22-30) mmol/L BUN 38 H (9-20) mg/dL Creatinine 1.49 H (0.66-1.25) mg/dL Glucose 105 H (74-99) mg/dL Hemoglobin A1c 6.6 H (<=6.0) % Calcium 9.4 (8.4-10.2) mg/dL Calcium panel 04/14/24 Range/Units 04:42 Calcium 9.4 (8.4-10.2) mg/dL Pituitary panel 04/14/24 Range/Units 04:42 Sodium 139 (137-145) mmol/L Potassium 3.9 (3.5-5.1) mmol/L Chloride 109 H (98-107) mmol/L Carbon Dioxide 23 (22-30) mmol/L BUN 38 H (9-20) mg/dL Creatinine 1.49 H (0.66-1.25) mg/dL Glucose 105 H (74-99) mg/dL Calcium 9.4 (8.4-10.2) mg/dL Adrenal panel 04/14/24 Range/Units 04:42 Sodium 139 (137-145) mmol/L Potassium 3.9 (3.5-5.1) mmol/L Chloride 109 H (98-107) mmol/L Carbon Dioxide 23 (22-30) mmol/L BUN 38 H (9-20) mg/dL Creatinine 1.49 H (0.66-1.25) mg/dL Glucose 105 H (74-99) mg/dL Calcium 9.4 (8.4-10.2) mg/dL Assessment and Plan Assessment: Diabetic vascular disease with cellulitis of the right foot. Rule out more insidious infectious process. Plan: Will obtain CT angiogram [place] to evaluate the vascular flow to the foot but to evaluate for possible deep space abscess or other issue. Time with Patient: Greater than 30
[2024-04-14 16:27] LABS: Glucose,Whole Blood 157 mg/dL (70-110)
[2024-04-14 21:26] LABS: Glucose,Whole Blood 163 mg/dL (70-110)
--- NOTE | 2024-04-14 23:24 | CT ---
EXAMINATION TYPE: CT angio lower extremity RT DATE OF EXAM: 04/14/2024 2:12 PM COMPARISON: None. CLINICAL INDICATION:Male, 68 years old with history of occlusion; PHH, occlusion TECHNIQUE: Contrast CTA was obtained through the right lower extremity. Multiplanar reformatted images are submi tted for review. 3-D reconstruction was created on a separate workstation. Contrast used:80ml mL of Isovue 370 with IV Contrast, Oral contrast used: None CT DLP: 1075.8 mGycm, Automated exposure control for dose reduction was used. FINDINGS: CT angiogram: Distal abdominal aorta and common iliac arteries show moderate mixed atherosclerotic disease without high-grade stenosis or occlusion. No aneurysm. Visualized JERMAIN is patent with mild stenosis. Right common and external iliac arteries are patent. Patent internal iliac with mild disease. Femoral artery is patent with mild atherosclerotic disease. Bifurcation is patent, superficial femoral and p rofunda femoris arteries are patent with mild disease. Continuing distally, there is slightly greater atherosclerotic irregularity of the mid to distal superficial femoral artery and popliteal artery. P opliteal is patent. Diffuse disease below the knee, with patent tibial peroneal trunk, anterior tibia l artery, peroneal artery, and posterior tibial artery. These vessels all become irregular and diminu tive continuing distally but likely patent crossing the ankle. Visualized left common iliac, external iliac arteries appear patent to the level of the visualized fe moral artery. Non-CT angiogram: No acute abnormality demonstrated in the imaged lower abdomen and pelvis. Moderate degenerative changes of the lower lumbar spine, SI joints, right greater than left hip. No a cute fracture or dislocation is identified. There is moderate tricompartmental osteoarthropathy of th e right knee. Mild degenerative changes of the right ankle. IMPRESSION: 1. Distal abdominal aorta and iliac arteries appear grossly patent, with moderate mixed atherosclero tic disease throughout. 2. Visualized right lower extremity runoff shows diffuse mixed atherosclerotic disease with continue d irregularity and tapering throughout the extremity to the level of the ankle; the branch vessels se em to be patent crossing the ankle. No clear evidence of a major vascular occlusion. 3. If further evaluation if clinically warranted, [facility] and possible treatment purposes.
[2024-04-15 06:31] LABS: Glucose,Whole Blood 109 mg/dL (70-110)
--- NOTE | 2024-04-15 08:30 | P.PN ---
Subjective Progress Note Date: 04/14/24 Principal diagnosis: Reason for follow-up is right leg cellulitis possible abscess Patient is a 68-year-old male with a past medical history significant for diabetes mellitus and hypertension former smoker presenting to the hospital for evaluation of right foot pain and redness apparently has been going on for 3 to 4 days patient diagnosed with cellulitis and admitted to the hospital. On today's evaluation that is 04/14/2024, Patient is afebrile patient is currently on room air and denies having any shortness of breath, the patient denies any chest pain or cough, the patient denies any nausea vomiting did not have any abdominal pain and no diarrhea patient mention area of the redness has come up to ahead and has been drained by surgeon this morning no cultures were done. Patient white count is 5.2, creatinine is 1.49 Objective - Vital Signs Vital signs: Vital Signs Temp 96.4 F L 04/14/24 14:22 Pulse 77 04/14/24 14:22 Resp 18 04/14/24 14:22 BP 146/80 04/14/24 14:22 Pulse Ox 96 04/14/24 14:22 FiO2 Intake & Output 04/13/24 04/14/24 04/14/24 18:59 06:59 18:59 Intake Total 500 700 Output Total 100 Balance 500 600 Intake: Oral 500 700 Output: Urine 100 Other: Voiding Method Urinal Urinal Urinal # Voids 2 2 2 - Exam GENERAL DESCRIPTION: An elderly male lying in bed in no distress RESPIRATORY SYSTEM: Unlabored breathing , decreased breath sounds at bases HEART: S1 S2 regular rate and rhythm , ABDOMEN: Soft , no tenderness EXTREMITIES: Right foot did have swelling redness minimal drainage culture has been obtained - Labs CBC & Chem 7: 04/14/24 04:42 04/14/24 04:42 Labs: Abnormal Lab Results - Last 24 Hours (Table) 04/13/24 04/14/24 04/14/24 Range/Units 20:10 04:42 04:42 RBC 3.48 L (4.30-5.90) m/uL Hgb 10.1 L (13.0-17.5) gm/dL Hct 31.2 L (39.0-53.0) % Chloride (98-107) mmol/L BUN (9-20) mg/dL Creatinine (0.66-1.25) mg/dL Glucose (74-99) mg/dL POC Glucose (mg/dL) 133 H (70-110) mg/dL Hemoglobin A1c 6.6 H (<=6.0) % Urine Glucose (UA) (Negative) 04/14/24 04/14/24 04/14/24 Range/Units 04:42 06:13 11:45 RBC (4.30-5.90) m/uL Hgb (13.0-17.5) gm/dL Hct (39.0-53.0) % Chloride 109 H (98-107) mmol/L BUN 38 H (9-20) mg/dL Creatinine 1.49 H (0.66-1.25) mg/dL Glucose 105 H (74-99) mg/dL POC Glucose (mg/dL) 113 H 220 H (70-110) mg/dL Hemoglobin A1c (<=6.0) % Urine Glucose (UA) (Negative) 04/14/24 04/14/24 Range/Units 12:43 16:26 RBC (4.30-5.90) m/uL Hgb (13.0-17.5) gm/dL Hct (39.0-53.0) % Chloride (98-107) mmol/L BUN (9-20) mg/dL Creatinine (0.66-1.25) mg/dL Glucose (74-99) mg/dL POC Glucose (mg/dL) 157 H (70-110) mg/dL Hemoglobin A1c (<=6.0) % Urine Glucose (UA) 4+ H (Negative) Microbiology - Last 24 Hours (Table) 04/12/24 18:15 Blood Culture - Preliminary Blood 04/12/24 18:00 Blood Culture - Preliminary Blood Assessment and Plan (1) Cellulitis of right foot Current Visit: Yes Status: Acute Code(s): L03.115 - CELLULITIS OF RIGHT LOWER LIMB SNOMED Code(s): 55787792596804660 (2) Diabetic foot ulcer Current Visit: Yes Status: Acute Code(s): E11.621 - TYPE 2 DIABETES MELLITUS WITH FOOT ULCER; L97.509 - NON-PRESSURE CHRONIC ULCER OTH PRT UNSP FOOT W UNSP SEVERITY SNOMED Code(s): 542316692 Plan: 1patient presented [facility] right foot pain swelling and redness that has been going on for about 3 to 4 days before presentation to the hospital patient noticed to have erythema on the dorsal aspect of the right foot, patient swelling has come up to ahead and has been draining by vascular surgery unfortunately no cultures obtained I was able to obtain swab for cultures results will be followed 2CT has been ordered results will be followed 3patient to continue with the vancomycin and cefepime while waiting for the workup to be completed Dictation was produced using [employer] dictation software. please excuse any gra mmatical, word or spelling errors. Time with Patient: Less than 30
[2024-04-15 08:34] LABS: Basophils # (A) 0.07 X 10*3/uL (0.00-0.10); Basophils % (A) 1.1 %; Eosinophils # (A) 0.73 X 10*3/uL (0.04-0.35); Eosinophils % (A) 11.3 %; HCT 32.5 % (39.6-50.0); HGB 10.8 g/dL (13.0-17.0); Lymphocytes # (A) 2.29 X 10*3/uL (0.90-5.00); Lymphocytes % (A) 35.3 %; MCH 29.4 pg (27.0-32.0); MCHC 33.2 g/dL (32.0-37.0); MCV 88.6 FL (80.0-97.0); Mean Platelet Volume 10.4 FL (9.5-12.2); Monocytes # (A) 0.51 X 10*3/uL (0.20-1.00); Monocytes % (A) 7.9 %; NRBC Per 100 WBC 0 X 10*3/uL (0.00-0.01); Neutrophils # (A) 2.86 X 10*3/uL (1.80-7.70); Neutrophils % (A) 44.1 %; Platelet Count 290 X 10*3/uL (140-440); RBC 3.67 X 10*6/uL (4.40-5.60); RDW 12.5 % (11.5-14.5); WBC 6.48 X 10*3/uL (4.50-10.00)
[2024-04-15 08:59] LABS: BUN/Creat Ratio 22.14 Ratio (12.00-20.00); Calcium 9.4 mg/dL (8.7-10.3); Carbon Dioxide 21.6 mmol/L (21.6-31.8); Chloride 106 mmol/L (96-109); Glucose 99 mg/dL (70-110); Potassium 4.5 mmol/L (3.5-5.5); Sodium 139 mmol/L (135-145)
[2024-04-15 09:36] LABS: African American GFR (CKD) 63 (>60 ml/min/1.73 sqM); Non-African American GFR(CKD) 55 (>60 ml/min/1.73 sqM)
[2024-04-15] MEDS: VANCOMYCIN TROUGH DUE 1 EACH MISC MISCELLANE ONE (10:58)
[2024-04-15 12:01] LABS: Glucose,Whole Blood 135 mg/dL (70-110)
--- NOTE | 2024-04-15 14:07 | P.PN ---
Subjective Progress Note Date: 04/15/24 Hospital Course: 68-year-old male with history of diabetes mellitus, hypertension, peripheral n europathy, left BKA presenting with right foot erythema. Vital signs within normal limits. Laboratory workup shows unremarkable CBC, elevated ESR 52, creatinine 1.4 above from baseline, CRP 3. 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 Patient started on IV antibiotics. ID consulted. Admitted for possible cellulitis, versus osteomyelitis in the setting of diabetic foot disease. Patient also has COOKIE, renal function not improving. Bladder ultrasound negative for hydronephrosis bilaterally, 1.9 cm exophytic cyst from the left kidney superior pole. CTA of lower extremity showed patent blood vessel in the right lower extremity, diffuse mixed arthrosclerotic disease was noted. MRI of the foot pending. Subjective: Patient seen and examined at bedside. No acute events overnight. Pertinent positives and negatives as discussed above, a complete review of systems was performed and all other systems are negative. Vitals Signs Reviewed. General: Nontoxic, no distress, appears at stated age Derm: Warm, dry, Superficial ulcer on the dorsum of the right foot on the medial aspect along with surrounding erythema no induration no tenderness to palpation bony prominence over the medial aspect of the right foot Head: Atraumatic, normocephalic, symmetric Eyes: EOMI, no lid lag, anicteric sclera Mouth: No lip lesion, mucus membranes moist Cardiovascular: S1S2 reg, no murmur Lungs: CTA bilateral, no rhonchi, no rales, no accessory muscle use Abdominal: Soft, nontender to palpation, no guarding, no appreciable organomegaly Ext: No gross muscle atrophy, no edema, no contractures, left BKA Neuro: CN II-XI grossly intact, no focal neuro deficits Psych: Alert, oriented, appropriate affect Data Reviewed Today: Pertinent Labs: Hemoglobin 10.8, creatinine one 1.33, blood sugars range between 99-1 35 Imaging: CTA of lower extremity showed patent blood vessel in the right lower extremity, diffuse mixed arthrosclerotic disease was noted. Assessment and Plan: Active: Right foot cellulitis Suspected abscess versus osteomyelitis Peripheral arterial disease -Continue IV vancomycin, monitor renal function for renal toxicity -Discussed management with ID, continue IV cefepime 2 g every 12 hours, and IV vancomycin, monitor for renal toxicity -MRI foot has been ordered by ID -Pain control with oral Tylenol, IV morphine as needed, monitor for sedation -vascular surgery also following Acute kidney injury, improving -Hold lisinopril and hydrochlorothiazide and metformin -Continue normal saline 130 cc an hour Insulin-dependent diabetes -Continue home Levemir 5 units -Sliding scale insulin, monitor for hypoglycemia -Hold empagliflozin and metformin Chronic: Hypertension Anxiety DVT ppx: Subcu heparin Code status: Full code Anticipated discharge place: Pending clinical course Anticipated discharge time: Pending clinical course Objective - Vital Signs Vital signs: Vital Signs Temp 98.3 F 04/15/24 07:48 Pulse 64 04/15/24 08:00 Resp 17 04/15/24 08:00 BP 139/67 04/15/24 07:48 Pulse Ox 96 04/15/24 07:48 FiO2 Intake & Output 04/14/24 04/15/24 04/15/24 18:59 06:59 18:59 Intake Total 700 Output Total 100 Balance 600 Intake: Oral 700 Output: Urine 100 Other: Voiding Method Urinal Toilet Urinal # Voids 2 4 1 - Labs CBC & Chem 7: 04/15/24 04:36 04/15/24 08:44 Labs: Abnormal Lab Results - Last 24 Hours (Table) 04/14/24 04/14/24 04/15/24 Range/Units 16:26 21:24 04:36 RBC 3.67 L (4.40-5.60) X 10*6/uL Hgb 10.8 L (13.0-17.0) g/dL Hct 32.5 L (39.6-50.0) % Eosinophils # 0.73 H (0.04-0.35) X 10*3/uL BUN (9.0-27.0) mg/dL Creatinine (0.66-1.25) mg/dL Est GFR (CKD-EPI) (>=60) BUN/Creatinine Ratio (12.00-20.00) Ratio POC Glucose (mg/dL) 157 H 163 H (70-110) mg/dL 04/15/24 04/15/24 04/15/24 Range/Units 04:36 08:44 11:59 RBC (4.40-5.60) X 10*6/uL Hgb (13.0-17.0) g/dL Hct (39.6-50.0) % Eosinophils # (0.04-0.35) X 10*3/uL BUN 31.0 H (9.0-27.0) mg/dL Creatinine 1.33 H (0.66-1.25) mg/dL Est GFR (CKD-EPI) 54 L (>=60) BUN/Creatinine Ratio 22.14 H (12.00-20.00) Ratio POC Glucose (mg/dL) 135 H (70-110) mg/dL Microbiology - Last 24 Hours (Table) 04/12/24 18:15 Blood Culture - Preliminary Blood 04/12/24 18:00 Blood Culture - Preliminary Blood
--- NOTE | 2024-04-15 16:01 | P.PN ---
Subjective Progress Note Date: 04/15/24 Principal diagnosis: Reason for follow-up is right leg cellulitis possible abscess Patient is a 68-year-old male with a past medical history significant for diabetes mellitus and hypertension former smoker presenting to the hospital for evaluation of right foot pain and redness apparently has been going on for 3 to 4 days patient diagnosed with cellulitis and admitted to the hospital. On today's evaluation that is 04/15/2024, patient has been afebrile, patient is breathing comfortably and is currently on room air, patient denies having any significant cough no chest pain shortness of breath, patient denies nausea vomiting or diarrhea and no abdominal pain patient still have a swelling redness to the right foot denies any worsening pain or drainage. Patient did have a white count of 6.48, creatinine is 1.33 blood cultures currently pending Objective - Vital Signs Vital signs: Vital Signs Temp 98.3 F 04/15/24 07:48 Pulse 64 04/15/24 08:00 Resp 17 04/15/24 08:00 BP 139/67 04/15/24 07:48 Pulse Ox 96 04/15/24 07:48 FiO2 Intake & Output 04/14/24 04/15/24 04/15/24 18:59 06:59 18:59 Intake Total 700 Output Total 100 Balance 600 Intake: Oral 700 Output: Urine 100 Other: Voiding Method Urinal Toilet Urinal # Voids 2 4 1 - Exam GENERAL DESCRIPTION: An elderly male lying in bed in no distress RESPIRATORY SYSTEM: Unlabored breathing , decreased breath sounds at bases HEART: S1 S2 regular rate and rhythm , ABDOMEN: Soft , no tenderness EXTREMITIES: Right foot did have swelling redness minimal drainage on the dressing - Labs CBC & Chem 7: 04/15/24 04:36 04/15/24 08:44 Labs: Abnormal Lab Results - Last 24 Hours (Table) 04/14/24 04/14/24 04/15/24 Range/Units 16:26 21:24 04:36 RBC 3.67 L (4.40-5.60) X 10*6/uL Hgb 10.8 L (13.0-17.0) g/dL Hct 32.5 L (39.6-50.0) % Eosinophils # 0.73 H (0.04-0.35) X 10*3/uL BUN (9.0-27.0) mg/dL Creatinine (0.66-1.25) mg/dL Est GFR (CKD-EPI) (>=60) BUN/Creatinine Ratio (12.00-20.00) Ratio POC Glucose (mg/dL) 157 H 163 H (70-110) mg/dL 04/15/24 04/15/24 04/15/24 Range/Units 04:36 08:44 11:59 RBC (4.40-5.60) X 10*6/uL Hgb (13.0-17.0) g/dL Hct (39.6-50.0) % Eosinophils # (0.04-0.35) X 10*3/uL BUN 31.0 H (9.0-27.0) mg/dL Creatinine 1.33 H (0.66-1.25) mg/dL Est GFR (CKD-EPI) 54 L (>=60) BUN/Creatinine Ratio 22.14 H (12.00-20.00) Ratio POC Glucose (mg/dL) 135 H (70-110) mg/dL Microbiology - Last 24 Hours (Table) 04/12/24 18:15 Blood Culture - Preliminary Blood 04/12/24 18:00 Blood Culture - Preliminary Blood Assessment and Plan (1) Cellulitis of right foot Current Visit: Yes Status: Acute Code(s): L03.115 - CELLULITIS OF RIGHT LOWER LIMB SNOMED Code(s): 27808934180634119 (2) Diabetic foot ulcer Current Visit: Yes Status: Acute Code(s): E11.621 - TYPE 2 DIABETES MELLITUS WITH FOOT ULCER; L97.509 - NON-PRESSURE CHRONIC ULCER OTH PRT UNSP FOOT W UNSP SEVERITY SNOMED Code(s): 132577673 Plan: 1patient presented hospital right foot pain swelling and redness that has been going on for about 3 to 4 days before presentation to the hospital patient noticed to have erythema on the dorsal aspect of the right foot, patient swelling has come up to ahead and has been draining by vascular surgery unfortunately no cultures obtained I was able to obtain swab for cultures results will be followed 2we will order MRI of the right foot with contrast to better define underlying pathology and need for any surgical drainage 3patient to continue with the vancomycin and cefepime while waiting for the workup to be completed discussed with admitting team Dictation was produced using dragon dictation software. please excuse any grammatical, word or spelling errors. Time with Patient: Less than 30
--- NOTE | 2024-04-15 16:24 | P.PN ---
Subjective Progress Note Date: 04/15/24 Principal diagnosis: right foot swelling, infection Patient seen and evaluated this morning. Doing well, states swelling and redness improved over the weekend. Denies any worsening pain. States having a [employer] and was planning on following with them after hospitalization. Denies any fevers, chills, chest pain or shortness of breath. Objective - Vital Signs Vital signs: Vital Signs Temp 98.1 F 04/15/24 14:46 Pulse 66 04/15/24 14:46 Resp 17 04/15/24 14:46 BP 131/55 04/15/24 14:46 Pulse Ox 96 04/15/24 14:46 FiO2 Intake & Output 04/14/24 04/15/24 04/15/24 18:59 06:59 18:59 Intake Total 700 Output Total 100 Balance 600 Intake: Oral 700 Output: Urine 100 Other: Voiding Method Urinal Toilet Urinal # Voids 2 4 1 - Constitutional General appearance: Present: average body habitus, cooperative - EENT Eyes: Present: PERRLA - Respiratory Respiratory: bilateral: CTA - Cardiovascular Rhythm: regular - Integumentary Integumentary Comment(s): right foot with erythema, small wound with fibrinous tissue and some mild drainage noted. Multiphasic DP and PT signal. - Labs CBC & Chem 7: 04/15/24 04:36 04/15/24 08:44 Labs: Abnormal Lab Results - Last 24 Hours (Table) 04/14/24 04/14/24 04/15/24 Range/Units 16:26 21:24 04:36 RBC 3.67 L (4.40-5.60) X 10*6/uL Hgb 10.8 L (13.0-17.0) g/dL Hct 32.5 L (39.6-50.0) % Eosinophils # 0.73 H (0.04-0.35) X 10*3/uL BUN (9.0-27.0) mg/dL Creatinine (0.66-1.25) mg/dL Est GFR (CKD-EPI) (>=60) BUN/Creatinine Ratio (12.00-20.00) Ratio POC Glucose (mg/dL) 157 H 163 H (70-110) mg/dL 04/15/24 04/15/24 04/15/24 Range/Units 04:36 08:44 11:59 RBC (4.40-5.60) X 10*6/uL Hgb (13.0-17.0) g/dL Hct (39.6-50.0) % Eosinophils # (0.04-0.35) X 10*3/uL BUN 31.0 H (9.0-27.0) mg/dL Creatinine 1.33 H (0.66-1.25) mg/dL Est GFR (CKD-EPI) 54 L (>=60) BUN/Creatinine Ratio 22.14 H (12.00-20.00) Ratio POC Glucose (mg/dL) 135 H (70-110) mg/dL Microbiology - Last 24 Hours (Table) 04/12/24 18:15 Blood Culture - Preliminary Blood 04/12/24 18:00 Blood Culture - Preliminary Blood Assessment and Plan Assessment: Right foot cellulitis Diabetic foot ulcer History of left BKA Plan: Reviewed CTA of the right lower extremity independently and with the patient in full detail- no significant stenosis or disease throughout right lower leg without any evidence of abscess. Continue current treatment and antibiotics. Will continue to monitor foot wound and cellulitis. If fluid collection increases then would perform incision and drainage at that time. Due to improvement would clear for discharge and follow up as outpatient with Podiatry or us in the office.
[2024-04-15 16:47] LABS: Glucose,Whole Blood 174 mg/dL (70-110)
[2024-04-15 20:34] LABS: Glucose,Whole Blood 150 mg/dL (70-110)
[2024-04-16 05:05] LABS: Basophils # (A) 0.1 k/uL (0-0.2); Basophils % (A) 1 %; Eosinophils # (A) 0.6 k/uL (0-0.7); Eosinophils % (A) 11 %; HCT 33.3 % (39.0-53.0); HGB 11.2 gm/dL (13.0-17.5); Lymphocytes # (A) 1.5 k/uL (1.0-4.8); Lymphocytes % (A) 27 %; MCH 29.6 pg (25.0-35.0); MCHC 33.5 g/dL (31.0-37.0); MCV 88.2 fL (80.0-100.0); Mean Platelet Volume 7.5; Monocytes # (A) 0.4 k/uL (0-1.0); Monocytes % (A) 6 %; Neutrophils # (A) 2.9 k/uL (1.3-7.7); Neutrophils % (A) 53 %; Platelet Count 269 k/uL (150-450); RBC 3.78 m/uL (4.30-5.90); RDW 12.8 % (11.5-15.5); WBC 5.5 k/uL (3.8-10.6)
[2024-04-16 05:19] LABS: African American GFR (CKD) 56 (>60 ml/min/1.73 sqM); Non-African American GFR(CKD) 48 (>60 ml/min/1.73 sqM)
[2024-04-16 05:21] LABS: African American GFR (CKD) 58 (>60 ml/min/1.73 sqM); Anion Gap 8 mmol/L; Blood Urea Nitrogen 31 mg/dL (9-20); Calcium 9.6 mg/dL (8.4-10.2); Carbon Dioxide 22 mmol/L (22-30); Chloride 109 mmol/L (98-107); Glucose 126 mg/dL (74-99); Non-African American GFR(CKD) 50 (>60 ml/min/1.73 sqM); Potassium 4.3 mmol/L (3.5-5.1); Sodium 139 mmol/L (137-145)
[2024-04-16 05:37] LABS: Glucose,Whole Blood 129 mg/dL (70-110)
[2024-04-16 11:50] LABS: Glucose,Whole Blood 149 mg/dL (70-110)
--- NOTE | 2024-04-16 12:23 | P.PN ---
Subjective Progress Note Date: 04/16/24 Principal diagnosis: Right foot swelling, infection Patient seen and examined today as a follow-up. States redness continues to improve. No worsening pain. He is scheduled for an MRI of the foot this afternoon. Denies any fevers, chills, body aches, chest pain or shortness of breath. Objective - Vital Signs Vital signs: Vital Signs Temp 97.6 F 04/16/24 07:44 Pulse 66 04/16/24 07:44 Resp 17 04/16/24 07:44 BP 145/64 04/16/24 07:44 Pulse Ox 95 04/16/24 07:44 FiO2 Intake & Output 04/15/24 04/16/24 04/16/24 18:59 06:59 18:59 Intake Total 600 Balance 600 Intake: Intake, IV Titration 600 Amount Cefepime 2 gm In Sodium 100 Chloride 0.9% 100 ml @ 25 mls/hr IVPB Q12H [facility] Rx# :[id number] Vancomycin 1,500 mg In 500 Sodium Chloride 0.9% 500 ml 500 ml @ 167 mls/hr IVPB Q24H [facility] Rx#: [id number] Other: Voiding Method Toilet Urinal # Voids 2 1 - Exam General appearance: The patient is alert, oriented, appears in no acute d istress. HET: Head is normocephalic and atraumatic. Neck: Supple. Heart: Regular. Lungs: Equal expansion, normal respiratory effort. Abdomen: Soft, nontender, nondistended. Extremities: Left below the knee amputation with prosthetic in place. Right foot dorsal side with erythema small wound with fibrous tissue medial aspect with fluctuance, no drainage noted. Neurological: No focal deficits. - Labs CBC & Chem 7: 04/16/24 04:34 04/16/24 04:34 Labs: Abnormal Lab Results - Last 24 Hours (Table) 04/15/24 04/15/24 04/15/24 Range/Units 08:44 11:59 16:43 RBC (4.30-5.90) m/uL Hgb (13.0-17.5) gm/dL Hct (39.0-53.0) % Chloride (98-107) mmol/L BUN (9-20) mg/dL Creatinine 1.33 H (0.66-1.25) mg/dL Glucose (74-99) mg/dL POC Glucose (mg/dL) 135 H 174 H (70-110) mg/dL 04/15/24 04/16/24 04/16/24 Range/Units 20:32 04:34 04:34 RBC 3.78 L (4.30-5.90) m/uL Hgb 11.2 L (13.0-17.5) gm/dL Hct 33.3 L (39.0-53.0) % Chloride (98-107) mmol/L BUN (9-20) mg/dL Creatinine 1.47 H (0.66-1.25) mg/dL Glucose (74-99) mg/dL POC Glucose (mg/dL) 150 H (70-110) mg/dL 04/16/24 04/16/24 Range/Units 04:34 05:35 RBC (4.30-5.90) m/uL Hgb (13.0-17.5) gm/dL Hct (39.0-53.0) % Chloride 109 H (98-107) mmol/L BUN 31 H (9-20) mg/dL Creatinine 1.43 H (0.66-1.25) mg/dL Glucose 126 H (74-99) mg/dL POC Glucose (mg/dL) 129 H (70-110) mg/dL Microbiology - Last 24 Hours (Table) 04/14/24 14:50 Gram Stain - Preliminary Foot - Right Wound Culture - Preliminary 04/12/24 18:15 Blood Culture - Preliminary Blood 04/12/24 18:00 Blood Culture - Preliminary Blood Assessment and Plan Assessment: 1. Right foot cellulitis 2. Right foot diabetic ulcer 3. History of left below the knee amputation. Plan: 1. Await MRI results 2. CTA of right lower extremity completed and reviewed without any significant stenosis or disease throughout the right lower leg and no evidence of abscess. 3. Continue antibiotics per recommendations from infectious disease 4. Further recommendations following MRI Thank you for this consultation, we will continue to follow. The impression and plan of care has been dictated as directed. Dr. Humphreys I performed a history and examination of this patient, discussed the same with the dictator. I agree with the dictator's note ,documented as a scribe. Any additional findings or plans will be noted.
--- NOTE | 2024-04-16 13:29 | P.PN ---
Subjective Progress Note Date: 04/16/24 Hospital Course: 68-year-old male with history of diabetes mellitus, hypertension, peripheral n europathy, left BKA presenting with right foot erythema. Vital signs within normal limits. Laboratory workup shows unremarkable CBC, elevated ESR 52, creatinine 1.4 above from baseline, CRP 3. 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 Patient started on IV antibiotics. ID consulted. Admitted for possible cellulitis, versus osteomyelitis in the setting of diabetic foot disease. Patient also has COOKIE, renal function not improving. Bladder ultrasound negative for hydronephrosis bilaterally, 1.9 cm exophytic cyst from the left kidney superior pole. CTA of lower extremity showed patent blood vessel in the right lower extremity, diffuse mixed arthrosclerotic disease was noted. MRI of the foot pending. Subjective: Patient seen and examined at bedside. No acute events overnight. Pertinent positives and negatives as discussed above, a complete review of systems was performed and all other systems are negative. Vitals Signs Reviewed. General: Nontoxic, no distress, appears at stated age Derm: Warm, dry, Superficial ulcer on the dorsum of the right foot on the medial aspect along with surrounding erythema no induration no tenderness to palpation bony prominence over the medial aspect of the right foot Head: Atraumatic, normocephalic, symmetric Eyes: EOMI, no lid lag, anicteric sclera Mouth: No lip lesion, mucus membranes moist Cardiovascular: S1S2 reg, no murmur Lungs: CTA bilateral, no rhonchi, no rales, no accessory muscle use Abdominal: Soft, nontender to palpation, no guarding, no appreciable organomegaly Ext: No gross muscle atrophy, no edema, no contractures, left BKA Neuro: CN II-XI grossly intact, no focal neuro deficits Psych: Alert, oriented, appropriate affect Data Reviewed Today: Pertinent Labs: Hemoglobin 11.2, creatinine 1.43, blood glucose range between 1 26-1 50 Imaging: No new imaging Assessment and Plan: Active: Right foot cellulitis Suspected abscess versus osteomyelitis Peripheral arterial disease -Continue IV vancomycin, monitor renal function for renal toxicity -ID following, continue IV cefepime 2 g every 12 hours, and IV vancomycin, monitor for renal toxicity -MRI foot pending -Pain control with oral Tylenol, IV morphine as needed, monitor for sedation -vascular surgery note reviewed, await MRI results Acute kidney injury, improving -Hold lisinopril and hydrochlorothiazide and metformin -Fluids have been discontinued, encourage oral intake Insulin-dependent diabetes -Continue home Levemir 5 units -Sliding scale insulin, monitor for hypoglycemia -Hold empagliflozin and metformin Chronic: Hypertension Anxiety DVT ppx: Subcu heparin Code status: Full code Anticipated discharge place: Pending clinical course Anticipated discharge time: Pending clinical course Objective - Vital Signs Vital signs: Vital Signs Temp 97.6 F 04/16/24 07:44 Pulse 66 04/16/24 07:44 Resp 17 04/16/24 07:44 BP 145/64 04/16/24 07:44 Pulse Ox 95 04/16/24 07:44 FiO2 Intake & Output 04/15/24 04/16/24 04/16/24 18:59 06:59 18:59 Intake Total 600 Balance 600 Intake: Intake, IV Titration 600 Amount Cefepime 2 gm In Sodium 100 Chloride 0.9% 100 ml @ 25 mls/hr IVPB Q12H [facility] Rx# :[id number] Vancomycin 1,500 mg In 500 Sodium Chloride 0.9% 500 ml 500 ml @ 167 mls/hr IVPB Q24H [facility] Rx#: [id number] Other: Voiding Method Toilet Toilet Urinal Urinal # Voids 2 1 1 - Labs CBC & Chem 7: 04/16/24 04:34 04/16/24 04:34 Labs: Abnormal Lab Results - Last 24 Hours (Table) 04/15/24 04/15/24 04/16/24 Range/Units 16:43 20:32 04:34 RBC (4.30-5.90) m/uL Hgb (13.0-17.5) gm/dL Hct (39.0-53.0) % Chloride (98-107) mmol/L BUN (9-20) mg/dL Creatinine 1.47 H (0.66-1.25) mg/dL Glucose (74-99) mg/dL POC Glucose (mg/dL) 174 H 150 H (70-110) mg/dL 04/16/24 04/16/24 04/16/24 Range/Units 04:34 04:34 05:35 RBC 3.78 L (4.30-5.90) m/uL Hgb 11.2 L (13.0-17.5) gm/dL Hct 33.3 L (39.0-53.0) % Chloride 109 H (98-107) mmol/L BUN 31 H (9-20) mg/dL Creatinine 1.43 H (0.66-1.25) mg/dL Glucose 126 H (74-99) mg/dL POC Glucose (mg/dL) 129 H (70-110) mg/dL 04/16/24 Range/Units 11:49 RBC (4.30-5.90) m/uL Hgb (13.0-17.5) gm/dL Hct (39.0-53.0) % Chloride (98-107) mmol/L BUN (9-20) mg/dL Creatinine (0.66-1.25) mg/dL Glucose (74-99) mg/dL POC Glucose (mg/dL) 149 H (70-110) mg/dL Microbiology - Last 24 Hours (Table) 04/12/24 18:15 Blood Culture - Preliminary Blood 04/12/24 18:00 Blood Culture - Preliminary Blood 04/14/24 14:50 Gram Stain - Preliminary Foot - Right Wound Culture - Preliminary
[2024-04-16] MEDS: cloNIDine HCL 0.2 MG TAB PO PRN (14:30)
[2024-04-16 16:37] LABS: Glucose,Whole Blood 168 mg/dL (70-110)
[2024-04-16 20:20] LABS: Glucose,Whole Blood 139 mg/dL (70-110)
[2024-04-16] MEDS: OXYMETAZOLINE 0.05% NASL SPRAY 1 SPRAY BOTTLE NASAL SCH (21:03)
[2024-04-17 05:34] LABS: Glucose,Whole Blood 120 mg/dL (70-110)
[2024-04-17 06:26] LABS: African American GFR (CKD) 58 (>60 ml/min/1.73 sqM); Anion Gap 5 mmol/L; Blood Urea Nitrogen 34 mg/dL (9-20); Calcium 9.2 mg/dL (8.4-10.2); Carbon Dioxide 25 mmol/L (22-30); Chloride 107 mmol/L (98-107); Glucose 130 mg/dL (74-99); Non-African American GFR(CKD) 50 (>60 ml/min/1.73 sqM); Potassium 4.4 mmol/L (3.5-5.1); Sodium 137 mmol/L (137-145)
--- NOTE | 2024-04-17 08:33 | P.PN ---
Progress Note - Text Progress Note Date: 04/17/24 MRI reviewed and discussed by nurse practitioner with radiology, there does appear to be an ill-defined fluid collection. Per the discussion with radiology unable to define whether there is true osteomyelitis and will need further evaluation however at this time given the fluid collection and area of the skin we will plan to take the patient for operative debridement and deep culture.
[2024-04-17 09:15] LABS: Glucose,Whole Blood 129 mg/dL (70-110)
[2024-04-17] MEDS: LACTATED RINGERS 1,000 ML IV ONE (09:17)
[2024-04-17] MEDS: ONDANSETRON 4 MG/2 ML VIAL IVP ONE (09:17)
[2024-04-17] MEDS ORDERED: MIDAZOLAM 2 MG/2 ML VIAL ONE (09:20)
[2024-04-17] MEDS ORDERED: KETAMINE HCL IN 0.9 % NACL 50 MG/5 ML SYRINGE ONE (09:20)
[2024-04-17] MEDS ORDERED: PROPOFOL 10 MG/ML 20 ML VIAL IV ONE (09:20)
[2024-04-17] MEDS ORDERED: fentaNYL (PF) 50 MCG/ML 2 ML AMP ONE (09:20)
[2024-04-17] MEDS: LIDOCAINE 1% INJ 10MG/ML (20 ML MDV) SQ ONE (09:25)
--- NOTE | 2024-04-17 09:52 | P.OP ---
Date of Procedure: 04/17/24 Description of Procedure: Preoperative diagnosis: Right foot wound, fluid collection, Charcot foot Postoperative diagnosis: Same Procedure: Incision and drainage right foot fluid collection Surgeon: Bria Humphreys D.O. EBL: Less than 5 cc IV fluids: See records Urine output: Not measured Drains: None Complications: None immediately apparent Condition: Stable to recovery Operative indication and findings: Patient is a 68-year-old male with history of Charcot foot and a left below-knee amputation who has had changes to his left lower extremity prosthetic causing some degree of compensation to his right foot he has had some issue with swelling in the location of wound since this. MRI was performed showing an ill defined fluid collection Procedure in detail: Patient was brought to the operative suite and placed in supine position. The right lower extremity was prepped and draped in usual sterile fashion. Preprocedure timeout performed, all parties were in agreement. Over the area of fluctuance and the area of the wound incision was made. There was drainage of fluid none of it appeared to be significantly purulent, a culture was taken. The cavity space and the base of the foot approximately measures 2 cm. Debridement was performed with a curette. The area was also overlying bone and due to this, some of the periosteal tissue was debrided. A rongeur was utilized to shave back some of the bone to allow for improvement of wound healing. The area was then irrigated. Due to the appearance of the nonpurulent drainage the decision was made to attempt reapproximation of the wound to allow for improvement of wound healing. It was reapproximated using interrupted sutures of 3-0 nylon. At the plantar portion of the wound a larger gap was placed so there can be some drainage from the pocket. Dressings were placed. The patient was allowed awaken from anesthesia and transferred to recovery in stable condition.
[2024-04-17] MEDS: ONDANSETRON 4 MG/2 ML VIAL ONE (10:48)
[2024-04-17 11:38] LABS: Glucose,Whole Blood 128 mg/dL (70-110)
--- NOTE | 2024-04-17 14:35 | P.PN ---
Subjective Progress Note Date: 04/16/24 Principal diagnosis: Reason for follow-up is right leg cellulitis possible abscess Patient is a 68-year-old male with a past medical history significant for diabetes mellitus and hypertension former smoker presenting to the hospital for evaluation of right foot pain and redness apparently has been going on for 3 to 4 days patient diagnosed with cellulitis and admitted to the hospital. On today's evaluation that is 04/16/2024,the patient denies any fever or any chills, patient is breathing comfortably on room air, the patient denies chest pain shortness of breath and no significant cough, patient denies abdominal pain, no nausea vomiting or diarrhea. Pain to the right foot is currently controlled still have some drainage on the dressing Patient white count is 5.5 creatinine is 1.43 Objective - Vital Signs Vital signs: Vital Signs Temp 97.6 F 04/16/24 07:44 Pulse 66 04/16/24 07:44 Resp 17 04/16/24 07:44 BP 145/64 04/16/24 07:44 Pulse Ox 95 04/16/24 07:44 FiO2 Intake & Output 04/15/24 04/16/24 04/16/24 18:59 06:59 18:59 Intake Total 600 Balance 600 Intake: Intake, IV Titration 600 Amount Cefepime 2 gm In Sodium 100 Chloride 0.9% 100 ml @ 25 mls/hr IVPB Q12H [facility] Rx# :[id number] Vancomycin 1,500 mg In 500 Sodium Chloride 0.9% 500 ml 500 ml @ 167 mls/hr IVPB Q24H [facility] Rx#: [id number] Other: Voiding Method Toilet Toilet Urinal Urinal # Voids 2 1 1 - Exam GENERAL DESCRIPTION: An elderly male lying in bed in no distress RESPIRATORY SYSTEM: Unlabored breathing , decreased breath sounds at bases HEART: S1 S2 regular rate and rhythm , ABDOMEN: Soft , no tenderness EXTREMITIES: Right foot did have swelling redness minimal drainage on the dressing - Labs CBC & Chem 7: 04/16/24 04:34 04/17/24 05:59 Labs: Abnormal Lab Results - Last 24 Hours (Table) 04/15/24 04/15/24 04/16/24 Range/Units 16:43 20:32 04:34 RBC (4.30-5.90) m/uL Hgb (13.0-17.5) gm/dL Hct (39.0-53.0) % Chloride (98-107) mmol/L BUN (9-20) mg/dL Creatinine 1.47 H (0.66-1.25) mg/dL Glucose (74-99) mg/dL POC Glucose (mg/dL) 174 H 150 H (70-110) mg/dL 04/16/24 04/16/24 04/16/24 Range/Units 04:34 04:34 05:35 RBC 3.78 L (4.30-5.90) m/uL Hgb 11.2 L (13.0-17.5) gm/dL Hct 33.3 L (39.0-53.0) % Chloride 109 H (98-107) mmol/L BUN 31 H (9-20) mg/dL Creatinine 1.43 H (0.66-1.25) mg/dL Glucose 126 H (74-99) mg/dL POC Glucose (mg/dL) 129 H (70-110) mg/dL 04/16/24 Range/Units 11:49 RBC (4.30-5.90) m/uL Hgb (13.0-17.5) gm/dL Hct (39.0-53.0) % Chloride (98-107) mmol/L BUN (9-20) mg/dL Creatinine (0.66-1.25) mg/dL Glucose (74-99) mg/dL POC Glucose (mg/dL) 149 H (70-110) mg/dL Microbiology - Last 24 Hours (Table) 04/12/24 18:15 Blood Culture - Preliminary Blood 04/12/24 18:00 Blood Culture - Preliminary Blood 04/14/24 14:50 Gram Stain - Preliminary Foot - Right Wound Culture - Preliminary Assessment and Plan (1) Cellulitis of right foot Current Visit: Yes Status: Acute Code(s): L03.115 - CELLULITIS OF RIGHT LOWER LIMB SNOMED Code(s): 59651328394508400 (2) Diabetic foot ulcer Current Visit: Yes Status: Acute Code(s): E11.621 - TYPE 2 DIABETES MELLITUS WITH FOOT ULCER; L97.509 - NON-PRESSURE CHRONIC ULCER OTH PRT UNSP FOOT W UNSP SEVERITY SNOMED Code(s): 963840258 Plan: 1patient presented hospital right foot pain swelling and redness that has been going on for about 3 to 4 days before presentation to the hospital patient noticed to have erythema on the dorsal aspect of the right foot, patient swelling has come up to ahead and has been draining by vascular surgery unfortunately no cultures obtained I was able to obtain swab for cultures results will be followed 2 MRI of the right foot with contrast has been done official report is currently pending 3patient to continue with the vancomycin and cefepime while waiting for the MRI to be completed and monitor clinical course closely Dictation was produced using [employer] dictation software. please excuse any grammatical, word or spelling errors. Time with Patient: Less than 30
--- NOTE | 2024-04-17 14:36 | P.PN ---
Subjective Progress Note Date: 04/17/24 Principal diagnosis: Reason for follow-up is right leg cellulitis possible abscess Patient is a 68-year-old male with a past medical history significant for diabetes mellitus and hypertension former smoker presenting to the hospital for evaluation of right foot pain and redness apparently has been going on for 3 to 4 days patient diagnosed with cellulitis and admitted to the hospital.Patient is status post I&D right foot fluid collection which was overlying the bones operative report did not mention any purulence culture has been obtained procedure completed on 04/17/2024 On today's evaluation 04/17/2024,the patient remains to be afebrile, patient is on room air not requiring supplemental oxygen and denies any shortness of breath no chest pain or cough.Patient denies having any nausea or vomiting, no abdominal pain and no diarrhea has been reported, patient denies any worsening pain to the right foot. Patient creatinine is 1.42 blood culture negative cultures are pending Objective - Vital Signs Vital signs: Vital Signs Temp 97.9 F 04/17/24 09:49 Pulse 51 L 04/17/24 10:17 Resp 16 04/17/24 10:17 BP 113/63 04/17/24 10:17 Pulse Ox 100 04/17/24 10:17 FiO2 Intake & Output 04/16/24 04/17/24 04/17/24 18:59 06:59 18:59 Intake Total 600 Output Total 5 Balance 595 Intake: IV 600 Output: Estimated Blood Loss 5 Other: Voiding Method Toilet Toilet Urinal # Voids 1 2 - Exam GENERAL DESCRIPTION: An elderly male lying in bed in no distress RESPIRATORY SYSTEM: Unlabored breathing , decreased breath sounds at bases HEART: S1 S2 regular rate and rhythm , ABDOMEN: Soft , no tenderness EXTREMITIES: Right foot is currently dressed - Labs CBC & Chem 7: 04/16/24 04:34 04/17/24 05:59 Labs: Abnormal Lab Results - Last 24 Hours (Table) 04/16/24 04/16/24 04/16/24 Range/Units 11:49 16:36 20:18 BUN (9-20) mg/dL Creatinine (0.66-1.25) mg/dL Glucose (74-99) mg/dL POC Glucose (mg/dL) 149 H 168 H 139 H (70-110) mg/dL 04/17/24 04/17/24 04/17/24 Range/Units 05:33 05:59 09:13 BUN 34 H (9-20) mg/dL Creatinine 1.42 H (0.66-1.25) mg/dL Glucose 130 H (74-99) mg/dL POC Glucose (mg/dL) 120 H 129 H (70-110) mg/dL Microbiology - Last 24 Hours (Table) 04/14/24 14:50 Gram Stain - Final Foot - Right Wound Culture - Final 04/12/24 18:15 Blood Culture - Preliminary Blood 04/12/24 18:00 Blood Culture - Preliminary Blood Assessment and Plan (1) Cellulitis of right foot Current Visit: Yes Status: Acute Code(s): L03.115 - CELLULITIS OF RIGHT LOWER LIMB SNOMED Code(s): 01537182435955792 (2) Diabetic foot ulcer Current Visit: Yes Status: Acute Code(s): E11.621 - TYPE 2 DIABETES MELLITUS WITH FOOT ULCER; L97.509 - NON-PRESSURE CHRONIC ULCER OTH PRT UNSP FOOT W UNSP SEVERITY SNOMED Code(s): 229423268 Plan: 1patient presented hospital right foot pain swelling and redness that has been going on for about 3 to 4 days before presentation to the hospital patient noticed to have erythema on the dorsal aspect of the right foot, patient swelling has come up to ahead and has been draining by vascular surgery unfortunately no cultures obtained I was able to obtain swab for cultures results will be followed 2 MRI of the right foot with contrast has been done official report is pending however per the vascular surgery there was a ill-defined fluid collection and the patient is status post drainage of the fluid culture has been obtained 3patient to continue with the vancomycin and cefepime while waiting for culture to finalize, multiple question concern answered Dictation was produced using [employer] dictation software. please excuse any grammatical, word or spelling errors. Time with Patient: Less than 30
--- NOTE | 2024-04-17 14:50 | P.PN ---
Subjective Progress Note Date: 04/17/24 Hospital Course: 68-year-old male with history of diabetes mellitus, hypertension, peripheral neuropathy, left BKA presenting with right foot erythema. Vital signs within normal limits. Laboratory workup shows unremarkable CBC, elevated ESR 52, creatinine 1.4 above from baseline, CRP 3. 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 Patient started on IV antibiotics. ID consulted. Admitted for possible cellulitis, versus osteomyelitis in the setting of diabetic foot disease. Patient also has COOKIE, renal function not improving. Bladder ultrasound negative for hydronephrosis bilaterally, 1.9 cm exophytic cyst from the left kidney superior pole. CTA of lower extremity showed patent blood vessel in the right lower extremity, diffuse mixed arthrosclerotic disease was noted. MRI of the foot pending. Subjective: Patient seen and examined at bedside. No acute events overnight. No new complaints. Vitals Signs Reviewed. General: Nontoxic, no distress, appears at stated age Derm: Warm, dry, Superficial ulcer on the dorsum of the right foot on the medial aspect along with surrounding erythema no induration no tenderness to palpation bony prominence over the medial aspect of the right foot Head: Atraumatic, normocephalic, symmetric Eyes: EOMI, no lid lag, anicteric sclera Mouth: No lip lesion, mucus membranes moist Cardiovascular: S1S2 reg, no murmur Lungs: CTA bilateral, no rhonchi, no rales, no accessory muscle use Abdominal: Soft, nontender to palpation, no guarding, no appreciable organomegaly Ext: No gross muscle atrophy, no edema, no contractures, left BKA Neuro: CN II-XI grossly intact, no focal neuro deficits Psych: Alert, oriented, appropriate affect Data Reviewed Today: Pertinent Labs: Hemoglobin 11.2, creatinine 1.43, blood glucose range between 1 26-1 50 Imaging: No new imaging Assessment and Plan: Active: Right foot cellulitis Suspected abscess versus osteomyelitis Peripheral arterial disease -Continue IV vancomycin, monitor renal function for renal toxicity -ID following, continue IV cefepime 2 g every 12 hours, and IV vancomycin, monitor for renal toxicity -MRI foot pending -Pain control with oral Tylenol, IV morphine as needed, monitor for sedation -vascular surgery note reviewed, await MRI results Acute kidney injury, improving -Hold lisinopril and hydrochlorothiazide and metformin -Fluids have been discontinued, encourage oral intake Insulin-dependent diabetes -Continue home Levemir 5 units -Sliding scale insulin, monitor for hypoglycemia -Hold empagliflozin and metformin Chronic: Hypertension Anxiety DVT ppx: Subcu heparin Code status: Full code Anticipated discharge place: Pending clinical course Anticipated discharge time: Pending clinical course Objective - Vital Signs Vital signs: Vital Signs Temp 97.7 F 04/17/24 10:25 Pulse 60 04/17/24 12:25 Resp 18 04/17/24 10:25 BP 110/48 04/17/24 12:25 Pulse Ox 99 04/17/24 12:25 FiO2 Intake & Output 04/16/24 04/17/24 04/17/24 18:59 06:59 18:59 Intake Total 600 Output Total 5 Balance 595 Intake: IV 600 Output: Estimated Blood Loss 5 Other: Voiding Method Toilet Toilet Urinal # Voids 1 2 - Labs CBC & Chem 7: 04/16/24 04:34 04/17/24 05:59 Labs: Abnormal Lab Results - Last 24 Hours (Table) 04/16/24 04/16/24 04/17/24 Range/Units 16:36 20:18 05:33 BUN (9-20) mg/dL Creatinine (0.66-1.25) mg/dL Glucose (74-99) mg/dL POC Glucose (mg/dL) 168 H 139 H 120 H (70-110) mg/dL 04/17/24 04/17/24 04/17/24 Range/Units 05:59 09:13 11:36 BUN 34 H (9-20) mg/dL Creatinine 1.42 H (0.66-1.25) mg/dL Glucose 130 H (74-99) mg/dL POC Glucose (mg/dL) 129 H 128 H (70-110) mg/dL Microbiology - Last 24 Hours (Table) 04/14/24 14:50 Gram Stain - Final Foot - Right Wound Culture - Final 04/12/24 18:15 Blood Culture - Preliminary Blood 04/12/24 18:00 Blood Culture - Preliminary Blood
[2024-04-17 17:15] LABS: Glucose,Whole Blood 113 mg/dL (70-110)
[2024-04-17 20:42] LABS: Glucose,Whole Blood 146 mg/dL (70-110)
[2024-04-18 05:44] LABS: Glucose,Whole Blood 116 mg/dL (70-110)
--- NOTE | 2024-04-18 11:07 | P.PN ---
Subjective Progress Note Date: 04/18/24 Principal diagnosis: Right foot diabetic ulcer Patient is seen and examined today as a follow-up. Yesterday he went to the operating room and had I&D to the right foot. There was no purulent drainage. Deep tissue cultures were collected and are currently pending. He has been afebrile. Pain is well-managed. Objective - Vital Signs Vital signs: Vital Signs Temp 98.1 F 04/18/24 02:10 Pulse 62 04/18/24 02:10 Resp 18 04/18/24 02:10 BP 135/62 04/18/24 02:10 Pulse Ox 98 04/18/24 02:10 FiO2 Intake & Output 04/17/24 04/18/24 04/18/24 18:59 06:59 18:59 Intake Total 600 Output Total 1315 Balance -715 Intake: IV 600 Output: Urine 1310 Estimated Blood Loss 5 Other: Voiding Method Toilet Toilet Urinal # Voids 2 - Exam General appearance: The patient is alert, oriented, appears in no acute distress. HET: Head is normocephalic and atraumatic. Neck: Supple. Abdomen: Soft, nontender, nondistended. Extremities: Left below the knee amputation with prosthetic in place. Medial aspect of right foot dorsal side with mild erythema, incision well-approximated with sutures intentional gap and plantar portion with clear drainage. Neurological: No focal deficits. - Labs CBC & Chem 7: 04/16/24 04:34 04/17/24 05:59 Labs: Abnormal Lab Results - Last 24 Hours (Table) 04/17/24 04/17/24 04/17/24 Range/Units 09:13 11:36 17:14 POC Glucose (mg/dL) 129 H 128 H 113 H (70-110) mg/dL 04/17/24 04/18/24 Range/Units 20:40 05:43 POC Glucose (mg/dL) 146 H 116 H (70-110) mg/dL Microbiology - Last 24 Hours (Table) 04/17/24 09:32 Gram Stain - Preliminary Foot - Right 04/14/24 14:50 Anaerobic Culture - Preliminary Foot - Right Assessment and Plan Assessment: 1. Right foot diabetic ulcer with fluid collection status post incision and drainage 2. Charcot foot 3. Right foot cellulitis 4. History of left below the knee amputation 5. Diabetes mellitus Plan: 1. The patient is post incision and drainage with clear fluid noted and deep tissue cultures sent 2. Continue with recommendations from infectious disease 3. Daily dressing change with Adaptic, 4 x 4, Kerlix 4. No further vascular surgical intervention indicated 5. Patient can follow-up with vascular surgery in 10 to 14 days Thank you for this consultation, patient is cleared from vascular surgery for discharge once other zamora medically cleared. The impression and plan of care has been dictated as directed. Dr. Humphreys I performed a history and examination of this patient, discussed the same with the dictator. I agree with the dictator's note ,documented as a scribe. Any additional findings or plans will be noted.
--- NOTE | 2024-04-18 11:12 | MR ---
EXAMINATION TYPE: MR foot RT wo/w con DATE OF EXAM: 04/18/2024 COMPARISON: Radiograph 04/12/2024 HISTORY: 68-year-old male abscess/Charcot/osteomyelitis; Open wound medial aspect mid foot. TECHNIQUE: Multiplanar, multisequence images of the right foot were obtained before and after adminis tration of 9.5 mL intravenous Gadavist gadolinium contrast. FINDINGS: The patient was initially scanned on 04/16/2024. Brought back on 04/18/2024 for dedicated T1 weighted s equences. In between the scans, the patient was taken for surgery for debridement of the foot wound. There is extensive subcutaneous soft tissue swelling as well as diffuse muscular edema. Patchy osseous edema is present throughout the mid foot. Ajay midfoot dislocation along the first, second, and third TMT joints. Interval incision along the medial midfoot. There appears to have been evacuation of poorly defined f luid previously located here measuring approximately 2.7 x 1.8 x 1.5 cm. This shows thin communicatio n to additional fluid deeper along the plantar midfoot (coronal T1 FS postcontrast image 34). Patchy areas of low signal intensity along the second and third TMT joints with associated joint effu inez. Favor degenerative signal changes. Ongoing follow-up if suspicion for septic arthritis. IMPRESSION: 1. Ajay midfoot dislocation along the first, second, and third TMT joints. Correlate for prior traum atic Lisfranc injury. Charcot arthropathy is also possible but lacks the bony fragmentation typically seen with that diagnosis. 2. Given concurrent TMT joint effusions and overlying poorly defined 2.7 cm fluid collection in the m edial midfoot soft tissues, correlate to exclude the possibility of septic arthritis. The fluid shows thin communication to additional small collection along the plantar aspect of the midfoot. When the patient was brought back for additional sequences, this fluid had already been debrided. Correlate wi th results from fluid analysis. 3. Reactive patchy edema throughout the midfoot. Corresponding areas of low signal intensity especial ly at the second and third TMT joints favored to be on the basis of reactive signal change. Again, if concern for septic arthritis, ongoing follow-up recommended.
[2024-04-18 11:48] LABS: Glucose,Whole Blood 117 mg/dL (70-110)
--- NOTE | 2024-04-18 12:09 | P.PN ---
Subjective Progress Note Date: 04/18/24 Hospital Course: 68-year-old male with history of diabetes mellitus, hypertension, peripheral neuropathy, left BKA presenting with right foot erythema. Vital signs within normal limits. Laboratory workup shows unremarkable CBC, elevated ESR 52, creatinine 1.4 above from baseline, CRP 3. 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 Patient started on IV antibiotics. ID consulted. Admitted for possible cellulitis, versus osteomyelitis in the setting of diabetic foot disease. Patient also has COOKIE, renal function not improving. Bladder ultrasound negative for hydronephrosis bilaterally, 1.9 cm exophytic cyst from the left kidney superior pole. CTA of lower extremity showed patent blood vessel in the right lower extremity, diffuse mixed arthrosclerotic disease was noted. MRI of the foot pending. Subjective: Patient seen and examined at bedside. No acute events overnight. No new complaints. Discussed with ID, awaiting cultures and if negative, will d/c on oral abx tomorrow. Vitals Signs Reviewed. General: Nontoxic, no distress, appears at stated age Derm: Warm, dry, Superficial ulcer on the dorsum of the right foot on the medial aspect along with surrounding erythema no induration no tenderness to palpation bony prominence over the medial aspect of the right foot Head: Atraumatic, normocephalic, symmetric Eyes: EOMI, no lid lag, anicteric sclera Mouth: No lip lesion, mucus membranes moist Cardiovascular: S1S2 reg, no murmur Lungs: CTA bilateral, no rhonchi, no rales, no accessory muscle use Abdominal: Soft, nontender to palpation, no guarding, no appreciable organomegaly Ext: No gross muscle atrophy, no edema, no contractures, left BKA Neuro: CN II-XI grossly intact, no focal neuro deficits Psych: Alert, oriented, appropriate affect Data Reviewed Today: Pertinent Labs: Hemoglobin 11.2, creatinine 1.43, blood glucose range between 1 26-1 50 Imaging: No new imaging Assessment and Plan: Active: Right foot cellulitis Suspected abscess versus osteomyelitis Peripheral arterial disease -Continue IV vancomycin, monitor renal function for renal toxicity -ID following, continue IV cefepime 2 g every 12 hours, and IV vancomycin, monitor for renal toxicity -MRI foot pending -Pain control with oral Tylenol, IV morphine as needed, monitor for sedation -vascular surgery note reviewed, await MRI results Acute kidney injury, improving -Hold lisinopril and hydrochlorothiazide and metformin -Fluids have been discontinued, encourage oral intake Insulin-dependent diabetes -Continue home Levemir 5 units -Sliding scale insulin, monitor for hypoglycemia -Hold empagliflozin and metformin Chronic: Hypertension Anxiety DVT ppx: Subcu heparin Code status: Full code Anticipated discharge place: Pending clinical course Anticipated discharge time: Pending clinical course Objective - Vital Signs Vital signs: Vital Signs Temp 97.7 F 04/18/24 07:00 Pulse 58 L 04/18/24 07:00 Resp 17 04/18/24 08:19 BP 148/82 04/18/24 07:00 Pulse Ox 99 04/18/24 07:00 FiO2 Intake & Output 04/17/24 04/18/24 04/18/24 18:59 06:59 18:59 Intake Total 600 Output Total 1315 Balance -715 Intake: IV 600 Output: Urine 1310 Estimated Blood Loss 5 Other: Voiding Method Toilet Toilet Urinal # Voids 2 - Labs CBC & Chem 7: 04/16/24 04:34 04/17/24 05:59 Labs: Abnormal Lab Results - Last 24 Hours (Table) 04/17/24 04/17/24 04/18/24 Range/Units 17:14 20:40 05:43 POC Glucose (mg/dL) 113 H 146 H 116 H (70-110) mg/dL 04/18/24 Range/Units 11:46 POC Glucose (mg/dL) 117 H (70-110) mg/dL Microbiology - Last 24 Hours (Table) 04/17/24 09:32 Gram Stain - Preliminary Foot - Right 04/14/24 14:50 Anaerobic Culture - Preliminary Foot - Right
[2024-04-18 14:13] VITALS: BMI 30.7
--- NOTE | 2024-04-18 16:01 | P.PN ---
Subjective Progress Note Date: 04/18/24 Principal diagnosis: Reason for follow-up is right leg cellulitis possible abscess Patient is a 68-year-old male with a past medical history significant for diabetes mellitus and hypertension former smoker presenting to the hospital for evaluation of right foot pain and redness apparently has been going on for 3 to 4 days patient diagnosed with cellulitis and admitted to the hospital.Patient is status post I&D right foot fluid collection which was overlying the bones operative report did not mention any purulence culture has been obtained procedure completed on 04/17/2024 On today's evaluation 04/18/2024, the patient continues to be afebrile, the patient is on room air and breathing comfortably, the Pt denies having any chest pain or cough, the patient denies having any abdominal pain no vomiting or any diarrhea, denies any worsening pain to the right foot still having drainage. No new labs has been obtained today cultures are currently pending Objective - Vital Signs Vital signs: Vital Signs Temp 97.7 F 04/18/24 07:00 Pulse 58 L 04/18/24 07:00 Resp 17 04/18/24 08:19 BP 148/82 04/18/24 07:00 Pulse Ox 99 04/18/24 07:00 FiO2 Intake & Output 04/17/24 04/18/24 04/18/24 18:59 06:59 18:59 Intake Total 600 Output Total 1315 Balance -715 Intake: IV 600 Output: Urine 1310 Estimated Blood Loss 5 Other: Voiding Method Toilet Toilet Urinal # Voids 2 - Exam GENERAL DESCRIPTION: An elderly male lying in bed in no distress RESPIRATORY SYSTEM: Unlabored breathing , decreased breath sounds at bases HEART: S1 S2 regular rate and rhythm , ABDOMEN: Soft , no tenderness EXTREMITIES: Right foot did have persistent swelling and redness some drainage on the dressing - Labs CBC & Chem 7: 04/16/24 04:34 04/17/24 05:59 Labs: Abnormal Lab Results - Last 24 Hours (Table) 04/17/24 04/17/24 04/18/24 Range/Units 17:14 20:40 05:43 POC Glucose (mg/dL) 113 H 146 H 116 H (70-110) mg/dL 04/18/24 Range/Units 11:46 POC Glucose (mg/dL) 117 H (70-110) mg/dL Microbiology - Last 24 Hours (Table) 04/17/24 09:32 Gram Stain - Preliminary Foot - Right 04/14/24 14:50 Anaerobic Culture - Preliminary Foot - Right Assessment and Plan (1) Cellulitis of right foot Current Visit: Yes Status: Acute Code(s): L03.115 - CELLULITIS OF RIGHT LOWER LIMB SNOMED Code(s): 05880320357157637 (2) Diabetic foot ulcer Current Visit: Yes Status: Acute Code(s): E11.621 - TYPE 2 DIABETES MELLITUS WITH FOOT ULCER; L97.509 - NON-PRESSURE CHRONIC ULCER OTH PRT UNSP FOOT W UNSP SEVERITY SNOMED Code(s): 772529612 Plan: 1patient presented hospital right foot pain swelling and redness that has been going on for about 3 to 4 days before presentation to the hospital patient noticed to have erythema on the dorsal aspect of the right foot, patient swelling has come up to ahead and has been draining by vascular surgery unfortunately no cultures obtained I was able to obtain swab for cultures results will be followed 2 MRI of the right foot with contrast has been done official report is pending however per the vascular surgery there was a ill-defined fluid collection and the patient is status post drainage of the fluid culture has been obtained 3patient to continue with the vancomycin and cefepime still have significant swelling redness not an ideal candidate for oral antibiotic will place a PICC line and discharge antibiotic on the basis of deep culture this has been discussed with admitting physician Dictation was produced using [employer] dictation software. please excuse any grammatical, word or spelling errors. Time with Patient: Less than 30
[2024-04-18 16:38] LABS: Glucose,Whole Blood 208 mg/dL (70-110)
[2024-04-18 20:35] LABS: Glucose,Whole Blood 120 mg/dL (70-110)
[2024-04-18] MEDS: ACETAMINOPHEN TAB 325 MG TAB PO PRN (21:06)
[2024-04-19 05:56] LABS: Glucose,Whole Blood 132 mg/dL (70-110)
[2024-04-19] MEDS: VANCOMYCIN TROUGH DUE 1 EACH MISC MISCELLANE ONE (10:51)
[2024-04-19 11:17] LABS: Glucose,Whole Blood 271 mg/dL (70-110)
--- NOTE | 2024-04-19 11:32 | P.PN ---
Subjective Progress Note Date: 04/19/24 Hospital Course: 68-year-old male with history of diabetes mellitus, hypertension, peripheral neuropathy, left BKA presenting with right foot erythema. Vital signs within normal limits. Laboratory workup shows unremarkable CBC, elevated ESR 52, creatinine 1.4 above from baseline, CRP 3. 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 Patient started on IV antibiotics. ID consulted. Admitted for possible cellulitis, versus osteomyelitis in the setting of diabetic foot disease. Patient also has COOKIE, renal function not improving. Bladder ultrasound negative for hydronephrosis bilaterally, 1.9 cm exophytic cyst from the left kidney superior pole. CTA of lower extremity showed patent blood vessel in the right lower extremity, diffuse mixed arthrosclerotic disease was noted. MRI of the foot has joint effusions in TMT and overlying poorly defined 2.7cm fluid collection, concerning for septic arthritis Subjective: Patient seen and examined at bedside. No acute events overnight. No new complaints. Discussed with ID, awaiting cultures and if negative, will d/c on oral abx tomorrow. Vitals Signs Reviewed. General: Nontoxic, no distress, appears at stated age Derm: Warm, dry, Superficial ulcer on the dorsum of the right foot on the medial aspect along with surrounding erythema no induration no tenderness to palpation bony prominence over the medial aspect of the right foot Head: Atraumatic, normocephalic, symmetric Eyes: EOMI, no lid lag, anicteric sclera Mouth: No lip lesion, mucus membranes moist Cardiovascular: S1S2 reg, no murmur Lungs: CTA bilateral, no rhonchi, no rales, no accessory muscle use Abdominal: Soft, nontender to palpation, no guarding, no appreciable organomegaly Ext: No gross muscle atrophy, no edema, no contractures, left BKA Neuro: CN II-XI grossly intact, no focal neuro deficits Psych: Alert, oriented, appropriate affect Data Reviewed Today: Pertinent Labs: Hemoglobin 11.2, creatinine 1.43, blood glucose range between 1 26-1 50 Imaging: No new imaging Assessment and Plan: Active: Right foot cellulitis Septic Arthritis Peripheral arterial disease -Continue IV vancomycin, monitor renal function for renal toxicity -ID following, continue IV cefepime 2 g every 12 hours, and IV vancomycin, monitor for renal toxicity -MRI foot as above -Pain control with oral Tylenol, IV morphine as needed, monitor for sedation -vascular surgery note reviewed, s/p OR washout on 04/17 with cultures pending Acute kidney injury, improving -Hold lisinopril and hydrochlorothiazide and metformin -Fluids have been discontinued, encourage oral intake Insulin-dependent diabetes -Continue home Levemir 5 units -Sliding scale insulin, monitor for hypoglycemia -Hold empagliflozin and metformin Chronic: Hypertension Anxiety DVT ppx: Subcu heparin Code status: Full code Anticipated discharge place: Pending clinical course Anticipated discharge time: Pending clinical course Objective - Vital Signs Vital signs: Vital Signs Temp 97.8 F 04/19/24 07:12 Pulse 62 04/19/24 07:12 Resp 15 04/19/24 07:12 BP 129/66 04/19/24 07:12 Pulse Ox 99 04/19/24 07:12 FiO2 Intake & Output 04/18/24 04/19/24 04/19/24 18:59 06:59 18:59 Intake Total 600 Balance 600 Weight 97.069 kg Intake: Intake, IV Titration 600 Amount Cefepime 2 gm In Sodium 100 Chloride 0.9% 100 ml @ 25 mls/hr IVPB Q12H [facility] Rx# :[id number] Vancomycin 1,500 mg In 500 Sodium Chloride 0.9% 500 ml 500 ml @ 167 mls/hr IVPB Q24H [facility] Rx#: [id number] Other: # Voids 2 # Bowel Movements 2 - Labs CBC & Chem 7: 04/16/24 04:34 04/17/24 05:59 Labs: Abnormal Lab Results - Last 24 Hours (Table) 04/18/24 04/18/24 04/18/24 Range/Units 11:46 16:36 20:32 POC Glucose (mg/dL) 117 H 208 H 120 H (70-110) mg/dL 04/19/24 04/19/24 Range/Units 05:54 11:16 POC Glucose (mg/dL) 132 H 271 H (70-110) mg/dL Microbiology - Last 24 Hours (Table) 04/17/24 09:32 Gram Stain - Preliminary Foot - Right Wound Culture - Preliminary 04/14/24 14:50 Anaerobic Culture - Final Foot - Right 04/12/24 18:15 Blood Culture - Final Blood 04/12/24 18:00 Blood Culture - Final Blood
--- NOTE | 2024-04-19 14:56 | P.PN ---
Subjective Progress Note Date: 04/19/24 Principal diagnosis: Reason for follow-up is right leg cellulitis possible abscess Patient is a 68-year-old male with a past medical history significant for diabetes mellitus and hypertension former smoker presenting to the hospital for evaluation of right foot pain and redness apparently has been going on for 3 to 4 days patient diagnosed with cellulitis and admitted to the hospital.Patient is status post I&D right foot fluid collection which was overlying the bones operative report did not mention any purulence culture has been obtained procedure completed on 04/17/2024 On today's evaluation 04/19/2024, Patient is afebrile patient is currently on room air and denies having any shortness of breath, the patient denies any chest pain or cough, the patient denies any nausea vomiting did not have any abdominal pain and no diarrhea patient denies pain or any worsening related to the right foot. Vanco trough has been 16.6 culture has been negative so far Objective - Vital Signs Vital signs: Vital Signs Temp 97.8 F 04/19/24 07:12 Pulse 62 04/19/24 07:12 Resp 15 04/19/24 07:12 BP 129/66 04/19/24 07:12 Pulse Ox 99 04/19/24 07:12 FiO2 Intake & Output 04/18/24 04/19/24 04/19/24 18:59 06:59 18:59 Intake Total 600 Balance 600 Weight 97.069 kg Intake: Intake, IV Titration 600 Amount Cefepime 2 gm In Sodium 100 Chloride 0.9% 100 ml @ 25 mls/hr IVPB Q12H [facility] Rx# :[id number] Vancomycin 1,500 mg In 500 Sodium Chloride 0.9% 500 ml 500 ml @ 167 mls/hr IVPB Q24H [facility] Rx#: [id number] Other: # Voids 2 # Bowel Movements 2 - Exam GENERAL DESCRIPTION: An elderly male lying in bed in no distress RESPIRATORY SYSTEM: Unlabored breathing , decreased breath sounds at bases HEART: S1 S2 regular rate and rhythm , ABDOMEN: Soft , no tenderness EXTREMITIES: Right foot currently dressed - Labs CBC & Chem 7: 04/16/24 04:34 04/17/24 05:59 Labs: Abnormal Lab Results - Last 24 Hours (Table) 04/18/24 04/18/24 04/18/24 Range/Units 11:46 16:36 20:32 POC Glucose (mg/dL) 117 H 208 H 120 H (70-110) mg/dL 04/19/24 04/19/24 Range/Units 05:54 11:16 POC Glucose (mg/dL) 132 H 271 H (70-110) mg/dL Microbiology - Last 24 Hours (Table) 04/17/24 09:32 Gram Stain - Preliminary Foot - Right Wound Culture - Preliminary 04/14/24 14:50 Anaerobic Culture - Final Foot - Right 04/12/24 18:15 Blood Culture - Final Blood 04/12/24 18:00 Blood Culture - Final Blood Assessment and Plan (1) Cellulitis of right foot Current Visit: Yes Status: Acute Code(s): L03.115 - CELLULITIS OF RIGHT LOWER LIMB SNOMED Code(s): 55344555245642153 (2) Diabetic foot ulcer Current Visit: Yes Status: Acute Code(s): E11.621 - TYPE 2 DIABETES MELLITUS WITH FOOT ULCER; L97.509 - NON-PRESSURE CHRONIC ULCER OTH PRT UNSP FOOT W UNSP SEVERITY SNOMED Code(s): 883769430 Plan: 1patient presented hospital right foot pain swelling and redness that has been going on for about 3 to 4 days before presentation to the hospital patient noticed to have erythema on the dorsal aspect of the right foot, patient yamileth alvarez has come up to ahead and has been draining by vascular surgery unfortunately no cultures obtained I was able to obtain swab for cultures results will be followed 2 MRI of the right foot with contrast has been done official report is pending however per the vascular surgery there was a ill-defined fluid collection and the patient is status post drainage of the fluid culture has been obtained 3patient seem to be refusing IV antibiotic therapy and wanted to try oral antibiotic with a culture negative so far will discontinue cefepime and vancomycin start the patient on Unasyn and the overall improvement to finish therapy with oral Augmentin discussed with admitting team Dictation was produced using [employer] dictation software. please excuse any grammatical, word or spelling errors. Time with Patient: Less than 30
[2024-04-19 16:28] LABS: Glucose,Whole Blood 131 mg/dL (70-110)
[2024-04-19] MEDS: AMPICILLIN-SULBACTAM 3 GM in SODIUM CHLORIDE 0.9% 100 ML IVPB SCH (18:36)
[2024-04-19 20:39] LABS: Glucose,Whole Blood 167 mg/dL (70-110)
[2024-04-20 05:59] LABS: Glucose,Whole Blood 126 mg/dL (70-110)
[2024-04-20 08:34] VITALS: RESP 18
[2024-04-20 09:14] LABS: Basophils # (A) 0.07 X 10*3/uL (0.00-0.10); Eosinophils # (A) 0.54 X 10*3/uL (0.04-0.35); Eosinophils % (A) 7.4 %; HCT 34.6 % (39.6-50.0); HGB 11.2 g/dL (13.0-17.0); Lymphocytes # (A) 2.22 X 10*3/uL (0.90-5.00); Lymphocytes % (A) 30.5 %; MCH 29.6 pg (27.0-32.0); MCHC 32.4 g/dL (32.0-37.0); MCV 91.5 FL (80.0-97.0); Mean Platelet Volume 11.1 FL (9.5-12.2); Monocytes # (A) 0.52 X 10*3/uL (0.20-1.00); Monocytes % (A) 7.1 %; NRBC Per 100 WBC 0 X 10*3/uL (0.00-0.01); Neutrophils # (A) 3.87 X 10*3/uL (1.80-7.70); Neutrophils % (A) 53.2 %; Platelet Count 278 X 10*3/uL (140-440); RBC 3.78 X 10*6/uL (4.40-5.60); RDW 12.8 % (11.5-14.5); WBC 7.28 X 10*3/uL (4.50-10.00)
[2024-04-20 09:26] LABS: Blood Urea Nitrogen 28.7 mg/dL (9.0-27.0); Carbon Dioxide 25.3 mmol/L (21.6-31.8); Chloride 105 mmol/L (96-109); Glucose 117 mg/dL (70-110); Magnesium 2.1 mg/dL (1.5-2.4); Potassium 4.6 mmol/L (3.5-5.5); Sodium 143 mmol/L (135-145)
[2024-04-20 11:39] LABS: Glucose,Whole Blood 143 mg/dL (70-110)
--- NOTE | 2024-04-20 12:26 | P.DS ---
Providers Date of admission: 04/12/24 17:22 Expected date of discharge: 04/20/24 Attending physician: Jules Oviedo MD Consults: 04/12/24 18:28 Consult Physician Routine Consulting Provider: Malcolm Hernández Consult Reason/Comments: dm ulcer, ro osteo Do you want consulting provider notified?: Yes, Notify in am Consult Physician Routine Consulting Provider: Phyllis Zurita Consult Reason/Comments: diabetic ulcer Do you want consulting provider notified?: Yes, Notify in am Primary care physician: Barrington Dexter [facility] Course: Right foot cellulitis Possible Septic Arthritis, definite Charcot foot Peripheral arterial disease, s/p L BKA Acute kidney injury, improved Insulin-dependent diabetes Hypertension Anxiety Hospital Course: 68-year-old male with history of diabetes mellitus, hypertension, peripheral neuropathy, left BKA presenting with right foot erythema. Vital signs within normal limits. Laboratory workup shows unremarkable CBC, elevated ESR 52, creatinine 1.4 above from baseline, CRP 3. 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 Patient started on IV antibiotics. ID consulted. Admitted for possible cellulitis, versus osteomyelitis in the setting of diabetic foot disease. Patient also has COOKIE, renal function not improving. Bladder ultrasound negative for hydronephrosis bilaterally, 1.9 cm exophytic cyst from the left kidney superior pole. CTA of lower extremity showed patent blood vessel in the right lower extremity, diffuse mixed arthrosclerotic disease was noted. MRI of the foot has joint effusions in TMT and overlying poorly defined 2.7cm fluid collection, concerning for septic arthritis. Pt was taken to the OR for washout, however, OR cultures were negative for microbial organisms. After discussion with ID, abx were chosen as augmentin for 14 days. Pt should f/u with PCP, ID, and Vascular surgery. On discharge, it was noted that patient had borderline GFR of 54, and is on metformin and jardiance, d'c instructions included f/u BMP with PCP discussion to ensure he does not need to come off of metformin or jardiance. ID and vascular surgery f/u regarding wound and charcot foot. Pt was also advised to have close f/u with podiatry regarding charcot foot. Wound care was set up by CM via residential home care on 04/18. I spent 40 minutes coordinating this discharge General: Nontoxic, no distress, appears at stated age Derm: Warm, dry, Superficial ulcer on the dorsum of the right foot on the medial aspect along with surrounding erythema no induration no tenderness to palpation bony prominence over the medial aspect of the right foot Head: Atraumatic, normocephalic, symmetric Eyes: EOMI, no lid lag, anicteric sclera Mouth: No lip lesion, mucus membranes moist Cardiovascular: S1S2 reg, no murmur Lungs: CTA bilateral, no rhonchi, no rales, no accessory muscle use Abdominal: Soft, nontender to palpation, no guarding, no appreciable organomegaly Ext: No gross muscle atrophy, no edema, no contractures, left BKA Neuro: CN II-XI grossly intact, no focal neuro deficits Psych: Alert, oriented, appropriate affect Patient Condition at Discharge: Good Plan - Discharge Summary Discharge Rx Participant: No New Discharge Prescriptions: New Amoxic-Pot Clav 875-125Mg [Augmentin 875-125] 1 tab PO BID 14 Days #28 tab Continue amLODIPine [Norvasc] 5 mg PO DAILY ALPRAZolam [Xanax] 1 mg PO BID PRN #6 tab PRN Reason: Anxiety Insulin Glargine,Hum.rec.anlog [Lantus Solostar Pen] 5 units SQ HS metFORMIN HCL [Glucophage] 1,000 mg PO AC-BID Empagliflozin [Jardiance] 25 mg PO DAILY Acetaminophen Tab [Tylenol] 1,000 mg PO Q6HR PRN PRN Reason: Pain Discontinued Lisinopril-Hctz 20-12.5 mg [Zestoretic 20-12.5] 2 tab PO DAILY Discharge Medication List amLODIPine [Norvasc] 5 mg PO DAILY 08/20/23 [History] metFORMIN HCL [Glucophage] 1,000 mg PO AC-BID 08/20/23 [History] ALPRAZolam [Xanax] 1 mg PO BID PRN #6 tab 08/28/23 [Rx] Acetaminophen Tab [Tylenol] 1,000 mg PO Q6HR PRN 04/12/24 [History] Empagliflozin [Jardiance] 25 mg PO DAILY 04/12/24 [History] Insulin Glargine,Hum.rec.anlog [Lantus Solostar Pen] 5 units SQ HS 04/12/24 [History] Amoxic-Pot Clav 875-125Mg [Augmentin 875-125] 1 tab PO BID 14 Days #28 tab 04/20/24 [Rx] Follow up Appointment(s)/Referral(s): Malcolm Hernández DO [Doctor of Osteopathic Medicine] - 10 Days Barrington Swanson MD [Primary Care Provider] - 1-2 days Phyllis Zurita MD [STAFF PHYSICIAN] - 1 Week Activity/Diet/Wound Care/Special Instructions: You should follow up with your PCP and Infectious Disease PCP - need a repeat BMP, and consideration of off-titration of metformin and jardiance due to borderline kidney function - CKD stage IIIb ID - regarding antibiotic use, and for follow up physical exam and imaging of the foot. Discharge Disposition: HOME SELF-CARE
--- NOTE | 2024-04-20 14:01 | P.PN ---
Subjective Progress Note Date: 04/20/24 Principal diagnosis: right foot swelling, infection Patient seen and examined at bedside. He is doing well and denies any significant pain in his right lower extremity. He is waiting for final cultures and decision for IV versus oral antibiotics. Objective - Vital Signs Vital signs: Vital Signs Temp 98.6 F 04/20/24 13:08 Pulse 71 04/20/24 13:08 Resp 18 04/20/24 13:08 BP 171/69 04/20/24 13:08 Pulse Ox 98 04/20/24 07:43 FiO2 Intake & Output 04/19/24 04/20/24 04/20/24 18:59 06:59 18:59 Other: Voiding Method Toilet # Voids 3 2 - Exam Left BKA is healed Right foot dressing in place without any significant drainage - Labs CBC & Chem 7: 04/20/24 04:20 04/20/24 04:20 Labs: Abnormal Lab Results - Last 24 Hours (Table) 04/19/24 04/19/24 04/20/24 Range/Units 16:27 20:37 04:20 RBC 3.78 L (4.40-5.60) X 10*6/uL Hgb 11.2 L (13.0-17.0) g/dL Hct 34.6 L (39.6-50.0) % Immature Gran # 0.06 H (0.00-0.04) X 10*3/uL Eosinophils # 0.54 H (0.04-0.35) X 10*3/uL Anion Gap (4.00-12.00) mmol/L BUN (9.0-27.0) mg/dL Est GFR (CKD-EPI) (>=60) BUN/Creatinine Ratio (12.00-20.00) Ratio Glucose (70-110) mg/dL POC Glucose (mg/dL) 131 H 167 H (70-110) mg/dL 04/20/24 04/20/24 04/20/24 Range/Units 04:20 05:57 11:38 RBC (4.40-5.60) X 10*6/uL Hgb (13.0-17.0) g/dL Hct (39.6-50.0) % Immature Gran # (0.00-0.04) X 10*3/uL Eosinophils # (0.04-0.35) X 10*3/uL Anion Gap 12.70 H (4.00-12.00) mmol/L BUN 28.7 H (9.0-27.0) mg/dL Est GFR (CKD-EPI) 54 L (>=60) BUN/Creatinine Ratio 20.50 H (12.00-20.00) Ratio Glucose 117 H (70-110) mg/dL POC Glucose (mg/dL) 126 H 143 H (70-110) mg/dL Microbiology - Last 24 Hours (Table) 04/17/24 09:32 Anaerobic Culture - Preliminary Foot - Right 04/17/24 09:32 Gram Stain - Final Foot - Right Wound Culture - Final Assessment and Plan Assessment: Right foot cellulitis Diabetic foot ulcer History of left BKA Plan: Continue local wound care awaiting ID recommendations for discharge okay for discharge from vascular standpoint
[2024-04-20 14:12] VITALS: BP 171/69; PULSE 71; TEMP 98.6
[2024-04-20] MEDS ORDERED: AMOXIC-POT CLAV 875-125MG 1 EACH TAB PO SCH (15:00)
--- NOTE | 2024-04-23 10:40 | CDI ---
Documentation Clarification Form Date: 04/23/2024 10:28:53 AM From: Annelise Jiménez Phone: Admit Date: 04/12/2024 05:22:00 PM Patient Name: Bhupinder Piña Visit Number: [id number] Discharge Date: 04/20/2024 04:30:00 PM ATTENTION: The Clinical Documentation Specialists (CDI) and [facility] Coding Staff appreciate your assistance in clarifying documentation. Please respond to the clarification below the line at the bottom and electronically sign. The CDI & [facility] Coding staff will review the response and follow-up if needed. Please note: Queries are made part of the Legal Health Record. If you have any questions, please contact the author of this message via ITS. Dr. Bria Humphreys There is documentation of shave back some of the bone. Additional clarification is requested. History/Risk Factors: 68yo M, Right foot cellulitis, septic arthritis, Charcotfoot, DMII w PAD s/p L BKA, COOKIE, HTN, anxiety Clinical Indicators: Rtwound, fluidcollection,Charcotfoot; there wasdrainageof fluid none of it appeared to be significantly purulent, a culture was taken. Thecavityspace and the base of the foot approximately measures 2 cm. Treatment: Debridementwas performed with a curette. The area was also overlying bone and due to this, some of the periosteal tissue wasdebrided. A rongeur was utilized to shave back some of the bone to allow for improvement of woundhealing. The area was thenirrigated. Can you please clarify the bone debridement? [ x ] Tarsal [ ] Other, please specify [ ] Unable to determine (Template Last Revised: January 2021) MTDD
== END 2024-04-20 16:30 | disposition home or self-care (01) | DRG 629 ==
LOC: EC 13:36 → 4SSUR 17:22
PROVIDERS: ADMIT Internal Medicine; ATTEND Internal Medicine
PROC: 0J9Q0ZZ Drainage of Right Foot Subcutaneous Tissue and Fascia, Open Approach (ICD-10-PCS; 2024-04-17)
PROC: 0QBL0ZZ Excision of Right Tarsal, Open Approach (ICD-10-PCS; principal; 2024-04-17 09:50)
DX: E11.628 Type 2 diabetes mellitus with other skin complications (principal); L03.115 Cellulitis of right lower limb; M00.871 Arthritis due to other bacteria, right ankle and foot; L97.411 Non-pressure chronic ulcer of right heel and midfoot limited to breakdown of skin; N17.9 Acute kidney failure, unspecified; E11.610 Type 2 diabetes mellitus with diabetic neuropathic arthropathy; E11.621 Type 2 diabetes mellitus with foot ulcer; E11.51 Type 2 diabetes mellitus with diabetic peripheral angiopathy without gangrene; E11.22 Type 2 diabetes mellitus with diabetic chronic kidney disease; E11.42 Type 2 diabetes mellitus with diabetic polyneuropathy; N18.32 Chronic kidney disease, stage 3b; I70.234 Atherosclerosis of native arteries of right leg with ulceration of heel and midfoot; Z79.4 Long term (current) use of insulin; Z97.14 Presence of artificial left leg (complete) (partial); Z89.512 Acquired absence of left leg below knee; I12.9 Hypertensive chronic kidney disease with stage 1 through stage 4 chronic kidney disease, or unspecified chronic kidney disease; F41.9 Anxiety disorder, unspecified; M25.474 Effusion, right foot; Z86.14 Personal history of Methicillin resistant Staphylococcus aureus infection; Z87.891 Personal history of nicotine dependence; Z79.84 Long term (current) use of oral hypoglycemic drugs; Z79.899 Other long term (current) drug therapy; Z88.8 Allergy status to other drugs, medicaments and biological substances; Z87.39 Personal history of other diseases of the musculoskeletal system and connective tissue
CPT/HCPCS: 36415; 76770; 80048; 80053; 80202; 81003; 82565; 83036; 83735; 85025; 85652; 86140; 87040; 87070; 87075; 87205; 96365; 96366; 96368; 99285

== ENCOUNTER 2024-04-28 16:45 | Inpatient (IN) | payer MEDICARE ==
[2024-04-28] MEDS ORDERED: VANCOMYCIN IV PER PHARMACY 1 EACH MISC MISCELLANE PRN (18:30)
--- NOTE | 2024-04-28 18:33 | ED ---
Lower Extremity Injury HPI - General Chief Complaint: Extremity Injury, Lower Stated Complaint: R Foot Swollen,Fever-post surgery Time Seen by Provider: 04/28/24 17:57 Source: patient, RN notes reviewed, old records reviewed Mode of arrival: wheelchair Limitations: no limitations - History of Present Illness Initial Comments: This is a 68-year-old male to the ER for right foot pain right foot pain and swelling with recent diagnosis of foot infection presents from the home to the emergency department today for fever at home. Patient himself has no other significant complaints MD Complaint: other (Foot pain) -: week(s) Injury: Foot: Right, Toes: Right Severity: severe Severity scale (1-10): 8 Worsens With: nothing Associated Symptoms: swelling, numbness, tingling Treatments Prior to Arrival: bandage - Related Data Home Medications Medication Instructions Recorded Confirmed amLODIPine [Norvasc] 5 mg PO DAILY 08/20/23 04/28/24 metFORMIN HCL [Glucophage] 1,000 mg PO AC-BID 08/20/23 04/28/24 Acetaminophen Tab [Tylenol] 1,000 mg PO Q6HR PRN 04/12/24 04/28/24 Empagliflozin [Jardiance] 25 mg PO DAILY 04/12/24 04/28/24 Insulin Glargine,Hum.rec.anlog 5 units SQ HS 04/12/24 04/28/24 [Lantus Solostar Pen] Previous Rx's Medication Instructions Recorded ALPRAZolam [Xanax] 1 mg PO BID PRN #6 tab 08/28/23 Ciprofloxacin HCl [Cipro] 500 mg PO BID 14 Days #28 tab 05/02/24 HYDROcodone/APAP 5-325MG [Baldwin 1 tab PO Q4HR PRN 3 Days #18 tab 05/02/24 5-325] Allergies Allergy/AdvReac Type Severity Reaction Status Date / Time bupropion [From Wellbutrin] Allergy Unknown Verified 04/28/24 19:47 varenicline [From Chantix] Allergy Unknown Verified 04/28/24 19:47 Review of Systems ROS Statement: Those systems with pertinent positive or pertinent negative responses have been documented in the HPI. ROS Other: All systems not noted in ROS Statement are negative. Past Medical History Past Medical History: Diabetes Mellitus, Hypertension History of Any Multi-Drug Resistant Organisms: MRSA Date of last positivie culture/infection: 1997 MDRO Source:: Unsure Past Surgical History: No Surgical Hx Reported Additional Past Surgical History / Comment(s): eye surgery Past Anesthesia/Blood Transfusion Reactions: No Reported Reaction Past Psychological History: Anxiety Smoking Status: Former smoker Past Alcohol Use History: Occasional Past Drug Use History: None Reported General Exam General appearance: alert, in no apparent distress, anxious Head exam: Present: atraumatic, normocephalic, normal inspection Eye exam: Present: normal appearance, PERRL, EOMI. Absent: scleral icterus, conjunctival injection, periorbital swelling ENT exam: Present: normal exam, mucous membranes moist Neck exam: Present: normal inspection. Absent: tenderness, meningismus, lymphadenopathy Respiratory exam: Present: normal lung sounds bilaterally. Absent: respiratory distress, wheezes, rales, rhonchi, stridor Cardiovascular Exam: Present: regular rate, normal rhythm, normal heart sounds. Absent: systolic murmur, diastolic murmur, rubs, gallop, clicks GI/Abdominal exam: Present: soft, normal bowel sounds. Absent: distended, tenderness, guarding, rebound, rigid Extremities exam: Present: normal inspection, full ROM, normal capillary refill. Absent: tenderness, pedal edema, joint swelling, calf tenderness Back exam: Present: normal inspection Neurological exam: Present: alert, oriented X3, CN II-XII intact Psychiatric exam: Present: normal affect, normal mood Skin exam: Present: warm, dry, intact, normal color. Absent: rash Course Vital Signs 04/28/24 04/28/24 17:36 21:10 Temperature 98.5 F Pulse Rate 90 87 Respiratory 18 18 Rate Blood Pressure 103/61 126/65 O2 Sat by Pulse 97 97 Oximetry - Reevaluation(s) Reevaluation #1: 04/28/24 18:31 Medical records reviewed Reevaluation #2: 04/28/24 18:31 Patient symptoms unchanged Reevaluation #3: 04/28/24 18:31 Patient informed of results and questions answered Reevaluation #4: Was pt. sent in by a medical professional or institution (, PA, [facility] [employer], urgent care, hospital, or halfway...) When possible be specific @ -no Did you speak to anyone other than the patient for history (EMS, parent, family, police, friend...)? What history was obtained from this source @ -no Did you review nursing and triage notes (agree or disagree)? Why? @ -agree Are old charts reviewed (outside hosp., previous admission, EMS record, old EKG, old radiological studies, urgent care reports/EKG's, halfway records)? Report findings @ -yes Differential Diagnosis (chest pain, altered mental status, abdominal pain women, abdominal pain men, vaginal bleeding, weakness, fever, dyspnea, syncope, headache, dizziness, GI bleed, back pain, seizure, CVA, palpatations, mental health, musculoskeletal)? @ -prior EKG interpreted by me (3pts min.). @ -yes X-rays interpreted by me (1pt min.). @ -yes negative for acute disease CT interpreted by me (1pt min.). @ -no U/S interpreted by me (1pt. min.). @ -no What testing was considered but not performed or refused? (CT, X-rays, U/S, labs)? Why? @ -none What meds were considered but not given or refused? Why? @ -none Did you discuss the management of the patient with other professionals (professionals i.e. , PA, [employer], lab, RT, psych nurse, social media content specialist, advertising executive, teacher, combat information center officer, caseworker)? Give summary @ -no Was smoking cessation discussed for >3mins.? @ -no Were there social determinants of health that impacted care today? How? (Homelessness, low income, unemployed, alcoholism, drug addiction, transportation, low edu. Level, literacy, decrease access to med. care, assisted, rehab)? @ -none Was there de-escalation of care discussed even if they declined (Discuss DNR or withdrawal of care, Hospice)? DNR status @ -no What co-morbidities impacted this encounter? (DM, HTN, Smoking, COPD, CAD, Cancer, CVA, ARF, Chemo, Hep., AIDS, mental health diagnosis, sleep apnea, morbid obesity)? @ -none Was patient admitted / discharged? Hospital course, mention meds given and route, prescriptions, significant lab abnormalities, going to OR and other pertinent info. @ - 68 male to the ER for evaluation of right foot infection with fever. Patient admitted for IV antibiotics Admitted Was critical care preformed (if so, how long)? @ -no Undiagnosed new problem with uncertain prognosis? @ -no Drug Therapy requiring intensive monitoring for toxicity (Heparin, Nitro, Insulin, Cardizem)? @ -no Were any procedures done? @ -no Diagnosis/symptom? @ -Foot infection with fever osteomyelitis Acute, or Chronic, or Acute on Chronic? @ -Acute Uncomplicated (without systemic symptoms) or Complicated (systemic symptoms)? @ -Complicated Side effects of treatment? @ -no Exacerbation, Progression, or Severe Exacerbation? @ -exacerbation Poses a threat to life or bodily function? How? (Chest pain, [place], [place], pneumonia, PE, COPD, DKA, ARF, appy, cholecystitis, CVA, Diverticulitis, Homicidal, Suicidal, threat to staff... and all critical care pts) @ -yes significant osteomyelitis Reevaluation #5: Differential Fever: Pneumonia, viral URI, endocarditis, myocarditis, pericarditis, otitis, sinusi tis, peritonsillar Abscess, retropharyngeal Abscess, epiglottitis, peritonitis, appendicitis, Betina cystitis, diverticulitis, hepatitis, colitis, UTI, PID, TOA, pyelonephritis, prostatitis, epididymitis, meningitis, encephalitis, pulmonary embolism, CVA, thyroid storm, pancreatitis, adrenal crisis, cavernous sinus thrombosis, this is not meant to be an all-inclusive list. - Consultations Consultation #1: Spoke with [facility] who agrees to admit this patient Medical Decision Making - Medical Decision Making 68 male to the ER for evaluation of right foot infection with fever. Patient admitted for IV antibiotics - Lab Data Result diagrams: 04/29/24 04:56 04/30/24 04:53 Lab Results 04/28/24 04/28/24 04/28/24 Range/Units 19:00 19:00 19:00 WBC 10.5 (3.8-10.6) k/uL RBC 3.92 L (4.30-5.90) m/uL Hgb 11.5 L (13.0-17.5) gm/dL Hct 34.6 L (39.0-53.0) % MCV 88.4 (80.0-100.0) fL MCH 29.4 (25.0-35.0) pg MCHC 33.2 (31.0-37.0) g/dL RDW 12.8 (11.5-15.5) % Plt Count 278 (150-450) k/uL MPV 8.5 Neutrophils % 82 % Lymphocytes % 10 % Monocytes % 5 % Eosinophils % 1 % Basophils % 1 % Neutrophils # 8.7 H (1.3-7.7) k/uL Lymphocytes # 1.0 (1.0-4.8) k/uL Monocytes # 0.6 (0-1.0) k/uL Eosinophils # 0.1 (0-0.7) k/uL Basophils # 0.1 (0-0.2) k/uL PT 10.5 (10.0-12.5) sec INR 0.9 (<1.2) APTT 25.4 (22.0-30.0) sec Sodium 136 L (137-145) mmol/L Potassium 4.1 (3.5-5.1) mmol/L Chloride 103 (98-107) mmol/L Carbon Dioxide 21 L (22-30) mmol/L Anion Gap 12 mmol/L BUN 46 H (9-20) mg/dL Creatinine 1.80 H (0.66-1.25) mg/dL Est GFR (CKD-EPI)AfAm 43 (>60 ml/min/1.73 sqM) Est GFR (CKD-EPI)NonAf 38 (>60 ml/min/1.73 sqM) Glucose 106 H (74-99) mg/dL Plasma Lactic Acid Isael (0.7-2.0) mmol/L Calcium 10.1 (8.4-10.2) mg/dL Phosphorus 4.7 H (2.5-4.5) mg/dL Magnesium 1.6 (1.6-2.3) mg/dL Total Bilirubin 0.9 (0.2-1.3) mg/dL AST 27 (17-59) U/L ALT 18 (4-49) U/L Alkaline Phosphatase 80 (38-126) U/L Troponin I (0.000-0.034) ng/mL NT-Pro-B Natriuret Pep 621 pg/mL Total Protein 7.2 (6.3-8.2) g/dL Albumin 4.1 (3.5-5.0) g/dL 04/28/24 04/28/24 Range/Units 19:00 19:00 WBC (3.8-10.6) k/uL RBC (4.30-5.90) m/uL Hgb (13.0-17.5) gm/dL Hct (39.0-53.0) % MCV (80.0-100.0) fL MCH (25.0-35.0) pg MCHC (31.0-37.0) g/dL RDW (11.5-15.5) % Plt Count (150-450) k/uL MPV Neutrophils % % Lymphocytes % % Monocytes % % Eosinophils % % Basophils % % Neutrophils # (1.3-7.7) k/uL Lymphocytes # (1.0-4.8) k/uL Monocytes # (0-1.0) k/uL Eosinophils # (0-0.7) k/uL Basophils # (0-0.2) k/uL PT (10.0-12.5) sec INR (<1.2) APTT (22.0-30.0) sec Sodium (137-145) mmol/L Potassium (3.5-5.1) mmol/L Chloride (98-107) mmol/L Carbon Dioxide (22-30) mmol/L Anion Gap mmol/L BUN (9-20) mg/dL Creatinine (0.66-1.25) mg/dL Est GFR (CKD-EPI)AfAm (>60 ml/min/1.73 sqM) Est GFR (CKD-EPI)NonAf (>60 ml/min/1.73 sqM) Glucose (74-99) mg/dL Plasma Lactic Acid Isael 1.4 (0.7-2.0) mmol/L Calcium (8.4-10.2) mg/dL Phosphorus (2.5-4.5) mg/dL Magnesium (1.6-2.3) mg/dL Total Bilirubin (0.2-1.3) mg/dL AST (17-59) U/L ALT (4-49) U/L Alkaline Phosphatase (38-126) U/L Troponin I 0.039 H* (0.000-0.034) ng/mL NT-Pro-B Natriuret Pep pg/mL Total Protein (6.3-8.2) g/dL Albumin (3.5-5.0) g/dL - EKG Data -: EKG Interpreted by Me (EKG shows is sinus 84 NM 150 QRS 105 QTc 395) - Radiology Data Radiology results: report reviewed (X-ray right foot positive Charcot foot), image reviewed Disposition Clinical Impression: Osteomyelitis, Charcot foot due to diabetes mellitus, Cellulitis of right foot, Fever Disposition: ADMITTED IP TO THIS HOSP Condition: Good Is patient prescribed a controlled substance at d/c from ED?: No Time of Disposition: 18:30
--- NOTE | 2024-04-28 19:03 | XR ---
Right foot. HISTORY: Pain COMPARISON: 04/12/2024 TECHNIQUE: 3 views right foot were obtained FINDINGS: There is marked interval worsening in the dislocations involving the first through third tarsometatar keyshawn joints. There is widening of the joint spaces between the first second and third cuneiforms. Ther e are no acute fractures or focal intraosseous abnormalities. IMPRESSION: Marked interval worsening in the malalignment of the tarsal bones and tarsometatarsal articulations f rom the first through the third digits. Findings most likely represent a Charcot foot. Clinical corre lation is recommended.
[2024-04-28] MEDS: MORPHINE SULFATE 4 MG/ML SYRINGE IV STA (19:04)
[2024-04-28] MEDS: PIPERACILLIN-TAZOBACTAM 3.375 GM in SODIUM CHLORIDE 0.9% 100 ML IVPB STA (19:04)
[2024-04-28] MEDS: SODIUM CHLORIDE 0.9% 1,000 ML IV STA (19:04)
[2024-04-28] MEDS ORDERED: ONDANSETRON 4 MG/2 ML VIAL IVP PRN (19:28)
[2024-04-28] MEDS ORDERED: NALOXONE 0.4 MG/ML 1 ML VIAL IV PRN ×2 (19:28→20:05)
[2024-04-28 19:32] LABS: Basophils # (A) 0.1 k/uL (0-0.2); Basophils % (A) 1 %; Eosinophils # (A) 0.1 k/uL (0-0.7); Eosinophils % (A) 1 %; HCT 34.6 % (39.0-53.0); HGB 11.5 gm/dL (13.0-17.5); Lymphocytes % (A) 10 %; MCH 29.4 pg (25.0-35.0); MCHC 33.2 g/dL (31.0-37.0); MCV 88.4 fL (80.0-100.0); Mean Platelet Volume 8.5; Monocytes # (A) 0.6 k/uL (0-1.0); Monocytes % (A) 5 %; Neutrophils # (A) 8.7 k/uL (1.3-7.7); Neutrophils % (A) 82 %; Platelet Count 278 k/uL (150-450); RBC 3.92 m/uL (4.30-5.90); RDW 12.8 % (11.5-15.5); WBC 10.5 k/uL (3.8-10.6)
[2024-04-28 19:42] LABS: INR 0.9 (<1.2); Partial Thromboplastin Time 25.4 sec (22.0-30.0); Prothrombin Time 10.5 sec (10.0-12.5)
[2024-04-28] MEDS: SODIUM CHLORIDE 0.9% 1,000 ML IV SCH (19:42)
[2024-04-28 19:44] LABS: ALT 18 U/L (4-49); AST 27 U/L (17-59); African American GFR (CKD) 43 (>60 ml/min/1.73 sqM); Albumin 4.1 g/dL (3.5-5.0); Alkaline Phosphatase 80 U/L (38-126); Anion Gap 12 mmol/L; Blood Urea Nitrogen 46 mg/dL (9-20); Calcium 10.1 mg/dL (8.4-10.2); Carbon Dioxide 21 mmol/L (22-30); Chloride 103 mmol/L (98-107); Glucose 106 mg/dL (74-99); Magnesium 1.6 mg/dL (1.6-2.3); Non-African American GFR(CKD) 38 (>60 ml/min/1.73 sqM); Phosphorus 4.7 mg/dL (2.5-4.5); Potassium 4.1 mmol/L (3.5-5.1); Sodium 136 mmol/L (137-145); Total Bilirubin 0.9 mg/dL (0.2-1.3); Total Protein 7.2 g/dL (6.3-8.2)
[2024-04-28 19:51] LABS: NT-Pro-B-Type Natriuretic Pept 621 pg/mL
[2024-04-28] MEDS: VANCOMYCIN 1,500 MG in SODIUM CHLORIDE 0.9% 500 ML 500 ML IVPB STA (20:12)
[2024-04-28] MEDS: ACETAMINOPHEN TAB 325 MG TAB PO PRN (23:19)
[2024-04-29] MEDS: MORPHINE SULFATE 4 MG/ML SYRINGE IV PRN (00:14)
[2024-04-29] MEDS ORDERED: VANCOMYCIN IV PER PHARMACY 1 EACH MISC MISCELLANE PRN (00:43)
[2024-04-29] MEDS ORDERED: DEXTROSE 50% SYRINGE 50 ML IVP PRN ×2 (00:49)
--- NOTE | 2024-04-29 01:06 | P.HPIM ---
History of Present Illness H&P Date: 04/28/24 Chief Complaint: Right foot pain 68-year-old male with diabetes mellitus, chartcot foot Patient was recently hospitalized and discharged for evaluation of an ulcer over the dorsum of his right foot intraoperative cultures were obtained were negative patient was discharged on Augmentin twice daily for 14 days he continues to be on Augmentin for now however over the past couple days he noticed some increased erythema and pain over his right foot with visiting nurse concerns regarding recurrent infection especially in light of chills and fevers at home for which she recommended that she come to the hospital for evaluation patient also followed up with podiatry as an outpatient who recommended reconstructive surgery of his foot Patient reports a lot of difficulty with ambulation weightbearing and walking over his right foot, he claims that visiting nurse has been changing his dressing every day he has been taking his medications as prescribed. Otherwise he denies any chest pain trouble breathing nausea vomiting abdominal pain changes in bowel or urinary habits denies any GI bleeding review of systems Pertinent positives as noted in HPI. All other systems were reviewed and are negative on exam Constitutional: No acute distress, conversant, pleasant Eyes: Anicteric sclerae, moist conjunctiva, Pupils equal round reactive to light ENMT: NC/AT Oropharynx clear, no erythema, or exudates Neck: Supple, no masses, or JVD No carotid bruits No thyromegaly Lungs: Clear to auscultation Clear to percussion Normal respiratory effort, no accessory muscle use Cardiovascular: Heart regular in rate and rhythm, Systolic murmurs, no gallops, or rubs No peripheral edema Abdominal: Soft Nontender, no guarding, rebound or rigidity Abdomen moving with respiration Normoactive bowel sounds Skin: Ulcer over the dorsum of the right foot with surrounding erythema serosanguineous drainage Extremities: No digital cyanosis Left BKA Pedal pulses intact and symmetrical Radial pulses intact and symmetrical No calf tenderness Psychiatric: Alert and oriented to person, place and time Appropriate affect fair judgement Neuro Muscles Strength 5/5 in all 4 extremities Sensation to light touch grossly present throughout Cranial nerves II-XII grossly intact Past Medical History Past Medical History: Diabetes Mellitus, Hypertension History of Any Multi-Drug Resistant Organisms: MRSA Date of last positivie culture/infection: 1997 MDRO Source:: Unsure Past Surgical History: No Surgical Hx Reported Additional Past Surgical History / Comment(s): eye surgery Past Anesthesia/Blood Transfusion Reactions: No Reported Reaction Past Psychological History: Anxiety Smoking Status: Former smoker Past Alcohol Use History: Occasional Past Drug Use History: None Reported Medications and Allergies Home Medications Medication Instructions Recorded Confirmed Type amLODIPine [Norvasc] 5 mg PO DAILY 08/20/23 04/28/24 History metFORMIN HCL [Glucophage] 1,000 mg PO AC-BID 08/20/23 04/28/24 History ALPRAZolam [Xanax] 1 mg PO BID PRN #6 tab 08/28/23 04/28/24 Rx Acetaminophen Tab [Tylenol] 1,000 mg PO Q6HR PRN 04/12/24 04/28/24 History Empagliflozin [Jardiance] 25 mg PO DAILY 04/12/24 04/28/24 History Insulin Glargine,Hum.rec.anlog 5 units SQ HS 04/12/24 04/28/24 History [Lantus Solostar Pen] Amoxic-Pot Clav 875-125Mg 1 tab PO BID 14 Days #28 tab 04/20/24 04/28/24 Rx [Augmentin 875-125] Allergies Allergy/AdvReac Type Severity Reaction Status Date / Time bupropion [From Wellbutrin] Allergy Unknown Verified 04/28/24 19:47 varenicline [From Chantix] Allergy Unknown Verified 04/28/24 19:47 Physical Exam Vitals: Vital Signs Temp Pulse Pulse Resp BP BP Pulse Ox 04/28/24 23:15 99.6 F 104 H 18 149/68 97 04/28/24 21:10 87 18 126/65 97 04/28/24 17:36 98.5 F 90 18 103/61 97 Intake and Output 04/28/24 04/28/24 04/29/24 14:59 22:59 06:59 Other: Voiding Method Urinal Weight 95.708 kg 95.708 kg Results CBC & Chem 7: 04/28/24 19:00 04/28/24 19:00 Labs: Abnormal Lab Results - Last 24 Hours (Table) 04/28/24 04/28/24 04/28/24 Range/Units 19:00 19:00 19:00 RBC 3.92 L (4.30-5.90) m/uL Hgb 11.5 L (13.0-17.5) gm/dL Hct 34.6 L (39.0-53.0) % Neutrophils # 8.7 H (1.3-7.7) k/uL Sodium 136 L (137-145) mmol/L Carbon Dioxide 21 L (22-30) mmol/L BUN 46 H (9-20) mg/dL Creatinine 1.80 H (0.66-1.25) mg/dL Glucose 106 H (74-99) mg/dL Phosphorus 4.7 H (2.5-4.5) mg/dL Troponin I 0.039 H* (0.000-0.034) ng/mL Thrombosis Risk Factor Assmnt - Choose All That Apply Other Risk Factors: Yes Each Risk Factor Represents 2 Points: Age 61-74 years Thrombosis Risk Factor Assessment Total Risk Factor Score: 2 Thrombosis Risk Factor Assessment Level: Low Risk Assessment and Plan Assessment: 68-year-old female with diabetes mellitus, Charcot foot, hypertension coming in for worsening erythema pain of his right foot along with fevers and chills suspicious of recurrent infection I discussed case with ED doctor and accepted the admission for diabetic foot ulcer rule out underlying infectious process with anticipated length of stay more than 2 midnights Charcot foot with diabetic foot ulcer rule out infectious process Follow-up cultures Patient given vancomycin and Zosyn in the ED Discontinue Zosyn and switch to cefepime 2 g IV piggyback every 8 hours to minimize nephrotoxicity Vancomycin dosing by pharmacy ID consultation Podiatry consult Tylenol for fever 650 mg p.o. every 4 hours as needed Morphine 4 mg IV push every 4 hours as needed for pain IV fluid hydration normal saline 75 cc/h White count 10.5, afebrile, tachycardia Foot x-ray showing Charcot foot Acute kidney injury Sodium 136 potassium 4.1 BUN 46 creatinine 1.8 Avoid nephrotoxic meds IV fluid hydration 75 cc/h as above Monitor renal function Monitor urine output Diabetes mellitus Insulin sliding scale Resume Levemir 5 units nightly Full code DVT prophylaxis heparin subcu 3 times daily
[2024-04-29 01:59] LABS: Glucose,Whole Blood 123 mg/dL (70-110)
[2024-04-29] MEDS: ALPRAZolam 1 MG TAB PO SCH (02:00)
[2024-04-29] MEDS: CEFEPIME 2 GM in SODIUM CHLORIDE 0.9% 100 ML IVPB SCH ×2 (02:00→14:04)
[2024-04-29] MEDS: INSULIN DETEMIR (LEVEMIR) 100 UNIT/ML SYR SQ SCH (02:00)
[2024-04-29] MEDS ORDERED: PIPERACILLIN-TAZOBACTAM 3.375 GM in SODIUM CHLORIDE 0.9% 100 ML IVPB SCH (04:00)
[2024-04-29 06:18] LABS: Glucose,Whole Blood 102 mg/dL (70-110)
[2024-04-29] MEDS: INSULIN ASPART (NovoLOG) 100 UNIT/ML VIAL SQ SCH (06:22)
[2024-04-29] MEDS: ACETAMINOPHEN TAB 500 MG TAB PO PRN (06:24)
[2024-04-29 09:00] LABS: Eosinophils % (A) 2.4 %; HCT 30.6 % (39.6-50.0); MCH 29.4 pg (27.0-32.0); MCHC 32.7 g/dL (32.0-37.0); Mean Platelet Volume 10.5 FL (9.5-12.2); Monocytes % (A) 8.1 %; NRBC Per 100 WBC 0 X 10*3/uL (0.00-0.01); Platelet Count 243 X 10*3/uL (140-440); RDW 12.6 % (11.5-14.5); WBC 7.37 X 10*3/uL (4.50-10.00)
[2024-04-29] MEDS ORDERED: AMOXIC-POT CLAV 875-125MG 1 EACH TAB PO SCH (09:00)
[2024-04-29 09:01] LABS: Basophils # (A) 0.06 X 10*3/uL (0.00-0.10); Basophils % (A) 0.8 %; Eosinophils # (A) 0.18 X 10*3/uL (0.04-0.35); Lymphocytes # (A) 0.96 X 10*3/uL (0.90-5.00); Neutrophils # (A) 5.52 X 10*3/uL (1.80-7.70)
[2024-04-29] MEDS: amLODIPine 5 MG TAB PO SCH (09:06)
[2024-04-29] MEDS: HEPARIN SODIUM,PORCINE 5,000 UNIT/ML 1 ML VIAL SQ SCH (09:06)
[2024-04-29 09:09] LABS: ALT 14 U/L (10-49); AST 21 U/L (14-35); Albumin 3.5 g/dL (3.8-4.9); Alkaline Phosphatase 67 U/L (41-126); BUN/Creat Ratio 23.84 Ratio (12.00-20.00); Blood Urea Nitrogen 45.3 mg/dL (9.0-27.0); Carbon Dioxide 21.8 mmol/L (21.6-31.8); Chloride 100 mmol/L (96-109); Globulin 2.5 g/dL (1.6-3.3); Glucose 109 mg/dL (70-110); Magnesium 1.7 mg/dL (1.5-2.4); Phosphorus 4.2 mg/dL (2.4-5.1); Sodium 135 mmol/L (135-145); Total Bilirubin 0.3 mg/dL (0.3-1.2)
--- NOTE | 2024-04-29 09:53 | P.PN ---
Subjective Progress Note Date: 04/29/24 No new complaints today. Pt does feel better from admission, currently awaiting podiatry and ID recommendations. General: Nontoxic, no distress, appears at stated age Derm: Warm, dry, Superficial ulcer on the dorsum of the right foot on the medial aspect along with surrounding erythema no induration no tenderness to palpation bony prominence over the medial aspect of the right foot Head: Atraumatic, normocephalic, symmetric Eyes: EOMI, no lid lag, anicteric sclera Mouth: No lip lesion, mucus membranes moist Cardiovascular: S1S2 reg, no murmur Lungs: CTA bilateral, no rhonchi, no rales, no accessory muscle use Abdominal: Soft, nontender to palpation, no guarding, no appreciable organomegaly Ext: No gross muscle atrophy, no edema, no contractures, left BKA Neuro: CN II-XI grossly intact, no focal neuro deficits Psych: Alert, oriented, appropriate affect Hospital Course: 68-year-old male with diabetes mellitus, chartcot foot who was recently hospitalized and discharged for evaluation of an ulcer over the dorsum of his right foot intraoperative cultures were obtained were negative patient was discharged on Augmentin twice daily for 14 days. He returned due to concerns over worsening erythema, fever, chills. ID and podiatry were consulted and pt placed on broad spectrum abx with vancomycin and cefepime. Assessment and Plan: Right foot cellulitis Charcot Foot Peripheral arterial disease -Continue IV vancomycin, monitor renal function for renal toxicity -ID following, continue IV cefepime 2 g every 12 hours, and IV vancomycin, monitor for renal toxicity -Pain control with oral Tylenol, IV morphine as needed, monitor for sedation -PT consult Acute kidney injury, -continue IVF, encourage oral intake Insulin-dependent diabetes -Continue home Levemir 5 units -Sliding scale insulin, monitor for hypoglycemia -Hold empagliflozin and metformin Objective - Vital Signs Vital signs: Vital Signs Temp 99.5 F 04/29/24 07:12 Pulse 98 04/29/24 07:12 Resp 18 04/29/24 07:12 BP 99/62 04/29/24 07:12 Pulse Ox 94 L 04/29/24 08:29 FiO2 Intake & Output 04/28/24 04/29/24 04/29/24 18:59 06:59 18:59 Weight 95.708 kg 95.708 kg Other: Voiding Method Urinal # Voids 1 - Labs CBC & Chem 7: 04/29/24 04:56 04/29/24 04:56 Labs: Abnormal Lab Results - Last 24 Hours (Table) 04/28/24 04/28/24 04/28/24 Range/Units 19:00 19:00 19:00 RBC 3.92 L (4.30-5.90) m/uL Hgb 11.5 L (13.0-17.5) gm/dL Hct 34.6 L (39.0-53.0) % Immature Gran # (0.00-0.04) X 10*3/uL Neutrophils # 8.7 H (1.3-7.7) k/uL Sodium 136 L (137-145) mmol/L Carbon Dioxide 21 L (22-30) mmol/L Anion Gap (4.00-12.00) mmol/L BUN 46 H (9-20) mg/dL Creatinine 1.80 H (0.66-1.25) mg/dL Est GFR (CKD-EPI) (>=60) BUN/Creatinine Ratio (12.00-20.00) Ratio Glucose 106 H (74-99) mg/dL POC Glucose (mg/dL) (70-110) mg/dL Phosphorus 4.7 H (2.5-4.5) mg/dL Troponin I 0.039 H* (0.000-0.034) ng/mL Total Protein (6.2-8.2) g/dL Albumin (3.8-4.9) g/dL Albumin/Globulin Ratio (1.60-3.17) Ratio 04/29/24 04/29/24 04/29/24 Range/Units 01:55 04:56 04:56 RBC 3.40 L (4.30-5.90) m/uL Hgb 10.0 L (13.0-17.5) gm/dL Hct 30.6 L (39.0-53.0) % Immature Gran # 0.05 H (0.00-0.04) X 10*3/uL Neutrophils # (1.3-7.7) k/uL Sodium (137-145) mmol/L Carbon Dioxide (22-30) mmol/L Anion Gap 13.20 H (4.00-12.00) mmol/L BUN 45.3 H (9-20) mg/dL Creatinine 1.9 H (0.66-1.25) mg/dL Est GFR (CKD-EPI) 38 L (>=60) BUN/Creatinine Ratio 23.84 H (12.00-20.00) Ratio Glucose (74-99) mg/dL POC Glucose (mg/dL) 123 H (70-110) mg/dL Phosphorus (2.5-4.5) mg/dL Troponin I (0.000-0.034) ng/mL Total Protein 6.0 L (6.2-8.2) g/dL Albumin 3.5 L (3.8-4.9) g/dL Albumin/Globulin Ratio 1.40 L (1.60-3.17) Ratio
--- NOTE | 2024-04-29 11:35 | CDI ---
Documentation Clarification Form Date: 04/29/2024 11:15:43 AM From: Kelsie Corral RN CCDS Phone: [phone] Admit Date: 04/28/2024 07:29:00 PM Patient Name: Bhupinder Piña Visit Number: [id number] Discharge Date: ATTENTION: The Clinical Documentation Specialists (CDI) and [facility] Coding Staff appreciate your assistance in clarifying documentation. Please respond to the clarification below the line at the bottom and electronically sign. The CDI & [facility] Coding staff will review the response and follow-up if needed. Please note: Queries are made part of the Legal Health Record. If you have any questions, please contact the author of this message via ITS. Dr. Jules Oviedo Cellulitis is documented 04/29, Medicine notes Additional clarification regarding the type of cellulitis is requested. History/risk factors: 68-year-old male presents to the ED with worsening erythema pain right foot along with fevers and chills suspicious of recurrent infection. Medical History: DM foot ulcer, Charcot foot, Clinical Indicators: VSS: B/P 103/61; HR 90; Temp 98.5 F Oral; RR 18; SpO2 97% RA Labs, 04/28: Wbc 10.5; Neutrophils 8.7; Glucose 106 Right foot xray, 04/28: Marked interval worsening in the malalignmentn of the tarsal bones and tarsometatarsal articulations from the first through the third digits. Findings most likely represent a Charcot foot. Treatment: 04/28 Zosyn 3.375gm IVPB x 1; 04/28 Vancomycin 500mg IVPB x 1; 04/29 Cefepime 2gm IVPB Q12H; 04/29 Vancomycin 1,500mg IVPB Q24H; 04/29 Levemir 5units SQ HS TOSHIA; 04/29 Novolog 0unit SQ ACHS TOSHIA. Please clarify the etiology of the cellulitis, if known: [x] Cellulitis is a diabetic skin complication [ ] Cellulitis is not a diabetic skin complication [ ] Other, please specify: [ ] Unable to determine (Template Last Revised: November 2022) MTDD
[2024-04-29 12:13] LABS: Glucose,Whole Blood 117 mg/dL (70-110)
--- NOTE | 2024-04-29 14:11 | P.CONS ---
History of Present Illness - Reason for Consult Consult date: 04/29/24 - History of Present Illness Patient is a 68-year-old male with a past medical history significant for diabetes mellitus hypertension patient did have a left below the knee amputation subsequent developing some deformity to the right foot and developed an ulceration on the dorsum aspect of the right foot he did have an MRI on his last admission did show some nonspecific fluid collection that has been drained by vascular surgery and the culture were negative patient has been offered IV antibiotic therapy however the patient refused and was discharged on a 2-week course of oral Augmentin with the patient was still taking apparently the patient has been sent to the hospital by the home care nurse concerning for the patient having some chills and fever at home patient mention he did have a temperature of 101 F however on presentation to the hospital patient was afebrile and no fever have been ordered subsequently patient was not tachycardic or hypotensive not hypoxic patient did have a white count of 10.5 BUN/creatinine has been mildly elevated liver enzymes are normal, no culture has been obtained patient has been started on vancomycin and cefepime infectious disease was consulted for further management of antibiotic therapy apparently the patient has been evaluated outpatient setting by podiatry and has recommended a reconstructive surgery for his Charcot foot. Patient denies having any worsening pain to the right foot or any worsening drainage noticed to have slight worsening of his wound as the tendon is exposed Past Medical History Past Medical History: Diabetes Mellitus, Hypertension History of Any Multi-Drug Resistant Organisms: MRSA Year Discovered:: 1997 MDRO Source:: Unsure Past Surgical History: No Surgical Hx Reported Additional Past Surgical History / Comment(s): eye surgery Past Anesthesia/Blood Transfusion Reactions: No Reported Reaction Past Psychological History: Anxiety Smoking Status: Former smoker Past Alcohol Use History: Occasional Past Drug Use History: None Reported Medications and Allergies Home Medications Medication Instructions Recorded Confirmed Type amLODIPine [Norvasc] 5 mg PO DAILY 08/20/23 04/28/24 History metFORMIN HCL [Glucophage] 1,000 mg PO AC-BID 08/20/23 04/28/24 History ALPRAZolam [Xanax] 1 mg PO BID PRN #6 tab 08/28/23 04/28/24 Rx Acetaminophen Tab [Tylenol] 1,000 mg PO Q6HR PRN 04/12/24 04/28/24 History Empagliflozin [Jardiance] 25 mg PO DAILY 04/12/24 04/28/24 History Insulin Glargine,Hum.rec.anlog 5 units SQ HS 04/12/24 04/28/24 History [Lantus Solostar Pen] Amoxic-Pot Clav 875-125Mg 1 tab PO BID 14 Days #28 tab 04/20/24 04/28/24 Rx [Augmentin 875-125] Allergies Allergy/AdvReac Type Severity Reaction Status Date / Time bupropion [From Wellbutrin] Allergy Unknown Verified 04/28/24 19:47 varenicline [From Chantix] Allergy Unknown Verified 04/28/24 19:47 Physical Exam Vitals: Vital Signs Temp Pulse Pulse Resp BP BP Pulse Ox 04/29/24 08:29 94 L 04/29/24 07:12 99.5 F 98 18 99/62 94 L 04/29/24 01:56 98.4 F 88 18 108/64 93 L 04/28/24 23:15 99.6 F 104 H 18 149/68 97 04/28/24 21:10 87 18 126/65 97 04/28/24 17:36 98.5 F 90 18 103/61 97 Intake and Output 04/28/24 04/29/24 04/29/24 22:59 06:59 14:59 Other: Voiding Method Urinal # Voids 1 Weight 95.708 kg 95.708 kg Results CBC & Chem 7: 04/29/24 04:56 04/29/24 04:56 Labs: Abnormal Lab Results - Last 24 Hours (Table) 04/28/24 04/28/24 04/28/24 Range/Units 19:00 19:00 19:00 RBC 3.92 L (4.30-5.90) m/uL Hgb 11.5 L (13.0-17.5) gm/dL Hct 34.6 L (39.0-53.0) % Immature Gran # (0.00-0.04) X 10*3/uL Neutrophils # 8.7 H (1.3-7.7) k/uL Sodium 136 L (137-145) mmol/L Carbon Dioxide 21 L (22-30) mmol/L Anion Gap (4.00-12.00) mmol/L BUN 46 H (9-20) mg/dL Creatinine 1.80 H (0.66-1.25) mg/dL Est GFR (CKD-EPI) (>=60) BUN/Creatinine Ratio (12.00-20.00) Ratio Glucose 106 H (74-99) mg/dL POC Glucose (mg/dL) (70-110) mg/dL Phosphorus 4.7 H (2.5-4.5) mg/dL Troponin I 0.039 H* (0.000-0.034) ng/mL Total Protein (6.2-8.2) g/dL Albumin (3.8-4.9) g/dL Albumin/Globulin Ratio (1.60-3.17) Ratio 04/29/24 04/29/24 04/29/24 Range/Units 01:55 04:56 04:56 RBC 3.40 L (4.30-5.90) m/uL Hgb 10.0 L (13.0-17.5) gm/dL Hct 30.6 L (39.0-53.0) % Immature Gran # 0.05 H (0.00-0.04) X 10*3/uL Neutrophils # (1.3-7.7) k/uL Sodium (137-145) mmol/L Carbon Dioxide (22-30) mmol/L Anion Gap 13.20 H (4.00-12.00) mmol/L BUN 45.3 H (9-20) mg/dL Creatinine 1.9 H (0.66-1.25) mg/dL Est GFR (CKD-EPI) 38 L (>=60) BUN/Creatinine Ratio 23.84 H (12.00-20.00) Ratio Glucose (74-99) mg/dL POC Glucose (mg/dL) 123 H (70-110) mg/dL Phosphorus (2.5-4.5) mg/dL Troponin I (0.000-0.034) ng/mL Total Protein 6.0 L (6.2-8.2) g/dL Albumin 3.5 L (3.8-4.9) g/dL Albumin/Globulin Ratio 1.40 L (1.60-3.17) Ratio Assessment and Plan Plan: 1patient presented to hospital per recommendation of the home care nurse concerning for the worsening wound to the right foot in this patient who recently did have admission to the hospital did have an MRI which did shows features of Charcot foot also ill-defined fluid collection that has been drained by vascular surgery culture were negative and the patient was discharged on oral antibiotic as he refused IV patient did not have any fever on presentation to the hospital subsequently and did have a normal white count however the patient did have worsening of his wound with a tendon exposed secondary cellulitis/wound infection not entirely excluded 2-patient benefit from podiatry/orthopedic specializing in the Charcot foot as the patient likely need extensive surgery 3-we will obtain local culture both aerobic and anaerobic 4-continue with the cefepime however keeping in mind his kidney function we will discontinue vancomycin and start the patient on daptomycin We will follow on clinical condition and cultures to further adjust medication if needed Thank you for this consultation we will follow the patient along with you Dictation was produced using [employer] dictation software. please excuse any grammatical, word or spelling errors. Time with Patient: Greater than 30
[2024-04-29 16:58] LABS: Glucose,Whole Blood 166 mg/dL (70-110)
[2024-04-29] MEDS: DAPTOmycin 500 MG in SODIUM CHLORIDE 0.9% 50 ML IVPB SCH (17:16)
[2024-04-29 20:56] LABS: Glucose,Whole Blood 183 mg/dL (70-110)
[2024-04-29] MEDS ORDERED: VANCOMYCIN 1,500 MG in SODIUM CHLORIDE 0.9% 500 ML 500 ML IVPB SCH (21:00)
[2024-04-30 05:47] LABS: Glucose,Whole Blood 142 mg/dL (70-110)
[2024-04-30 06:02] LABS: African American GFR (CKD) 45 (>60 ml/min/1.73 sqM); Non-African American GFR(CKD) 39 (>60 ml/min/1.73 sqM)
[2024-04-30 11:47] LABS: Glucose,Whole Blood 231 mg/dL (70-110)
--- NOTE | 2024-04-30 13:19 | P.PN ---
Subjective Progress Note Date: 04/30/24 No new complaints today. General: Nontoxic, no distress, appears at stated age Derm: Warm, dry, Superficial ulcer on the dorsum of the right foot on the medial aspect along with surrounding erythema no induration no tenderness to palpation bony prominence over the medial aspect of the right foot Head: Atraumatic, normocephalic, symmetric Eyes: EOMI, no lid lag, anicteric sclera Mouth: No lip lesion, mucus membranes moist Cardiovascular: S1S2 reg, no murmur Lungs: CTA bilateral, no rhonchi, no rales, no accessory muscle use Abdominal: Soft, nontender to palpation, no guarding, no appreciable organ omegaly Ext: No gross muscle atrophy, no edema, no contractures, left BKA Neuro: CN II-XI grossly intact, no focal neuro deficits Psych: Alert, oriented, appropriate affect Hospital Course: 68-year-old male with diabetes mellitus, chartcot foot who was recently hospitalized and discharged for evaluation of an ulcer over the dorsum of his right foot intraoperative cultures were obtained were negative patient was discharged on Augmentin twice daily for 14 days. He returned due to concerns over worsening erythema, fever, chills. ID and podiatry were consulted and pt placed on broad spectrum abx with vancomycin and cefepime. Assessment and Plan: Right foot cellulitis Charcot Foot Peripheral arterial disease -ID following, continue IV cefepime 2 g every 12 hours, monitor for renal toxici ty -Pain control with oral Tylenol, IV morphine as needed, monitor for sedation -PT consult Acute kidney injury, -continue IVF, encourage oral intake Insulin-dependent diabetes -Continue home Levemir 5 units -Sliding scale insulin, monitor for hypoglycemia -Hold empagliflozin and metformin Objective - Vital Signs Vital signs: Vital Signs Temp 99.7 F H 04/30/24 07:24 Pulse 85 04/30/24 07:24 Resp 17 04/30/24 01:01 BP 112/69 04/30/24 07:24 Pulse Ox 94 L 04/30/24 07:24 FiO2 Intake & Output 04/29/24 04/30/24 04/30/24 18:59 06:59 18:59 Intake Total 100 Output Total 520 Balance -520 100 Intake: Oral 100 Output: Urine 520 Other: Voiding Method Urinal Urinal # Voids 1 # Bowel Movements 1 - Labs CBC & Chem 7: 06/11/24 04:56 04/30/24 04:53 Labs: Abnormal Lab Results - Last 24 Hours (Table) 04/29/24 04/29/24 04/30/24 Range/Units 16:56 20:55 04:53 Creatinine (0.66-1.25) mg/dL POC Glucose (mg/dL) 166 H 183 H (70-110) mg/dL Hemoglobin A1c 6.3 H (<=6.0) % 04/30/24 04/30/24 04/30/24 Range/Units 04:53 05:44 11:45 Creatinine 1.76 H (0.66-1.25) mg/dL POC Glucose (mg/dL) 142 H 231 H (70-110) mg/dL Hemoglobin A1c (<=6.0) % Microbiology - Last 24 Hours (Table) 04/28/24 19:00 Blood Culture - Preliminary Blood 04/29/24 14:15 Gram Stain - Preliminary Foot - Right 04/28/24 18:45 Blood Culture - Preliminary Blood
[2024-04-30 16:43] LABS: Glucose,Whole Blood 132 mg/dL (70-110)
[2024-04-30 20:08] LABS: Glucose,Whole Blood 153 mg/dL (70-110)
[2024-05-01 06:02] LABS: Glucose,Whole Blood 139 mg/dL (70-110)
[2024-05-01 12:18] LABS: Glucose,Whole Blood 151 mg/dL (70-110)
--- NOTE | 2024-05-01 13:12 | P.PN ---
Subjective Progress Note Date: 05/01/24 No new complaints today. Wound Cx growing gram negative bacilli, speciation pending General: Nontoxic, no distress, appears at stated age Derm: Warm, dry, Superficial ulcer on the dorsum of the right foot on the medial aspect along with surrounding erythema no induration no tenderness to palpation bony prominence over the medial aspect of the right foot Head: Atraumatic, normocephalic, symmetric Eyes: EOMI, no lid lag, anicteric sclera Mouth: No lip lesion, mucus membranes moist Cardiovascular: S1S2 reg, no murmur Lungs: CTA bilateral, no rhonchi, no rales, no accessory muscle use Abdominal: Soft, nontender to palpation, no guarding, no appreciable organomegaly Ext: No gross muscle atrophy, no edema, no contractures, left BKA Neuro: CN II-XI grossly intact, no focal neuro deficits Psych: Alert, oriented, appropriate affect Hospital Course: 68-year-old male with diabetes mellitus, chartcot foot who was recently hospitalized and discharged for evaluation of an ulcer over the dorsum of his right foot intraoperative cultures were obtained were negative patient was discharged on Augmentin twice daily for 14 days. He returned due to concerns over worsening erythema, fever, chills. ID and podiatry were consulted and pt placed on broad spectrum abx with vancomycin and cefepime. Assessment and Plan: Right foot cellulitis Charcot Foot Peripheral arterial disease -ID following, continue IV cefepime 2 g every 12 hours, monitor for renal toxicity -Pain control with oral Tylenol, IV morphine as needed, monitor for sedation -PT consult -WCx growing GNR, pending speciation Acute kidney injury, -continue IVF, encourage oral intake Insulin-dependent diabetes -Continue home Levemir 5 units -Sliding scale insulin, monitor for hypoglycemia -Hold empagliflozin and metformin Objective - Vital Signs Vital signs: Vital Signs Temp 97.8 F 05/01/24 06:45 Pulse 74 05/01/24 06:45 Resp 16 05/01/24 06:45 BP 115/68 05/01/24 06:45 Pulse Ox 95 05/01/24 06:45 FiO2 Intake & Output 04/30/24 05/01/24 05/01/24 18:59 06:59 18:59 Intake Total 218 120 Output Total 400 Balance 218 -280 Intake: Oral 218 120 Output: Urine 400 Other: Voiding Method Urinal # Voids 0 1 # Bowel Movements 0 - Labs CBC & Chem 7: 04/29/24 04:56 04/30/24 04:53 Labs: Abnormal Lab Results - Last 24 Hours (Table) 04/30/24 04/30/24 05/01/24 Range/Units 16:41 20:06 06:01 POC Glucose (mg/dL) 132 H 153 H 139 H (70-110) mg/dL 05/01/24 Range/Units 12:17 POC Glucose (mg/dL) 151 H (70-110) mg/dL Microbiology - Last 24 Hours (Table) 04/28/24 19:00 Blood Culture - Preliminary Blood 04/28/24 18:45 Blood Culture - Preliminary Blood 04/29/24 14:15 Gram Stain - Preliminary Foot - Right Wound Culture - Preliminary Gram Neg Bacilli
--- NOTE | 2024-05-01 16:43 | P.PN ---
Subjective Progress Note Date: 05/01/24 Principal diagnosis: Reason for follow-up is right foot wound infection Patient is a 68-year-old male with a past medical history significant for diabetes mellitus hypertension patient did have a left below the knee amputation subsequent developing some deformity to the right foot and developed an ulceration on the dorsum aspect of the right foot he did have an MRI on his last admission did show some nonspecific fluid collection that was drained by vascular surgery culture were negative patient discharged on Augmentin presenting back to the hospital per advice of the home care nurse concerning for worsening cellulitis and fever. On today's evaluation that is 05/01/2024, patient has been afebrile, patient is breathing comfortably and is currently on room air, patient denies having any significant cough no chest pain shortness of breath, patient denies nausea vomiting or diarrhea and no abdominal pain, denies any worsening pain to the right foot wound area or any worsening drainage. No new labs has been obtained today cultures are currently growing gram-negative bacilli Objective - Vital Signs Vital signs: Vital Signs Temp 97.8 F 05/01/24 06:45 Pulse 74 05/01/24 06:45 Resp 16 05/01/24 06:45 BP 115/68 05/01/24 06:45 Pulse Ox 95 05/01/24 06:45 FiO2 Intake & Output 04/30/24 05/01/24 05/01/24 18:59 06:59 18:59 Intake Total 218 120 Balance 218 120 Intake: Oral 218 120 Other: Voiding Method Urinal # Voids 0 # Bowel Movements 0 - Exam GENERAL DESCRIPTION: An elderly male lying in bed in no distress RESPIRATORY SYSTEM: Unlabored breathing , decreased breath sounds at bases HEART: S1 S2 regular rate and rhythm , ABDOMEN: Soft , no tenderness EXTREMITIES: Right foot wound is currently dressed Exam completed with help of [employer] MACHINE TENDER - Labs CBC & Chem 7: 04/29/24 04:56 04/30/24 04:53 Labs: Abnormal Lab Results - Last 24 Hours (Table) 04/30/24 04/30/24 04/30/24 Range/Units 11:45 16:41 20:06 POC Glucose (mg/dL) 231 H 132 H 153 H (70-110) mg/dL 05/01/24 Range/Units 06:01 POC Glucose (mg/dL) 139 H (70-110) mg/dL Microbiology - Last 24 Hours (Table) 04/28/24 18:45 Blood Culture - Preliminary Blood 04/29/24 14:15 Gram Stain - Preliminary Foot - Right Wound Culture - Preliminary Gram Neg Bacilli 04/28/24 19:00 Blood Culture - Preliminary Blood Assessment and Plan (1) Cellulitis of right foot Current Visit: Yes Status: Acute Code(s): L03.115 - CELLULITIS OF RIGHT LOWER LIMB SNOMED Code(s): 05477401415853217 (2) Wound of right foot Current Visit: Yes Status: Acute Code(s): S91.301A - UNSPECIFIED OPEN WOUND, RIGHT FOOT, INITIAL ENCOUNTER SNOMED Code(s): 571011649 (3) Diabetic foot ulcer Current Visit: No Status: Acute Code(s): E11.621 - TYPE 2 DIABETES MELLITUS WITH FOOT ULCER; L97.509 - NON-PRESSURE CHRONIC ULCER OTH PRT UNSP FOOT W UNSP SEVERITY SNOMED Code(s): 025759625 Plan: This is a telehealth visit 1patient presented to hospital per recommendation of the home care nurse concerning for the worsening wound to the right foot in this patient who recently did have admission to the hospital did have an MRI which did shows features of Charcot foot also ill-defined fluid collection that has been drained by vascular surgery culture were negative and the patient was discharged on oral antibiotic as he refused IV patient did not have any fever on presentation to the hospital subsequently and did have a normal white count however the patient did have worsening of his wound with a tendon exposed secondary cellulitis/wound infection not entirely excluded 2-patient will benefit from podiatry/orthopedic specializing in the Charcot foot as the patient likely will need surgery this has been discussed with admitting team working on possible outpatient referral as the patient is currently not c onsidered to be candidate for hospital hospital transfer 3-local cultures obtained currently growing gram-negative bacilli 4-patient to continue with the cefepime however will discontinue daptomycin wait for the sensitivities of the gram-negative to determine discharge antibiotics Dictation was produced using [employer] dictation software. please excuse any grammatical, word or spelling errors. Time with Patient: Less than 30
[2024-05-01 16:55] LABS: Glucose,Whole Blood 156 mg/dL (70-110)
[2024-05-01 20:51] LABS: Glucose,Whole Blood 143 mg/dL (70-110)
[2024-05-02 06:12] LABS: Glucose,Whole Blood 137 mg/dL (70-110)
[2024-05-02 07:51] VITALS: BP 127/70; PULSE 70; RESP 17; TEMP 97.6
[2024-05-02 11:02] LABS: Glucose,Whole Blood 154 mg/dL (70-110)
--- NOTE | 2024-05-02 13:57 | P.DS ---
Providers Date of admission: 04/28/24 19:29 Expected date of discharge: 05/02/24 Attending physician: Amber Hogue MD Consults: 04/28/24 19:28 Consult Physician Routine Consulting Provider: Phyllis Zurita Consult Reason/Comments: known Do you want consulting provider notified?: Yes Primary care physician: Barrington Dexter [facility] Hospital Course: Right foot cellulitis Charcot Foot Peripheral arterial disease Acute kidney injury, Insulin-dependent diabetes General: Nontoxic, no distress, appears at stated age Derm: Warm, dry, Superficial ulcer on the dorsum of the right foot on the medial aspect along with surrounding erythema no induration no tenderness to palpation bony prominence over the medial aspect of the right foot Head: Atraumatic, normocephalic, symmetric Eyes: EOMI, no lid lag, anicteric sclera Mouth: No lip lesion, mucus membranes moist Cardiovascular: S1S2 reg, no murmur Lungs: CTA bilateral, no rhonchi, no rales, no accessory muscle use Abdominal: Soft, nontender to palpation, no guarding, no appreciable organomegaly Ext: No gross muscle atrophy, no edema, no contractures, left BKA Neuro: CN II-XI grossly intact, no focal neuro deficits Psych: Alert, oriented, appropriate affect Hospital Course: 68-year-old male with diabetes mellitus, chartcot foot who was recently hospitalized and discharged for evaluation of an ulcer over the dorsum of his right foot intraoperative cultures were obtained were negative patient was discharged on Augmentin twice daily for 14 days. He returned due to concerns over worsening erythema, fever, chills. ID and podiatry were consulted and pt placed on broad spectrum abx with vancomycin and cefepime. Infectious disease due to deep wound culture, which ended up growing Enterobacter cloacae, which was sensitive to ciprofloxacin. Patient was recommended for a total of 2 weeks of antibiotics for superficial cellulitis, as well as strongly recommended to follow-up with orthopedic internet ecommerce specialist with a focus in Charcot foot. I spent 38 minutes coordinating this discharge Patient Condition at Discharge: Good Plan - Discharge Summary Discharge Rx Participant: No New Discharge Prescriptions: New Ciprofloxacin HCl [Cipro] 500 mg PO BID 14 Days #28 tab Continue amLODIPine [Norvasc] 5 mg PO DAILY ALPRAZolam [Xanax] 1 mg PO BID PRN #6 tab PRN Reason: Anxiety Insulin Glargine,Hum.rec.anlog [Lantus Solostar Pen] 5 units SQ HS metFORMIN HCL [Glucophage] 1,000 mg PO AC-BID Empagliflozin [Jardiance] 25 mg PO DAILY Acetaminophen Tab [Tylenol] 1,000 mg PO Q6HR PRN PRN Reason: Pain Discontinued Amoxic-Pot Clav 875-125Mg [Augmentin 875-125] 1 tab PO BID 14 Days #28 tab Discharge Medication List amLODIPine [Norvasc] 5 mg PO DAILY 08/20/23 [History] metFORMIN HCL [Glucophage] 1,000 mg PO AC-BID 08/20/23 [History] ALPRAZolam [Xanax] 1 mg PO BID PRN #6 tab 08/28/23 [Rx] Acetaminophen Tab [Tylenol] 1,000 mg PO Q6HR PRN 04/12/24 [History] Empagliflozin [Jardiance] 25 mg PO DAILY 04/12/24 [History] Insulin Glargine,Hum.rec.anlog [Lantus Solostar Pen] 5 units SQ HS 04/12/24 [History] Ciprofloxacin HCl [Cipro] 500 mg PO BID 14 Days #28 tab 05/02/24 [Rx] Follow up Appointment(s)/Referral(s): [facility] [[facility]] - As Needed ([facility] will call you to schedule your in home nursing visits. ) Barrington Swanson MD [Primary Care Provider] - 1-2 days Discharge Disposition: HOME WITH HOME HEALTH SERVICES
[2024-05-02 16:53] LABS: Glucose,Whole Blood 157 mg/dL (70-110)
[2024-05-02] MEDS: HYDROcodone/APAP 5-325MG 1 EACH TAB PO STA (18:26)
[2024-05-02] MEDS: CIPROFLOXACIN HCL 500 MG TAB PO STA (18:26)
== END 2024-05-02 19:33 | disposition home health service (06) | DRG 638 ==
LOC: EC 16:45 → 4SSUR 19:29
PROVIDERS: ADMIT Internal Medicine; ATTEND Internal Medicine
DX: E11.621 Type 2 diabetes mellitus with foot ulcer (principal); L03.115 Cellulitis of right lower limb; N17.9 Acute kidney failure, unspecified; E11.628 Type 2 diabetes mellitus with other skin complications; E11.610 Type 2 diabetes mellitus with diabetic neuropathic arthropathy; E11.51 Type 2 diabetes mellitus with diabetic peripheral angiopathy without gangrene; I10 Essential (primary) hypertension; Z79.4 Long term (current) use of insulin; B96.89 Other specified bacterial agents as the cause of diseases classified elsewhere; F41.9 Anxiety disorder, unspecified; L97.519 Non-pressure chronic ulcer of other part of right foot with unspecified severity; Z79.84 Long term (current) use of oral hypoglycemic drugs; Z79.899 Other long term (current) drug therapy; Z87.891 Personal history of nicotine dependence; Z88.6 Allergy status to analgesic agent; Z86.14 Personal history of Methicillin resistant Staphylococcus aureus infection
CPT/HCPCS: 36415; 80053; 82565; 83036; 83605; 83735; 83880; 84100; 84484; 85025; 85610; 85730; 87040; 87070; 87075; 87077; 87186; 87205; 93005; 94760; 96365; 96366; 96368; 96375; 99285

== ENCOUNTER → 2024-06-24 | Outpatient (CLI) | payer MEDICARE | END | disposition home or self-care (01) | LOC: LABPRL 13:30 | PROVIDERS: ATTEND Family Medicine | DX: L03.115 Cellulitis of right lower limb (principal) | CPT/HCPCS: 80076; 82565; 84520; 85025; 85652; 86140 ==

== ENCOUNTER 2024-11-18 13:06 | Inpatient (IN) | payer MEDICARE ==
--- NOTE | 2024-11-18 13:35 | ED ---
General Adult HPI - General Chief complaint: Weakness Stated complaint: weakness Time Seen by Provider: 11/18/24 13:25 Source: patient, EMS, RN notes reviewed Mode of arrival: EMS Limitations: physical limitation - History of Present Illness Initial comments: Patient is a 69-year-old male presenting to the emergency department with weakness. Patient slid out of his chair around 3 AM to the floor. No injury. Patient was too weak to get up after that. Patient found at home and EMS called today. Patient states he feels fine otherwise. Patient states he does have history of A-fib. Patient admits to feeling a little bit short of breath earlier and triage found patient to be hypoxic. Patient states resolved with oxygen. Patient has known right heel ulcer and does have a wound VAC. Patient states has been doing well recently. Patient is also on IV vancomycin for this - Related Data Home Medications Medication Instructions Recorded Confirmed amLODIPine [Norvasc] 5 mg PO DAILY 08/20/23 04/28/24 metFORMIN HCL [Glucophage] 1,000 mg PO AC-BID 08/20/23 04/28/24 Acetaminophen Tab [Tylenol] 1,000 mg PO Q6HR PRN 04/12/24 04/28/24 Empagliflozin [Jardiance] 25 mg PO DAILY 04/12/24 04/28/24 Insulin Glargine,Hum.rec.anlog 5 units SQ HS 04/12/24 04/28/24 [Lantus Solostar Pen] Previous Rx's Medication Instructions Recorded ALPRAZolam [Xanax] 1 mg PO BID PRN #6 tab 08/28/23 Ciprofloxacin HCl [Cipro] 500 mg PO BID 14 Days #28 tab 05/02/24 HYDROcodone/APAP 5-325MG [[place] 1 tab PO Q4HR PRN 3 Days #18 tab 05/02/24 5-325] Allergies Allergy/AdvReac Type Severity Reaction Status Date / Time bupropion [From Wellbutrin] Allergy Unknown Verified 11/18/24 13:32 varenicline [From Chantix] Allergy Unknown Verified 11/18/24 13:32 Review of Systems ROS Statement: Those systems with pertinent positive or pertinent negative responses have been documented in the HPI. ROS Other: All systems not noted in ROS Statement are negative. Constitutional: Denies: fever Eyes: Denies: eye pain ENT: Denies: ear pain Respiratory: Reports: as per HPI Cardiovascular: Denies: chest pain Endocrine: Reports: fatigue Past Medical History Past Medical History: Diabetes Mellitus, Hypertension Additional Past Medical History / Comment(s): Ostemyelitis Sep 2024 History of Any Multi-Drug Resistant Organisms: MRSA Date of last positivie culture/infection: 1997 MDRO Source:: Unsure Past Surgical History: No Surgical Hx Reported Additional Past Surgical History / Comment(s): eye surgery Past Anesthesia/Blood Transfusion Reactions: No Reported Reaction Past Psychological History: Anxiety Smoking Status: Former smoker Past Alcohol Use History: Occasional Past Drug Use History: None Reported General Exam Limitations: physical limitation General appearance: alert, in no apparent distress Head exam: Present: atraumatic Eye exam: Present: normal appearance, PERRL, EOMI ENT exam: Present: normal oropharynx Neck exam: Present: normal inspection Respiratory exam: Present: normal lung sounds bilaterally Cardiovascular Exam: Present: tachycardia, irregular rhythm GI/Abdominal exam: Present: soft. Absent: tenderness Extremities exam: Present: other (Left BKA. Right foot wound) Neurological exam: Present: alert. Absent: motor sensory deficit Psychiatric exam: Present: normal affect, normal mood Skin exam: Present: other (Right heel wound) Course Vital Signs 11/18/24 13:21 Temperature 97.5 F L Pulse Rate 109 H Respiratory 18 Rate Blood Pressure 148/86 O2 Sat by Pulse 94 L Oximetry EKG Findings - EKG Results: EKG: interpreted by ERMD (Left axis. Right bundle branch block. Nonspecific ST-T) EKG shows: tachycardia, atrial fibrillation Medical Decision Making - Medical Decision Making MDM back was pt. sent in by a medical professional or institution (, PA, POLICE INSPECTOR, urgent care, hospital, or longterm...) When possible be specific @ -No Did you speak to anyone other than the patient for history (EMS, parent, family, police, friend...)? What history was obtained from this source @ -No Did you review nursing and triage notes (agree or disagree)? Why? @ -I reviewed and agree with nursing and triage notes Were old charts reviewed (outside hosp., previous admission, EMS record, old EKG, old radiological studies, urgent care reports/EKG's, longterm records)? Report findings @ -No old charts were reviewed Differential Diagnosis (chest pain, altered mental status, abdominal pain women, abdominal pain men, vaginal bleeding, weakness, fever, dyspnea, syncope, headache, dizziness, GI bleed, back pain, seizure, CVA, palpatations, mental health, musculoskeletal)? @ -Differential Weakness: Hypoglycemia, shock, sepsis, hyponatremia, anemia, infection, VT, ETOH, adverse medicine reaction, overdose, stroke, this is not meant to be an all-inclusive list. EKG interpreted by me (3pts min.). @ -As above X-rays interpreted by me (1pt min.). @ -Two-view chest x-ray shows questionable posterior increased markings.. CT interpreted by me (1pt min.). @ -CT scan of the brain shows no acute process. CT angio of the chest shows saddle pulmonary embolism with heart strain. Bibasilar airspace opacities. U/S interpreted by me (1pt. min.). @ -None done What testing was considered but not performed or refused? (CT, X-rays, U/S, labs)? Why? @ -None What meds were considered but not given or refused? Why? @ -None Did you discuss the management of the patient with other professionals (professionals i.e. , PA, POLICE INSPECTOR, lab, RT, psych nurse, socially responsible investment adviser, sprayer [employer], teacher, patrol community service officer, casework supervisor)? Give summary @ -Case was discussed with pulmonary Dr. Jacques who does recommend high-dose heparin and involving on-call EKOS. Case also discussed with Dr. Chávez who was notified and does request echo. This has been ordered. Was smoking cessation discussed for >3mins.? @ -No Was critical care preformed (if so, how long)? @ -34 minutes critical care Were there social determinants of health that impacted care today? How? (Homelessness, low income, unemployed, alcoholism, drug addiction, transportation, low edu. Level, literacy, decrease access to med. care, nursing home, rehab)? @ -No Was there de-escalation of care discussed even if they declined (Discuss DNR or withdrawal of care, Hospice)? DNR status @ -No What co-morbidities impacted this encounter? (DM, HTN, Smoking, COPD, CAD, Cancer, CVA, ARF, Chemo, Hep., AIDS, mental health diagnosis, sleep apnea, morbid obesity)? @ -None Was patient admitted / discharged? Hospital course, mention meds given and route, prescriptions, significant lab abnormalities, going to OR and other pertinent info. @ -Patient presents with general weakness however hypoxia and dyspnea. Evaluation concerning for pulmonary embolism. Patient admitted with heparin. Admission orders written. Consults placed. Patient reevaluated and updated. Undiagnosed new problem with uncertain prognosis? @ -No Drug Therapy requiring intensive monitoring for toxicity (Heparin, Nitro, Ins ulin, Cardizem)? @ -Patient placed on heparin drip Were any procedures done? @ -No Diagnosis/symptom? @ -Pulmonary embolism Acute, or Chronic, or Acute on Chronic? @ -Acute Uncomplicated (without systemic symptoms) or Complicated (systemic symptoms)? @ -Complicated with possible fluid overload/pneumonia. Additional testing added including BNP, viral testing, lactic acid, blood cultures. Patient will be given a dose of antibiotics for potential pneumonia diagnosed at 1555 Side effects of treatment? @ -No Exacerbation, Progression, or Severe Exacerbation? @ -No Poses a threat to life or bodily function? How? (Chest pain, USA, VT, pneumonia, PE, COPD, DKA, ARF, appy, cholecystitis, CVA, Diverticulitis, Homicidal, Suicidal, threat to staff... and all critical care pts) @ -Threat to pulmonary function - Lab Data Result diagrams: 11/18/24 14:06 11/18/24 14:06 Lab Results 11/18/24 11/18/24 11/18/24 Range/Units 14:06 14:06 14:06 WBC 8.4 (3.8-10.6) k/uL RBC 3.50 L (4.30-5.90) m/uL Hgb 8.9 L (13.0-17.5) gm/dL Hct 27.3 L (39.0-53.0) % MCV 78.2 L (80.0-100.0) fL MCH 25.6 (25.0-35.0) pg MCHC 32.7 (31.0-37.0) g/dL RDW 15.9 H (11.5-15.5) % Plt Count 381 (150-450) k/uL MPV 7.5 Neutrophils % 83 % Lymphocytes % 10 % Monocytes % 5 % Eosinophils % 1 % Basophils % 0 % Neutrophils # 7.0 (1.3-7.7) k/uL Lymphocytes # 0.8 L (1.0-4.8) k/uL Monocytes # 0.5 (0-1.0) k/uL Eosinophils # 0.0 (0-0.7) k/uL Basophils # 0.0 (0-0.2) k/uL Hypochromasia Slight Microcytosis Slight PT 13.1 H (10.0-12.5) sec INR 1.2 H (<1.2) APTT 22.9 (22.0-30.0) sec D-Dimer 12.61 H (<0.60) mg/L FEU Sample Site ABG pH (7.35-7.45) ABG pCO2 (35-45) mmHg ABG pO2 (83-108) mmHg ABG HCO3 (21-25) mmol/L ABG Total CO2 (19-24) mmol/L ABG O2 Saturation (94-97) % ABG Base Excess mmol/L Nathan Test Hemoglobin (13.0-17.5) gm/dL FiO2 % Sodium 132 L (137-145) mmol/L Potassium 4.8 (3.5-5.1) mmol/L Chloride 97 L (98-107) mmol/L Carbon Dioxide 20 L (22-30) mmol/L Anion Gap 15 mmol/L BUN 58 H (9-20) mg/dL Creatinine 1.82 H (0.66-1.25) mg/dL Est GFR (CKD-EPI)AfAm 43 (>60 ml/min/1.73 sqM) Est GFR (CKD-EPI)NonAf 37 (>60 ml/min/1.73 sqM) Glucose 162 H (74-99) mg/dL Plasma Lactic Acid Isael (0.7-2.0) mmol/L Calcium 8.9 (8.4-10.2) mg/dL Magnesium 2.4 H (1.6-2.3) mg/dL Total Bilirubin 0.5 (0.2-1.3) mg/dL AST 28 (17-59) U/L ALT 19 (4-49) U/L Alkaline Phosphatase 114 (38-126) U/L Creatine Kinase 27 L (55-170) U/L Troponin I (0.000-0.034) ng/mL Total Protein 6.9 (6.3-8.2) g/dL Albumin 3.6 (3.5-5.0) g/dL TSH 2.650 (0.465-4.680) mIU/L Free T4 1.42 (0.78-2.19) ng/dL 11/18/24 11/18/24 11/18/24 Range/Units 14:06 14:06 14:42 WBC (3.8-10.6) k/uL RBC (4.30-5.90) m/uL Hgb (13.0-17.5) gm/dL Hct (39.0-53.0) % MCV (80.0-100.0) fL MCH (25.0-35.0) pg MCHC (31.0-37.0) g/dL RDW (11.5-15.5) % Plt Count (150-450) k/uL MPV Neutrophils % % Lymphocytes % % Monocytes % % Eosinophils % % Basophils % % Neutrophils # (1.3-7.7) k/uL Lymphocytes # (1.0-4.8) k/uL Monocytes # (0-1.0) k/uL Eosinophils # (0-0.7) k/uL Basophils # (0-0.2) k/uL Hypochromasia Microcytosis PT (10.0-12.5) sec INR (<1.2) APTT (22.0-30.0) sec D-Dimer (<0.60) mg/L FEU Sample Site r rad ABG pH 7.44 (7.35-7.45) ABG pCO2 34 L (35-45) mmHg ABG pO2 66 L (83-108) mmHg ABG HCO3 23 (21-25) mmol/L ABG Total CO2 24 (19-24) mmol/L ABG O2 Saturation 92.6 L (94-97) % ABG Base Excess -1.0 mmol/L Nathan Test Yes Hemoglobin 8.8 L (13.0-17.5) gm/dL FiO2 36 % Sodium (137-145) mmol/L Potassium (3.5-5.1) mmol/L Chloride (98-107) mmol/L Carbon Dioxide (22-30) mmol/L Anion Gap mmol/L BUN (9-20) mg/dL Creatinine (0.66-1.25) mg/dL Est GFR (CKD-EPI)AfAm (>60 ml/min/1.73 sqM) Est GFR (CKD-EPI)NonAf (>60 ml/min/1.73 sqM) Glucose (74-99) mg/dL Plasma Lactic Acid Isael 1.9 (0.7-2.0) mmol/L Calcium (8.4-10.2) mg/dL Magnesium (1.6-2.3) mg/dL Total Bilirubin (0.2-1.3) mg/dL AST (17-59) U/L ALT (4-49) U/L Alkaline Phosphatase (38-126) U/L Creatine Kinase (55-170) U/L Troponin I 0.018 (0.000-0.034) ng/mL Total Protein (6.3-8.2) g/dL Albumin (3.5-5.0) g/dL TSH (0.465-4.680) mIU/L Free T4 (0.78-2.19) ng/dL Critical Care Time Critical Care Time: Yes Disposition Clinical Impression: Pulmonary embolism Disposition: ADMITTED IP TO THIS [facility] Condition: Serious Is patient prescribed a controlled substance at d/c from ED?: No Referrals: Nonstaff,Physician [Primary Care Provider] - 1-2 days Time of Disposition: 15:55
[2024-11-18 14:16] LABS: Basophils % (A) 0 %; Eosinophils % (A) 1 %; HCT 27.3 % (39.0-53.0); HGB 8.9 gm/dL (13.0-17.5); Hypochromasia Slight; Lymphocytes # (A) 0.8 k/uL (1.0-4.8); Lymphocytes % (A) 10 %; MCH 25.6 pg (25.0-35.0); MCHC 32.7 g/dL (31.0-37.0); MCV 78.2 fL (80.0-100.0); Mean Platelet Volume 7.5; Microcytosis Slight; Monocytes # (A) 0.5 k/uL (0-1.0); Monocytes % (A) 5 %; Neutrophils % (A) 83 %; Platelet Count 381 k/uL (150-450); RDW 15.9 % (11.5-15.5); WBC 8.4 k/uL (3.8-10.6)
[2024-11-18 14:34] LABS: ALT 19 U/L (4-49); Albumin 3.6 g/dL (3.5-5.0); Blood Urea Nitrogen 58 mg/dL (9-20); Creatine Kinase 27 U/L (55-170); Magnesium 2.4 mg/dL (1.6-2.3); Potassium 4.8 mmol/L (3.5-5.1); Total Protein 6.9 g/dL (6.3-8.2)
[2024-11-18 14:40] LABS: INR 1.2 (<1.2); Partial Thromboplastin Time 22.9 sec (22.0-30.0); Prothrombin Time 13.1 sec (10.0-12.5)
[2024-11-18 14:49] LABS: ABG HCO3 23 mmol/L (21-25); ABG Oxygen Saturation 92.6 % (94-97); ABG PCO2 34 mmHg (35-45); ABG PH 7.44 (7.35-7.45); ABG PO2 66 mmHg (83-108); ABG TCO2 24 mmol/L (19-24); Allen Test Performed? Yes
[2024-11-18 14:51] LABS: AST 28 U/L (17-59); African American GFR (CKD) 43 (>60 ml/min/1.73 sqM); Alkaline Phosphatase 114 U/L (38-126); Anion Gap 15 mmol/L; Calcium 8.9 mg/dL (8.4-10.2); Carbon Dioxide 20 mmol/L (22-30); Chloride 97 mmol/L (98-107); Glucose 162 mg/dL (74-99); Non-African American GFR(CKD) 37 (>60 ml/min/1.73 sqM); Sodium 132 mmol/L (137-145); Total Bilirubin 0.5 mg/dL (0.2-1.3)
--- NOTE | 2024-11-18 15:07 | XR ---
EXAMINATION TYPE: XR chest 2V DATE OF EXAM: 11/18/2024 2:51 PM COMPARISON: None CLINICAL INDICATION: Male, 69 years old with history of Weakness, , TECHNIQUE: AP and lateral views FINDINGS: Heart upper limits of normal in size. Mild interstitial density. Focal opacity posterior left lung ba se. Left PICC tip not clearly seen beyond the mid SVC level. IMPRESSION: Correlate for posterior left basilar pneumonia. Also, correlate to exclude mild pulmonary vascular co ngestion. [facility], , 11/18/2024 3:05 PM
[2024-11-18 15:08] LABS: T4, Free (Free Thyroxine) 1.42 ng/dL (0.78-2.19)
--- NOTE | 2024-11-18 15:22 | CT ---
EXAMINATION TYPE: CT brain wo con DATE OF EXAM: 11/18/2024 3:06 PM COMPARISON: None. CLINICAL INDICATION: Male, 69 years old with history of ams, weakness, ams TECHNIQUE: Brain: Axial CT images of the brain were obtained with coronal and sagittal reformats created and rev iewed. Contrast used: None. Oral contrast used: None. CT DLP: 1145 mGycm, Automated exposure control for dose reduction was used. FINDINGS: Brain: Extra-axial spaces: No abnormal extra-axial fluid collections. Ventricular system: Within normal limits Cerebral parenchyma: No acute intraparenchymal hemorrhage or mass effect. The shoemaker-white junction is well differentiated. Cerebellum: Unremarkable. Mass effect: No evidence of midline shift. Intracranial vasculature: unremarkable Soft tissues: Normal. Calvarium/osseous structures: No depressed skull fracture. Paranasal sinuses and mastoid air cells: Mild scattered paranasal sinus disease. Visualized orbits: Bilateral aphakia IMPRESSION: No acute intracranial process. [facility], , 11/18/2024 3:20 PM
--- NOTE | 2024-11-18 15:29 | CT ---
EXAMINATION TYPE: CT angio chest DATE OF EXAM: 11/18/2024 3:08 PM COMPARISON: Chest radiograph same day. CLINICAL INDICATION: Male, 69 years old with history of dyspnea; elevated d-dimer TECHNIQUE/CONTRAST: CTA scan of the thorax is performed with IV Contrast, patient injected with 80cc mL of Isovue 300, RI P images are created and reviewed these are created on a separate workstation.. CT DLP: 581.8 mGycm, Automated exposure control for dose reduction was used. FINDINGS: Lungs/Pleura: Small bilateral pleural effusions. Airspace opacities in the bilateral lung bases. Abhinav tional 6 left lung base atelectasis noted with bronchovascular crowding. Airway: Large airways are pa tent. Heart: Heart is within normal limits for size. Vasculature: Filling defect at the pulmonary trunk bifurcation with extension into the bilateral pulm onary lobar, segmental and subsegmental branches. RV/LV ratio of 48.65/35.92= 1.35. Mild atherosclerosis of the arterial vasculature. Mediastinum: No gross evidence of adenopathy. Musculoskeletal: Moderate degenerative disc disease changes are present throughout the thoracolumbar spine. Soft Tissues/lymph nodes: Unremarkable. Lower neck: No significant findings. Upper Abdomen: No significant findings. IMPRESSION: 1. Saddle pulmonary embolus with evidence of right heart strain. RV/LV ratio of 48.65/35.92= 1.35 2. Bibasilar airspace opacities correlate for pneumonia versus early pulmonary infarct calculus like ly.. Additional atelectasis in the left lung base. 3. Small bilateral pleural effusions. Findings communicated to Dr. Patricio Santiago DO on 11/18/2024 3:[address] Gary Berman. [facility], , 11/18/2024 3:27 PM
[2024-11-18] MEDS ORDERED: HEPARIN SODIUM 1,000 UN/ML (10ML VL) IV PRN (15:38)
[2024-11-18] MEDS ORDERED: NALOXONE 0.4 MG/ML 1 ML VIAL IV PRN (15:56)
[2024-11-18] MEDS ORDERED: PNEUMONIA PROTOCOL UTILIZED 1 EACH MISC PO PRN (15:57)
[2024-11-18] MEDS: HEPARIN SODIUM 1,000 UN/ML (10ML VL) IV ONE (15:58)
[2024-11-18] MEDS: HEPARIN SOD,PORK IN 0.45% NACL 25,000 UNIT in 0.45% NACL 1 250ML.BAG IV SCH (15:59)
[2024-11-18] MEDS ORDERED: VANCOMYCIN IV PER PHARMACY 1 EACH MISC MISCELLANE PRN (16:56)
--- NOTE | 2024-11-18 17:00 | P.HPIM ---
History of Present Illness H&P Date: 11/18/24 Patient is a 69-year-old male with history of type 2 diabetes, hypertension, Charcot foot with left BKA and recent right ankle surgery status post wound VAC and currently on IV antibiotics, presenting with shortness of breath and weakness. He claims that he was recently at [facility] for reconstruction of his right foot. He was discharged with IV antibiotics. He has not been ambulatory at all due to his left BKA and recent surgery. 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 This morning his visiting nurse noted that it was still on the floor and decided to call EMS. Patient denies any chest pain but he did have shortness of breath in the middle of the night. He denies any nausea, vomiting, urinary or bowel complaints. He denies any recent fevers or chills. He denies any recent smoking, and occasionally drinks alcohol. In the ED, temperature was 97.5, pulse 109, respiratory rate 18, blood pressure 148/86, saturating at 94% on room air. WBC 8.4, hemoglobin 8.9, platelet 11/21/1980, INR 1.2, D-dimer 12.61, sodium 132, bicarb 20, anion gap 15, lactate 1.9, creatinine 1.82, magnesium 2.4, troponin 0.018, TSH 2.65. Chest x-ray independently interpreted, shows bilateral lower lobe opacities. head CT did not show any acute process. Chest CTA shows saddle pulmonary embolism with evidence of right heart strain, bibasilar airspace opacities concerning for pneumonia versus early pulmonary infarct calculus, small bilateral pleural effusions. EKG independently interpreted, shows atrial tachycardia, right bun dle branch block, S1 every 3 T3 pattern, significant T wave depressions and anterior septal leads, flattening of T waves in lateral leads. Cardiology consulted for possible EKOS. Pulmonology also consulted. Patient being admitted for submassive PE. Pertinent positives and negatives as discussed in HPI, a complete review of systems was performed and all other systems are negative. Patient seen and examined at bedside. Vital signs reviewed General: nontoxic, no distress, appears at stated age, chronically ill-appearing Derm: warm, dry Head: atraumatic, normocephalic, symmetric Eyes: EOMI, no lid lag, anicteric sclera, pupils equal round reactive to light ENT: Nose and ears atraumatic Neck: No thyromegaly, supple Mouth: no lip lesion, mucus membranes moist Cardiovascular: S1S2 reg, tachycardic, no murmur, no edema Lungs: clear to auscultation bilateral, no rhonchi, no rales, no wheeze, no accessory muscle use, supplemental oxygen Abdominal: soft, nontender to palpation, no guarding, no appreciable organomegaly Ext: Left BKA, right foot covered in dressing with a wound VAC. Left arm PICC line. Neuro: CN II-XII grossly intact Psych: Alert, oriented, appropriate affect Assessment/Plan: Acute submassive PE Acute hypoxic respiratory failure secondary to above Suspected community-acquired pneumonia Microcytic anemia, at baseline Atrial tachycardia -Continue heparin drip, monitor APTT, monitor for bleeding - blood cultures, Cepheid, sputum cultures, Legionella pending -Continue his home IV vancomycin and IV ertapenem -proBNP pending -Continue to trend troponin -Continue telemetry -Echocardiogram pending -Cardiology consulted for possible EKOS, pulmonology also consulted -Iron studies ordered, reticulocyte count ordered CKD stage III, stable Mild anion gap metabolic acidosis Euvolemic hyponatremia -Continue to monitor, lactate within normal limits -Anion gap likely secondary to renal disease -Continue oral sodium bicarb 650 twice daily -Repeat BMP tomorrow Type 2 diabetes -Sliding scale insulin, monitor for hypoglycemia -Restart long-acting insulin once patient is no longer n.p.o. Hypertension -Hold amlodipine for now Multiple diabetic foot infections Charcot foot Recent right ankle reconstruction with a wound VAC, on antibiotics Left BKA -Continue home IV vancomycin, ertapenem, monitor for renal toxicity -ID consulted The patient is admitted with an anticipated greater than 2 midnight stay as inpatient status for evaluation of PE. Surrogate decision-maker: Daughter CODE STATUS: Full code DVT prophylaxis: Heparin drip Anticipated discharge date: Pending clinical course Anticipated discharge place: Pending clinical course A total of 65 minutes was spent on the care of this complex patient more than 50% of the time was spent in counseling and care coordination. Past Medical History Past Medical History: Diabetes Mellitus, Hypertension Additional Past Medical History / Comment(s): Ostemyelitis Sep 2024 History of Any Multi-Drug Resistant Organisms: MRSA Date of last positivie culture/infection: 1997 MDRO Source:: Unsure Past Surgical History: No Surgical Hx Reported Additional Past Surgical History / Comment(s): eye surgery Past Anesthesia/Blood Transfusion Reactions: No Reported Reaction Past Psychological History: Anxiety Smoking Status: Former smoker Past Alcohol Use History: Occasional Past Drug Use History: None Reported Medications and Allergies Home Medications Medication Instructions Recorded Confirmed Type amLODIPine [Norvasc] 5 mg PO DAILY 08/20/23 11/18/24 History metFORMIN HCL [Glucophage] 1,000 mg PO AC-BID 08/20/23 11/18/24 History Insulin Glargine,Hum.rec.anlog 5 units SQ HS 04/12/24 11/18/24 History [Lantus Solostar Pen] ALPRAZolam [Xanax] 1 mg PO TID 11/18/24 11/18/24 History Ertapenem [INVanz] 1 gm IVPB Q24H 11/18/24 11/18/24 History Multivitamins, Thera [Multivitamin 1 tab PO DAILY 11/18/24 11/18/24 History (formulary)] Oxymetazoline 0.05% Nasl [place] 2 spray EA NOSTRIL DAILY PRN 11/18/24 11/18/24 History [Afrin 0.05% Nasal [place]] Sodium Bicarbonate Tab 650 mg PO BID 11/18/24 11/18/24 History Tamsulosin [Flomax] 0.4 mg PO DAILY 11/18/24 11/18/24 History Vancomycin 1,250 mg IVPB Q48H 11/18/24 11/18/24 History Vit C/E/Zn/Coppr/Lutein/Zeaxan 1 cap PO DAILY 11/18/24 11/18/24 History [Preservision Areds 2 Softgel] traMADol HCL 50 mg PO Q6H PRN 11/18/24 11/18/24 History Allergies Allergy/AdvReac Type Severity Reaction Status Date / Time bupropion [From Wellbutrin] Allergy Unknown Verified 11/18/24 16:50 varenicline [From Chantix] Allergy Unknown Verified 11/18/24 16:50 Physical Exam Vitals: Vital Signs Temp Pulse Resp BP Pulse Ox 11/18/24 13:21 97.5 F L 109 H 18 148/86 94 L Intake and Output 11/18/24 11/18/24 11/18/24 06:59 14:59 22:59 Other: Weight 89.358 kg Results CBC & Chem 7: 11/18/24 14:06 11/18/24 14:06 Labs: Abnormal Lab Results - Last 24 Hours (Table) 11/18/24 11/18/24 11/18/24 Range/Units 14:06 14:06 14:06 RBC 3.50 L (4.30-5.90) m/uL Hgb 8.9 L (13.0-17.5) gm/dL Hct 27.3 L (39.0-53.0) % MCV 78.2 L (80.0-100.0) fL RDW 15.9 H (11.5-15.5) % Lymphocytes # 0.8 L (1.0-4.8) k/uL PT 13.1 H (10.0-12.5) sec INR 1.2 H (<1.2) D-Dimer 12.61 H (<0.60) mg/L FEU ABG pCO2 (35-45) mmHg ABG pO2 (83-108) mmHg ABG O2 Saturation (94-97) % Hemoglobin (13.0-17.5) gm/dL Sodium 132 L (137-145) mmol/L Chloride 97 L (98-107) mmol/L Carbon Dioxide 20 L (22-30) mmol/L BUN 58 H (9-20) mg/dL Creatinine 1.82 H (0.66-1.25) mg/dL Glucose 162 H (74-99) mg/dL Magnesium 2.4 H (1.6-2.3) mg/dL Creatine Kinase 27 L (55-170) U/L 11/18/24 Range/Units 14:42 RBC (4.30-5.90) m/uL Hgb (13.0-17.5) gm/dL Hct (39.0-53.0) % MCV (80.0-100.0) fL RDW (11.5-15.5) % Lymphocytes # (1.0-4.8) k/uL PT (10.0-12.5) sec INR (<1.2) D-Dimer (<0.60) mg/L FEU ABG pCO2 34 L (35-45) mmHg ABG pO2 66 L (83-108) mmHg ABG O2 Saturation 92.6 L (94-97) % Hemoglobin 8.8 L (13.0-17.5) gm/dL Sodium (137-145) mmol/L Chloride (98-107) mmol/L Carbon Dioxide (22-30) mmol/L BUN (9-20) mg/dL Creatinine (0.66-1.25) mg/dL Glucose (74-99) mg/dL Magnesium (1.6-2.3) mg/dL Creatine Kinase (55-170) U/L
[2024-11-18 17:14] LABS: INR 1.5 (<1.2); Prothrombin Time 15.2 sec (10.0-12.5)
[2024-11-18] MEDS: AZITHROMYCIN 500 MG in SODIUM CHLORIDE 0.9% 250 ML IVPB STA (17:47)
[2024-11-18] MEDS: ERTAPENEM 1 GM in SODIUM CHLORIDE 0.9% 50 ML IVPB SCH (19:05)
[2024-11-18] MEDS: VANCOMYCIN 1,500 MG in SODIUM CHLORIDE 0.9% 500 ML 500 ML IVPB ONE (20:09)
[2024-11-18] MEDS ORDERED: VANCOMYCIN 500 MG IVPB SCH (20:45)
[2024-11-18] MEDS: ALPRAZolam 1 MG TAB PO SCH (21:53)
[2024-11-18] MEDS: SODIUM BICARBONATE TAB 650 MG TAB PO SCH (21:53)
[2024-11-19] MEDS: ACETAMINOPHEN TAB 325 MG TAB PO PRN (02:04)
[2024-11-19 06:37] LABS: Anisocytosis Slight; Basophils % (A) 0 %; Eosinophils # (A) 0.1 k/uL (0-0.7); Eosinophils % (A) 1 %; HCT 25.6 % (39.0-53.0); HGB 8.2 gm/dL (13.0-17.5); Hypochromasia Slight; Lymphocytes # (A) 1.1 k/uL (1.0-4.8); Lymphocytes % (A) 18 %; MCH 25.2 pg (25.0-35.0); MCHC 32.1 g/dL (31.0-37.0); MCV 78.5 fL (80.0-100.0); Mean Platelet Volume 7.5; Microcytosis Slight; Monocytes # (A) 0.4 k/uL (0-1.0); Monocytes % (A) 6 %; Neutrophils # (A) 4.4 k/uL (1.3-7.7); Neutrophils % (A) 74 %; Platelet Count 342 k/uL (150-450); RBC 3.26 m/uL (4.30-5.90); RDW 16.3 % (11.5-15.5)
[2024-11-19 06:50] LABS: ALT 18 U/L (4-49); AST 26 U/L (17-59); African American GFR (CKD) 40 (>60 ml/min/1.73 sqM); Albumin 3.2 g/dL (3.5-5.0); Alkaline Phosphatase 106 U/L (38-126); Anion Gap 11 mmol/L; Blood Urea Nitrogen 59 mg/dL (9-20); Calcium 8.6 mg/dL (8.4-10.2); Carbon Dioxide 22 mmol/L (22-30); Chloride 100 mmol/L (98-107); Glucose 111 mg/dL (74-99); Non-African American GFR(CKD) 35 (>60 ml/min/1.73 sqM); Potassium 4.5 mmol/L (3.5-5.1); Sodium 133 mmol/L (137-145); Total Bilirubin 0.4 mg/dL (0.2-1.3); Total Protein 6.4 g/dL (6.3-8.2)
[2024-11-19] MEDS: TAMSULOSIN 0.4 MG CAP.ER.24H PO SCH (08:54)
[2024-11-19] MEDS: MULTIVITAMINS, THERA 1 EACH TAB PO SCH (08:54)
[2024-11-19] MEDS: amLODIPine 5 MG TAB PO SCH (08:54)
[2024-11-19] MEDS: OXYMETAZOLINE 0.05% NASL SPRAY 1 SPRAY BOTTLE EA NOSTRIL PRN (08:56)
--- NOTE | 2024-11-19 09:34 | XR ---
EXAMINATION TYPE: XR chest 1V portable DATE OF EXAM: 11/19/2024 5:42 AM COMPARISON: 11/18/2024 CLINICAL INDICATION: Male, 69 years old with history of sherman, TECHNIQUE: XR chest 1V portable view(s) obtained. FINDINGS: The heart size is normal. The pulmonary vasculature is normal. There is a small left pleural effusion. This may be increasing. Lung apices are at the edge of the fi eld-of-view IMPRESSION: 1. Small increasing left pleural effusion [facility], Workstation: [id number], 11/19/2024 9:32 AM
[2024-11-19 09:46] LABS: % Iron Saturation 9.7 (15.00-50.00)
[2024-11-19] MEDS ORDERED: AZITHROMYCIN 500 MG TAB PO SCH (12:00)
--- NOTE | 2024-11-19 12:16 | P.PN ---
Subjective Progress Note Date: 11/19/24 Hospital Course: 69-year-old male with history of type 2 diabetes, hypertension, Charcot foot w ith left BKA and recent right ankle surgery status post wound VAC and currently on IV antibiotics, presenting with shortness of breath and weakness. In the ED, temperature was 97.5, pulse 109, respiratory rate 18, blood pressure 148/86, saturating at 94% on room air. WBC 8.4, hemoglobin 8.9, platelet 11/21/1980, INR 1.2, D-dimer 12.61, sodium 132, bicarb 20, anion gap 15, lactate 1.9, creatinine 1.82, magnesium 2.4, troponin 0.018, TSH 2.65. Chest x-ray independently interpreted, shows bilateral lower lobe opacities. head CT did not show any acute process. Chest CTA shows saddle pulmonary embolism with evidence of right heart strain, bibasilar airspace opacities concerning for pneumonia versus early pulmonary infarct calculus, small bilateral pleural effusions. EKG independently interpreted, shows atrial tachycardia, right bundle branch block, S1 every 3 T3 pattern, significant T wave depressions and anterior septal leads, flattening of T waves in lateral leads. Cardiology consulted for possible EKOS. Pulmonology also consulted. Patient being admitted for submassive PE. Subjective: Patient seen and examined at bedside. No acute events overnight. Pertinent positives and negatives as discussed above, a complete review of systems was performed and all other systems are negative. Vitals Signs Reviewed. General: nontoxic, no distress, appears at stated age, chronically ill-appearing Derm: warm, dry Head: atraumatic, normocephalic, symmetric Eyes: EOMI, no lid lag, anicteric sclera, pupils equal round reactive to light ENT: Nose and ears atraumatic Neck: No thyromegaly, supple Mouth: no lip lesion, mucus membranes moist Cardiovascular: S1S2 reg, tachycardic, no murmur, no edema Lungs: clear to auscultation bilateral, no rhonchi, no rales, no wheeze, no accessory muscle use, supplemental oxygen Abdominal: soft, nontender to palpation, no guarding, no appreciable organomegaly Ext: Left BKA, right foot covered in dressing with a wound VAC. Left arm PICC line. Neuro: CN II-XII grossly intact Psych: Alert, oriented, appropriate affect Data Reviewed Today: Pertinent Labs: WBC 6, hemoglobin 8.2, APTT 58.3, platelet 342, sodium 133, creatinine 1.19% saturation 9.7, TIBC 237, troponin 0.038, proBNP 632 Imaging: Chest x-ray independently interpreted MRT yesterday Assessment and Plan: Acute submassive PE Acute hypoxic respiratory failure secondary to above Suspected community-acquired pneumonia Microcytic anemia, at baseline, likely iron deficiency Atrial tachycardia/flutter -Continue heparin drip, monitor APTT, monitor for bleeding -Cultures and sputum cultures pending -Continue his home IV vancomycin and IV ertapenem -Continue telemetry -Echocardiogram pending -Cardiology consulted for possible EKOS, pulmonology also consulted -No active bleeding CKD stage III, stable Mild anion gap metabolic acidosis Euvolemic hyponatremia -Continue to monitor, lactate within normal limits -Anion gap likely secondary to renal disease -Continue oral sodium bicarb 650 twice daily -Repeat BMP tomorrow Type 2 diabetes -Sliding scale insulin, monitor for hypoglycemia -Restart long-acting insulin once patient is no longer n.p.o. Hypertension -Hold amlodipine for now Multiple diabetic foot infections Charcot foot Recent right ankle reconstruction with a wound VAC, on antibiotics Left BKA -Continue home IV vancomycin, ertapenem, monitor for renal toxicity -ID consulted DVT ppx: Heparin drip Code status: Full code Anticipated discharge place: Pending clinical course Anticipated discharge time: Pending clinical course Objective - Vital Signs Vital signs: Vital Signs Temp 98.2 F 11/19/24 07:30 Pulse 92 11/19/24 11:10 Resp 18 11/19/24 11:10 BP 111/77 11/19/24 11:10 Pulse Ox 89 L 11/19/24 11:10 FiO2 Intake & Output 11/18/24 11/19/24 11/19/24 18:59 06:59 18:59 Intake Total 124.651 111.517 Balance 124.651 111.517 Weight 89.358 kg Intake: Intake, IV Titration 124.651 111.517 Amount Heparin Sod,Pork in 0.45% 124.651 111.517 NaCl 25,000 unit In 0.45 % NaCl 1 250ml.bag @ 18 UNITS/KG/HR 16.084 mls/hr IV .[id number] [facility] Rx#: [id number] - Labs CBC & Chem 7: 11/19/24 06:04 11/19/24 06:04 Labs: Abnormal Lab Results - Last 24 Hours (Table) 11/18/24 11/18/24 11/18/24 Range/Units 14:06 14:06 14:06 RBC 3.50 L (4.30-5.90) m/uL Hgb 8.9 L (13.0-17.5) gm/dL Hct 27.3 L (39.0-53.0) % MCV 78.2 L (80.0-100.0) fL RDW 15.9 H (11.5-15.5) % Lymphocytes # 0.8 L (1.0-4.8) k/uL PT 13.1 H (10.0-12.5) sec INR 1.2 H (<1.2) APTT (22.0-30.0) sec D-Dimer 12.61 H (<0.60) mg/L FEU ABG pCO2 (35-45) mmHg ABG pO2 (83-108) mmHg ABG O2 Saturation (94-97) % Hemoglobin (13.0-17.5) gm/dL Sodium 132 L (137-145) mmol/L Chloride 97 L (98-107) mmol/L Carbon Dioxide 20 L (22-30) mmol/L BUN 58 H (9-20) mg/dL Creatinine 1.82 H (0.66-1.25) mg/dL Glucose 162 H (74-99) mg/dL Magnesium 2.4 H (1.6-2.3) mg/dL Iron (65-175) UG/DL % Saturation (15.00-50.00) Transferrin (204.0-354.0) mg/dL Creatine Kinase 27 L (55-170) U/L Troponin I (0.000-0.034) ng/mL Albumin (3.5-5.0) g/dL Free T3 pg/mL 1.30 L (2.30-4.20) pg/mL 11/18/24 11/18/24 11/18/24 Range/Units 14:42 16:52 21:59 RBC (4.30-5.90) m/uL Hgb (13.0-17.5) gm/dL Hct (39.0-53.0) % MCV (80.0-100.0) fL RDW (11.5-15.5) % Lymphocytes # (1.0-4.8) k/uL PT 15.2 H (10.0-12.5) sec INR 1.5 H (<1.2) APTT 79.0 H (22.0-30.0) sec D-Dimer (<0.60) mg/L FEU ABG pCO2 34 L (35-45) mmHg ABG pO2 66 L (83-108) mmHg ABG O2 Saturation 92.6 L (94-97) % Hemoglobin 8.8 L (13.0-17.5) gm/dL Sodium (137-145) mmol/L Chloride (98-107) mmol/L Carbon Dioxide (22-30) mmol/L BUN (9-20) mg/dL Creatinine (0.66-1.25) mg/dL Glucose (74-99) mg/dL Magnesium (1.6-2.3) mg/dL Iron (65-175) UG/DL % Saturation (15.00-50.00) Transferrin (204.0-354.0) mg/dL Creatine Kinase (55-170) U/L Troponin I (0.000-0.034) ng/mL Albumin (3.5-5.0) g/dL Free T3 pg/mL (2.30-4.20) pg/mL 11/18/24 11/19/24 11/19/24 Range/Units 21:59 06:04 06:04 RBC 3.26 L (4.30-5.90) m/uL Hgb 8.2 L (13.0-17.5) gm/dL Hct 25.6 L (39.0-53.0) % MCV 78.5 L (80.0-100.0) fL RDW 16.3 H (11.5-15.5) % Lymphocytes # (1.0-4.8) k/uL PT (10.0-12.5) sec INR (<1.2) APTT (22.0-30.0) sec D-Dimer (<0.60) mg/L FEU ABG pCO2 (35-45) mmHg ABG pO2 (83-108) mmHg ABG O2 Saturation (94-97) % Hemoglobin (13.0-17.5) gm/dL Sodium (137-145) mmol/L Chloride (98-107) mmol/L Carbon Dioxide (22-30) mmol/L BUN (9-20) mg/dL Creatinine (0.66-1.25) mg/dL Glucose (74-99) mg/dL Magnesium (1.6-2.3) mg/dL Iron (65-175) UG/DL % Saturation (15.00-50.00) Transferrin 169.0 L (204.0-354.0) mg/dL Creatine Kinase (55-170) U/L Troponin I 0.038 H* (0.000-0.034) ng/mL Albumin (3.5-5.0) g/dL Free T3 pg/mL (2.30-4.20) pg/mL 11/19/24 11/19/24 11/19/24 Range/Units 06:04 06:04 06:04 RBC (4.30-5.90) m/uL Hgb (13.0-17.5) gm/dL Hct (39.0-53.0) % MCV (80.0-100.0) fL RDW (11.5-15.5) % Lymphocytes # (1.0-4.8) k/uL PT (10.0-12.5) sec INR (<1.2) APTT 58.3 H (22.0-30.0) sec D-Dimer (<0.60) mg/L FEU ABG pCO2 (35-45) mmHg ABG pO2 (83-108) mmHg ABG O2 Saturation (94-97) % Hemoglobin (13.0-17.5) gm/dL Sodium 133 L (137-145) mmol/L Chloride (98-107) mmol/L Carbon Dioxide (22-30) mmol/L BUN 59 H (9-20) mg/dL Creatinine 1.91 H (0.66-1.25) mg/dL Glucose 111 H (74-99) mg/dL Magnesium (1.6-2.3) mg/dL Iron 23 L (65-175) UG/DL % Saturation 9.70 L (15.00-50.00) Transferrin 169.0 L (204.0-354.0) mg/dL Creatine Kinase (55-170) U/L Troponin I (0.000-0.034) ng/mL Albumin 3.2 L (3.5-5.0) g/dL Free T3 pg/mL (2.30-4.20) pg/mL
--- NOTE | 2024-11-19 13:01 | P.CRDCN ---
History of Present Illness Consult date: 11/19/24 History of present illness: HISTORY OF PRESENTING ILLNESS: 69-year-old male with past ministry of type 2 diabetes, hypertension, diabetic foot ulcers with Charcot joint with left BKA, recent right ankle surgery status post wound VAC with IV antibiotics. He presented to the hospital because of worsening shortness of breath and generalized weakness. On admission his i nitial workup with a CT angiogram chest showed evidence of bilateral pulm embolism with moderate clot burden with evidence of right heart strain. For this cardiology was consulted Admission Cardiac Labs: Initial troponin was negative, repeat 0.039, NT-proBNP 682, Hb 8.2, BUN 39, creatinine 1.9. Baseline creatinine at 1.8-1.9. Admission testing: EKG shows sinus rhythm with right bundle branch block CXR shows no significant signs of pulmonary congestion CTA chest shows bilateral pulmonary embolism with RV LV ratio 1.3, small bilateral pleural effusion, At the time of evaluation patient denies having any active chest pain chest pressure. Blood pressure 111/77, pulse 82 bpm. REVIEW OF SYSTEMS: 14 point review of system is negative except what is mentioned above in HPI. PHYSICAL EXAMINATION: Neck: Brisk carotid upstroke, no jugular venous distention. Lungs: Clear to auscultation. Heart: Regular rate and rhythm, S1-S2, , no murmur or rub. Abdomen: Soft nontender, positive bowel sounds. Extremities: No edema, intact distal pulses. Neuro: Alert, oritented, no focal deficits. Detailed neuro exam was not performed. ASSESSMENT: # Bilateral pulmonary embolism, subacute, provoked with moderate clot burden with RV LV ratio 1.3 # Mildly elevated troponin NT-proBNP due to above # Type 2 diabetes # Diabetic foot ulcers and Charcot joint status post recent surgery to right ankle # Left BKA # Suspect PDA # Anemia # CKD PLAN: Continue IV heparin drip. He is also on amlodipine will continue for now Obtain echocardiogram Plan for possible EKOS/thrombectomy tomorrow a.m. Keep patient n.p.o. after midnight Andrés Rueda MD, FACC, RPVI Thank you for allowing [facility] to participate in this patient's care. Feel free to reach out in case of any followup questions. Past Medical History Past Medical History: Diabetes Mellitus, Hypertension Additional Past Medical History / Comment(s): Ostemyelitis Sep 2024 History of Any Multi-Drug Resistant Organisms: MRSA Date of last positivie culture/infection: 1997 MDRO Source:: Unsure Past Surgical History: No Surgical Hx Reported Additional Past Surgical History / Comment(s): eye surgery Past Anesthesia/Blood Transfusion Reactions: No Reported Reaction Past Psychological History: Anxiety Smoking Status: Former smoker Past Alcohol Use History: Occasional Past Drug Use History: None Reported Medications and Allergies Home Medications Medication Instructions Recorded Confirmed Type amLODIPine [Norvasc] 5 mg PO DAILY 08/20/23 11/18/24 History metFORMIN HCL [Glucophage] 1,000 mg PO AC-BID 08/20/23 11/18/24 History Insulin Glargine,Hum.rec.anlog 5 units SQ HS 04/12/24 11/18/24 History [Lantus Solostar Pen] ALPRAZolam [Xanax] 1 mg PO TID 11/18/24 11/18/24 History Ertapenem [INVanz] 1 gm IVPB Q24H 11/18/24 11/18/24 History Multivitamins, Thera [Multivitamin 1 tab PO DAILY 11/18/24 11/18/24 History (formulary)] Oxymetazoline 0.05% Nasl Wilburn 2 spray EA NOSTRIL DAILY PRN 11/18/24 11/18/24 History [Afrin 0.05% Nasal Wilburn] Sodium Bicarbonate Tab 650 mg PO BID 11/18/24 11/18/24 History Tamsulosin [Flomax] 0.4 mg PO DAILY 11/18/24 11/18/24 History Vancomycin 1,250 mg IVPB Q48H 11/18/24 11/18/24 History Vit C/E/Zn/Coppr/Lutein/Zeaxan 1 cap PO DAILY 11/18/24 11/18/24 History [Preservision Areds 2 Softgel] traMADol HCL 50 mg PO Q6H PRN 11/18/24 11/18/24 History Allergies Allergy/AdvReac Type Severity Reaction Status Date / Time bupropion [From Wellbutrin] Allergy Unknown Verified 11/18/24 16:50 varenicline [From Chantix] Allergy Unknown Verified 11/18/24 16:50 Physical Exam Vitals: Vital Signs Temp Pulse Resp BP Pulse Ox 11/19/24 12:28 88 L 11/19/24 11:10 92 18 111/77 89 L 11/19/24 10:10 92 18 137/78 93 L 11/19/24 09:29 92 20 132/85 91 L 11/19/24 08:53 91 18 92 L 11/19/24 08:30 88 L 11/19/24 08:29 90 18 120/73 86 L 11/19/24 07:30 98.2 F 90 20 130/79 91 L 11/19/24 06:17 90 18 132/74 96 11/19/24 02:00 91 20 124/77 93 L 11/18/24 20:13 86 20 112/80 92 L 11/18/24 18:30 91 20 108/70 94 L 11/18/24 18:00 18 94 L 11/18/24 17:30 74 17 128/101 95 11/18/24 17:00 48 L 18 124/70 97 11/18/24 16:50 23 124/70 95 11/18/24 16:44 142/70 11/18/24 16:40 49 L 13 11/18/24 16:30 18 11/18/24 16:20 73 21 94 L 11/18/24 16:10 22 94 L 11/18/24 16:00 44 L 19 94 L 11/18/24 15:55 64 22 94 L 11/18/24 13:21 97.5 F L 109 H 18 148/86 94 L Intake and Output 11/18/24 11/19/24 11/19/24 22:59 06:59 14:59 Intake Total 124.651 111.517 Balance 124.651 111.517 Intake: Intake, IV Titration 124.651 111.517 Amount Heparin Sod,Pork in 0.45% 124.651 111.517 NaCl 25,000 unit In 0.45 % NaCl 1 250ml.bag @ 18 UNITS/KG/HR 16.084 mls/hr IV .[id number] [facility] Rx#: [id number] Results 11/19/24 06:04 11/19/24 06:04 Cardiac Enzymes 11/18/24 11/18/24 11/18/24 Range/Units 14:06 14:06 16:52 AST 28 (17-59) U/L Troponin I 0.018 0.026 (0.000-0.034) ng/mL 11/18/24 11/19/24 Range/Units 21:59 06:04 AST 26 (17-59) U/L Troponin I 0.038 H* (0.000-0.034) ng/mL Coagulation 11/18/24 11/18/24 11/18/24 Range/Units 14:06 16:52 21:59 PT 13.1 H 15.2 H (10.0-12.5) sec APTT 22.9 79.0 H (22.0-30.0) sec 11/19/24 Range/Units 06:04 PT (10.0-12.5) sec APTT 58.3 H (22.0-30.0) sec CBC 11/18/24 11/19/24 Range/Units 14:06 06:04 WBC 8.4 6.0 (3.8-10.6) k/uL RBC 3.50 L 3.26 L (4.30-5.90) m/uL Hgb 8.9 L 8.2 L (13.0-17.5) gm/dL Hct 27.3 L 25.6 L (39.0-53.0) % Plt Count 381 342 (150-450) k/uL Comprehensive Metabolic Panel 11/18/24 11/19/24 Range/Units 14:06 06:04 Sodium 132 L 133 L (137-145) mmol/L Potassium 4.8 4.5 (3.5-5.1) mmol/L Chloride 97 L 100 (98-107) mmol/L Carbon Dioxide 20 L 22 (22-30) mmol/L BUN 58 H 59 H (9-20) mg/dL Creatinine 1.82 H 1.91 H (0.66-1.25) mg/dL Glucose 162 H 111 H (74-99) mg/dL Calcium 8.9 8.6 (8.4-10.2) mg/dL AST 28 26 (17-59) U/L ALT 19 18 (4-49) U/L Alkaline Phosphatase 114 106 (38-126) U/L Total Protein 6.9 6.4 (6.3-8.2) g/dL Albumin 3.6 3.2 L (3.5-5.0) g/dL Current Medications Generic Name Dose Route Start Last Admin Trade Name Freq PRN Reason Stop Dose Admin Acetaminophen 650 mg 11/18/24 15:56 11/19/24 02:04 Acetaminophen Tab 325 Mg Tab PO 650 mg Q6HR PRN Administration Mild Pain or Fever > 100.5 Alprazolam 1 mg 11/18/24 22:00 11/19/24 08:54 Alprazolam 1 Mg Tab PO 1 mg TID TOSHIA Administration Amlodipine Besylate 5 mg 11/19/24 09:00 11/19/24 08:54 Amlodipine 5 Mg Tab PO 5 mg DAILY TOSHIA Administration Atorvastatin Calcium 40 mg 11/19/24 21:00 Atorvastatin 40 Mg Tab PO HS TOSHIA Heparin Sodium (Porcine) 0 unit 11/18/24 15:38 Heparin Sodium 1,000 Un/Ml (10ml Vl) IV PER PROTOCOL PRN Low PTT Protocol Heparin Sodium/Sodium Chloride 250 mls @ 16.084 mls/hr 11/18/24 15:45 11/19/24 07:32 25,000 unit/ Sodium Chloride IV 16 units/kg/hr .[id number] TOSHIA 14.297 mls/hr Administration Protocol 18 UNITS/KG/HR Ertapenem 1 gm/ Sodium 50 mls @ 100 mls/hr 11/18/24 18:00 11/18/24 19:05 Chloride IVPB 100 mls/hr DAILY@1800 TOSHIA Administration Protocol Vancomycin HCl 1,500 mg/ 500 mls @ 167 mls/hr 11/20/24 00:00 Sodium Chloride IVPB Q36H TOSHIA Miscellaneous Information 1 each 11/18/24 15:57 Pneumonia Protocol Utilized 1 Each Misc PO ONCE PRN Per Protocol Multivitamins 1 each 11/19/24 09:00 11/19/24 08:54 Multivitamins, Thera 1 Each Tab PO 1 each DAILY TOSHIA Administration Naloxone HCl 0.2 mg 11/18/24 15:56 Naloxone 0.4 Mg/Ml 1 Ml Vial IV Q2M PRN Opioid Reversal Oxymetazoline HCl 2 spray 11/18/24 20:45 11/19/24 08:56 Oxymetazoline 0.05% Nasl Wilburn 1 Wilburn Bottle EA NOSTRIL 2 spray DAILY PRN Administration Congestion Sodium Bicarbonate 650 mg 11/18/24 21:00 11/19/24 08:54 Sodium Bicarbonate Tab 650 Mg Tab PO 650 mg BID TOSHIA Administration Tamsulosin HCl 0.4 mg 11/19/24 09:00 11/19/24 08:54 Tamsulosin 0.4 Mg Cap.Er.24h PO 0.4 mg DAILY TOSHIA Administration Tramadol HCl 50 mg 11/18/24 20:45 Tramadol 50 Mg Tab PO Q6H PRN Moderate to Severe Pain (4-10) Intake and Output 11/18/24 11/19/24 11/19/24 22:59 06:59 14:59 Intake Total 124.651 111.517 Balance 124.651 111.517 Intake: Intake, IV Titration 124.651 111.517 Amount Heparin Sod,Pork in 0.45% 124.651 111.517 NaCl 25,000 unit In 0.45 % NaCl 1 250ml.bag @ 18 UNITS/KG/HR 16.084 mls/hr IV .[id number] [facility] Rx#: [id number] 11/19/24 06:04 11/19/24 06:04
--- NOTE | 2024-11-19 14:49 | P.CNPUL ---
History of Present Illness Consult date: 11/19/24 Requesting physician: Siddharth Botello Reason for consult: pulmonary embolism, abnormal CXR/CT Chief complaint: Weakness, unable to get up off the floor History of present illness: This is a 69-year-old male patient with a known history of diabetes mellitus, hypertension, former smoker, anxiety who was diagnosed with osteomyelitis in September 2024 of the right heel. He is receiving vancomycin and ertapenem in the outpatient setting by visiting nurses. Wound VAC is in place. Yesterday he had slipped to the floor from his chair and was unable to get up. EMS was called and he was brought into the emergency room. Chest x-ray revealed a left basilar infiltrate. Mild pulmonary vascular congestion. CT scan of the brain revealed no acute intracranial process. CT angiogram revealed a saddle pulmonary embolus with evidence of right heart strain with an RV/LV ratio of 1.35. Bibasilar airspace opacities. Atelectasis of the left lung base. Small bilateral effusions. EKG reveals atrial flutter. White count 6.0. Hemoglobin 8.2. Platelets 342. Sodium 133. Potassium 4.5. Bicarb 22. BUN 59. Creatinine 1.91. Glucose 111. Troponin 0.026, 0.038. Viral screen negative. He has been initiated on a heparin drip. Echocardiogram is pending. He is seen today in consultation in the emergency department. Currently resting on the stretcher. Awake and alert in no acute distress. He is maintaining O2 saturations in the 90s on 4 L/min per nasal cannula. He currently denies any worsening shortness of breath, cough or congestion. No hemoptysis. No chest pain. Hemodynamically stable. He has been quite sedentary due to the right heel osteomyelitis and he is a left below the knee amputee. Review of Systems REVIEW OF SYSTEMS: CONSTITUTIONAL: Generalized weakness, unable to get up off the floor. EYES: Denies change in vision. EARS, NOSE, MOUTH, THROAT: Denies headaches, denies sore throat. CARDIOVASCULAR: Denies chest pain, palpitations or syncopal episodes. RESPIRATORY: Denies shortness of breath, cough, congestion or hemoptysis. GASTROINTESTINAL: Denies change in appetite, denies abdominal pain GENITOURINARY: Denies hematuria, denies infections. MUSKULOSKELETAL: Denies pain, denies swelling. INTEGUMENTARY: Denies rash, denies eczema. NEUROLOGICAL: Denies recent memory loss, no recent seizure activity. PSYCHIATRIC: Denies anxiety, denies depression. HEMATOLOGIC/LYMPHATIC: Denies anemia, denies enlarged lymph nodes. Past Medical History Past Medical History: Diabetes Mellitus, Hypertension Additional Past Medical History / Comment(s): Ostemyelitis Sep 2024 History of Any Multi-Drug Resistant Organisms: MRSA Date of last positivie culture/infection: 1997 MDRO Source:: Unsure Past Surgical History: No Surgical Hx Reported Additional Past Surgical History / Comment(s): eye surgery Past Anesthesia/Blood Transfusion Reactions: No Reported Reaction Past Psychological History: Anxiety Smoking Status: Former smoker Past Alcohol Use History: Occasional Past Drug Use History: None Reported Medications and Allergies Home Medications Medication Instructions Recorded Confirmed Type amLODIPine [Norvasc] 5 mg PO DAILY 08/20/23 11/18/24 History metFORMIN HCL [Glucophage] 1,000 mg PO AC-BID 08/20/23 11/18/24 History Insulin Glargine,Hum.rec.anlog 5 units SQ HS 04/12/24 11/18/24 History [Lantus Solostar Pen] ALPRAZolam [Xanax] 1 mg PO TID 11/18/24 11/18/24 History Ertapenem [INVanz] 1 gm IVPB Q24H 11/18/24 11/18/24 History Multivitamins, Thera [Multivitamin 1 tab PO DAILY 11/18/24 11/18/24 History (formulary)] Oxymetazoline 0.05% Nasl [place] 2 spray EA NOSTRIL DAILY PRN 11/18/24 11/18/24 History [Afrin 0.05% Nasal [place]] Sodium Bicarbonate Tab 650 mg PO BID 11/18/24 11/18/24 History Tamsulosin [Flomax] 0.4 mg PO DAILY 11/18/24 11/18/24 History Vancomycin 1,250 mg IVPB Q48H 11/18/24 11/18/24 History Vit C/E/Zn/Coppr/Lutein/Zeaxan 1 cap PO DAILY 11/18/24 11/18/24 History [Preservision Areds 2 Softgel] traMADol HCL 50 mg PO Q6H PRN 11/18/24 11/18/24 History Allergies Allergy/AdvReac Type Severity Reaction Status Date / Time bupropion [From Wellbutrin] Allergy Unknown Verified 11/18/24 16:50 varenicline [From Chantix] Allergy Unknown Verified 11/18/24 16:50 Physical Exam Vitals: Vital Signs Temp Pulse Resp BP Pulse Ox 11/19/24 14:02 92 18 132/62 93 L 11/19/24 13:00 94 22 124/78 90 L 11/19/24 12:45 91 L 11/19/24 12:28 88 L 11/19/24 11:10 92 18 111/77 89 L 11/19/24 10:10 92 18 137/78 93 L 11/19/24 09:29 92 20 132/85 91 L 11/19/24 08:53 91 18 92 L 11/19/24 08:30 88 L 11/19/24 08:29 90 18 120/73 86 L 11/19/24 07:30 98.2 F 90 20 130/79 91 L 11/19/24 06:17 90 18 132/74 96 11/19/24 02:00 91 20 124/77 93 L 11/18/24 20:13 86 20 112/80 92 L 11/18/24 18:30 91 20 108/70 94 L 11/18/24 18:00 18 94 L 11/18/24 17:30 74 17 128/101 95 11/18/24 17:00 48 L 18 124/70 97 11/18/24 16:50 23 124/70 95 11/18/24 16:44 142/70 11/18/24 16:40 49 L 13 11/18/24 16:30 18 11/18/24 16:20 73 21 94 L 11/18/24 16:10 22 94 L 11/18/24 16:00 44 L 19 94 L 11/18/24 15:55 64 22 94 L Intake and Output 11/18/24 11/19/24 11/19/24 22:59 06:59 14:59 Intake Total 124.651 111.517 Balance 124.651 111.517 Intake: Intake, IV Titration 124.651 111.517 Amount Heparin Sod,Pork in 0.45% 124.651 111.517 NaCl 25,000 unit In 0.45 % NaCl 1 250ml.bag @ 18 UNITS/KG/HR 16.084 mls/hr IV .[id number] [facility] Rx#: [id number] GENERAL EXAM: Alert, obese, 69-year-old male, on 4 L nasal cannula, fairly comfortable in no apparent distress. HEAD: Normocephalic. EYES: Normal reaction of pupils, equal size. NOSE: Clear with pink turbinates. THROAT: No erythema or exudates. NECK: No masses, no JVD. CHEST: No chest wall deformity. LUNGS: Equal air entry with no crackles, wheeze, rhonchi or dullness. CVS: S1 and S2 normal with no audible murmur, irregular rhythm. ABDOMEN: No hepatosplenomegaly, normal bowel sounds, no guarding or rigidity. SPINE: No scoliosis or deformity SKIN: No rashes CENTRAL NERVOUS SYSTEM: No focal deficits, tone is normal in all 4 extremities. EXTREMITIES: Left below the knee amputee. Right lower extremity in a Calvin wrap. Wound VAC in place. Results - Laboratory Findings CBC and BMP: 11/19/24 06:04 11/19/24 06:04 ABG ABG pH 7.44 (7.35-7.45) 11/18/24 14:42 ABG pCO2 34 mmHg (35-45) L 11/18/24 14:42 ABG pO2 66 mmHg (83-108) L 11/18/24 14:42 ABG O2 Saturation 92.6 % (94-97) L 11/18/24 14:42 PT/INR, D-dimer PT 15.2 sec (10.0-12.5) H 11/18/24 16:52 INR 1.5 (<1.2) H 11/18/24 16:52 D-Dimer 12.61 mg/L FEU (<0.60) H 11/18/24 14:06 Abnormal lab findings: Abnormal Labs 11/18/24 11/18/24 11/18/24 14:06 14:06 14:06 RBC 3.50 L Hgb 8.9 L Hct 27.3 L MCV 78.2 L RDW 15.9 H Lymphocytes # 0.8 L PT 13.1 H INR 1.2 H APTT D-Dimer 12.61 H ABG pCO2 ABG pO2 ABG O2 Saturation Hemoglobin Sodium 132 L Chloride 97 L Carbon Dioxide 20 L BUN 58 H Creatinine 1.82 H Glucose 162 H Magnesium 2.4 H Iron % Saturation Transferrin Creatine Kinase 27 L Troponin I Albumin Free T3 pg/mL 1.30 L 11/18/24 11/18/24 11/18/24 14:42 16:52 21:59 RBC Hgb Hct MCV RDW Lymphocytes # PT 15.2 H INR 1.5 H APTT 79.0 H D-Dimer ABG pCO2 34 L ABG pO2 66 L ABG O2 Saturation 92.6 L Hemoglobin 8.8 L Sodium Chloride Carbon Dioxide BUN Creatinine Glucose Magnesium Iron % Saturation Transferrin Creatine Kinase Troponin I Albumin Free T3 pg/mL 11/18/24 11/19/24 11/19/24 21:59 06:04 06:04 RBC 3.26 L Hgb 8.2 L Hct 25.6 L MCV 78.5 L RDW 16.3 H Lymphocytes # PT INR APTT D-Dimer ABG pCO2 ABG pO2 ABG O2 Saturation Hemoglobin Sodium Chloride Carbon Dioxide BUN Creatinine Glucose Magnesium Iron % Saturation Transferrin 169.0 L Creatine Kinase Troponin I 0.038 H* Albumin Free T3 pg/mL 11/19/24 11/19/24 11/19/24 06:04 06:04 06:04 RBC Hgb Hct MCV RDW Lymphocytes # PT INR APTT 58.3 H D-Dimer ABG pCO2 ABG pO2 ABG O2 Saturation Hemoglobin Sodium 133 L Chloride Carbon Dioxide BUN 59 H Creatinine 1.91 H Glucose 111 H Magnesium Iron 23 L % Saturation 9.70 L Transferrin 169.0 L Creatine Kinase Troponin I Albumin 3.2 L Free T3 pg/mL - Diagnostic Findings Chest x-ray: image reviewed CT scan - chest: image reviewed Assessment and Plan Assessment: Acute hypoxemic respiratory failure secondary to saddle pulmonary embolism with right heart strain, suspect provoked due to sedentary lifestyle and atrial flutter Generalized weakness unable to get up off the floor secondary to above Atrial flutter Acute kidney injury Troponin leak Anemia Osteomyelitis of the right heel diagnosed in September 2024. Maintained on vancomycin and ertapenem in the outpatient setting Diabetes mellitus Pretension History of anxiety BPH Left below the knee amputee Poor functional performance based on the above-mentioned multiple comorbidities Plan: The patient was seen and evaluated Imaging, labs and medications reviewed Continue a heparin drip Echocardiogram pending Cardiology consulted for possible EKOS Continue vancomycin and ertapenem Titrate down the FiO2 as tolerated We will continue to follow and make further recommendations based on his clinical status I have personally seen and examined the patient, performed the documentation and the assessment and plan as written. Number of minutes spent on the visit: 20. Dictation was produced using [employer] dictation software. Please excuse any grammatical, word or spelling errors. This patient was seen in coordination with the pulmonary/critical care physician, Dr. Jacques. He did spend greater than 50% of the time evaluating, examining and developing the plan of care. He agrees to the above HPI, physical exam, assessment and plan of care as dictated by the nurse practitioner.
[2024-11-19 17:25] LABS: Glucose,Whole Blood 147 mg/dL (70-110)
--- NOTE | 2024-11-19 21:30 | P.CONS ---
History of Present Illness - Reason for Consult Consult date: 11/19/24 Right ankle infection on IV antibiotic Requesting physician: Salvador Botello - Chief Complaint Fall and weakness x 1 day - History of Present Illness Patient is a 69-year-old male with a past medical history significant for hypertension diabetes mellitus anxiety, he did have a Charcot foot diabetic foot infection status post left below the knee amputation and the patient recently did have multiple surgery on his left foot and ankle area including placement of a titanium car infectious subsequent removal and has been dealing with infection and currently on combination of IV vancomycin and ertapenem patient has received most of his care at [facility] patient has been brought into the hospital after apparently he tried to get up to get the TV remote from the floor and could not get up next morning the visiting nurse noticed that he was on the floor called EMS and the patient was brought into the hospital on arrival to the ER patient was afebrile and no fever have been recorded subsequently patient was not tachycardic or hypotensive he was hypoxic requiring supplemental oxygen patient did have a white count of 8.4 BUN to creatinine is mildly elevated liver enzymes are normal troponin is elevated influenza RSV COVID testing was negative patient did have a chest x-ray that did show some concern for left posterior basilar pneumonia did have a CT angiogram of the chest did shows saddle pulmonary embolus with evidence of right heart strain bibasilar airspace opacity correlate for pneumonia versus early pulmonary infarct and bilateral effusion patient has been admitted to the hospital he was continued on ertapenem and vancomycin infectious disease was consulted for further management of antibiotic therapy, patient has mentioned denies having any fever or any chills patient did have mild pain to the right ankle especially with pressure on the movement overall patient mention the wound is healing and is currently being treated with a wound VAC. Supposed to be seen yesterday however could not be change as the patient was brought into the hospital Review of Systems Positive point and negatives has been mentioned in the HPI, complete review of systems was performed and all other systems are negative 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:: 1997 MDRO Source:: Unsure Past Surgical History: No Surgical Hx Reported Additional Past Surgical History / Comment(s): eye surgery Past Anesthesia/Blood Transfusion Reactions: No Reported Reaction Past Psychological History: Anxiety Smoking Status: Former smoker Past Alcohol Use History: Occasional Past Drug Use History: None Reported Medications and Allergies Home Medications Medication Instructions Recorded Confirmed Type amLODIPine [Norvasc] 5 mg PO DAILY 08/20/23 11/18/24 History metFORMIN HCL [Glucophage] 1,000 mg PO AC-BID 08/20/23 11/18/24 History Insulin Glargine,Hum.rec.anlog 5 units SQ HS 04/12/24 11/18/24 History [Lantus Solostar Pen] ALPRAZolam [Xanax] 1 mg PO TID 11/18/24 11/18/24 History Ertapenem [INVanz] 1 gm IVPB Q24H 11/18/24 11/18/24 History Multivitamins, Thera [Multivitamin 1 tab PO DAILY 11/18/24 11/18/24 History (formulary)] Oxymetazoline 0.05% Nasl [place] 2 spray EA NOSTRIL DAILY PRN 11/18/24 11/18/24 History [Afrin 0.05% Nasal [place]] Sodium Bicarbonate Tab 650 mg PO BID 11/18/24 11/18/24 History Tamsulosin [Flomax] 0.4 mg PO DAILY 11/18/24 11/18/24 History Vancomycin 1,250 mg IVPB Q48H 11/18/24 11/18/24 History Vit C/E/Zn/Coppr/Lutein/Zeaxan 1 cap PO DAILY 11/18/24 11/18/24 History [Preservision Areds 2 Softgel] traMADol HCL 50 mg PO Q6H PRN 11/18/24 11/18/24 History Allergies Allergy/AdvReac Type Severity Reaction Status Date / Time bupropion [From Wellbutrin] Allergy Unknown Verified 11/18/24 16:50 varenicline [From Chantix] Allergy Unknown Verified 11/18/24 16:50 Physical Exam Vitals: Vital Signs Temp Pulse Resp BP Pulse Ox 11/19/24 11:10 92 18 111/77 89 L 11/19/24 10:10 92 18 137/78 93 L 11/19/24 09:29 92 20 132/85 91 L 11/19/24 08:53 91 18 92 L 11/19/24 08:30 88 L 11/19/24 08:29 90 18 120/73 86 L 11/19/24 07:30 98.2 F 90 20 130/79 91 L 11/19/24 06:17 90 18 132/74 96 11/19/24 02:00 91 20 124/77 93 L 11/18/24 20:13 86 20 112/80 92 L 11/18/24 18:30 91 20 108/70 94 L 11/18/24 18:00 18 94 L 11/18/24 17:30 74 17 128/101 95 11/18/24 17:00 48 L 18 124/70 97 11/18/24 16:50 23 124/70 95 11/18/24 16:44 142/70 11/18/24 16:40 49 L 13 11/18/24 16:30 18 11/18/24 16:20 73 21 94 L 11/18/24 16:10 22 94 L 11/18/24 16:00 44 L 19 94 L 11/18/24 15:55 64 22 94 L 11/18/24 13:21 97.5 F L 109 H 18 148/86 94 L Intake and Output 11/18/24 11/19/24 11/19/24 22:59 06:59 14:59 Intake Total 124.651 111.517 Balance 124.651 111.517 Intake: Intake, IV Titration 124.651 111.517 Amount Heparin Sod,Pork in 0.45% 124.651 111.517 NaCl 25,000 unit In 0.45 % NaCl 1 250ml.bag @ 18 UNITS/KG/HR 16.084 mls/hr IV .[id number] [facility] Rx#: [id number] GENERAL DESCRIPTION: Elderly male lying in bed, no distress. No tachypnea or accessory muscle of respiration use. HEENT: Shows Pallor , no scleral icterus. Oral mucous membrane is dry. No pharyngeal erythema or thrush NECK: Trachea central, no thyromegaly. LUNGS: Unlabored breathing. Clear to auscultation anteriorly. HEART: S1, S2, regular rate and rhythm. No loud murmur ABDOMEN: Soft, no tenderness , EXTREMITIES: Left BKA stump is currently healed right ankle wound is currently covered with a wound VAC SKIN: No rash, no masses palpable. NEUROLOGICAL: The patient is awake, alert, oriented x3, mood and affect normal. Results CBC & Chem 7: 11/20/24 10:03 11/20/24 10:03 Labs: Abnormal Lab Results - Last 24 Hours (Table) 11/18/24 11/18/24 11/18/24 Range/Units 14:06 14:06 14:06 RBC 3.50 L (4.30-5.90) m/uL Hgb 8.9 L (13.0-17.5) gm/dL Hct 27.3 L (39.0-53.0) % MCV 78.2 L (80.0-100.0) fL RDW 15.9 H (11.5-15.5) % Lymphocytes # 0.8 L (1.0-4.8) k/uL PT 13.1 H (10.0-12.5) sec INR 1.2 H (<1.2) APTT (22.0-30.0) sec D-Dimer 12.61 H (<0.60) mg/L FEU ABG pCO2 (35-45) mmHg ABG pO2 (83-108) mmHg ABG O2 Saturation (94-97) % Hemoglobin (13.0-17.5) gm/dL Sodium 132 L (137-145) mmol/L Chloride 97 L (98-107) mmol/L Carbon Dioxide 20 L (22-30) mmol/L BUN 58 H (9-20) mg/dL Creatinine 1.82 H (0.66-1.25) mg/dL Glucose 162 H (74-99) mg/dL Magnesium 2.4 H (1.6-2.3) mg/dL Iron (65-175) UG/DL % Saturation (15.00-50.00) Transferrin (204.0-354.0) mg/dL Creatine Kinase 27 L (55-170) U/L Troponin I (0.000-0.034) ng/mL Albumin (3.5-5.0) g/dL Free T3 pg/mL 1.30 L (2.30-4.20) pg/mL 11/18/24 11/18/24 11/18/24 Range/Units 14:42 16:52 21:59 RBC (4.30-5.90) m/uL Hgb (13.0-17.5) gm/dL Hct (39.0-53.0) % MCV (80.0-100.0) fL RDW (11.5-15.5) % Lymphocytes # (1.0-4.8) k/uL PT 15.2 H (10.0-12.5) sec INR 1.5 H (<1.2) APTT 79.0 H (22.0-30.0) sec D-Dimer (<0.60) mg/L FEU ABG pCO2 34 L (35-45) mmHg ABG pO2 66 L (83-108) mmHg ABG O2 Saturation 92.6 L (94-97) % Hemoglobin 8.8 L (13.0-17.5) gm/dL Sodium (137-145) mmol/L Chloride (98-107) mmol/L Carbon Dioxide (22-30) mmol/L BUN (9-20) mg/dL Creatinine (0.66-1.25) mg/dL Glucose (74-99) mg/dL Magnesium (1.6-2.3) mg/dL Iron (65-175) UG/DL % Saturation (15.00-50.00) Transferrin (204.0-354.0) mg/dL Creatine Kinase (55-170) U/L Troponin I (0.000-0.034) ng/mL Albumin (3.5-5.0) g/dL Free T3 pg/mL (2.30-4.20) pg/mL 11/18/24 11/19/24 11/19/24 Range/Units 21:59 06:04 06:04 RBC 3.26 L (4.30-5.90) m/uL Hgb 8.2 L (13.0-17.5) gm/dL Hct 25.6 L (39.0-53.0) % MCV 78.5 L (80.0-100.0) fL RDW 16.3 H (11.5-15.5) % Lymphocytes # (1.0-4.8) k/uL PT (10.0-12.5) sec INR (<1.2) APTT (22.0-30.0) sec D-Dimer (<0.60) mg/L FEU ABG pCO2 (35-45) mmHg ABG pO2 (83-108) mmHg ABG O2 Saturation (94-97) % Hemoglobin (13.0-17.5) gm/dL Sodium (137-145) mmol/L Chloride (98-107) mmol/L Carbon Dioxide (22-30) mmol/L BUN (9-20) mg/dL Creatinine (0.66-1.25) mg/dL Glucose (74-99) mg/dL Magnesium (1.6-2.3) mg/dL Iron (65-175) UG/DL % Saturation (15.00-50.00) Transferrin 169.0 L (204.0-354.0) mg/dL Creatine Kinase (55-170) U/L Troponin I 0.038 H* (0.000-0.034) ng/mL Albumin (3.5-5.0) g/dL Free T3 pg/mL (2.30-4.20) pg/mL 11/19/24 11/19/24 11/19/24 Range/Units 06:04 06:04 06:04 RBC (4.30-5.90) m/uL Hgb (13.0-17.5) gm/dL Hct (39.0-53.0) % MCV (80.0-100.0) fL RDW (11.5-15.5) % Lymphocytes # (1.0-4.8) k/uL PT (10.0-12.5) sec INR (<1.2) APTT 58.3 H (22.0-30.0) sec D-Dimer (<0.60) mg/L FEU ABG pCO2 (35-45) mmHg ABG pO2 (83-108) mmHg ABG O2 Saturation (94-97) % Hemoglobin (13.0-17.5) gm/dL Sodium 133 L (137-145) mmol/L Chloride (98-107) mmol/L Carbon Dioxide (22-30) mmol/L BUN 59 H (9-20) mg/dL Creatinine 1.91 H (0.66-1.25) mg/dL Glucose 111 H (74-99) mg/dL Magnesium (1.6-2.3) mg/dL Iron 23 L (65-175) UG/DL % Saturation 9.70 L (15.00-50.00) Transferrin 169.0 L (204.0-354.0) mg/dL Creatine Kinase (55-170) U/L Troponin I (0.000-0.034) ng/mL Albumin 3.2 L (3.5-5.0) g/dL Free T3 pg/mL (2.30-4.20) pg/mL Assessment and Plan (1) Ankle osteomyelitis, right Current Visit: Yes Status: Acute Code(s): M86.9 - OSTEOMYELITIS, UNSPECIFIED SNOMED Code(s): 3846888747165014 (2) Charcot foot due to diabetes mellitus Current Visit: No Status: Acute Code(s): E11.610 - TYPE 2 DIABETES MELLITUS W DIABETIC NEUROPATHIC ARTHROPATHY SNOMED Code(s): 210935562 (3) Diabetic foot ulcer Current Visit: No Status: Acute Code(s): E11.621 - TYPE 2 DIABETES MELLITUS WITH FOOT ULCER; L97.509 - NON-PRESSURE CHRONIC ULCER OTH PRT UNSP FOOT W UNSP SEVERITY SNOMED Code(s): 743559482 Plan: 1patient with a complicated history of right Charcot foot and this patient did have multiple surgeries most of his care has been done at [facility] and I do not have any access to those records and the patient is currently dealing with an infection and getting IV vancomycin and ertapenem in the outpatient setting now being admitted to hospital after the patient did have a fall and has been diagnosed with a PE x-rays were suspicious for pneumonia however the patient did not have significant cough or sputum production to be suspicious for pneumonia 2-we will try to obtain culture data from [facility] in the a.m. 3-wound will be reevaluated with the next wound VAC change 4-patient to continue vancomycin pharmacy dose watching his creatinine and Vanco trough closely along with ertapenem Multiple question concern were answered in layman term We will follow on clinical condition and cultures to further adjust medication if needed Thank you for this consultation we will follow the patient along with you Dictation was produced using [employer] software. please excuse any grammatical, word or spelling errors. Time with Patient: Greater than 30
[2024-11-19] MEDS: ATORVASTATIN 40 MG TAB PO SCH (21:34)
[2024-11-19] MEDS: VANCOMYCIN 1,500 MG in SODIUM CHLORIDE 0.9% 500 ML 500 ML IVPB SCH (23:43)
[2024-11-20 06:17] LABS: Anisocytosis Slight; Basophils % (A) 0 %; Eosinophils # (A) 0.1 k/uL (0-0.7); Eosinophils % (A) 2 %; HCT 27.4 % (39.0-53.0); HGB 8.8 gm/dL (13.0-17.5); Hypochromasia Slight; Lymphocytes # (A) 0.7 k/uL (1.0-4.8); Lymphocytes % (A) 10 %; MCH 25.7 pg (25.0-35.0); MCHC 32.2 g/dL (31.0-37.0); MCV 79.8 fL (80.0-100.0); Mean Platelet Volume 7.3; Microcytosis Slight; Monocytes # (A) 0.4 k/uL (0-1.0); Monocytes % (A) 6 %; Neutrophils # (A) 5.4 k/uL (1.3-7.7); Neutrophils % (A) 81 %; Platelet Count 380 k/uL (150-450); RBC 3.43 m/uL (4.30-5.90); RDW 16.4 % (11.5-15.5); WBC 6.7 k/uL (3.8-10.6)
[2024-11-20 07:02] LABS: ALT 16 U/L (4-49); AST 22 U/L (17-59); African American GFR (CKD) 49 (>60 ml/min/1.73 sqM); Albumin 3.1 g/dL (3.5-5.0); Alkaline Phosphatase 111 U/L (38-126); Anion Gap 11 mmol/L; Blood Urea Nitrogen 54 mg/dL (9-20); Calcium 8.4 mg/dL (8.4-10.2); Carbon Dioxide 20 mmol/L (22-30); Chloride 102 mmol/L (98-107); Glucose 132 mg/dL (74-99); Magnesium 2.6 mg/dL (1.6-2.3); Non-African American GFR(CKD) 42 (>60 ml/min/1.73 sqM); Potassium 4.2 mmol/L (3.5-5.1); Sodium 133 mmol/L (137-145); Total Bilirubin 0.3 mg/dL (0.2-1.3); Total Protein 6.2 g/dL (6.3-8.2)
[2024-11-20] MEDS: traMADol 50 MG TAB PO PRN (09:14)
[2024-11-20 10:18] LABS: Anisocytosis Slight; HCT 28.4 % (39.0-53.0); HGB 8.8 gm/dL (13.0-17.5); Hypochromasia Marked; MCH 25.2 pg (25.0-35.0); MCHC 30.9 g/dL (31.0-37.0); MCV 81.6 fL (80.0-100.0); Mean Platelet Volume 7.1; Platelet Count 361 k/uL (150-450); RBC 3.47 m/uL (4.30-5.90); RDW 16.2 % (11.5-15.5); WBC 6.8 k/uL (3.8-10.6)
[2024-11-20 10:19] LABS: Basophils % (A) 0 %; Eosinophils # (A) 0.1 k/uL (0-0.7); Eosinophils % (A) 2 %; Lymphocytes # (A) 0.8 k/uL (1.0-4.8); Lymphocytes % (A) 13 %; Monocytes # (A) 0.4 k/uL (0-1.0); Monocytes % (A) 6 %; Neutrophils # (A) 5.2 k/uL (1.3-7.7); Neutrophils % (A) 78 %
[2024-11-20 10:34] LABS: INR 1.2 (<1.2); Prothrombin Time 12.6 sec (10.0-12.5)
[2024-11-20 10:38] LABS: African American GFR (CKD) 52 (>60 ml/min/1.73 sqM); Anion Gap 13 mmol/L; Blood Urea Nitrogen 54 mg/dL (9-20); Calcium 8.5 mg/dL (8.4-10.2); Carbon Dioxide 19 mmol/L (22-30); Chloride 103 mmol/L (98-107); Glucose 133 mg/dL (74-99); Non-African American GFR(CKD) 45 (>60 ml/min/1.73 sqM); Potassium 4.3 mmol/L (3.5-5.1); Sodium 135 mmol/L (137-145)
[2024-11-20] MEDS: fentaNYL (PF) 50 MCG/ML 2 ML AMP IVP ONE (10:40)
[2024-11-20] MEDS: LIDOCAINE 1% INJ 10MG/ML (20 ML MDV) SQ ONE ×2 (10:41→10:42)
[2024-11-20] MEDS: HEPARIN SODIUM (1,000 UNIT/ML) 1,000 UNIT in SODIUM CHLORIDE 0.9% 1,000 ML IRRIGATION ONE (10:42)
[2024-11-20] MEDS: SODIUM CHLORIDE 0.9% 1,000 ML IV ONE (10:42)
--- NOTE | 2024-11-20 11:02 | P.PN ---
Subjective Progress Note Date: 11/20/24 HISTORY OF PRESENTING ILLNESS: 69-year-old male with past ministry of type 2 diabetes, hypertension, diabetic foot ulcers with Charcot joint with left BKA, recent right ankle surgery status post wound VAC with IV antibiotics. He presented to the hospital because of worsening shortness of breath and generalized weakness. On admission his initial workup with a CT angiogram chest showed evidence of bilateral pulm embolism with moderate clot burden with evidence of right heart strain. For this cardiology was consulted Admission Cardiac Labs: Initial troponin was negative, repeat 0.039, NT-proBNP 682, Hb 8.2, BUN 39, creatinine 1.9. Baseline creatinine at 1.8-1.9. Admission testing: EKG shows sinus rhythm with right bundle branch block CXR shows no significant signs of pulmonary congestion CTA chest shows bilateral pulmonary embolism with RV LV ratio 1.3, small bilateral pleural effusion, At the time of evaluation patient denies having any active chest pain chest pressure. Blood pressure 111/77, pulse 82 bpm. 11/20/24 Patient is seen today in the emergency center waiting for a bed on the cardiac stepdown unit. He states his breathing is better at rest. He denies having any chest pain. Echocardiogram films reviewed by Dr. Chávez. Discussed with patient need for surgical procedure for EKOS and patient will be scheduled later today. Blood pressure 115/89, heart rate 89, pulse ox 90% on 10 L nasal cannula. Repeat blood work reveals hemoglobin of 8.8, INR 1.2, BUN 54 creatinine 1.53, sodium 135 and potassium 4.3. PHYSICAL EXAMINATION: Neck: Brisk carotid upstroke, no jugular venous distention. Lungs: Clear to auscultation. Heart: Regular rate and rhythm, S1-S2, , no murmur or rub. Abdomen: Soft nontender, positive bowel sounds. Extremities: Left sided BKA, wound VAC to wound right ankle area, no edema, intact distal pulses. Neuro: Alert, oritented, no focal deficits. Detailed neuro exam was not performed. ASSESSMENT: # Bilateral pulmonary embolism, subacute, provoked with moderate clot burden with RV LV ratio 1.3 # Mildly elevated troponin NT-proBNP due to above # Type 2 diabetes # Diabetic foot ulcers and Charcot joint status post recent surgery to right ankle # Left BKA # Suspect PDA # Anemia # CKD PLAN: Continue IV heparin drip. He is also on amlodipine will continue for now Obtain echocardiogram formal report Plan for possible EKOS/thrombectomy today Keep patient n.p.o. Further recommendations as patient progresses Nurse practitioner note has been reviewed, I agree with documented findings and plan of care. Patient was seen and examined. Objective - Vital Signs Vital signs: Vital Signs Temp 97.8 F 11/20/24 03:34 Pulse 89 11/20/24 07:52 Resp 20 11/20/24 07:52 BP 115/89 11/20/24 07:52 Pulse Ox 90 L 11/20/24 07:52 FiO2 Intake & Output 11/19/24 11/20/24 11/20/24 18:59 06:59 18:59 Intake Total 111.517 334.312 Output Total 1400 Balance 111.517 -1065.688 Intake: Intake, IV Titration 111.517 334.312 Amount Heparin Sod,Pork in 0.45% 111.517 334.312 NaCl 25,000 unit In 0.45 % NaCl 1 250ml.bag @ 18 UNITS/KG/HR 16.084 mls/hr IV .[id number] [facility] Rx#: [id number] Output: Urine 1400 - Labs CBC & Chem 7: 11/20/24 10:03 11/20/24 10:03 Labs: Abnormal Lab Results - Last 24 Hours (Table) 11/19/24 11/19/24 11/19/24 Range/Units 06:04 06:04 17:24 RBC (4.30-5.90) m/uL Hgb (13.0-17.5) gm/dL Hct (39.0-53.0) % MCV (80.0-100.0) fL RDW (11.5-15.5) % Lymphocytes # (1.0-4.8) k/uL APTT (22.0-30.0) sec Sodium (137-145) mmol/L Carbon Dioxide (22-30) mmol/L BUN (9-20) mg/dL Creatinine (0.66-1.25) mg/dL Glucose (74-99) mg/dL POC Glucose (mg/dL) 147 H (70-110) mg/dL Magnesium (1.6-2.3) mg/dL Iron 23 L (65-175) UG/DL % Saturation 9.70 L (15.00-50.00) Transferrin 169.0 L 169.0 L (204.0-354.0) mg/dL Total Protein (6.3-8.2) g/dL Albumin (3.5-5.0) g/dL 11/20/24 11/20/24 11/20/24 Range/Units 05:35 05:35 05:35 RBC 3.43 L (4.30-5.90) m/uL Hgb 8.8 L (13.0-17.5) gm/dL Hct 27.4 L (39.0-53.0) % MCV 79.8 L (80.0-100.0) fL RDW 16.4 H (11.5-15.5) % Lymphocytes # 0.7 L (1.0-4.8) k/uL APTT 47.4 H (22.0-30.0) sec Sodium 133 L (137-145) mmol/L Carbon Dioxide 20 L (22-30) mmol/L BUN 54 H (9-20) mg/dL Creatinine 1.62 H (0.66-1.25) mg/dL Glucose 132 H (74-99) mg/dL POC Glucose (mg/dL) (70-110) mg/dL Magnesium 2.6 H (1.6-2.3) mg/dL Iron (65-175) UG/DL % Saturation (15.00-50.00) Transferrin (204.0-354.0) mg/dL Total Protein 6.2 L (6.3-8.2) g/dL Albumin 3.1 L (3.5-5.0) g/dL Microbiology - Last 24 Hours (Table) 11/18/24 16:44 Blood Culture - Preliminary Blood 11/18/24 16:46 Blood Culture - Preliminary Blood
[2024-11-20] MEDS ORDERED: DEXTROSE 50% SYRINGE 50 ML IVP PRN ×2 (11:31)
--- NOTE | 2024-11-20 11:33 | P.PN ---
Subjective Progress Note Date: 11/20/24 Hospital Course: 69-year-old male with history of type 2 diabetes, hypertension, Charcot foot w ith left BKA and recent right ankle surgery status post wound VAC and currently on IV antibiotics, presenting with shortness of breath and weakness. In the ED, temperature was 97.5, pulse 109, respiratory rate 18, blood pressure 148/86, saturating at 94% on room air. WBC 8.4, hemoglobin 8.9, platelet 11/21/1980, INR 1.2, D-dimer 12.61, sodium 132, bicarb 20, anion gap 15, lactate 1.9, creatinine 1.82, magnesium 2.4, troponin 0.018, TSH 2.65. Chest x-ray independently interpreted, shows bilateral lower lobe opacities. head CT did not show any acute process. Chest CTA shows saddle pulmonary embolism with evidence of right heart strain, bibasilar airspace opacities concerning for pneumonia versus early pulmonary infarct calculus, small bilateral pleural effusions. EKG independently interpreted, shows atrial tachycardia, right bundle branch block, S1 every 3 T3 pattern, significant T wave depressions and anterior septal leads, flattening of T waves in lateral leads. Cardiology consulted for possible EKOS, likely today. Pulmonology also consulted. Patient being admitted for submassi ve PE. Subjective: Patient seen and examined at bedside. No acute events overnight. Continues to have shortness of breath Pertinent positives and negatives as discussed above, a complete review of systems was performed and all other systems are negative. Vitals Signs Reviewed. General: nontoxic, no distress, appears at stated age, chronically ill-appearing Derm: warm, dry Head: atraumatic, normocephalic, symmetric Eyes: EOMI, no lid lag, anicteric sclera, pupils equal round reactive to light ENT: Nose and ears atraumatic Neck: No thyromegaly, supple Mouth: no lip lesion, mucus membranes moist Cardiovascular: S1S2 reg, tachycardic, no murmur, no edema Lungs: clear to auscultation bilateral, no rhonchi, no rales, no wheeze, no accessory muscle use, supplemental oxygen Abdominal: soft, nontender to palpation, no guarding, no appreciable organomegaly Ext: Left BKA, right foot covered in dressing with a wound VAC. Left arm PICC line. Neuro: CN II-XII grossly intact Psych: Alert, oriented, appropriate affect Data Reviewed Today: Pertinent Labs: WBC 6.8, hemoglobin 8.8 APTT 48, creatinine 1.53, bicarb 19 Imaging: No new imaging Assessment and Plan: Acute submassive PE Acute hypoxic respiratory failure secondary to above Suspected community-acquired pneumonia Microcytic anemia, at baseline, likely iron deficiency Atrial tachycardia/flutter -Continue heparin drip, monitor APTT, monitor for bleeding -Blood cultures negative to date -Continue his home IV vancomycin and IV ertapenem -Continue telemetry -Echocardiogram pending -Cardiology note reviewed, EKOS versus thrombectomy today -No active bleeding CKD stage III, stable Mild anion gap metabolic acidosis Euvolemic hyponatremia -Continue to monitor, lactate within normal limits -Anion gap likely secondary to renal disease -Continue oral sodium bicarb 650 twice daily -Repeat BMP tomorrow Type 2 diabetes -Sliding scale insulin, monitor for hypoglycemia -Restart long-acting insulin once patient is no longer n.p.o. Hypertension -Amlodipine 5 mg daily Multiple diabetic foot infections Charcot foot Recent right ankle reconstruction with a wound VAC, on antibiotics Left BKA -Continue home IV vancomycin, ertapenem, monitor for renal toxicity -ID following, continued on current therapy DVT ppx: Heparin drip Code status: Full code Anticipated discharge place: Pending clinical course Anticipated discharge time: Pending clinical course Objective - Vital Signs Vital signs: Vital Signs Temp 97.8 F 11/20/24 03:34 Pulse 85 11/20/24 10:45 Resp 24 11/20/24 10:45 BP 130/68 11/20/24 10:45 Pulse Ox 91 L 11/20/24 10:45 FiO2 Intake & Output 11/19/24 11/20/24 11/20/24 18:59 06:59 18:59 Intake Total 111.517 334.312 Output Total 1400 Balance 111.517 -1065.688 Intake: Intake, IV Titration 111.517 334.312 Amount Heparin Sod,Pork in 0.45% 111.517 334.312 NaCl 25,000 unit In 0.45 % NaCl 1 250ml.bag @ 18 UNITS/KG/HR 16.084 mls/hr IV .[id number] [facility] Rx#: [id number] Output: Urine 1400 - Labs CBC & Chem 7: 11/20/24 10:03 11/20/24 10:03 Labs: Abnormal Lab Results - Last 24 Hours (Table) 11/19/24 11/20/24 11/20/24 Range/Units 17:24 05:35 05:35 RBC (4.30-5.90) m/uL Hgb (13.0-17.5) gm/dL Hct (39.0-53.0) % MCV (80.0-100.0) fL MCHC (31.0-37.0) g/dL RDW (11.5-15.5) % Lymphocytes # (1.0-4.8) k/uL PT (10.0-12.5) sec INR (<1.2) APTT 47.4 H (22.0-30.0) sec Fibrinogen (200-500) mg/dL Sodium 133 L (137-145) mmol/L Carbon Dioxide 20 L (22-30) mmol/L BUN 54 H (9-20) mg/dL Creatinine 1.62 H (0.66-1.25) mg/dL Glucose 132 H (74-99) mg/dL POC Glucose (mg/dL) 147 H (70-110) mg/dL Magnesium 2.6 H (1.6-2.3) mg/dL Total Protein 6.2 L (6.3-8.2) g/dL Albumin 3.1 L (3.5-5.0) g/dL 11/20/24 11/20/24 11/20/24 Range/Units 05:35 10:03 10:03 RBC 3.43 L 3.47 L (4.30-5.90) m/uL Hgb 8.8 L 8.8 L (13.0-17.5) gm/dL Hct 27.4 L 28.4 L (39.0-53.0) % MCV 79.8 L (80.0-100.0) fL MCHC 30.9 L (31.0-37.0) g/dL RDW 16.4 H 16.2 H (11.5-15.5) % Lymphocytes # 0.7 L 0.8 L (1.0-4.8) k/uL PT 12.6 H (10.0-12.5) sec INR 1.2 H (<1.2) APTT 48.0 H (22.0-30.0) sec Fibrinogen 553 H (200-500) mg/dL Sodium (137-145) mmol/L Carbon Dioxide (22-30) mmol/L BUN (9-20) mg/dL Creatinine (0.66-1.25) mg/dL Glucose (74-99) mg/dL POC Glucose (mg/dL) (70-110) mg/dL Magnesium (1.6-2.3) mg/dL Total Protein (6.3-8.2) g/dL Albumin (3.5-5.0) g/dL 11/20/24 Range/Units 10:03 RBC (4.30-5.90) m/uL Hgb (13.0-17.5) gm/dL Hct (39.0-53.0) % MCV (80.0-100.0) fL MCHC (31.0-37.0) g/dL RDW (11.5-15.5) % Lymphocytes # (1.0-4.8) k/uL PT (10.0-12.5) sec INR (<1.2) APTT (22.0-30.0) sec Fibrinogen (200-500) mg/dL Sodium 135 L (137-145) mmol/L Carbon Dioxide 19 L (22-30) mmol/L BUN 54 H (9-20) mg/dL Creatinine 1.53 H (0.66-1.25) mg/dL Glucose 133 H (74-99) mg/dL POC Glucose (mg/dL) (70-110) mg/dL Magnesium (1.6-2.3) mg/dL Total Protein (6.3-8.2) g/dL Albumin (3.5-5.0) g/dL Microbiology - Last 24 Hours (Table) 11/18/24 16:44 Blood Culture - Preliminary Blood 11/18/24 16:46 Blood Culture - Preliminary Blood
[2024-11-20] MEDS: ALTEPLASE 6 MG in SODIUM CHLORIDE 0.9% 144 ML IV ONE (11:50)
[2024-11-20] MEDS: HEPARIN SOD,PORK IN 0.45% NACL 25,000 UNIT in 0.45% NACL 1 250ML.BAG IV SCH ×3 (11:50→18:14)
--- NOTE | 2024-11-20 11:52 | P.PCN ---
Date of Procedure: 11/20/24 Description of Procedure: EKOS procedure: Indication: Bilateral pulmonary embolism with evidence of right ventricular strain pattern Procedure: The patient was brought to the [employer] [facility] in the fasting semisedated state, after receiving fentanyl and Benadryl and using micropuncture technique two 8 Dutch sheath was introduced in the right femoral vein. Subsequently attempt to advance the [place]Jackie catheter in the pulmonary artery were difficult because the anatomy. At that time a 6 Dutch 4.0 Mercedez catheter was introduced and advanced into the left pulmonary artery, after removing the catheter and using the 0.035 wire, the Ekos plus catheter was introduced, advanced and positioned. Subsequently using the right Mercedez catheter the wire was advanced into the right pulmonary artery but there was difficulty advancing the Ekos catheter over the 0.035 wire, Wire was exchanged advantage glide wire subsequently the Ekos plus catheter was advanced and positioned. It was secured in place. Infusion was initiated. There was no immediate complications. The patient was returned to his room in stable condition. Duration of sedation 48 minutes.
[2024-11-20 12:14] LABS: Glucose,Whole Blood 150 mg/dL (70-110)
[2024-11-20] MEDS ORDERED: SODIUM CHLORIDE 0.9% 1,000 ML IV SCH ×2 (12:30)
[2024-11-20] MEDS: SODIUM CHLORIDE 0.9% 1,000 ML IV SCH ×3 (12:44→12:47)
[2024-11-20] MEDS: INSULIN ASPART (NovoLOG) 100 UNIT/ML VIAL SQ SCH (12:46)
--- NOTE | 2024-11-20 12:49 | P.PN ---
Subjective Progress Note Date: 11/20/24 This is a 69-year-old male patient with a known history of diabetes mellitus, hypertension, former smoker, anxiety who was diagnosed with osteomyelitis in September 2024 of the right heel. He is receiving vancomycin and ertapenem in the outpatient setting by visiting nurses. Wound VAC is in place. Yesterday he had slipped to the floor from his chair and was unable to get up. EMS was called and he was brought into the emergency room. Chest x-ray revealed a left basilar infiltrate. Mild pulmonary vascular congestion. CT scan of the brain revealed no acute intracranial process. CT angiogram revealed a saddle pulmonary embolus with evidence of right heart strain with an RV/LV ratio of 1.35. Bibasilar airspace opacities. Atelectasis of the left lung base. Small bilateral effusions. EKG reveals atrial flutter. White count 6.0. Hemoglobin 8.2. Platelets 342. Sodium 133. Potassium 4.5. Bicarb 22. BUN 59. Creatinine 1.91. Glucose 111. Troponin 0.026, 0.038. Viral screen negative. He has been initiated on a heparin drip. Echocardiogram is pending. He is seen today in consultation in the emergency department. Currently resting on the stretcher. Awake and alert in no acute distress. He is maintaining O2 saturations in the 90s on 4 L/min per nasal cannula. He currently denies any worsening shortness of breath, cough or congestion. No hemoptysis. No chest pain. Hemodynamically stable. He has been quite sedentary due to the right heel osteomyelitis and he is a left below the knee amputee. The patient is seen today November 20, 20[facility] He is awake and alert in no acute distress. Resting fairly comfortable on a stretcher. He is now requiring 10 L high flow nasal cannula. He remains on a heparin drip. He remains on vancomycin and ertapenem. Cardiology is planning possible EKOS today. White count 6.8. Hemoglobin 8.8. Platelets 361. INR 1.2. Sodium 135. Potassium 4.3. Bicarb 19. BUN 54. Creatinine 1.53. Glucose 133. Objective - Vital Signs Vital signs: Vital Signs Temp 97.8 F 11/20/24 03:34 Pulse 85 11/20/24 10:45 Resp 24 11/20/24 10:45 BP 130/68 11/20/24 10:45 Pulse Ox 91 L 11/20/24 10:45 FiO2 Intake & Output 11/19/24 11/20/24 11/20/24 18:59 06:59 18:59 Intake Total 111.517 334.312 125 Output Total 1400 Balance 111.517 -1065.688 125 Intake: IV 125 Intake, IV Titration 111.517 334.312 Amount Heparin Sod,Pork in 0.45% 111.517 334.312 NaCl 25,000 unit In 0.45 % NaCl 1 250ml.bag @ 18 UNITS/KG/HR 16.084 mls/hr IV .[id number] [facility] Rx#: [id number] Output: Urine 1400 - Exam GENERAL EXAM: Alert, obese, 69-year-old male, on 10 L high flow nasal cannula, fairly comfortable in no apparent distress. HEAD: Normocephalic. EYES: Normal reaction of pupils, equal size. NOSE: Clear with pink turbinates. THROAT: No erythema or exudates. NECK: No masses, no JVD. CHEST: No chest wall deformity. LUNGS: Equal air entry with no crackles, wheeze, rhonchi or dullness. CVS: S1 and S2 normal with no audible murmur, irregular rhythm. ABDOMEN: No hepatosplenomegaly, normal bowel sounds, no guarding or rigidity. SPINE: No scoliosis or deformity SKIN: No rashes CENTRAL NERVOUS SYSTEM: No focal deficits, tone is normal in all 4 extremities. EXTREMITIES: Left below the knee amputee. Right lower extremity in a Calvin wrap. Wound VAC in place. - Labs CBC & Chem 7: 11/20/24 10:03 11/20/24 10:03 Labs: Abnormal Lab Results - Last 24 Hours (Table) 11/19/24 11/20/24 11/20/24 Range/Units 17:24 05:35 05:35 RBC (4.30-5.90) m/uL Hgb (13.0-17.5) gm/dL Hct (39.0-53.0) % MCV (80.0-100.0) fL MCHC (31.0-37.0) g/dL RDW (11.5-15.5) % Lymphocytes # (1.0-4.8) k/uL PT (10.0-12.5) sec INR (<1.2) APTT 47.4 H (22.0-30.0) sec Fibrinogen (200-500) mg/dL Sodium 133 L (137-145) mmol/L Carbon Dioxide 20 L (22-30) mmol/L BUN 54 H (9-20) mg/dL Creatinine 1.62 H (0.66-1.25) mg/dL Glucose 132 H (74-99) mg/dL POC Glucose (mg/dL) 147 H (70-110) mg/dL Magnesium 2.6 H (1.6-2.3) mg/dL Total Protein 6.2 L (6.3-8.2) g/dL Albumin 3.1 L (3.5-5.0) g/dL 11/20/24 11/20/24 11/20/24 Range/Units 05:35 10:03 10:03 RBC 3.43 L 3.47 L (4.30-5.90) m/uL Hgb 8.8 L 8.8 L (13.0-17.5) gm/dL Hct 27.4 L 28.4 L (39.0-53.0) % MCV 79.8 L (80.0-100.0) fL MCHC 30.9 L (31.0-37.0) g/dL RDW 16.4 H 16.2 H (11.5-15.5) % Lymphocytes # 0.7 L 0.8 L (1.0-4.8) k/uL PT 12.6 H (10.0-12.5) sec INR 1.2 H (<1.2) APTT 48.0 H (22.0-30.0) sec Fibrinogen 553 H (200-500) mg/dL Sodium (137-145) mmol/L Carbon Dioxide (22-30) mmol/L BUN (9-20) mg/dL Creatinine (0.66-1.25) mg/dL Glucose (74-99) mg/dL POC Glucose (mg/dL) (70-110) mg/dL Magnesium (1.6-2.3) mg/dL Total Protein (6.3-8.2) g/dL Albumin (3.5-5.0) g/dL 11/20/24 11/20/24 Range/Units 10:03 12:12 RBC (4.30-5.90) m/uL Hgb (13.0-17.5) gm/dL Hct (39.0-53.0) % MCV (80.0-100.0) fL MCHC (31.0-37.0) g/dL RDW (11.5-15.5) % Lymphocytes # (1.0-4.8) k/uL PT (10.0-12.5) sec INR (<1.2) APTT (22.0-30.0) sec Fibrinogen (200-500) mg/dL Sodium 135 L (137-145) mmol/L Carbon Dioxide 19 L (22-30) mmol/L BUN 54 H (9-20) mg/dL Creatinine 1.53 H (0.66-1.25) mg/dL Glucose 133 H (74-99) mg/dL POC Glucose (mg/dL) 150 H (70-110) mg/dL Magnesium (1.6-2.3) mg/dL Total Protein (6.3-8.2) g/dL Albumin (3.5-5.0) g/dL Microbiology - Last 24 Hours (Table) 11/18/24 16:44 Blood Culture - Preliminary Blood 11/18/24 16:46 Blood Culture - Preliminary Blood Assessment and Plan Assessment: Acute hypoxemic respiratory failure secondary to saddle pulmonary embolism with right heart strain, suspect provoked due to sedentary lifestyle and atrial flutter. Plan is for possible EKOS today, remains on a heparin drip Generalized weakness unable to get up off the floor secondary to above Atrial flutter Acute kidney injury Troponin leak Anemia Osteomyelitis of the right heel diagnosed in September 2024. Maintained on vancomycin and ertapenem in the outpatient setting Diabetes mellitus Pretension History of anxiety BPH Left below the knee amputee Poor functional performance based on the above-mentioned multiple comorbidities Plan: The patient was seen and evaluated Labs and medications reviewed Continued on a heparin drip Cardiology considering possible EKOS Continue vancomycin and ertapenem Titrate down the FiO2 as tolerated We will continue to follow I have personally seen and examined the patient, performed the documentation and the assessment and plan as written. Number of minutes spent on the visit: 10. Dictation was produced using [employer]umm[employer] software. Please excuse any grammatical, word or spelling errors. This patient was seen in coordination with the pulmonary/critical care physician, Dr. Jacques. He did spend greater than 50% of the time evaluating, examining and developing the plan of care. He agrees to the above HPI, physical exam, assessment and plan of care as dictated by the nurse practitioner.
--- NOTE | 2024-11-20 12:50 | IR ---
EXAMINATION TYPE: IR transcath infusion therapy DATE OF EXAM: 11/20/2024 FLUOROSCOPY bilateral PE, 27.1min fluoro, 49.2Gycm2, 6 images are submitted. [facility], , 11/20/2024 12:48 PM
--- NOTE | 2024-11-20 13:02 | CA ---
Transthoracic Echo Report Name: Bhupinder Piña Age: 69 Gender: M : 1955 Exam Date: 11/20/2024 08:48 Exam Location: [facility] Ht (in): 70 Wt (lb): 297 Ordering Physician: Patricio Santiago DO Attending/Referring Phys: Department [employer] Nataliya Sotelo RDCS Procedure CPT: Indications: embolism Cardiac Hx: Technical Quality: Fair Contrast 1: Total Dose (mL): Contrast 2: Total Dose (mL): MEASUREMENTS (Male / Female) Normal Values 2D ECHO LV Diastolic Diameter PLAX 4.0 cm 4.2 - 5.9 / 3.9 - 5.3 cm LV Systolic Diameter PLAX 2.7 cm IVS Diastolic Thickness 1.0 cm 0.6 - 1.0 / 0.6 - 0.9 cm LVPW Diastolic Thickness 1.1 cm 0.6 - 1.0 / 0.6 - 0.9 cm LV Relative Wall Thickness 0.5 LVOT Diameter 2.3 cm Aortic Root Diameter 3.0 cm LV Diastolic Volume MOD BP 87.4 cm??? 67 - 155 / 56 - 104 cm??? LV Systolic Volume MOD BP 32.2 cm??? 22 - 58 / 19 - 49 cm??? LV Ejection Fraction MOD BP 63.2 % >= 55 % LV Cardiac Index MOD BP 1941.8 cm???/min???m??? LV Diastolic Volume MOD 4C 84.3 cm??? LV Systolic Volume MOD 4C 30.2 cm??? LV Ejection Fraction MOD 4C 64.2 % LV Cardiac Index MOD 4C 1903.9 cm???/min???m??? LV Diastolic Length 4C 7.4 cm LV Systolic Length 4C 6.2 cm LV Diastolic Volume MOD 2C 86.4 cm??? LV Systolic Volume MOD 2C 34.1 cm??? LV Ejection Fraction MOD 2C 60.6 % LV Cardiac Index MOD 2C 1843.1 cm???/min???m??? LV Diastolic Length 2C 7.0 cm LV Systolic Length 2C 6.1 cm LA Volume 39.1 cm??? 18 - 58 / 22 - 52 cm??? LA Volume Index 14.8 cm???/m??? 16 - 28 cm???/m??? Ascending Aorta Diameter 3.3 cm DOPPLER AV Peak Velocity 134.5 cm/s AV Peak Gradient 7.2 mmHg AV Mean Velocity 93.0 cm/s AV Mean Gradient 3.8 mmHg AV Velocity Time Integral 23.4 cm LVOT Peak Velocity 106.4 cm/s LVOT Peak Gradient 4.5 mmHg LVOT Velocity Time Integral 18.5 cm LVOT Stroke Volume 75.4 cm??? LVOT Stroke Volume Index 30.5 ml/m??? LVOT Cardiac Index 2652.9 cm???/min???m??? AV Area Cont Eq vti 3.2 cm??? AV Area Cont Eq pk 3.2 cm??? TR Peak Velocity 284.9 cm/s TR Peak Gradient 32.5 mmHg Right Atrial Pressure 20.0 mmHg Pulmonary Artery Systolic Pressu 52.5 mmHg Right Ventricular Systolic Press 52.5 mmHg PV Peak Velocity 88.7 cm/s PV Peak Gradient 3.1 mmHg FINDINGS Left Ventricle Left ventricular ejection fraction is estimated at 60 %. Left ventricular cavity size normal. Left ventricular wall thickness normal. No obvious regional wall motion abnormalities. Right Ventricle Severe right ventricular dilatation with moderately reduced function. Moderate to severe pulmonary hypertension. Right Atrium Severe right atrial dilatation. Left Atrium Left atrial dilatation. Mitral Valve Structurally normal mitral valve. No evidence for mitral valve prolapse. No mitral stenosis. Trace mitral regurgitation. Aortic Valve Trileaflet aortic valve. Aortic valve sclerosis. No aortic valve stenosis or regurgitation. Tricuspid Valve Structurally normal tricuspid valve. No tricuspid stenosis. [id number] tricuspid regurgitation. Pulmonic Valve Structurally normal pulmonic valve. No pulmonic stenosis. Trace pulmonic regurgitation. Pericardium No pericardial effusion. Left pleural effusion. Aorta Normal size aortic root and proximal ascending aorta. CONCLUSIONS Normal LV systolic function Moderate to severe pulmonary hypertension Dilated right ventricle Mild to moderate TR Previewed by: Dr. Cy Fu MD (Electronically Signed) Final Date: 20 November 2024 13:02
--- NOTE | 2024-11-20 15:42 | P.PN ---
Subjective Progress Note Date: 11/20/24 Principal diagnosis: Reason for follow-up is right ankle osteomyelitis Patient is a 69-year-old male with a past medical history significant for hypertension diabetes mellitus anxiety, he did have a Charcot foot diabetic foot infection status post left below the knee amputation and the patient recently did have multiple surgery on his left foot and ankle area including placement of a titanium car infectious subsequent removal and has been dealing with infection and currently on combination of IV vancomycin and ertapenem brought to the hospital the patient was found to be on the floor has been diagnosed with PE with right heart strain and this patient was status post EKOS procedure and subsequent admission to the ICU. On today's evaluation that is 11/20/2024,the patient remains to be afebrile, patient is on 15 L high flow nasal cannula supplemental oxygen and denies any shortness of breath no chest pain or cough.Patient denies having any nausea or vomiting, no abdominal pain and no diarrhea or pain to the right foot and ankle area. Patient white count 6.8, creat is 1.53 blood cultures currently pending Objective - Vital Signs Vital signs: Vital Signs Temp 97.4 F L 11/20/24 12:15 Pulse 121 H 11/20/24 15:00 Resp 14 11/20/24 15:00 BP 117/86 11/20/24 14:45 Pulse Ox 92 L 11/20/24 15:00 FiO2 Intake & Output 11/19/24 11/20/24 11/20/24 18:59 06:59 18:59 Intake Total 111.517 334.312 765 Output Total 1400 450 Balance 111.517 -1065.688 315 Intake: IV 565 Sodium Chloride 0.9% 1, 420 000 ml @ 35 mls/hr IV . Q24H [facility] Rx#:[id number] Intake, IV Titration 111.517 334.312 Amount Heparin Sod,Pork in 0.45% 111.517 334.312 NaCl 25,000 unit In 0.45 % NaCl 1 250ml.bag @ 18 UNITS/KG/HR 16.084 mls/hr IV .[id number] [facility] Rx#: [id number] Oral 200 Output: Urine 1400 450 - Exam GENERAL DESCRIPTION: An elderly male lying in bed in no distress RESPIRATORY SYSTEM: Unlabored breathing , decreased breath sounds at bases HEART: S1 S2 regular rate and rhythm , ABDOMEN: Soft , no tenderness EXTREMITIES: Right ankle wound is currently covered with a wound VAC - Labs CBC & Chem 7: 11/20/24 10:03 11/20/24 10:03 Labs: Abnormal Lab Results - Last 24 Hours (Table) 11/19/24 11/20/24 11/20/24 Range/Units 17:24 05:35 05:35 RBC (4.30-5.90) m/uL Hgb (13.0-17.5) gm/dL Hct (39.0-53.0) % MCV (80.0-100.0) fL MCHC (31.0-37.0) g/dL RDW (11.5-15.5) % Lymphocytes # (1.0-4.8) k/uL PT (10.0-12.5) sec INR (<1.2) APTT 47.4 H (22.0-30.0) sec Fibrinogen (200-500) mg/dL Sodium 133 L (137-145) mmol/L Carbon Dioxide 20 L (22-30) mmol/L BUN 54 H (9-20) mg/dL Creatinine 1.62 H (0.66-1.25) mg/dL Glucose 132 H (74-99) mg/dL POC Glucose (mg/dL) 147 H (70-110) mg/dL Magnesium 2.6 H (1.6-2.3) mg/dL Total Protein 6.2 L (6.3-8.2) g/dL Albumin 3.1 L (3.5-5.0) g/dL 11/20/24 11/20/24 11/20/24 Range/Units 05:35 10:03 10:03 RBC 3.43 L 3.47 L (4.30-5.90) m/uL Hgb 8.8 L 8.8 L (13.0-17.5) gm/dL Hct 27.4 L 28.4 L (39.0-53.0) % MCV 79.8 L (80.0-100.0) fL MCHC 30.9 L (31.0-37.0) g/dL RDW 16.4 H 16.2 H (11.5-15.5) % Lymphocytes # 0.7 L 0.8 L (1.0-4.8) k/uL PT 12.6 H (10.0-12.5) sec INR 1.2 H (<1.2) APTT 48.0 H (22.0-30.0) sec Fibrinogen 553 H (200-500) mg/dL Sodium (137-145) mmol/L Carbon Dioxide (22-30) mmol/L BUN (9-20) mg/dL Creatinine (0.66-1.25) mg/dL Glucose (74-99) mg/dL POC Glucose (mg/dL) (70-110) mg/dL Magnesium (1.6-2.3) mg/dL Total Protein (6.3-8.2) g/dL Albumin (3.5-5.0) g/dL 11/20/24 11/20/24 Range/Units 10:03 12:12 RBC (4.30-5.90) m/uL Hgb (13.0-17.5) gm/dL Hct (39.0-53.0) % MCV (80.0-100.0) fL MCHC (31.0-37.0) g/dL RDW (11.5-15.5) % Lymphocytes # (1.0-4.8) k/uL PT (10.0-12.5) sec INR (<1.2) APTT (22.0-30.0) sec Fibrinogen (200-500) mg/dL Sodium 135 L (137-145) mmol/L Carbon Dioxide 19 L (22-30) mmol/L BUN 54 H (9-20) mg/dL Creatinine 1.53 H (0.66-1.25) mg/dL Glucose 133 H (74-99) mg/dL POC Glucose (mg/dL) 150 H (70-110) mg/dL Magnesium (1.6-2.3) mg/dL Total Protein (6.3-8.2) g/dL Albumin (3.5-5.0) g/dL Microbiology - Last 24 Hours (Table) 11/18/24 16:44 Blood Culture - Preliminary Blood 11/18/24 16:46 Blood Culture - Preliminary Blood Assessment and Plan (1) Ankle osteomyelitis, right Current Visit: Yes Status: Acute Code(s): M86.9 - OSTEOMYELITIS, UNSPECIFIED SNOMED Code(s): 0210399801167113 (2) Charcot foot due to diabetes mellitus Current Visit: No Status: Acute Code(s): E11.610 - TYPE 2 DIABETES MELLITUS W DIABETIC NEUROPATHIC ARTHROPATHY SNOMED Code(s): 780209198 (3) Diabetic foot ulcer Current Visit: No Status: Acute Code(s): E11.621 - TYPE 2 DIABETES MELLITUS WITH FOOT ULCER; L97.509 - NON-PRESSURE CHRONIC ULCER OTH PRT UNSP FOOT W UNSP SEVERITY SNOMED Code(s): 163535135 Plan: 1patient with a complicated history of right Charcot foot and this patient did have multiple surgeries most of his care has been done at [facility] and I do not have any access to those records and the patient is currently dealing with an infection and getting IV vancomycin and ertapenem in the outpatient setting now being admitted to hospital after the patient did have a fall and has been diagnosed with a PE x-rays were suspicious for pneumonia however the patient did not have significant cough or sputum production to be suspicious for pneumonia 2-wound will be reevaluated with the next wound VAC change which apparently will happen today as per discussion with ICU nurse 3patient will be treated with vancomycin pharmacy dose watching his creatinine and Vanco trough closely along with ertapenem Dictation was produced using [employer] dictation software. please excuse any grammatical, word or spelling errors.
[2024-11-20 17:45] LABS: Glucose,Whole Blood 140 mg/dL (70-110)
[2024-11-20] MEDS ORDERED: HEPARIN SODIUM 1,000 UN/ML (10ML VL) IV PRN (17:55)
[2024-11-20] MEDS: HEPARIN SODIUM 1,000 UN/ML (10ML VL) IV ONE (18:13)
[2024-11-20 19:36] LABS: Glucose,Whole Blood 194 mg/dL (70-110)
[2024-11-20] MEDS: METOPROLOL TARTRATE 25 MG TAB PO SCH (20:19)
[2024-11-20] MEDS: VANCOMYCIN 1,500 MG in SODIUM CHLORIDE 0.9% 500 ML 500 ML IVPB SCH (20:31)
[2024-11-21 06:06] LABS: Anisocytosis Slight; Basophils % (A) 0 %; Eosinophils # (A) 0.1 k/uL (0-0.7); Eosinophils % (A) 2 %; HCT 26.3 % (39.0-53.0); HGB 8.5 gm/dL (13.0-17.5); Hypochromasia Moderate; Lymphocytes % (A) 20 %; MCH 25.9 pg (25.0-35.0); MCHC 32.3 g/dL (31.0-37.0); MCV 80.1 fL (80.0-100.0); Mean Platelet Volume 7.5; Microcytosis Slight; Monocytes # (A) 0.3 k/uL (0-1.0); Monocytes % (A) 7 %; Neutrophils # (A) 3.4 k/uL (1.3-7.7); Neutrophils % (A) 70 %; Platelet Count 321 k/uL (150-450); RBC 3.28 m/uL (4.30-5.90); RDW 16.5 % (11.5-15.5); WBC 4.9 k/uL (3.8-10.6)
[2024-11-21 06:14] LABS: African American GFR (CKD) 54 (>60 ml/min/1.73 sqM); Anion Gap 8 mmol/L; Blood Urea Nitrogen 47 mg/dL (9-20); Calcium 8.1 mg/dL (8.4-10.2); Carbon Dioxide 22 mmol/L (22-30); Chloride 104 mmol/L (98-107); Glucose 111 mg/dL (74-99); Non-African American GFR(CKD) 47 (>60 ml/min/1.73 sqM); Potassium 4.2 mmol/L (3.5-5.1); Sodium 134 mmol/L (137-145)
[2024-11-21 06:26] LABS: INR 1.2 (<1.2); Partial Thromboplastin Time 71.5 sec (22.0-30.0); Prothrombin Time 12.9 sec (10.0-12.5)
[2024-11-21 06:26] LABS: Glucose,Whole Blood 119 mg/dL (70-110)
--- NOTE | 2024-11-21 07:25 | P.PN ---
Subjective Progress Note Date: 11/21/24 PROGRESS NOTE The patient is a 69-year-old male with a history of diabetes, diabetic foot ulcers, hypertension, diabetes, status post left BKA who presented with an acute dyspnea and was found to have bilateral pulmonary embolism. He had evidence of right ventricular strain on his CT scan as well as evidence of pulmonary hypertension on his echocardiogram. He underwent EKOS procedure yesterday. He is stable this morning, he has some dyspnea but denies any chest discomfort, dizziness or palpitations. He appears to be in atrial flutter since admission, he had episodes of rapid ventricular response last night and was initiated on oral beta-scott. His blood pressure is stable. His urinary output has been stable. He has evidence of anemia and chronic kidney disease on admission. Medications: Amlodipine 5 mg daily, atorvastatin 40 mg daily, metoprolol tartrate 25 mg twice a day. Vancomycin. His IV heparin was held earlier this morning. PHYSICAL EXAMINATION: Blood pressure 111/70 heart rate 60 LUNGS: Clear to auscultation HEART: Irregular r rate and rhythm, S1, S2. No S3. Systolic ejection murmur ABDOMEN: Soft, nontender, no organomegaly EXTREMETIES: No edema, status post left BKA, right groin with no hematoma, 2 venous sheath noted. LAB: Hemoglobin 8.5, BUN 47, creatinine 1.5. IMPRESSION: 1. Status post bilateral pulmonary embolism with associated hypoxemia, status post EKOS procedure 2. Atrial flutter with controlled ventricular response, could be exacerbated by the pulmonary embolism 3. Status post left BKA and Charcot's foot ulcer 4. History of diabetes 5. Chronic kidney disease 6. Chronic anemia 7. History of hypertension 8. Hyperlipidemia PLAN: 1. Remove venous sheath 2. Start Eliquis 10 mg twice a day 3. Follow renal function and hemoglobin 4. Increase activity as tolerated 5. Depending on his progress further recommendations will be made Objective - Vital Signs Vital signs: Vital Signs Temp 97.7 F 11/21/24 04:00 Pulse 63 11/21/24 07:00 Resp 14 11/21/24 07:00 BP 111/69 11/21/24 07:00 Pulse Ox 98 11/21/24 07:00 FiO2 Intake & Output 11/20/24 11/21/24 11/21/24 18:59 06:59 18:59 Intake Total 1010 1289.763 35 Output Total 450 650 0 Balance 560 639.763 35 Weight 89.358 kg 92.8 kg Intake: IV 810 920 35 Sodium Chloride 0.9% 1, 665 420 35 000 ml @ 35 mls/hr IV . Q24H [facility] Rx#:[id number] Vancomycin 1,500 mg In 500 Sodium Chloride 0.9% 500 ml 500 ml @ 167 mls/hr IVPB Q24H [facility] Rx#: [id number] Intake, IV Titration 169.763 Amount Heparin Sod,Pork in 0.45% 169.763 NaCl 25,000 unit In 0.45 % NaCl 1 250ml.bag @ 18 UNITS/KG/HR 16.084 mls/hr IV .[id number] [facility] Rx#: [id number] Oral 200 200 Output: Urine 450 650 0 Other: Voiding Method Urinal # Voids 1 - Labs CBC & Chem 7: 11/21/24 05:02 11/21/24 05:02 Labs: Abnormal Lab Results - Last 24 Hours (Table) 11/20/24 11/20/24 11/20/24 Range/Units 10:03 10:03 10:03 RBC 3.47 L (4.30-5.90) m/uL Hgb 8.8 L (13.0-17.5) gm/dL Hct 28.4 L (39.0-53.0) % MCHC 30.9 L (31.0-37.0) g/dL RDW 16.2 H (11.5-15.5) % Lymphocytes # 0.8 L (1.0-4.8) k/uL PT 12.6 H (10.0-12.5) sec INR 1.2 H (<1.2) APTT 48.0 H (22.0-30.0) sec Fibrinogen 553 H (200-500) mg/dL Sodium 135 L (137-145) mmol/L Carbon Dioxide 19 L (22-30) mmol/L BUN 54 H (9-20) mg/dL Creatinine 1.53 H (0.66-1.25) mg/dL Glucose 133 H (74-99) mg/dL POC Glucose (mg/dL) (70-110) mg/dL Calcium (8.4-10.2) mg/dL 11/20/24 11/20/24 11/20/24 Range/Units 12:12 17:43 19:34 RBC (4.30-5.90) m/uL Hgb (13.0-17.5) gm/dL Hct (39.0-53.0) % MCHC (31.0-37.0) g/dL RDW (11.5-15.5) % Lymphocytes # (1.0-4.8) k/uL PT (10.0-12.5) sec INR (<1.2) APTT (22.0-30.0) sec Fibrinogen (200-500) mg/dL Sodium (137-145) mmol/L Carbon Dioxide (22-30) mmol/L BUN (9-20) mg/dL Creatinine (0.66-1.25) mg/dL Glucose (74-99) mg/dL POC Glucose (mg/dL) 150 H 140 H 194 H (70-110) mg/dL Calcium (8.4-10.2) mg/dL 11/21/24 11/21/24 11/21/24 Range/Units 00:00 05:02 05:02 RBC 3.28 L (4.30-5.90) m/uL Hgb 8.5 L (13.0-17.5) gm/dL Hct 26.3 L (39.0-53.0) % MCHC (31.0-37.0) g/dL RDW 16.5 H (11.5-15.5) % Lymphocytes # (1.0-4.8) k/uL PT 12.9 H (10.0-12.5) sec INR 1.2 H (<1.2) APTT 118.5 H* 71.5 H (22.0-30.0) sec Fibrinogen (200-500) mg/dL Sodium (137-145) mmol/L Carbon Dioxide (22-30) mmol/L BUN (9-20) mg/dL Creatinine (0.66-1.25) mg/dL Glucose (74-99) mg/dL POC Glucose (mg/dL) (70-110) mg/dL Calcium (8.4-10.2) mg/dL 11/21/24 11/21/24 Range/Units 05:02 06:25 RBC (4.30-5.90) m/uL Hgb (13.0-17.5) gm/dL Hct (39.0-53.0) % MCHC (31.0-37.0) g/dL RDW (11.5-15.5) % Lymphocytes # (1.0-4.8) k/uL PT (10.0-12.5) sec INR (<1.2) APTT (22.0-30.0) sec Fibrinogen (200-500) mg/dL Sodium 134 L (137-145) mmol/L Carbon Dioxide (22-30) mmol/L BUN 47 H (9-20) mg/dL Creatinine 1.50 H (0.66-1.25) mg/dL Glucose 111 H (74-99) mg/dL POC Glucose (mg/dL) 119 H (70-110) mg/dL Calcium 8.1 L (8.4-10.2) mg/dL Microbiology - Last 24 Hours (Table) 11/18/24 16:44 Blood Culture - Preliminary Blood 11/18/24 16:46 Blood Culture - Preliminary Blood
[2024-11-21] MEDS: APIXABAN 5 MG TAB PO SCH ×2 (08:36→21:01)
[2024-11-21 11:15] LABS: Glucose,Whole Blood 141 mg/dL (70-110)
--- NOTE | 2024-11-21 13:30 | P.PN ---
Subjective Progress Note Date: 11/21/24 This is a 69-year-old male patient with a known history of diabetes mellitus, hypertension, former smoker, anxiety who was diagnosed with osteomyelitis in September 2024 of the right heel. He is receiving vancomycin and ertapenem in the outpatient setting by visiting nurses. Wound VAC is in place. Yesterday he had slipped to the floor from his chair and was unable to get up. EMS was called and he was brought into the emergency room. Chest x-ray revealed a left basilar infiltrate. Mild pulmonary vascular congestion. CT scan of the brain revealed no acute intracranial process. CT angiogram revealed a saddle pulmonary embolus with evidence of right heart strain with an RV/LV ratio of 1.35. Bibasilar airspace opacities. Atelectasis of the left lung base. Small bilateral effusions. EKG reveals atrial flutter. White count 6.0. Hemoglobin 8.2. Platelets 342. Sodium 133. Potassium 4.5. Bicarb 22. BUN 59. Creatinine 1.91. Glucose 111. Troponin 0.026, 0.038. Viral screen negative. He has been initiated on a heparin drip. Echocardiogram is pending. He is seen today in consultation in the emergency department. Currently resting on the stretcher. Awake and alert in no acute distress. He is maintaining O2 saturations in the 90s on 4 L/min per nasal cannula. He currently denies any worsening shortness of breath, cough or congestion. No hemoptysis. No chest pain. Hemodynamically stable. He has been quite sedentary due to the right heel osteomyelitis and he is a left below the knee amputee. The patient is seen today November 20, 20[facility] He is awake and alert in no acute distress. Resting fairly comfortable on a stretcher. He is now requiring 10 L high flow nasal cannula. He remains on a heparin drip. He remains on vancomycin and ertapenem. Cardiology is planning possible EKOS today. White count 6.8. Hemoglobin 8.8. Platelets 361. INR 1.2. Sodium 135. Potassium 4.3. Bicarb 19. BUN 54. Creatinine 1.53. Glucose 133. The patient follow-up on the in the intensive care unit. He is status post EKOS procedure. Postoperative day #1. His sheath has been removed. His heparin drip has been transition to Eliquis. He remains on normal staying at 35 mL/h. He is still requiring 10 L high flow nasal cannula to maintain O2 saturation in the 90s. He is continued on vancomycin and ertapenem for his previous infections of the right lower extremity. 321. INR 1.2. Sodium 134. Potassium 4.2. Bicarb 22. BUN 47. Creatinine 1.50. Glucose 111. Objective - Vital Signs Vital signs: Vital Signs Temp 98.4 F 11/21/24 12:00 Pulse 68 11/21/24 13:00 Resp 12 11/21/24 13:00 BP 118/83 11/21/24 13:00 Pulse Ox 92 L 11/21/24 13:00 FiO2 Intake & Output 11/20/24 11/21/24 11/21/24 18:59 06:59 18:59 Intake Total 1010 1289.763 845 Output Total 450 650 0 Balance 560 639.763 845 Weight 89.358 kg 92.8 kg Intake: IV 810 920 245 Sodium Chloride 0.9% 1, 665 420 245 000 ml @ 35 mls/hr IV . Q24H [facility] Rx#:[id number] Vancomycin 1,500 mg In 500 Sodium Chloride 0.9% 500 ml 500 ml @ 167 mls/hr IVPB Q24H [facility] Rx#: [id number] Intake, IV Titration 169.763 Amount Heparin Sod,Pork in 0.45% 169.763 NaCl 25,000 unit In 0.45 % NaCl 1 250ml.bag @ 18 UNITS/KG/HR 16.084 mls/hr IV .[id number] [facility] Rx#: [id number] Oral 200 200 600 Output: Urine 450 650 0 Other: Voiding Method Urinal Urinal # Voids 1 - Exam GENERAL EXAM: Alert, pleasant 69-year-old male, on 10 L high flow nasal cannula, comfortable in no apparent distress. HEAD: Normocephalic. EYES: Normal reaction of pupils, equal size. NOSE: Clear with pink turbinates. THROAT: No erythema or exudates. NECK: No masses, no JVD. CHEST: No chest wall deformity. LUNGS: Equal air entry with no crackles, wheeze, rhonchi or dullness. CVS: S1 and S2 normal with no audible murmur, irregular rhythm. ABDOMEN: No hepatosplenomegaly, normal bowel sounds, no guarding or rigidity. SPINE: No scoliosis or deformity SKIN: No rashes CENTRAL NERVOUS SYSTEM: No focal deficits, tone is normal in all 4 extremities. EXTREMITIES: Groin sites clean and dry. Left below the knee amputee. Right lower extremity in a Calvin wrap. Wound VAC in place. - Labs CBC & Chem 7: 11/21/24 05:02 11/21/24 05:02 Labs: Abnormal Lab Results - Last 24 Hours (Table) 11/20/24 11/20/24 11/21/24 Range/Units 17:43 19:34 00:00 RBC (4.30-5.90) m/uL Hgb (13.0-17.5) gm/dL Hct (39.0-53.0) % RDW (11.5-15.5) % PT (10.0-12.5) sec INR (<1.2) APTT 118.5 H* (22.0-30.0) sec Sodium (137-145) mmol/L BUN (9-20) mg/dL Creatinine (0.66-1.25) mg/dL Glucose (74-99) mg/dL POC Glucose (mg/dL) 140 H 194 H (70-110) mg/dL Hemoglobin A1c (<=6.0) % Calcium (8.4-10.2) mg/dL 11/21/24 11/21/24 11/21/24 Range/Units 05:02 05:02 05:02 RBC 3.28 L (4.30-5.90) m/uL Hgb 8.5 L (13.0-17.5) gm/dL Hct 26.3 L (39.0-53.0) % RDW 16.5 H (11.5-15.5) % PT 12.9 H (10.0-12.5) sec INR 1.2 H (<1.2) APTT 71.5 H (22.0-30.0) sec Sodium (137-145) mmol/L BUN (9-20) mg/dL Creatinine (0.66-1.25) mg/dL Glucose (74-99) mg/dL POC Glucose (mg/dL) (70-110) mg/dL Hemoglobin A1c 6.1 H (<=6.0) % Calcium (8.4-10.2) mg/dL 11/21/24 11/21/24 11/21/24 Range/Units 05:02 06:25 11:14 RBC (4.30-5.90) m/uL Hgb (13.0-17.5) gm/dL Hct (39.0-53.0) % RDW (11.5-15.5) % PT (10.0-12.5) sec INR (<1.2) APTT (22.0-30.0) sec Sodium 134 L (137-145) mmol/L BUN 47 H (9-20) mg/dL Creatinine 1.50 H (0.66-1.25) mg/dL Glucose 111 H (74-99) mg/dL POC Glucose (mg/dL) 119 H 141 H (70-110) mg/dL Hemoglobin A1c (<=6.0) % Calcium 8.1 L (8.4-10.2) mg/dL Microbiology - Last 24 Hours (Table) 11/18/24 16:44 Blood Culture - Preliminary Blood 11/18/24 16:46 Blood Culture - Preliminary Blood Assessment and Plan Assessment: Acute hypoxemic respiratory failure secondary to saddle pulmonary embolism with right heart strain, suspect provoked due to sedentary lifestyle and atrial flutter. Status post EKOS November 20, 2024, transitioned to Eliquis Generalized weakness unable to get up off the floor secondary to above Atrial flutter Acute kidney injury Troponin leak Anemia Osteomyelitis of the right heel diagnosed in September 2024. Maintained on vancomycin and ertapenem in the outpatient setting Diabetes mellitus Pretension History of anxiety BPH Left below the knee amputee Poor functional performance based on the above-mentioned multiple comorbidities Plan: The patient was seen and evaluated Labs and medications reviewed Procedure done yesterday Transitioned to Eliquis Continue vancomycin and ertapenem Titrate down the FiO2 as tolerated Possible transfer to the selective care unit later today We will continue to follow I have personally seen and examined the patient, performed the documentation and the assessment and plan as written. Number of minutes spent on the visit: 10. Dictation was produced using [employer] dictation software. Please excuse any grammatical, word or spelling errors. This patient was seen in coordination with the pulmonary/critical care physician, Dr. Jacques. He did spend greater than 50% of the time evaluating, examining and developing the plan of care. He agrees to the above HPI, physical exam, assessment and plan of care as dictated by the nurse practitioner.
[2024-11-21 15:51] LABS: Glucose,Whole Blood 211 mg/dL (70-110)
--- NOTE | 2024-11-21 16:00 | CDI ---
Documentation Clarification Form Date: 11/21/2024 03:57:04 PM From: Tiara Moreau RN, CCDS Phone: [phone] Admit Date: 11/18/2024 03:56:00 PM Patient Name: Bhupinder Piña Visit Number: [id number] Discharge Date: ATTENTION: The Clinical Documentation Specialists (CDI) and [facility] Coding Staff appreciate your assistance in clarifying documentation. Please respond to the clarification below the line at the bottom and electronically sign. The CDI & [facility] Coding staff will review the response and follow-up if needed. Please note: Queries are made part of the Legal Health Record. If you have any questions, please contact the author of this message via ITS. Doctor. Gary Jacques Your patient has documentation of Saddle pulmonary embolus with evidence of right heart strain. RV/LV ratio 1.35. Based on this information and the findings below, is there an additional diagnosis that is clinically appropriate for this patient? Patient history/risk factors: Diabetes Mellitus, Hypertension, Former smoker Clinical Indicators: 69-year-old male presenting to the ED with weakness, a little bit short of breath. 11/18 ruled in for saddle pulmonary embolism with right heart strain. 11/18 VS 148/86 109 18 97.5 94% 4L NC WBC 8.4 HGB 8.9 BNP 682, Troponin I 0.038 EKG: Right bundle branch block. Nonspecific ST-T) Atrial flutter vent rate 108 CXR shows no significant signs of pulmonary congestion 1/2 ECHO: Normal LV systolic function. Moderate to severe pulmonary hypertension Dilated right ventricle. Mild to moderate TR. Pleural effusion. Aortic sclerosis Treatment: Cardiac Telemetry monitoring Vancomycin HCl 1,500 IVPB Q 24 HRS (PTH) Ertapenem 1 gm IVPB Q Day IV Heparin drip per orders 1/2 EKOS procedure Is there an additional diagnosis that is clinically appropriate for this patient? [ ] Saddle pulmonary embolus with evidence of right heart strain with RV LV ratio 1.3 with acute Cor Pulmonale [ X] Saddle pulmonary embolus with evidence of right heart strain with RV LV ratio 1.3 without acute Cor Pulmonale [ ] Unable to determine [ ] Other, please specify (Template Last Reviewed: December 2022) MTDD
--- NOTE | 2024-11-21 17:01 | P.PN ---
Subjective Progress Note Date: 11/21/24 69-year-old male with history of type 2 diabetes, hypertension, Charcot foot with left BKA and recent right ankle surgery status post wound VAC and currently on IV antibiotics, presenting with shortness of breath and weakness. In the ED, T 97.5, HR 109, RR 18, BP 148/86, 94% on RA. CBC, Coag panel, CMP significant for RBC 3.5, Hg 8.9, Hct 27.3, MCV 78.2, PT 15.2, INR 1.5, APTT 79, Na 132, Cl 97, bicarb 20, BUN 58, Cr 1.82, glu 162. Troponin 0.018. BNP 682. Mag 2.4. Lactic acid 1.9. TSH 2.65. D-Dimer 12.61. Head CT did not show any acute process. Chest CTA showed saddle pulmonary embolism with evidence of right heart strain, bibasilar airspace opacities concerning for pneumonia versus early pulmonary infarct, small bilateral pleural effusions. EKG showed atrial tachycardia, right bundle branch block, S1Q3T3 pattern, significant T wave depressions and anterior septal leads, flattening of T waves in lateral leads. Patient was started on heparin drip and admitted for further workup and managem ent. Cardiology and Pulmonary consulted. Underwent EKOS on 11/20. Echo showed EF 60%, mod-severe pulmonary HTN, mild-mod TR. 11/21 Patient was seen and examined. Reports improved breathing. Currently on 2L NC. Cardiology recommends DC Heparin drip and start Eliquis. Antibiotics include Vancomycin and Ertapenem for treatment of R foot wound. CBC, Coag panel, BMP significant for RBC 3.28, Hg 8.2, Hct 26.3, PT 12.9, INR 1.2, APTT 71.5, Na 134, BUN 47, Cr 1.5, glu 111, Ca 8.1. A1c 6.1. General: nontoxic, no distress, appears at stated age, chronically ill-appearing Derm: warm, dry Head: atraumatic, normocephalic, symmetric Eyes: EOMI, no lid lag, anicteric sclera ENT: Nose and ears atraumatic Neck: No thyromegaly, supple Mouth: no lip lesion, mucus membranes moist Cardiovascular: S1S2 reg, no murmur, no edema Lungs: Clear to auscultation bilateral, no rhonchi, no rales, no wheeze, no accessory muscle use, supplemental oxygen Abdominal: soft, nontender to palpation, no guarding, no appreciable organomegaly Ext: Left BKA, right foot covered in dressing with a wound VAC. Left arm PICC line. Psych: Alert, oriented, appropriate affect Based on my assessment of this patient, this patient meets a high complexity level of care. Acute submassive PE: Post EKOS. Transition from Heparin drip to Eliquis 10 mg PO BID today. Telemetry monitoring. Supplemental O2 to maintain O2 sat > 92%. Car diology and Pulmonary on board. Acute hypoxic respiratory failure secondary to above Suspected community-acquired pneumonia: Patient is adequately covered on Ertapenem 1g IV QD and Vancomycin dosed per pharmacy. Microcytic anemia: Iron studies shows Fe def anemia. Appears at baseline. Monitor for signs of bleeding. Atrial tachycardia: Metoprolol 25 mg PO BID. Eliquis as above for AC. CKD stage III at baseline Type 2 diabetes: A1c 6.1. ISS and accuchecks ACHS. Hypoglycemic precautions. Hypertension: Amlodipine 5 mg PO QD. Metoprolol as above. Recent right ankle reconstruction with a wound VAC: Ertapenem and Vancomycin as above. ID on board. CODE STATUS: FULL CODE. DVT Prophylaxis: Eliquis. GI Prophylaxis: Designated medical POA if patient is not able to make medical decisions for themselves: I have reviewed the following valuation consultant notes: Pulmonary, Cardiology, ID note. I have reviewed the results of the following tests: CBC, Coag panel, BMP. A1c. I have ordered the following tests: Repeat CBC and BMP in the AM. I have discussed the care of this patient with the following independent historian: HARJEET. I have independently interpreted the following test below: Objective - Vital Signs Vital signs: Vital Signs Temp 97.6 F 11/21/24 16:00 Pulse 79 11/21/24 16:00 Resp 17 11/21/24 16:00 BP 115/79 11/21/24 16:00 Pulse Ox 94 L 11/21/24 16:00 FiO2 Intake & Output 11/20/24 11/21/24 11/21/24 18:59 06:59 18:59 Intake Total 1010 1289.763 950 Output Total 450 650 400 Balance 560 639.763 550 Weight 89.358 kg 92.8 kg Intake: IV 810 920 350 Sodium Chloride 0.9% 1, 665 420 350 000 ml @ 35 mls/hr IV . Q24H [facility] Rx#:[id number] Vancomycin 1,500 mg In 500 Sodium Chloride 0.9% 500 ml 500 ml @ 167 mls/hr IVPB Q24H [facility] Rx#: [id number] Intake, IV Titration 169.763 Amount Heparin Sod,Pork in 0.45% 169.763 NaCl 25,000 unit In 0.45 % NaCl 1 250ml.bag @ 18 UNITS/KG/HR 16.084 mls/hr IV .[id number] [facility] Rx#: [id number] Oral 200 200 600 Output: Urine 450 650 400 Other: Voiding Method Urinal Urinal # Voids 1 - Labs CBC & Chem 7: 11/21/24 05:02 11/21/24 05:02 Labs: Abnormal Lab Results - Last 24 Hours (Table) 11/20/24 11/20/24 11/21/24 Range/Units 17:43 19:34 00:00 RBC (4.30-5.90) m/uL Hgb (13.0-17.5) gm/dL Hct (39.0-53.0) % RDW (11.5-15.5) % PT (10.0-12.5) sec INR (<1.2) APTT 118.5 H* (22.0-30.0) sec Sodium (137-145) mmol/L BUN (9-20) mg/dL Creatinine (0.66-1.25) mg/dL Glucose (74-99) mg/dL POC Glucose (mg/dL) 140 H 194 H (70-110) mg/dL Hemoglobin A1c (<=6.0) % Calcium (8.4-10.2) mg/dL 11/21/24 11/21/24 11/21/24 Range/Units 05:02 05:02 05:02 RBC 3.28 L (4.30-5.90) m/uL Hgb 8.5 L (13.0-17.5) gm/dL Hct 26.3 L (39.0-53.0) % RDW 16.5 H (11.5-15.5) % PT 12.9 H (10.0-12.5) sec INR 1.2 H (<1.2) APTT 71.5 H (22.0-30.0) sec Sodium (137-145) mmol/L BUN (9-20) mg/dL Creatinine (0.66-1.25) mg/dL Glucose (74-99) mg/dL POC Glucose (mg/dL) (70-110) mg/dL Hemoglobin A1c 6.1 H (<=6.0) % Calcium (8.4-10.2) mg/dL 11/21/24 11/21/24 11/21/24 Range/Units 05:02 06:25 11:14 RBC (4.30-5.90) m/uL Hgb (13.0-17.5) gm/dL Hct (39.0-53.0) % RDW (11.5-15.5) % PT (10.0-12.5) sec INR (<1.2) APTT (22.0-30.0) sec Sodium 134 L (137-145) mmol/L BUN 47 H (9-20) mg/dL Creatinine 1.50 H (0.66-1.25) mg/dL Glucose 111 H (74-99) mg/dL POC Glucose (mg/dL) 119 H 141 H (70-110) mg/dL Hemoglobin A1c (<=6.0) % Calcium 8.1 L (8.4-10.2) mg/dL 11/21/24 Range/Units 15:49 RBC (4.30-5.90) m/uL Hgb (13.0-17.5) gm/dL Hct (39.0-53.0) % RDW (11.5-15.5) % PT (10.0-12.5) sec INR (<1.2) APTT (22.0-30.0) sec Sodium (137-145) mmol/L BUN (9-20) mg/dL Creatinine (0.66-1.25) mg/dL Glucose (74-99) mg/dL POC Glucose (mg/dL) 211 H (70-110) mg/dL Hemoglobin A1c (<=6.0) % Calcium (8.4-10.2) mg/dL Microbiology - Last 24 Hours (Table) 11/18/24 16:44 Blood Culture - Preliminary Blood 11/18/24 16:46 Blood Culture - Preliminary Blood
[2024-11-21 20:22] LABS: Glucose,Whole Blood 218 mg/dL (70-110)
[2024-11-21] MEDS: VANCOMYCIN TROUGH DUE 1 EACH MISC MISCELLANE ONE (21:28)
[2024-11-22 06:23] LABS: Glucose,Whole Blood 146 mg/dL (70-110)
[2024-11-22 07:38] LABS: Anisocytosis Slight; HCT 27.1 % (39.0-53.0); HGB 8.7 gm/dL (13.0-17.5); Hypochromasia Marked; MCHC 31.9 g/dL (31.0-37.0); MCV 81.7 fL (80.0-100.0); Mean Platelet Volume 7.5; Platelet Count 320 k/uL (150-450); RBC 3.32 m/uL (4.30-5.90); RDW 16.7 % (11.5-15.5); WBC 5.3 k/uL (3.8-10.6)
[2024-11-22 07:47] LABS: INR 1.3 (<1.2); Prothrombin Time 14.1 sec (10.0-12.5)
[2024-11-22 08:03] LABS: African American GFR (CKD) 56 (>60 ml/min/1.73 sqM); Anion Gap 7 mmol/L; Blood Urea Nitrogen 42 mg/dL (9-20); Calcium 8.3 mg/dL (8.4-10.2); Carbon Dioxide 24 mmol/L (22-30); Chloride 107 mmol/L (98-107); Glucose 133 mg/dL (74-99); Non-African American GFR(CKD) 49 (>60 ml/min/1.73 sqM); Potassium 4.4 mmol/L (3.5-5.1); Sodium 138 mmol/L (137-145)
--- NOTE | 2024-11-22 09:05 | P.PN ---
Subjective Progress Note Date: 11/22/24 PROGRESS NOTE The patient is a 69-year-old male with a history of diabetes, diabetic foot ulcers, hypertension, diabetes, status post left BKA who presented with an acute dyspnea and was found to have bilateral pulmonary embolism. He had evidence of right ventricular strain on his CT scan as well as evidence of pulmonary hypertension on his echocardiogram. He underwent EKOS procedure yesterday. He is stable this morning, he has some dyspnea but denies any chest discomfort, dizziness or palpitations. He appears to be in atrial flutter since admission, he had episodes of rapid ventricular response last night and was initiated on oral beta-scott. His blood pressure is stable. His urinary output has been stable. He has evidence of anemia and chronic kidney disease on admission. November 22: The patient is feeling well this morning, his breathing is stable. He denies any chest discomfort. He feels that his breathing is better overall. He continues to require oxygen supplementation. He continues to be on oral anticoagulation, his sheath were removed yesterday. Hemodynamically stable. He is in atrial fibrillationflutter with controlled ventricular response. Medications: Amlodipine 5 mg daily, atorvastatin 40 mg daily, metoprolol tartrate 25 mg twice a day. Vancomycin. Eliquis 10 mg twice a day PHYSICAL EXAMINATION: Blood pressure 120/70 heart rate 74 LUNGS: Clear to auscultation HEART: Irregular rate and rhythm, S1, S2. No S3. Systolic ejection murmur ABDOMEN: Soft, nontender, no organomegaly EXTREMETIES: No edema, status post left BKA, right groin with no hematoma LAB: Hemoglobin 8.7, BUN 42, creatinine 1.44. IMPRESSION: 1. Status post bilateral pulmonary embolism with associated hypoxemia, status post EKOS procedure, improving 2. Atrial flutter with controlled ventricular response, could be exacerbated by the pulmonary embolism 3. Status post left BKA and Charcot's foot ulcer 4. History of diabetes 5. Chronic kidney disease 6. Chronic anemia 7. History of hypertension 8. Hyperlipidemia PLAN: 1. Continue present therapy 2. Probable transfer to telemetry 3. Wean oxygen as tolerated 4. Follow renal function and hemoglobin 5. Depending on his oxygenation probable discharge home in 24 to 48 hours Objective - Vital Signs Vital signs: Vital Signs Temp 97.6 F 11/22/24 08:00 Pulse 74 11/22/24 08:00 Resp 12 11/22/24 08:00 BP 120/72 11/22/24 08:00 Pulse Ox 98 11/22/24 08:00 FiO2 Intake & Output 11/21/24 11/22/24 11/22/24 18:59 06:59 18:59 Intake Total 950 280 Output Total 400 700 Balance 550 -420 Weight 98.1 kg Intake: IV 350 280 Sodium Chloride 0.9% 1, 350 280 000 ml @ 35 mls/hr IV . Q24H [facility] Rx#:[id number] Oral 600 Output: Urine 400 700 Other: Voiding Method Urinal Urinal - Labs CBC & Chem 7: 11/22/24 07:01 11/22/24 07:01 Labs: Abnormal Lab Results - Last 24 Hours (Table) 11/21/24 11/21/24 11/21/24 Range/Units 05:02 11:14 15:49 RBC (4.30-5.90) m/uL Hgb (13.0-17.5) gm/dL Hct (39.0-53.0) % RDW (11.5-15.5) % PT (10.0-12.5) sec INR (<1.2) BUN (9-20) mg/dL Creatinine (0.66-1.25) mg/dL Glucose (74-99) mg/dL POC Glucose (mg/dL) 141 H 211 H (70-110) mg/dL Hemoglobin A1c 6.1 H (<=6.0) % Calcium (8.4-10.2) mg/dL 11/21/24 11/22/24 11/22/24 Range/Units 20:21 06:22 07:01 RBC (4.30-5.90) m/uL Hgb (13.0-17.5) gm/dL Hct (39.0-53.0) % RDW (11.5-15.5) % PT 14.1 H (10.0-12.5) sec INR 1.3 H (<1.2) BUN (9-20) mg/dL Creatinine (0.66-1.25) mg/dL Glucose (74-99) mg/dL POC Glucose (mg/dL) 218 H 146 H (70-110) mg/dL Hemoglobin A1c (<=6.0) % Calcium (8.4-10.2) mg/dL 11/22/24 11/22/24 Range/Units 07:01 07:01 RBC 3.32 L (4.30-5.90) m/uL Hgb 8.7 L (13.0-17.5) gm/dL Hct 27.1 L (39.0-53.0) % RDW 16.7 H (11.5-15.5) % PT (10.0-12.5) sec INR (<1.2) BUN 42 H (9-20) mg/dL Creatinine 1.44 H (0.66-1.25) mg/dL Glucose 133 H (74-99) mg/dL POC Glucose (mg/dL) (70-110) mg/dL Hemoglobin A1c (<=6.0) % Calcium 8.3 L (8.4-10.2) mg/dL Microbiology - Last 24 Hours (Table) 11/18/24 16:44 Blood Culture - Preliminary Blood 11/18/24 16:46 Blood Culture - Preliminary Blood
[2024-11-22 11:30] LABS: Glucose,Whole Blood 188 mg/dL (70-110)
--- NOTE | 2024-11-22 11:34 | P.PN ---
Subjective Progress Note Date: 11/22/24 This is a 69-year-old male patient with a known history of diabetes mellitus, hypertension, former smoker, anxiety who was diagnosed with osteomyelitis in September 2024 of the right heel. He is receiving vancomycin and ertapenem in the outpatient setting by visiting nurses. Wound VAC is in place. Yesterday he had slipped to the floor from his chair and was unable to get up. EMS was called and he was brought into the emergency room. Chest x-ray revealed a left basilar infiltrate. Mild pulmonary vascular congestion. CT scan of the brain revealed no acute intracranial process. CT angiogram revealed a saddle pulmonary embolus with evidence of right heart strain with an RV/LV ratio of 1.35. Bibasilar airspace opacities. Atelectasis of the left lung base. Small bilateral effusions. EKG reveals atrial flutter. White count 6.0. Hemoglobin 8.2. Platelets 342. Sodium 133. Potassium 4.5. Bicarb 22. BUN 59. Creatinine 1.91. Glucose 111. Troponin 0.026, 0.038. Viral screen negative. He has been initiated on a heparin drip. Echocardiogram is pending. He is seen today in consultation in the emergency department. Currently resting on the stretcher. Awake and alert in no acute distress. He is maintaining O2 saturations in the 90s on 4 L/min per nasal cannula. He currently denies any worsening shortness of breath, cough or congestion. No hemoptysis. No chest pain. Hemodynamically stable. He has been quite sedentary due to the right heel osteomyelitis and he is a left below the knee amputee. The patient is seen today November 20, 2024 in follow-up in the [facility]. He is awake and alert in no acute distress. Resting fairly comfortable on a stretcher. He is now requiring 10 L high flow nasal cannula. He remains on a heparin drip. He remains on vancomycin and ertapenem. Cardiology is planning possible EKOS today. White count 6.8. Hemoglobin 8.8. Platelets 361. INR 1.2. Sodium 135. Potassium 4.3. Bicarb 19. BUN 54. Creatinine 1.53. Glucose 133. The patient follow-up on the in the intensive care unit. He is status post EKOS procedure. Postoperative day #1. His sheath has been removed. His heparin drip has been transition to Eliquis. He remains on normal staying at 35 mL/h. He is still requiring 10 L high flow nasal cannula to maintain O2 saturation in the 90s. He is continued on vancomycin and ertapenem for his previous infections of the right lower extremity. 321. INR 1.2. Sodium 134. Potassium 4.2. Bicarb 22. BUN 47. Creatinine 1.50. Glucose 111. The patient is seen today November 22, 2024 in follow-up in the intensive care unit. He is a 3 S. over follow patient. He is awake and alert in no acute distress. Sitting up in bed. Maintaining O2 saturations in the 90s on 5 L/min per nasal cannula. He has normal saline at KVO. Anticoagulated with Eliquis. Continued on vancomycin and ertapenem for his right lower extremity wound. Blood cultures revealed no growth. White count 5.3. Hemoglobin 8.7. Bicarb 138. Potassium 4.4. BUN 42. Creatinine 1.44. Glucose 133. Objective - Vital Signs Vital signs: Vital Signs Temp 97.6 F 11/22/24 08:00 Pulse 74 11/22/24 08:00 Resp 12 11/22/24 08:00 BP 120/72 11/22/24 08:00 Pulse Ox 98 11/22/24 08:00 FiO2 Intake & Output 11/21/24 11/22/24 11/22/24 18:59 06:59 18:59 Intake Total 950 280 Output Total 400 700 Balance 550 -420 Weight 98.1 kg Intake: IV 350 280 Sodium Chloride 0.9% 1, 350 280 000 ml @ 35 mls/hr IV . Q24H [facility] Rx#:[id number] Oral 600 Output: Urine 400 700 Other: Voiding Method Urinal Urinal Urinal - Exam GENERAL EXAM: Alert, 69-year-old male, on 5 L high flow nasal cannula, comfortable in no apparent distress. HEAD: Normocephalic. EYES: Normal reaction of pupils, equal size. NOSE: Clear with pink turbinates. THROAT: No erythema or exudates. NECK: No masses, no JVD. CHEST: No chest wall deformity. LUNGS: Equal air entry with no crackles, wheeze, rhonchi or dullness. CVS: S1 and S2 normal with no audible murmur, irregular rhythm. ABDOMEN: No hepatosplenomegaly, normal bowel sounds, no guarding or rigidity. SPINE: No scoliosis or deformity SKIN: No rashes CENTRAL NERVOUS SYSTEM: No focal deficits, tone is normal in all 4 extremities. EXTREMITIES: Groin sites clean and dry. Left below the knee amputee. Right lower extremity in a Calvin wrap. Wound VAC in place. - Labs CBC & Chem 7: 11/22/24 07:01 11/22/24 07:01 Labs: Abnormal Lab Results - Last 24 Hours (Table) 11/21/24 11/21/24 11/22/24 Range/Units 15:49 20:21 06:22 RBC (4.30-5.90) m/uL Hgb (13.0-17.5) gm/dL Hct (39.0-53.0) % RDW (11.5-15.5) % PT (10.0-12.5) sec INR (<1.2) BUN (9-20) mg/dL Creatinine (0.66-1.25) mg/dL Glucose (74-99) mg/dL POC Glucose (mg/dL) 211 H 218 H 146 H (70-110) mg/dL Calcium (8.4-10.2) mg/dL 11/22/24 11/22/24 11/22/24 Range/Units 07:01 07:01 07:01 RBC 3.32 L (4.30-5.90) m/uL Hgb 8.7 L (13.0-17.5) gm/dL Hct 27.1 L (39.0-53.0) % RDW 16.7 H (11.5-15.5) % PT 14.1 H (10.0-12.5) sec INR 1.3 H (<1.2) BUN 42 H (9-20) mg/dL Creatinine 1.44 H (0.66-1.25) mg/dL Glucose 133 H (74-99) mg/dL POC Glucose (mg/dL) (70-110) mg/dL Calcium 8.3 L (8.4-10.2) mg/dL Microbiology - Last 24 Hours (Table) 11/18/24 16:44 Blood Culture - Preliminary Blood 11/18/24 16:46 Blood Culture - Preliminary Blood Assessment and Plan Assessment: Acute hypoxemic respiratory failure secondary to saddle pulmonary embolism with right heart strain, but no acute cor pulmonale, suspect provoked due to sedentary lifestyle and atrial flutter. Status post EKOS November 20, 2024, transitioned to Eliquis Generalized weakness unable to get up off the floor secondary to above Atrial flutter Acute kidney injury Troponin leak Anemia Osteomyelitis of the right heel diagnosed in September 2024. Maintained on vancomycin and ertapenem in the outpatient setting Diabetes mellitus Pretension History of anxiety BPH Left below the knee amputee Poor functional performance based on the above-mentioned multiple comorbidities Plan: The patient was seen and evaluated Labs and medications reviewed Maintained on Eliquis Continue vancomycin and ertapenem Titrate down the FiO2 as tolerated 3 S. overflow We will continue to follow I have personally seen and examined the patient, performed the documentation and the assessment and plan as written. Number of minutes spent on the visit: 10. Dictation was produced using [employer] dictation software. Please excuse any grammatical, word or spelling errors. This patient was seen in coordination with the pulmonary/critical care physician, Dr. Jacques. He did spend greater than 50% of the time evaluating, examining and developing the plan of care. He agrees to the above HPI, physical exam, assessment and plan of care as dictated by the nurse practitioner.
--- NOTE | 2024-11-22 11:58 | P.PN ---
Subjective Progress Note Date: 11/22/24 69-year-old male with history of type 2 diabetes, hypertension, Charcot foot with left BKA and recent right ankle surgery status post wound VAC and currently on IV antibiotics, presenting with shortness of breath and weakness. In the ED, T 97.5, HR 109, RR 18, BP 148/86, 94% on RA. CBC, Coag panel, CMP significant for RBC 3.5, Hg 8.9, Hct 27.3, MCV 78.2, PT 15.2, INR 1.5, APTT 79, Na 132, Cl 97, bicarb 20, BUN 58, Cr 1.82, glu 162. Troponin 0.018. BNP 682. Mag 2.4. Lactic acid 1.9. TSH 2.65. D-Dimer 12.61. Head CT did not show any acute process. Chest CTA showed saddle pulmonary embolism with evidence of right heart strain, bibasilar airspace opacities concerning for pneumonia versus early pulmonary infarct, small bilateral pleural effusions. EKG showed atrial tachycardia, right bundle branch block, S1Q3T3 pattern, significant T wave depressions and anterior septal leads, flattening of T waves in lateral leads. Patient was started on heparin drip and admitted for further workup and managem ent. Cardiology and Pulmonary consulted. Underwent EKOS on 11/20. Echo showed EF 60%, mod-severe pulmonary HTN, mild-mod TR. 11/21 Patient was seen and examined. Reports improved breathing. Currently on 2L NC. Cardiology recommends DC Heparin drip and start Eliquis. Antibiotics include Vancomycin and Ertapenem for treatment of R foot wound. CBC, Coag panel, BMP significant for RBC 3.28, Hg 8.2, Hct 26.3, PT 12.9, INR 1.2, APTT 71.5, Na 134, BUN 47, Cr 1.5, glu 111, Ca 8.1. A1c 6.1. 11/22 Patient was seen and examined. Reports generalized weakness. Breathing is stable. No chest pain. Currently on 3L NC saturating 98%. Antibiotics include Vancomycin and Ertapenem for treatment of R foot wound. CBC shows RBC 3.32, Hg 8.7, Hct 27.1. BMP BUN 42, Cr 1.44, glu 133, Ca 8.3. BP 123/70, HR 82, RR 23, 98% on 3L NC. General: nontoxic, no distress, appears at stated age, chronically ill-appearing Derm: warm, dry Head: atraumatic, normocephalic, symmetric Eyes: EOMI, no lid lag, anicteric sclera ENT: Nose and ears atraumatic Neck: No thyromegaly, supple Mouth: no lip lesion, mucus membranes moist Cardiovascular: S1S2 reg, no murmur, no edema Lungs: Clear to auscultation bilateral, no rhonchi, no rales, no wheeze, no accessory muscle use, supplemental oxygen Ext: Left BKA, right foot covered in dressing with a wound VAC. Left arm PICC line. Psych: Alert, oriented, appropriate affect Based on my assessment of this patient, this patient meets a high complexity level of care. Acute submassive PE: Post EKOS /. Eliquis 10 mg PO BID. Telemetry monitoring. Supplemental O2 to maintain O2 sat > 92%. Home O2 eval prior to discharge. Cardiology and Pulmonary on board. Acute hypoxic respiratory failure secondary to above Suspected community-acquired pneumonia: Patient is adequately covered on Ertapenem 1g IV QD and Vancomycin dosed per pharmacy. Microcytic anemia: Iron studies shows Fe def anemia. Appears at baseline. Monitor for signs of bleeding. Atrial tachycardia: Metoprolol 25 mg PO BID. Eliquis as above for AC. CKD stage III at baseline Type 2 diabetes: A1c 6.1. ISS and accuchecks ACHS. Hypoglycemic precautions. Hypertension: Amlodipine 5 mg PO QD. Metoprolol as above. Recent right ankle reconstruction with a wound VAC: Ertapenem and Vancomycin as above. ID on board. CODE STATUS: FULL CODE. DVT Prophylaxis: Eliquis. GI Prophylaxis: Designated medical POA if patient is not able to make medical decisions for themselves: Dispo: Hopeful discharge in 1-2 days. I have reviewed the following senior information security consultant notes: Pulmonary, Cardiology. I have reviewed the results of the following tests: CBC, BMP. I have ordered the following tests: I have discussed the care of this patient with the following independent historian: HARJEET. I have independently interpreted the following test below: Objective - Vital Signs Vital signs: Vital Signs Temp 97.8 F 11/22/24 00:00 Pulse 82 11/22/24 07:00 Resp 23 11/22/24 07:00 BP 123/70 11/22/24 07:00 Pulse Ox 98 11/22/24 07:00 FiO2 Intake & Output 11/21/24 11/22/24 11/22/24 18:59 06:59 18:59 Intake Total 950 280 Output Total 400 700 Balance 550 -420 Weight 98.1 kg Intake: IV 350 280 Sodium Chloride 0.9% 1, 350 280 000 ml @ 35 mls/hr IV . Q24H [facility] Rx#:[id number] Oral 600 Output: Urine 400 700 Other: Voiding Method Urinal Urinal - Labs CBC & Chem 7: 11/22/24 07:01 11/22/24 07:01 Labs: Abnormal Lab Results - Last 24 Hours (Table) 11/21/24 11/21/24 11/21/24 Range/Units 05:02 11:14 15:49 RBC (4.30-5.90) m/uL Hgb (13.0-17.5) gm/dL Hct (39.0-53.0) % RDW (11.5-15.5) % POC Glucose (mg/dL) 141 H 211 H (70-110) mg/dL Hemoglobin A1c 6.1 H (<=6.0) % 11/21/24 11/22/24 11/22/24 Range/Units 20:21 06:22 07:01 RBC 3.32 L (4.30-5.90) m/uL Hgb 8.7 L (13.0-17.5) gm/dL Hct 27.1 L (39.0-53.0) % RDW 16.7 H (11.5-15.5) % POC Glucose (mg/dL) 218 H 146 H (70-110) mg/dL Hemoglobin A1c (<=6.0) % Microbiology - Last 24 Hours (Table) 11/18/24 16:44 Blood Culture - Preliminary Blood 11/18/24 16:46 Blood Culture - Preliminary Blood
--- NOTE | 2024-11-22 14:14 | P.PN ---
Subjective Progress Note Date: 11/21/24 Principal diagnosis: Reason for follow-up is right ankle osteomyelitis Patient is a 69-year-old male with a past medical history significant for hypertension diabetes mellitus anxiety, he did have a Charcot foot diabetic foot infection status post left below the knee amputation and the patient recently did have multiple surgery on his left foot and ankle area including placement of a titanium car infectious subsequent removal and has been dealing with infection and currently on combination of IV vancomycin and ertapenem brought to the hospital the patient was found to be on the floor has been diagnosed with PE with right heart strain and this patient was status post EKOS procedure and subsequent admission to the ICU. On today's evaluation that is 11/21/2024, the patient continues to be afebrile, the patient is on 3 L current oxygen and breathing comfortably, the Pt denies having any chest pain or cough, the patient denies having any abdominal pain no vomiting or any diarrhea and denies any worsening pain to the right foot wound. Patient white count is 4.9 creat is 1.50 Objective - Vital Signs Vital signs: Vital Signs Temp 98.4 F 11/21/24 12:00 Pulse 62 11/21/24 12:00 Resp 16 11/21/24 12:00 BP 115/70 11/21/24 12:00 Pulse Ox 94 L 11/21/24 12:00 FiO2 Intake & Output 11/20/24 11/21/24 11/21/24 18:59 06:59 18:59 Intake Total 1010 1289.763 810 Output Total 450 650 0 Balance 560 639.763 810 Weight 89.358 kg 92.8 kg Intake: IV 810 920 210 Sodium Chloride 0.9% 1, 665 420 210 000 ml @ 35 mls/hr IV . Q24H [facility] Rx#:[id number] Vancomycin 1,500 mg In 500 Sodium Chloride 0.9% 500 ml 500 ml @ 167 mls/hr IVPB Q24H [facility] Rx#: [id number] Intake, IV Titration 169.763 Amount Heparin Sod,Pork in 0.45% 169.763 NaCl 25,000 unit In 0.45 % NaCl 1 250ml.bag @ 18 UNITS/KG/HR 16.084 mls/hr IV .[id number] [facility] Rx#: [id number] Oral 200 200 600 Output: Urine 450 650 0 Other: Voiding Method Urinal Urinal # Voids 1 - Exam GENERAL DESCRIPTION: An elderly male lying in bed in no distress RESPIRATORY SYSTEM: Unlabored breathing , decreased breath sounds at bases HEART: S1 S2 regular rate and rhythm , ABDOMEN: Soft , no tenderness EXTREMITIES: Right ankle wound is currently covered with a wound VAC - Labs CBC & Chem 7: 11/22/24 07:01 11/22/24 07:01 Labs: Abnormal Lab Results - Last 24 Hours (Table) 11/20/24 11/20/24 11/21/24 Range/Units 17:43 19:34 00:00 RBC (4.30-5.90) m/uL Hgb (13.0-17.5) gm/dL Hct (39.0-53.0) % RDW (11.5-15.5) % PT (10.0-12.5) sec INR (<1.2) APTT 118.5 H* (22.0-30.0) sec Sodium (137-145) mmol/L BUN (9-20) mg/dL Creatinine (0.66-1.25) mg/dL Glucose (74-99) mg/dL POC Glucose (mg/dL) 140 H 194 H (70-110) mg/dL Hemoglobin A1c (<=6.0) % Calcium (8.4-10.2) mg/dL 11/21/24 11/21/24 11/21/24 Range/Units 05:02 05:02 05:02 RBC 3.28 L (4.30-5.90) m/uL Hgb 8.5 L (13.0-17.5) gm/dL Hct 26.3 L (39.0-53.0) % RDW 16.5 H (11.5-15.5) % PT 12.9 H (10.0-12.5) sec INR 1.2 H (<1.2) APTT 71.5 H (22.0-30.0) sec Sodium (137-145) mmol/L BUN (9-20) mg/dL Creatinine (0.66-1.25) mg/dL Glucose (74-99) mg/dL POC Glucose (mg/dL) (70-110) mg/dL Hemoglobin A1c 6.1 H (<=6.0) % Calcium (8.4-10.2) mg/dL 11/21/24 11/21/24 11/21/24 Range/Units 05:02 06:25 11:14 RBC (4.30-5.90) m/uL Hgb (13.0-17.5) gm/dL Hct (39.0-53.0) % RDW (11.5-15.5) % PT (10.0-12.5) sec INR (<1.2) APTT (22.0-30.0) sec Sodium 134 L (137-145) mmol/L BUN 47 H (9-20) mg/dL Creatinine 1.50 H (0.66-1.25) mg/dL Glucose 111 H (74-99) mg/dL POC Glucose (mg/dL) 119 H 141 H (70-110) mg/dL Hemoglobin A1c (<=6.0) % Calcium 8.1 L (8.4-10.2) mg/dL Microbiology - Last 24 Hours (Table) 11/18/24 16:44 Blood Culture - Preliminary Blood 11/18/24 16:46 Blood Culture - Preliminary Blood Assessment and Plan (1) Ankle osteomyelitis, right Current Visit: Yes Status: Acute Code(s): M86.9 - OSTEOMYELITIS, UNSPECIFIED SNOMED Code(s): 4704265817764572 (2) Charcot foot due to diabetes mellitus Current Visit: No Status: Acute Code(s): E11.610 - TYPE 2 DIABETES MELLITUS W DIABETIC NEUROPATHIC ARTHROPATHY SNOMED Code(s): 868327013 (3) Diabetic foot ulcer Current Visit: No Status: Acute Code(s): E11.621 - TYPE 2 DIABETES MELLITUS WITH FOOT ULCER; L97.509 - NON-PRESSURE CHRONIC ULCER OTH PRT UNSP FOOT W UNSP SEVERITY SNOMED Code(s): 237214088 Plan: 1patient with a complicated history of right Charcot foot and this patient did have multiple surgeries most of his care has been done at [facility] and I do not have any access to those records and the patient is currently dealing with an infection and getting IV vancomycin and ertapenem in the outpatient setting now being admitted to hospital after the patient did have a fall and has been diagnosed with a PE x-rays were suspicious for pneumonia however the patient did not have significant cough or sputum production to be suspicious for pneumonia 2-wound could not be evaluated as currently waiting for the wound care nurse to come and do the wound VAC changes reported by the ICU nurse 3patient to continue with vancomycin pharmacy dose watching his creatinine and Vanco trough closely along with ertapenem nursing staff is advised to get the culture report from the [facility] Dictation was produced using [employer] dictation software. please excuse any grammatical, word or spelling errors. Time with Patient: Less than 30
--- NOTE | 2024-11-22 14:16 | P.PN ---
Subjective Progress Note Date: 11/22/24 Principal diagnosis: Reason for follow-up is right ankle osteomyelitis Patient is a 69-year-old male with a past medical history significant for hypertension diabetes mellitus anxiety, he did have a Charcot foot diabetic foot infection status post left below the knee amputation and the patient recently did have multiple surgery on his left foot and ankle area including placement of a titanium car infectious subsequent removal and has been dealing with infection and currently on combination of IV vancomycin and ertapenem brought to the hospital the patient was found to be on the floor has been diagnosed with PE with right heart strain and this patient was status post EKOS procedure and subsequent admission to the ICU. On today's evaluation that is 11/22/2024, patient did not have any fever and denies any chills, patient is breathing comfortably on 2 L nasal cannula oxygen, patient with no chest pain or cough patient did not have any abdominal pain nausea vomiting or any loose stools, denies pain to the right foot wound concerned about wound VAC not been changed since he has been here. Patient white count is 5.3 creatinine is 1.44 Objective - Vital Signs Vital signs: Vital Signs Temp 97.8 F 11/22/24 12:00 Pulse 63 11/22/24 12:00 Resp 10 L 11/22/24 12:00 BP 129/76 11/22/24 12:00 Pulse Ox 98 11/22/24 12:00 FiO2 Intake & Output 11/21/24 11/22/24 11/22/24 18:59 06:59 18:59 Intake Total 950 280 Output Total 400 700 Balance 550 -420 Weight 98.1 kg Intake: IV 350 280 Sodium Chloride 0.9% 1, 350 280 000 ml @ 35 mls/hr IV . Q24H [facility] Rx#:[id number] Oral 600 Output: Urine 400 700 Other: Voiding Method Urinal Urinal Urinal - Exam GENERAL DESCRIPTION: An elderly male lying in bed in no distress RESPIRATORY SYSTEM: Unlabored breathing , decreased breath sounds at bases HEART: S1 S2 regular rate and rhythm , ABDOMEN: Soft , no tenderness EXTREMITIES: Right foot wound base looks clean after change of his wound VAC and no foul-smelling drainage - Labs CBC & Chem 7: 11/22/24 07:01 11/22/24 07:01 Labs: Abnormal Lab Results - Last 24 Hours (Table) 0111/21/24 11/22/24 Range/Units 15:49 20:21 06:22 RBC (4.30-5.90) m/uL Hgb (13.0-17.5) gm/dL Hct (39.0-53.0) % RDW (11.5-15.5) % PT (10.0-12.5) sec INR (<1.2) BUN (9-20) mg/dL Creatinine (0.66-1.25) mg/dL Glucose (74-99) mg/dL POC Glucose (mg/dL) 211 H 218 H 146 H (70-110) mg/dL Calcium (8.4-10.2) mg/dL 11/22/24 11/22/24 11/22/24 Range/Units 07:01 07:01 07:01 RBC 3.32 L (4.30-5.90) m/uL Hgb 8.7 L (13.0-17.5) gm/dL Hct 27.1 L (39.0-53.0) % RDW 16.7 H (11.5-15.5) % PT 14.1 H (10.0-12.5) sec INR 1.3 H (<1.2) BUN 42 H (9-20) mg/dL Creatinine 1.44 H (0.66-1.25) mg/dL Glucose 133 H (74-99) mg/dL POC Glucose (mg/dL) (70-110) mg/dL Calcium 8.3 L (8.4-10.2) mg/dL 11/22/24 Range/Units 11:28 RBC (4.30-5.90) m/uL Hgb (13.0-17.5) gm/dL Hct (39.0-53.0) % RDW (11.5-15.5) % PT (10.0-12.5) sec INR (<1.2) BUN (9-20) mg/dL Creatinine (0.66-1.25) mg/dL Glucose (74-99) mg/dL POC Glucose (mg/dL) 188 H (70-110) mg/dL Calcium (8.4-10.2) mg/dL Microbiology - Last 24 Hours (Table) 11/18/24 16:44 Blood Culture - Preliminary Blood 11/18/24 16:46 Blood Culture - Preliminary Blood Assessment and Plan (1) Ankle osteomyelitis, right Current Visit: Yes Status: Acute Code(s): M86.9 - OSTEOMYELITIS, UNSPECIFIED SNOMED Code(s): 3608017670325717 (2) Charcot foot due to diabetes mellitus Current Visit: No Status: Acute Code(s): E11.610 - TYPE 2 DIABETES MELLITUS W DIABETIC NEUROPATHIC ARTHROPATHY SNOMED Code(s): 114078440 (3) Diabetic foot ulcer Current Visit: No Status: Acute Code(s): E11.621 - TYPE 2 DIABETES MELLITUS WITH FOOT ULCER; L97.509 - NON-PRESSURE CHRONIC ULCER OTH PRT UNSP FOOT W UNSP SEVERITY SNOMED Code(s): 007512134 Plan: 1patient with a complicated history of right Charcot foot and this patient did have multiple surgeries most of his care has been done at [facility] and I do not have any access to those records and the patient is currently dealing with an infection and getting IV vancomycin and ertapenem in the outpatient setting now being admitted to hospital after the patient did have a fall and has been diagnosed with a PE x-rays were suspicious for pneumonia however the patient did not have significant cough or sputum production to be suspicious for pneumonia 2-patient right foot wound base looks clean it will be changed Sunday with a black foam and 125 mmHg discussed with the nursing staff 3patient to continue with vancomycin pharmacy dose and ertapenem, currently waiting for culture data from the [facility] Dictation was produced using [employer] dictation software. please excuse any grammatical, word or spelling errors. Time with Patient: Less than 30
[2024-11-22 16:16] LABS: Glucose,Whole Blood 170 mg/dL (70-110)
[2024-11-22] MEDS: SENNOSIDES 8.6 MG TAB PO PRN (16:25)
[2024-11-22] MEDS: HEPARIN SOD,PORK IN 0.45% NACL 25,000 UNIT in 0.45% NACL 1 250ML.BAG IV SCH ×2 (16:38)
[2024-11-22 20:34] LABS: Glucose,Whole Blood 132 mg/dL (70-110)
[2024-11-22] MEDS: VANCOMYCIN 1,250 MG in SODIUM CHLORIDE 0.9% 250 ML IVPB SCH (20:34)
[2024-11-22 20:48] LABS: Glucose,Whole Blood 124 mg/dL (70-110)
[2024-11-23 06:07] LABS: Glucose,Whole Blood 136 mg/dL (70-110)
[2024-11-23 07:53] LABS: Anisocytosis Slight; HCT 26.9 % (39.0-53.0); HGB 8.5 gm/dL (13.0-17.5); Hypochromasia Moderate; MCH 25.3 pg (25.0-35.0); MCHC 31.5 g/dL (31.0-37.0); MCV 80.4 fL (80.0-100.0); Mean Platelet Volume 8.2; Microcytosis Slight; Platelet Count 314 k/uL (150-450); RBC 3.35 m/uL (4.30-5.90); RDW 16.8 % (11.5-15.5); WBC 5.3 k/uL (3.8-10.6)
[2024-11-23 08:10] LABS: INR 1.3 (<1.2); Prothrombin Time 14.1 sec (10.0-12.5)
[2024-11-23 08:15] LABS: African American GFR (CKD) 59 (>60 ml/min/1.73 sqM); Anion Gap 6 mmol/L; Blood Urea Nitrogen 38 mg/dL (9-20); Calcium 8.3 mg/dL (8.4-10.2); Carbon Dioxide 23 mmol/L (22-30); Chloride 108 mmol/L (98-107); Glucose 112 mg/dL (74-99); Non-African American GFR(CKD) 51 (>60 ml/min/1.73 sqM); Potassium 4.5 mmol/L (3.5-5.1); Sodium 137 mmol/L (137-145)
[2024-11-23] MEDS: FUROSEMIDE 10 MG/ML 4 ML VIAL IV STA (11:36)
[2024-11-23 11:38] LABS: Glucose,Whole Blood 131 mg/dL (70-110)
--- NOTE | 2024-11-23 12:09 | P.PN ---
Subjective Progress Note Date: 11/23/24 69-year-old male with history of type 2 diabetes, hypertension, Charcot foot with left BKA and recent right ankle surgery status post wound VAC and currently on IV antibiotics, presenting with shortness of breath and weakness. In the ED, T 97.5, HR 109, RR 18, BP 148/86, 94% on RA. CBC, Coag panel, CMP significant for RBC 3.5, Hg 8.9, Hct 27.3, MCV 78.2, PT 15.2, INR 1.5, APTT 79, Na 132, Cl 97, bicarb 20, BUN 58, Cr 1.82, glu 162. Troponin 0.018. BNP 682. Mag 2.4. Lactic acid 1.9. TSH 2.65. D-Dimer 12.61. Head CT did not show any acute process. Chest CTA showed saddle pulmonary embolism with evidence of right heart strain, bibasilar airspace opacities concerning for pneumonia versus early pulmonary infarct, small bilateral pleural effusions. EKG showed atrial tachycardia, right bundle branch block, S1Q3T3 pattern, significant T wave depressions and anterior septal leads, flattening of T waves in lateral leads. Patient was started on heparin drip and admitted for further workup and managem ent. Cardiology and Pulmonary consulted. Underwent EKOS on 11/20. Echo showed EF 60%, mod-severe pulmonary HTN, mild-mod TR. Heparin drip transitioned to Eliquis on 11/21. Restarted on Vancomycin and Ertapenem for treatment of R foot OM with ID on board. 11/23 Patient was seen and examined. Reports that right lung feels "weaker". Currently on 2L NC saturating 94%. Antibiotics include Vancomycin and Ertapenem for treatment of R foot wound. CBC shows RBC 3.35, Hg 8.5, Hct 26.9. Coag panel PT 14.1, INR 1.3. BMP Cl 108, BUN 38, Cr 1.39, glu 112, Ca 8.3. BP 123/70, HR 82, RR 23, 98% on 3L NC. General: nontoxic, no distress, appears at stated age, chronically ill-appearing Derm: warm, dry Head: atraumatic, normocephalic, symmetric Eyes: EOMI, no lid lag, anicteric sclera ENT: Nose and ears atraumatic Neck: No thyromegaly, supple Mouth: no lip lesion, mucus membranes moist Cardiovascular: S1S2 reg, no murmur, no edema Lungs: Clear to auscultation bilateral, no rhonchi, no rales, no wheeze, no ac cessory muscle use, supplemental oxygen Ext: Left BKA, right foot covered in dressing with a wound VAC. Left arm PICC line. Psych: Alert, oriented, appropriate affect Based on my assessment of this patient, this patient meets a high complexity level of care. Acute submassive PE: Post EKOS /. Eliquis 10 mg PO BID. Telemetry monitoring. Supplemental O2 to maintain O2 sat > 92%. Home O2 eval prior to discharge. Cardiology and Pulmonary on board. Acute hypoxic respiratory failure secondary to above Suspected community-acquired pneumonia: Patient is adequately covered on Ertapenem 1g IV QD and Vancomycin dosed per pharmacy. Microcytic anemia: Iron studies shows Fe def anemia. Appears at baseline. Monitor for signs of bleeding. Atrial tachycardia: Metoprolol 25 mg PO BID. Eliquis as above for AC. CKD stage III at baseline Type 2 diabetes: A1c 6.1. ISS and accuchecks ACHS. Hypoglycemic precautions. Hypertension: Amlodipine 5 mg PO QD. Metoprolol as above. Recent right ankle reconstruction with a wound VAC: Ertapenem and Vancomycin as above. Monitor Vancomycin trough and renal function. ID on board. CODE STATUS: FULL CODE. DVT Prophylaxis: Eliquis. GI Prophylaxis: Designated medical POA if patient is not able to make medical decisions for themselves: Dispo: Need to check coverage for Eliquis prior to discharge. Home O2 eval prior to discharge. Hopeful discharge tomorrow. I have reviewed the following information resource consultant notes: Pulmonary, Cardiology, ID. I have reviewed the results of the following tests: CBC, BMP, Coag panel. I have ordered the following tests: CXR. I have discussed the care of this patient with the following independent historian: I have independently interpreted the following test below: Objective - Vital Signs Vital signs: Vital Signs Temp 98.3 F 11/23/24 03:30 Pulse 62 11/23/24 03:30 Resp 18 11/23/24 03:30 BP 114/67 11/23/24 03:30 Pulse Ox 94 L 11/23/24 03:30 FiO2 Intake & Output 11/22/24 11/23/24 11/23/24 18:59 06:59 18:59 Intake Total 300 Output Total 400 300 Balance -100 -300 Weight 89.5 kg Intake: Oral 300 Output: Urine 400 300 Other: Voiding Method Urinal Urinal - Labs CBC & Chem 7: 11/23/24 07:37 11/23/24 07:37 Labs: Abnormal Lab Results - Last 24 Hours (Table) 11/22/24 11/22/24 11/22/24 Range/Units 11:28 16:14 20:33 RBC (4.30-5.90) m/uL Hgb (13.0-17.5) gm/dL Hct (39.0-53.0) % RDW (11.5-15.5) % PT (10.0-12.5) sec INR (<1.2) Chloride (98-107) mmol/L BUN (9-20) mg/dL Creatinine (0.66-1.25) mg/dL Glucose (74-99) mg/dL POC Glucose (mg/dL) 188 H 170 H 132 H (70-110) mg/dL Calcium (8.4-10.2) mg/dL 11/22/24 11/23/24 11/23/24 Range/Units 20:46 06:06 07:37 RBC (4.30-5.90) m/uL Hgb (13.0-17.5) gm/dL Hct (39.0-53.0) % RDW (11.5-15.5) % PT (10.0-12.5) sec INR (<1.2) Chloride 108 H (98-107) mmol/L BUN 38 H (9-20) mg/dL Creatinine 1.39 H (0.66-1.25) mg/dL Glucose 112 H (74-99) mg/dL POC Glucose (mg/dL) 124 H 136 H (70-110) mg/dL Calcium 8.3 L (8.4-10.2) mg/dL 11/23/24 11/23/24 Range/Units 07:37 07:37 RBC 3.35 L (4.30-5.90) m/uL Hgb 8.5 L (13.0-17.5) gm/dL Hct 26.9 L (39.0-53.0) % RDW 16.8 H (11.5-15.5) % PT 14.1 H (10.0-12.5) sec INR 1.3 H (<1.2) Chloride (98-107) mmol/L BUN (9-20) mg/dL Creatinine (0.66-1.25) mg/dL Glucose (74-99) mg/dL POC Glucose (mg/dL) (70-110) mg/dL Calcium (8.4-10.2) mg/dL Microbiology - Last 24 Hours (Table) 11/18/24 16:44 Blood Culture - Preliminary Blood 11/18/24 16:46 Blood Culture - Preliminary Blood
--- NOTE | 2024-11-23 12:43 | P.PN ---
Subjective Progress Note Date: 11/23/24 Principal diagnosis: Reason for follow-up is right ankle osteomyelitis Patient is a 69-year-old male with a past medical history significant for hypertension diabetes mellitus anxiety, he did have a Charcot foot diabetic foot infection status post left below the knee amputation and the patient recently did have multiple surgery on his left foot and ankle area including placement of a titanium car infectious subsequent removal and has been dealing with infection and currently on combination of IV vancomycin and ertapenem brought to the hospital the patient was found to be on the floor has been diagnosed with PE with right heart strain and this patient was status post EKOS procedure and subsequent admission to the ICU. On today's evaluation that is 11/23/2024, Patient is afebrile patient is currently on 2 L cannula oxygen and denies having any shortness of breath, the patient denies any chest pain or cough, the patient denies any nausea vomiting did not have any abdominal pain and no diarrhea rather no bowel movement for the last few days denies any worsening pain to the right foot and ankle area. Patient white count is 5.3, creatinine is 1.3 Blood cultures negative so far Objective - Vital Signs Vital signs: Vital Signs Temp 98.5 F 11/23/24 08:30 Pulse 67 11/23/24 08:30 Resp 16 11/23/24 08:30 BP 136/75 11/23/24 08:30 Pulse Ox 92 L 11/23/24 08:30 FiO2 Intake & Output 11/22/24 11/23/24 11/23/24 18:59 06:59 18:59 Intake Total 300 90 Output Total 400 300 Balance -100 -300 90 Weight 89.5 kg Intake: Oral 300 90 Output: Urine 400 300 Other: Voiding Method Urinal Urinal Urinal - Exam GENERAL DESCRIPTION: An elderly male lying in bed in no distress RESPIRATORY SYSTEM: Unlabored breathing , decreased breath sounds at bases HEART: S1 S2 regular rate and rhythm , ABDOMEN: Soft , no tenderness EXTREMITIES: Right foot wound covered with a wound VAC - Labs CBC & Chem 7: 11/23/24 07:37 11/23/24 07:37 Labs: Abnormal Lab Results - Last 24 Hours (Table) 11/22/24 11/22/24 11/22/24 Range/Units 16:14 20:33 20:46 RBC (4.30-5.90) m/uL Hgb (13.0-17.5) gm/dL Hct (39.0-53.0) % RDW (11.5-15.5) % PT (10.0-12.5) sec INR (<1.2) Chloride (98-107) mmol/L BUN (9-20) mg/dL Creatinine (0.66-1.25) mg/dL Glucose (74-99) mg/dL POC Glucose (mg/dL) 170 H 132 H 124 H (70-110) mg/dL Calcium (8.4-10.2) mg/dL 11/23/24 11/23/24 11/23/24 Range/Units 06:06 07:37 07:37 RBC 3.35 L (4.30-5.90) m/uL Hgb 8.5 L (13.0-17.5) gm/dL Hct 26.9 L (39.0-53.0) % RDW 16.8 H (11.5-15.5) % PT (10.0-12.5) sec INR (<1.2) Chloride 108 H (98-107) mmol/L BUN 38 H (9-20) mg/dL Creatinine 1.39 H (0.66-1.25) mg/dL Glucose 112 H (74-99) mg/dL POC Glucose (mg/dL) 136 H (70-110) mg/dL Calcium 8.3 L (8.4-10.2) mg/dL 11/23/24 11/23/24 Range/Units 07:37 11:37 RBC (4.30-5.90) m/uL Hgb (13.0-17.5) gm/dL Hct (39.0-53.0) % RDW (11.5-15.5) % PT 14.1 H (10.0-12.5) sec INR 1.3 H (<1.2) Chloride (98-107) mmol/L BUN (9-20) mg/dL Creatinine (0.66-1.25) mg/dL Glucose (74-99) mg/dL POC Glucose (mg/dL) 131 H (70-110) mg/dL Calcium (8.4-10.2) mg/dL Assessment and Plan (1) Ankle osteomyelitis, right Current Visit: Yes Status: Acute Code(s): M86.9 - OSTEOMYELITIS, UNSPECIFIED SNOMED Code(s): 6255091451701210 (2) Charcot foot due to diabetes mellitus Current Visit: No Status: Acute Code(s): E11.610 - TYPE 2 DIABETES MELLITUS W DIABETIC NEUROPATHIC ARTHROPATHY SNOMED Code(s): 292637470 (3) Diabetic foot ulcer Current Visit: No Status: Acute Code(s): E11.621 - TYPE 2 DIABETES MELLITUS WITH FOOT ULCER; L97.509 - NON-PRESSURE CHRONIC ULCER OTH PRT UNSP FOOT W UNSP SEVERITY SNOMED Code(s): 099536888 Plan: 1patient with a complicated history of right Charcot foot and this patient did have multiple surgeries most of his care has been done at [facility] and I do not have any access to those records and the patient is currently dealing with an infection and getting IV vancomycin and ertapenem in the outpatient setting now being admitted to hospital after the patient did have a fall and has been diagnosed with a PE x-rays were suspicious for pneumonia however the patient did not have significant cough or sputum production to be suspicious for pneumonia 2-patient right foot wound to continue with the wound VAC Sunday with a black foam and 125 mmHg 3patient to continue with vancomycin pharmacy dose and ertapenem, and monitor clinical course closely Dictation was produced using [employer] dictation software. please excuse any g rammatical, word or spelling errors. Time with Patient: Less than 30
--- NOTE | 2024-11-23 12:52 | P.PN ---
Subjective Progress Note Date: 11/23/24 Principal diagnosis: Pulmonary embolism. This is a 69-year-old male patient with a known history of diabetes mellitus, hypertension, former smoker, anxiety who was diagnosed with osteomyelitis in September 2024 of the right heel. He is receiving vancomycin and ertapenem in the outpatient setting by visiting nurses. Wound VAC is in place. Yesterday he had slipped to the floor from his chair and was unable to get up. EMS was called and he was brought into the emergency room. Chest x-ray revealed a left basilar infiltrate. Mild pulmonary vascular congestion. CT scan of the brain revealed no acute intracranial process. CT angiogram revealed a saddle pulmonary embolus with evidence of right heart strain with an RV/LV ratio of 1.35. Bibasilar airspace opacities. Atelectasis of the left lung base. Small bilateral effusions. EKG reveals atrial flutter. White count 6.0. Hemoglobin 8.2. Platelets 342. Sodium 133. Potassium 4.5. Bicarb 22. BUN 59. Creatinine 1.91. Glucose 111. Troponin 0.026, 0.038. Viral screen negative. He has been initiated on a heparin drip. Echocardiogram is pending. He is seen today in consultation in the emergency department. Currently resting on the stretcher. Awake and alert in no acute distress. He is maintaining O2 saturations in the 90s on 4 L/min per nasal cannula. He currently denies any worsening shortness of breath, cough or congestion. No hemoptysis. No chest pain. Hemodynamically stable. He has been quite sedentary due to the right heel osteomyelitis and he is a left below the knee amputee. The patient is seen today November 20, 2024 in follow-up in the emergency department. He is awake and alert in no acute distress. Resting fairly comfortable on a stretcher. He is now requiring 10 L high flow nasal cannula. He remains on a heparin drip. He remains on vancomycin and ertapenem. Cardiology is planning possible EKOS today. White count 6.8. Hemoglobin 8.8. Platelets 361. INR 1.2. Sodium 135. Potassium 4.3. Bicarb 19. BUN 54. Creatinine 1.53. Glucose 133. The patient follow-up on the in the intensive care unit. He is status post EKOS procedure. Postoperative day #1. His sheath has been removed. His heparin drip has been transition to Eliquis. He remains on normal staying at 35 mL/h. He is still requiring 10 L high flow nasal cannula to maintain O2 saturation in the 90s. He is continued on vancomycin and ertapenem for his previous infections of the right lower extremity. 321. INR 1.2. Sodium 134. Potassium 4.2. Bicarb 22. BUN 47. Creatinine 1.50. Glucose 111. The patient is seen today November 22, 2024 in follow-up in the intensive care unit. He is a 3 S. over follow patient. He is awake and alert in no acute distress. Sitting up in bed. Maintaining O2 saturations in the 90s on 5 L/min per nasal cannula. He has normal saline at KVO. Anticoagulated with Eliquis. Continued on vancomycin and ertapenem for his right lower extremity wound. Blo od cultures revealed no growth. White count 5.3. Hemoglobin 8.7. Bicarb 138. Potassium 4.4. BUN 42. Creatinine 1.44. Glucose 133. Progress note dated November 23, 2024. 69-year-old male seen today in room 369. The patient was admitted with a diagnosis of pulmonary embolism, and had EKOS performed. The patient is currently doing well on 2 L. No IV fluids. The patient denies any respiratory issues including shortness of breath, cough, wheezing, chest tightness, or phlegm production. Current labs include a white count 5.3, hemoglobin 8.5, hematocrit 26.9, and a platelet count of 314,000. PT 14.1 INR 1.3. Sodium 137, potassium 4.5, chlorides 108, CO2 23, BUN 38, creatinine 1.39. Glucose is 131. Calcium is 8.3. Objective - Vital Signs Vital signs: Vital Signs Temp 98.5 F 11/23/24 08:30 Pulse 67 11/23/24 08:30 Resp 16 11/23/24 08:30 BP 136/75 11/23/24 08:30 Pulse Ox 92 L 11/23/24 08:30 FiO2 Intake & Output 11/22/24 11/23/24 11/23/24 18:59 06:59 18:59 Intake Total 300 90 Output Total 400 300 Balance -100 -300 90 Weight 89.5 kg Intake: Oral 300 90 Output: Urine 400 300 Other: Voiding Method Urinal Urinal Urinal - Exam No acute distress, oriented 3. Currently on 2 L. HEENT examination is grossly unremarkable. Mucous membranes are moist. No oral lesions. Neck supple. Full range of motion. No adenopathy thyromegaly or neck vein distention. Cardiovascular examination reveals regular rhythm rate. S1-S2 normal. No S3 or S4. No discernible murmur noted. Lungs reveal clear breath sounds. Breath sounds are equal bilaterally. No adventitious lung sounds including wheezes rhonchi or crackles. Abdomen soft bowel sounds are heard. No masses or tenderness. Extremities are intact. No cyanosis clubbing or edema. Skin is without rash or lesion. Neurologic examination is brief but nonfocal. - Labs CBC & Chem 7: 11/23/24 07:37 11/23/24 07:37 Labs: Abnormal Lab Results - Last 24 Hours (Table) 11/22/24 11/22/24 11/22/24 Range/Units 16:14 20:33 20:46 RBC (4.30-5.90) m/uL Hgb (13.0-17.5) gm/dL Hct (39.0-53.0) % RDW (11.5-15.5) % PT (10.0-12.5) sec INR (<1.2) Chloride (98-107) mmol/L BUN (9-20) mg/dL Creatinine (0.66-1.25) mg/dL Glucose (74-99) mg/dL POC Glucose (mg/dL) 170 H 132 H 124 H (70-110) mg/dL Calcium (8.4-10.2) mg/dL 11/23/24 11/23/24 11/23/24 Range/Units 06:06 07:37 07:37 RBC 3.35 L (4.30-5.90) m/uL Hgb 8.5 L (13.0-17.5) gm/dL Hct 26.9 L (39.0-53.0) % RDW 16.8 H (11.5-15.5) % PT (10.0-12.5) sec INR (<1.2) Chloride 108 H (98-107) mmol/L BUN 38 H (9-20) mg/dL Creatinine 1.39 H (0.66-1.25) mg/dL Glucose 112 H (74-99) mg/dL POC Glucose (mg/dL) 136 H (70-110) mg/dL Calcium 8.3 L (8.4-10.2) mg/dL 11/23/24 11/23/24 Range/Units 07:37 11:37 RBC (4.30-5.90) m/uL Hgb (13.0-17.5) gm/dL Hct (39.0-53.0) % RDW (11.5-15.5) % PT 14.1 H (10.0-12.5) sec INR 1.3 H (<1.2) Chloride (98-107) mmol/L BUN (9-20) mg/dL Creatinine (0.66-1.25) mg/dL Glucose (74-99) mg/dL POC Glucose (mg/dL) 131 H (70-110) mg/dL Calcium (8.4-10.2) mg/dL Assessment and Plan Assessment: Acute hypoxemic respiratory failure secondary to saddle pulmonary embolism with right heart strain. S/P EKOS November 20, 2024. Generalized weakness. Atrial flutter. Acute kidney injury. Troponin leak. Anemia. Osteomyelitis of the right heel diagnosed in September 2024. Maintained on vancomycin and ertapenem. Diabetes mellitus. Hypertension. History of anxiety. BPH. Left below the knee amputee. Poor functional performance based on the above-mentioned multiple comorbidities. Plan: Plan dated November 23, 2024. The patient is seen today in room 369. The patient currently is on 2 L of oxygen. He is not receiving any IV fluids. The patient has been transitioned to [facility]. The patient continues on antibiotics in the form of vancomycin and ertapenem. Labs, x-rays, and all medications are reviewed. Prognosis is guarded. We will continue to follow the patient, and make recommendations where appropriate. Time with Patient: Less than 30
--- NOTE | 2024-11-23 13:17 | XR ---
EXAMINATION TYPE: XR chest 1V portable DATE OF EXAM: 11/23/2024 1:07 PM COMPARISON: Chest radiographs from 11/19/2024 CLINICAL INDICATION: Male, 69 years old with history of SOB; [facility] TECHNIQUE: XR chest 1V portable Frontal view of the chest. FINDINGS: Lungs/Pleura: Low lung volumes are present. There is no evidence of pleural effusion, focal consolida tion, or pneumothorax. Pulmonary vascularity: Unremarkable. Heart/mediastinum: Cardiomediastinal silhouette is unremarkable. Musculoskeletal: No acute osseous pathology. Skinfold crease extends through the right lung into the neck. IMPRESSION: Low lung volumes with a generalized hazy appearance which could represent atelectasis versus pulmonar y edema correlate with serum BNP. [facility], , 11/23/2024 1:14 PM
--- NOTE | 2024-11-23 14:03 | P.PN ---
Subjective HISTORY OF PRESENT ILLNESS: The patient is a 69-year-old male with a history of diabetes, diabetic foot ulcers, hypertension, diabetes, status post left BKA who presented with an acute dyspnea and was found to have bilateral pulmonary embolism. He had evidence of right ventricular strain on his CT scan as well as evidence of pulmonary hypertension on his echocardiogram. He underwent EKOS procedure yesterday. He is stable this morning, he has some dyspnea but denies any chest discomfort, dizziness or palpitations. He appears to be in atrial flutter since admission, he had episodes of rapid ventricular response last night and was initiated on oral beta-scott. His blood pressure is stable. His urinary output has been stable. He has evidence of anemia and chronic kidney disease on admission. November 22: The patient is feeling well this morning, his breathing is stable. He denies any chest discomfort. He feels that his breathing is better overall. He continues to require oxygen supplementation. He continues to be on oral an ticoagulation, his sheath were removed yesterday. Hemodynamically stable. He is in atrial fibrillationflutter with controlled ventricular response. 11/23/2024 Patient examined this morning at the bedside. Patient currently denies chest pain or pressure. He denies shortness of breath at rest. He does report shortness of breath with deep inspiration. Telemetry reveals atrial flutter/fibrillation with a heart rate in the 60s. Vital signs are stable. PHYSICAL EXAM: VITAL SIGNS: Reviewed. GENERAL: Well-developed in no acute distress. NECK: Supple. No JVD or thyromegaly LUNGS: Respirations even and unlabored. Lungs essentially clear to auscultation bilaterally. HEART: Irregular rate and rhythm. S1 and S2 heard. EXTREMITIES: Normal range of motion. No clubbing or cyanosis. Peripheral pulses intact. Right lower extremity edema noted. Calvin wrap noted. Left BKA. ASSESSMENT: 1. Status post bilateral pulmonary embolism with associated hypoxemia, status post EKOS procedure, improving 2. Atrial flutter with controlled ventricular response, could be exacerbated by the pulmonary embolism 3. Status post left BKA and Charcot's foot ulcer 4. History of diabetes 5. Chronic kidney disease 6. Chronic anemia 7. History of hypertension 8. Hyperlipidemia PLAN: Continue oral anticoagulation with Eliquis IV Lasix 40 mg x 1 dose Recommend elevating extremities on pillows Continue telemetry monitoring Further recommendations pending patient course Nurse practitioner note has been reviewed by physician. Signing provider agrees with the documented findings, assessment, and plan of care documented by [employer] W[employer]DL[employer] CONTROL OPERATOR as a scribe. Objective - Vital Signs Vital signs: Vital Signs Temp 98.5 F 11/23/24 08:30 Pulse 67 11/23/24 08:30 Resp 16 11/23/24 08:30 BP 136/75 11/23/24 08:30 Pulse Ox 92 L 11/23/24 08:30 FiO2 Intake & Output 11/22/24 11/23/24 11/23/24 18:59 06:59 18:59 Intake Total 300 330 Output Total 400 300 500 Balance -100 -300 -170 Weight 89.5 kg Intake: Oral 300 330 Output: Urine 400 300 500 Other: Voiding Method Urinal Urinal Urinal - Labs CBC & Chem 7: 11/23/24 07:37 11/23/24 07:37 Labs: Abnormal Lab Results - Last 24 Hours (Table) 11/22/24 11/22/24 11/22/24 Range/Units 16:14 20:33 20:46 RBC (4.30-5.90) m/uL Hgb (13.0-17.5) gm/dL Hct (39.0-53.0) % RDW (11.5-15.5) % PT (10.0-12.5) sec INR (<1.2) Chloride (98-107) mmol/L BUN (9-20) mg/dL Creatinine (0.66-1.25) mg/dL Glucose (74-99) mg/dL POC Glucose (mg/dL) 170 H 132 H 124 H (70-110) mg/dL Calcium (8.4-10.2) mg/dL 11/23/24 11/23/24 11/23/24 Range/Units 06:06 07:37 07:37 RBC 3.35 L (4.30-5.90) m/uL Hgb 8.5 L (13.0-17.5) gm/dL Hct 26.9 L (39.0-53.0) % RDW 16.8 H (11.5-15.5) % PT (10.0-12.5) sec INR (<1.2) Chloride 108 H (98-107) mmol/L BUN 38 H (9-20) mg/dL Creatinine 1.39 H (0.66-1.25) mg/dL Glucose 112 H (74-99) mg/dL POC Glucose (mg/dL) 136 H (70-110) mg/dL Calcium 8.3 L (8.4-10.2) mg/dL 11/23/24 11/23/24 Range/Units 07:37 11:37 RBC (4.30-5.90) m/uL Hgb (13.0-17.5) gm/dL Hct (39.0-53.0) % RDW (11.5-15.5) % PT 14.1 H (10.0-12.5) sec INR 1.3 H (<1.2) Chloride (98-107) mmol/L BUN (9-20) mg/dL Creatinine (0.66-1.25) mg/dL Glucose (74-99) mg/dL POC Glucose (mg/dL) 131 H (70-110) mg/dL Calcium (8.4-10.2) mg/dL
[2024-11-23 16:51] LABS: Glucose,Whole Blood 163 mg/dL (70-110)
[2024-11-23 20:21] LABS: Glucose,Whole Blood 147 mg/dL (70-110)
[2024-11-24 06:14] LABS: Glucose,Whole Blood 136 mg/dL (70-110)
[2024-11-24 08:32] LABS: African American GFR (CKD) 52 (>60 ml/min/1.73 sqM); Anion Gap 6 mmol/L; Blood Urea Nitrogen 35 mg/dL (9-20); Calcium 8.4 mg/dL (8.4-10.2); Carbon Dioxide 25 mmol/L (22-30); Chloride 105 mmol/L (98-107); Glucose 116 mg/dL (74-99); Non-African American GFR(CKD) 45 (>60 ml/min/1.73 sqM); Potassium 4.6 mmol/L (3.5-5.1); Sodium 136 mmol/L (137-145)
[2024-11-24 11:28] LABS: Glucose,Whole Blood 156 mg/dL (70-110)
--- NOTE | 2024-11-24 12:19 | P.DS ---
Providers Date of admission: 11/18/24 15:56 Expected date of discharge: 11/24/24 Attending physician: Salvador Botello Consults: 11/18/24 15:56 Consult Physician Stat Consulting Provider: Gary Jacques Consult Reason/Comments: pe Do you want consulting provider notified?: Already Contacted Consult Physician Stat Consulting Provider: Mary Chávez Consult Reason/Comments: pe, ekos Do you want consulting provider notified?: Already Contacted 11/18/24 16:58 Consult Physician Routine Consulting Provider: Phyllis Zurita Consult Reason/Comments: on vanc and ertapenem, right foot osteo Do you want consulting provider notified?: Yes Primary care physician: Physician Nonstaff Hospital Course: 69-year-old male with history of type 2 diabetes, hypertension, Charcot foot with left BKA and recent right ankle surgery status post wound VAC and currently on IV antibiotics, presenting with shortness of breath and weakness. In the ED, T 97.5, HR 109, RR 18, BP 148/86, 94% on RA. CBC, Coag panel, CMP significant for RBC 3.5, Hg 8.9, Hct 27.3, MCV 78.2, PT 15.2, INR 1.5, APTT 79, Na 132, Cl 97, bicarb 20, BUN 58, Cr 1.82, glu 162. Troponin 0.018. BNP 682. Mag 2.4. Lactic acid 1.9. TSH 2.65. D-Dimer 12.61. Head CT did not show any acute process. Chest CTA showed saddle pulmonary embolism with evidence of right heart strain, bibasilar airspace opacities concerning for pneumonia versus early pulmonary infarct, small bilateral pleural effusions. EKG showed atrial tachycardia, right bundle branch block, S1Q3T3 pattern, significant T wave depressions and anterior septal leads, flattening of T waves in lateral leads. Patient was started on heparin drip and admitted for further workup and management. Cardiology and Pulmonary consulted. Underwent EKOS on 11/20. Echo s howed EF 60%, mod-severe pulmonary HTN, mild-mod TR. Heparin drip transitioned to Eliquis on 11/21. Restarted on Vancomycin and Ertapenem for treatment of R foot OM with ID on board. 11/24 Patient was seen and examined. Doing well. Passed home O2 eval. Antibiotics include Vancomycin and Ertapenem for treatment of R foot wound. BMP Na 136, BUN 35, Cr 1.54, glu 116. Disharge Plans: Plans for discharge home if cleared by Pulmonary and Cardiology. Prescription for Eliquis, Metoprolol and Lipitor sent to pharmacy. Follow up with PCP within 1-2 days of discharge. Follow up with Cardiology, Pulmonary and ID within 1 week of discharge. BP 115/69, HR 66, RR 20, 97% on 2L NC. General: nontoxic, no distress, appears at stated age, chronically ill-appearing Derm: warm, dry Head: atraumatic, normocephalic, symmetric Eyes: EOMI, no lid lag, anicteric sclera ENT: Nose and ears atraumatic Neck: No thyromegaly, supple Mouth: no lip lesion, mucus membranes moist Cardiovascular: S1S2 reg, no murmur, no edema Lungs: Clear to auscultation bilateral, no rhonchi, no rales, no wheeze, no accessory muscle use, supplemental oxygen Ext: Left BKA, right foot covered in dressing with a wound VAC. Left arm PICC line. Psych: Alert, oriented, appropriate affect Discharge Diagnosis: Acute submassive PE Acute hypoxic respiratory failure secondary to above Suspected community-acquired pneumonia Microcytic anemia Atrial tachycardia CKD stage III at baseline Type 2 diabetes Hypertension Recent right ankle reconstruction with a wound VAC This complex discharge took 35 minutes to complete. Patient Condition at Discharge: Stable Plan - Discharge Summary Discharge Rx Participant: No New Discharge Prescriptions: New Metoprolol Tartrate [Lopressor] 25 mg PO BID #60 tab Apixaban [Eliquis Starter Pack (for VTE)] 5 - 10 mg PO DIRECTED 30 Days #1 each Atorvastatin [Lipitor] 40 mg PO HS #30 tab Continue amLODIPine [Norvasc] 5 mg PO DAILY Insulin Glargine,Hum.rec.anlog [Lantus Solostar Pen] 5 units SQ HS traMADol HCL 50 mg PO Q6H PRN PRN Reason: Pain Tamsulosin [Flomax] 0.4 mg PO DAILY Vit C/E/Zn/Coppr/Lutein/Zeaxan [Preservision Areds 2 Softgel] 1 cap PO DAILY Vancomycin 1,250 mg IVPB Q48H Ertapenem [INVanz] 1 gm IVPB Q24H metFORMIN HCL [Glucophage] 1,000 mg PO AC-BID ALPRAZolam [Xanax] 1 mg PO TID Sodium Bicarbonate Tab 650 mg PO BID Oxymetazoline 0.05% Nasl [place] [Afrin 0.05% Nasal [place]] 2 spray EA NOSTRIL DAILY PRN PRN Reason: Congestion Multivitamins, Thera [Multivitamin (formulary)] 1 tab PO DAILY Discharge Medication List amLODIPine [Norvasc] 5 mg PO DAILY 08/20/23 [History] metFORMIN HCL [Glucophage] 1,000 mg PO AC-BID 08/20/23 [History] Insulin Glargine,Hum.rec.anlog [Lantus Solostar Pen] 5 units SQ HS 04/12/24 [History] ALPRAZolam [Xanax] 1 mg PO TID 11/18/24 [History] Ertapenem [INVanz] 1 gm IVPB Q24H 11/18/24 [History] Multivitamins, Thera [Multivitamin (formulary)] 1 tab PO DAILY 11/18/24 [History] Oxymetazoline 0.05% Nasl [place] [Afrin 0.05% Nasal [place]] 2 spray EA NOSTRIL DA CRISPIN PRN 11/18/24 [History] Sodium Bicarbonate Tab 650 mg PO BID 11/18/24 [History] Tamsulosin [Flomax] 0.4 mg PO DAILY 11/18/24 [History] Vancomycin 1,250 mg IVPB Q48H 11/18/24 [History] Vit C/E/Zn/Coppr/Lutein/Zeaxan [Preservision Areds 2 Softgel] 1 cap PO DAILY 11/18/24 [History] traMADol HCL 50 mg PO Q6H PRN 11/18/24 [History] Apixaban [Eliquis Starter Pack (for VTE)] 5 - 10 mg PO DIRECTED 30 Days #1 each 11/24/24 [Rx] Atorvastatin [Lipitor] 40 mg PO HS #30 tab 11/24/24 [Rx] Metoprolol Tartrate [Lopressor] 25 mg PO BID #60 tab 11/24/24 [Rx] Follow up Appointment(s)/Referral(s): Nonstaff,Physician [Primary Care Provider] - 1-2 days Mary Chávez MD [STAFF PHYSICIAN] - 1 Week Esvin Page MD [STAFF PHYSICIAN] - 1 Week Phyllis Zurita MD [STAFF PHYSICIAN] - 1 Week Discharge Disposition: HOME SELF-CARE
[2024-11-24] MEDS ORDERED: ZINC OXIDE PASTE (Z-GUARD) 1 APPLIC TOPICAL PRN (13:13)
[2024-11-24] MEDS: FUROSEMIDE 10 MG/ML 2 ML VIAL IV SCH (13:24)
--- NOTE | 2024-11-24 13:32 | US ---
EXAMINATION TYPE: US venous doppler duplex LE BI DATE OF EXAM: 11/24/2024 1:22 PM COMPARISON: NONE CLINICAL INDICATION: Male, 69 years old with history of rule out DVT; Hx PE; On Asprin, Pain TECHNIQUE: The lower extremity deep venous system is examined utilizing real time linear array sonog aruna with graded compression, color doppler sonography, and spectral doppler. SIDE PERFORMED: Bilateral FINDINGS: VESSELS IMAGED: Common Femoral Vein Deep Femoral Vein Greater Saphenous Vein * Femoral Vein Popliteal Vein Small Saphenous Vein * Proximal Calf Veins (* superficial vessels) Right Leg: Negative for DVT, Color Doppler imaging shows patency of the vessels. Spectral waveforms are within normal limits. Left Leg: Negative for DVT, Color Doppler imaging shows patency of the vessels. Spectral waveforms a re within normal limits; patient has amputation below knee. Subcutaneous soft tissue swelling noted n ear the knee. IMPRESSION: 1. Right: No evidence for DVT within the right lower extremity imaged from the groin to the upper evelia f. 2. Left: BKA with subcutaneous soft tissue swelling near the stump. No evidence for DVT from the groi n down to the knee. [facility], Workstation: [employer], 11/24/2024 1:29 PM
--- NOTE | 2024-11-24 14:13 | P.PN ---
Subjective HISTORY OF PRESENT ILLNESS: The patient is a 69-year-old male with a history of diabetes, diabetic foot ulcers, hypertension, diabetes, status post left BKA who presented with an acute dyspnea and was found to have bilateral pulmonary embolism. He had evidence of right ventricular strain on his CT scan as well as evidence of pulmonary hypertension on his echocardiogram. He underwent EKOS procedure yesterday. He is stable this morning, he has some dyspnea but denies any chest discomfort, dizziness or palpitations. He appears to be in atrial flutter since admission, he had episodes of rapid ventricular response last night and was initiated on oral beta-scott. His blood pressure is stable. His urinary output has been stable. He has evidence of anemia and chronic kidney disease on admission. November 22: The patient is feeling well this morning, his breathing is stable. He denies any chest discomfort. He feels that his breathing is better overall. He continues to require oxygen supplementation. He continues to be on oral an ticoagulation, his sheath were removed yesterday. Hemodynamically stable. He is in atrial fibrillationflutter with controlled ventricular response. 11/23/2024 Patient examined this morning at the bedside. Patient currently denies chest pain or pressure. He denies shortness of breath at rest. He does report shortness of breath with deep inspiration. Telemetry reveals atrial flutter/fibrillation with a heart rate in the 60s. Vital signs are stable. 11/24/2024 Patient examined this morning at the bedside. Patient currently denies any chest pain or pressure. He denies shortness of breath. He remains on Eliquis. Vital signs are stable. Telemetry reveals atrial flutter/fibrillation with controlled ventricular rate. PHYSICAL EXAM: VITAL SIGNS: Reviewed. GENERAL: Well-developed in no acute distress. NECK: Supple. No JVD or thyromegaly LUNGS: Respirations even and unlabored. Lungs essentially clear to auscultation bilaterally. HEART: Irregular rate and rhythm. S1 and S2 heard. EXTREMITIES: Normal range of motion. No clubbing or cyanosis. Peripheral pulses intact. Right lower extremity edema noted. Calvin wrap noted. Left BKA. ASSESSMENT: 1. Status post bilateral pulmonary embolism with associated hypoxemia, status post EKOS procedure, improving 2. Atrial flutter with controlled ventricular response, could be exacerbated by the pulmonary embolism 3. Status post left BKA and Charcot's foot ulcer 4. History of diabetes 5. Chronic kidney disease 6. Chronic anemia 7. History of hypertension 8. Hyperlipidemia PLAN: Continue oral anticoagulation with Eliquis Continue additional cardiac medications Continue telemetry monitoring Patient is stable for discharge today from a cardiac standpoint Further recommendations pending patient course Nurse practitioner note has been reviewed by physician. Signing provider agrees with the documented findings, assessment, and plan of care documented by SOFTWARE TRAINER as a scribe. Objective - Vital Signs Vital signs: Vital Signs Temp 97.6 F 11/24/24 11:06 Pulse 66 11/24/24 11:06 Resp 20 11/24/24 11:06 BP 115/69 11/24/24 11:06 Pulse Ox 91 L 11/24/24 12:14 FiO2 Intake & Output 11/23/24 11/24/24 11/24/24 18:59 06:59 18:59 Intake Total 570 20 290 Output Total 1625 700 550 Balance -1055 -680 -260 Weight 87 kg Intake: IV 20 50 Invasive Line 1 10 Invasive Line 3 10 20 Invasive Line 6 10 10 Invasive Line 7 10 Oral 570 240 Output: Urine 1625 700 550 Other: Voiding Method Urinal Urinal Urinal # Bowel Movements 1 - Labs CBC & Chem 7: 11/23/24 07:37 11/24/24 07:13 Labs: Abnormal Lab Results - Last 24 Hours (Table) 11/23/24 11/23/24 11/24/24 Range/Units 16:49 20:17 06:12 Sodium (137-145) mmol/L BUN (9-20) mg/dL Creatinine (0.66-1.25) mg/dL Glucose (74-99) mg/dL POC Glucose (mg/dL) 163 H 147 H 136 H (70-110) mg/dL 11/24/24 11/24/24 Range/Units 07:13 11:26 Sodium 136 L (137-145) mmol/L BUN 35 H (9-20) mg/dL Creatinine 1.54 H (0.66-1.25) mg/dL Glucose 116 H (74-99) mg/dL POC Glucose (mg/dL) 156 H (70-110) mg/dL Microbiology - Last 24 Hours (Table) 11/18/24 16:44 Blood Culture - Final Blood 11/18/24 16:46 Blood Culture - Final Blood
--- NOTE | 2024-11-24 15:49 | P.PN ---
Subjective Progress Note Date: 11/24/24 This is a 69-year-old male patient with a known history of diabetes mellitus, hypertension, former smoker, anxiety who was diagnosed with osteomyelitis in September 2024 of the right heel. He is receiving vancomycin and ertapenem in the outpatient setting by visiting nurses. Wound VAC is in place. Yesterday he had slipped to the floor from his chair and was unable to get up. EMS was called and he was brought into the emergency room. Chest x-ray revealed a left basilar infiltrate. Mild pulmonary vascular congestion. CT scan of the brain revealed no acute intracranial process. CT angiogram revealed a saddle pulmonary embolus with evidence of right heart strain with an RV/LV ratio of 1.35. Bibasilar airspace opacities. Atelectasis of the left lung base. Small bilateral effusions. EKG reveals atrial flutter. White count 6.0. Hemoglobin 8.2. Platelets 342. Sodium 133. Potassium 4.5. Bicarb 22. BUN 59. Creatinine 1.91. Glucose 111. Troponin 0.026, 0.038. Viral screen negative. He has been initiated on a heparin drip. Echocardiogram is pending. He is seen today in consultation in the emergency department. Currently resting on the stretcher. Awake and alert in no acute distress. He is maintaining O2 saturations in the 90s on 4 L/min per nasal cannula. He currently denies any worsening shortness of breath, cough or congestion. No hemoptysis. No chest pain. Hemodynamically stable. He has been quite sedentary due to the right heel osteomyelitis and he is a left below the knee amputee. The patient is seen today November 20, 2024 in follow-up in the emergency department. He is awake and alert in no acute distress. Resting fairly comfortable on a stretcher. He is now requiring 10 L high flow nasal cannula. He remains on a heparin drip. He remains on vancomycin and ertapenem. Cardiology is planning possible EKOS today. White count 6.8. Hemoglobin 8.8. Platelets 361. INR 1.2. Sodium 135. Potassium 4.3. Bicarb 19. BUN 54. Creatinine 1.53. Glucose 133. The patient follow-up on the in the intensive care unit. He is status post EKOS procedure. Postoperative day #1. His sheath has been removed. His heparin drip has been transition to Eliquis. He remains on normal staying at 35 mL/h. He is still requiring 10 L high flow nasal cannula to maintain O2 saturation in the 90s. He is continued on vancomycin and ertapenem for his previous infections of the right lower extremity. 321. INR 1.2. Sodium 134. Potassium 4.2. Bicarb 22. BUN 47. Creatinine 1.50. Glucose 111. The patient is seen today November 22, 2024 in follow-up in the intensive care unit. He is a 3 S. over follow patient. He is awake and alert in no acute distress. Sitting up in bed. Maintaining O2 saturations in the 90s on 5 L/min per nasal cannula. He has normal saline at KVO. Anticoagulated with Eliquis. Continued on vancomycin and ertapenem for his right lower extremity wound. Blood cultures revealed no growth. White count 5.3. Hemoglobin 8.7. Bicarb 138. Potassium 4.4. BUN 42. Creatinine 1.44. Glucose 133. Progress note dated November 23, 2024. 69-year-old male seen today in room 369. The patient was admitted with a diagnosis of pulmonary embolism, and had EKOS performed. The patient is currently doing well on 2 L. No IV fluids. The patient denies any respiratory issues including shortness of breath, cough, wheezing, chest tightness, or phlegm production. Current labs include a white count 5.3, hemoglobin 8.5, hematocrit 26.9, and a platelet count of 314,000. PT 14.1 INR 1.3. Sodium 137, potassium 4.5, chlorides 108, CO2 23, BUN 38, creatinine 1.39. Glucose is 131. Calcium is 8.3. On 11/24/2024, the patient is being seen for a follow-up. The patient is calm and comfortable and currently is on room air oxygen with a pulse ox of 91%. No significant shortness of breath at rest. The patient is nonambulatory at this point in time. The patient was also treated for massive bilateral pulmonary embolism and the patient underwent intra-arterial thrombolytic therapy utilizing the EKOS system. He has also bilateral pleural effusions. He was taken off the IV heparin and the patient is currently on anticoagulation with Eliquis 10 mg p.o. twice a day. He continues to have swelling in lower extremities bilaterall y. He has a left BKA when he was receiving outpatient antibiotic therapy for a osteomyelitis and the patient remains on a combination of vancomycin IV Invanz. A wound VAC is still in place. He is also known to have diabetes mellitus type 2, hypertension, peripheral vascular disease, BPH and previous history of atrial flutter. His current cardiac mechanism is A-fib. Echocardiogram done on 2024 shows preserved LV function with an EF around 55 to 60%. Moderate to severe pulmonary hypertension with estimated PA pressure of 52. Chest x-ray from 11/23/2023 shows smaller lung volumes, possibly bilateral pleural effusion as the patient has haziness in the lung base bilaterally. Objective - Vital Signs Vital signs: Vital Signs Temp 97.6 F 11/24/24 11:06 Pulse 66 11/24/24 11:06 Resp 20 11/24/24 11:06 BP 115/69 11/24/24 11:06 Pulse Ox 97 11/24/24 11:06 FiO2 Intake & Output 11/23/24 11/24/24 11/24/24 18:59 06:59 18:59 Intake Total 570 20 30 Output Total 1625 700 550 Balance -1055 -680 -520 Weight 87 kg Intake: IV 20 30 Invasive Line 1 10 Invasive Line 3 10 10 Invasive Line 6 10 10 Oral 570 Output: Urine 1625 700 550 Other: Voiding Method Urinal Urinal Urinal # Bowel Movements 1 - Exam No acute distress, oriented 3. Currently on room air oxygen HEENT examination is grossly unremarkable. Mucous membranes are moist. No oral lesions. Neck supple. Full range of motion. No adenopathy thyromegaly or neck vein distention. Cardiovascular examination reveals regular rhythm rate. S1-S2 normal. No S3 or S4. No discernible murmur noted. Lungs reveal clear breath sounds. Breath sounds are equal bilaterally. No adventitious lung sounds including wheezes rhonchi or crackles. Breath sounds are quite diminished in lung base bilaterally, suspect bilateral pleural effusion lung bases Abdomen soft bowel sounds are heard. No masses or tenderness. Extremities are intact. No cyanosis clubbing and there is significant amount of edema in the right lower extremity, the patient has a left BKA on the left. Skin is without rash or lesion. Neurologic examination is brief but nonfocal. - Labs CBC & Chem 7: 11/23/24 07:37 11/24/24 07:13 Labs: Abnormal Lab Results - Last 24 Hours (Table) 11/23/24 11/23/24 11/24/24 Range/Units 16:49 20:17 06:12 Sodium (137-145) mmol/L BUN (9-20) mg/dL Creatinine (0.66-1.25) mg/dL Glucose (74-99) mg/dL POC Glucose (mg/dL) 163 H 147 H 136 H (70-110) mg/dL 11/24/24 11/24/24 Range/Units 07:13 11:26 Sodium 136 L (137-145) mmol/L BUN 35 H (9-20) mg/dL Creatinine 1.54 H (0.66-1.25) mg/dL Glucose 116 H (74-99) mg/dL POC Glucose (mg/dL) 156 H (70-110) mg/dL Microbiology - Last 24 Hours (Table) 11/18/24 16:44 Blood Culture - Final Blood 11/18/24 16:46 Blood Culture - Final Blood Assessment and Plan Plan: Acute hypoxemic respiratory failure secondary to saddle pulmonary embolism with right heart strain. S/P EKOS November 20, 2024. The patient was taken off the IV heparin and patient is currently on anticoagulation with Eliquis 10 mg p.o. twice a day. The patient is also on room air oxygen. Doppler of the lower extremities has not been checked. Echocardiogram shows moderate to severe pulm hypertension with a PA pressure of around 50 to, preserved LV function. Generalized weakness. Atrial flutter/fibrillation Chronic stage III kidney disease Troponin leak, secondary to pulmonary embolism Anemia of chronic disease Osteomyelitis of the right heel diagnosed in September 2024. Maintained on vancomycin and ertapenem. The patient is post BKA in the left lower extremity Diabetes mellitus type 2 Hypertension. History of anxiety. BPH. Left below the knee amputee. Poor functional performance based on the above-mentioned multiple comorbidities. Plan: Patient is currently on room air oxygen. Will monitor the oxygenation and titrate oxygen flow accordingly Start the patient IV Lasix Obtain Doppler of the lower extremities Repeat chest x-ray in the morning May consider thoracentesis if there is Sizable bilateral pleural effusions Continue IV Invanz and vancomycin Wound VAC Will continue to follow
[2024-11-24 16:42] LABS: Glucose,Whole Blood 119 mg/dL (70-110)
[2024-11-24 21:23] LABS: Glucose,Whole Blood 142 mg/dL (70-110)
--- NOTE | 2024-11-25 05:40 | P.PN ---
Subjective Progress Note Date: 11/24/24 Principal diagnosis: Reason for follow-up is right ankle osteomyelitis Patient is a 69-year-old male with a past medical history significant for hypertension diabetes mellitus anxiety, he did have a Charcot foot diabetic foot infection status post left below the knee amputation and the patient recently did have multiple surgery on his left foot and ankle area including placement of a titanium car infectious subsequent removal and has been dealing with infection and currently on combination of IV vancomycin and ertapenem brought to the hospital the patient was found to be on the floor has been diagnosed with PE with right heart strain and this patient was status post EKOS procedure and subsequent admission to the ICU. On today's evaluation that is 11/24/2023, patient has been afebrile, patient is breathing comfortably and is currently on room air, patient denies having any significant cough no chest pain, patient denies nausea vomiting or diarrhea and no abdominal pain or pain to the right foot area. Patient did have a creatinine of 1.54 Objective - Vital Signs Vital signs: Vital Signs Temp 97.6 F 11/24/24 11:06 Pulse 66 11/24/24 11:06 Resp 20 11/24/24 11:06 BP 115/69 11/24/24 11:06 Pulse Ox 91 L 11/24/24 12:14 FiO2 Intake & Output 11/23/24 11/24/24 11/24/24 18:59 06:59 18:59 Intake Total 570 20 290 Output Total 1625 700 550 Balance -1055 -680 -260 Weight 87 kg Intake: IV 20 50 Invasive Line 1 10 Invasive Line 3 10 20 Invasive Line 6 10 10 Invasive Line 7 10 Oral 570 240 Output: Urine 1625 700 550 Other: Voiding Method Urinal Urinal Urinal # Bowel Movements 1 - Exam GENERAL DESCRIPTION: An elderly male lying in bed in no distress RESPIRATORY SYSTEM: Unlabored breathing , decreased breath sounds at bases HEART: S1 S2 regular rate and rhythm , ABDOMEN: Soft , no tenderness EXTREMITIES: Right foot wound covered with a wound VAC - Labs CBC & Chem 7: 11/23/24 07:37 11/24/24 07:13 Labs: Abnormal Lab Results - Last 24 Hours (Table) 11/23/24 11/23/24 11/24/24 Range/Units 16:49 20:17 06:12 Sodium (137-145) mmol/L BUN (9-20) mg/dL Creatinine (0.66-1.25) mg/dL Glucose (74-99) mg/dL POC Glucose (mg/dL) 163 H 147 H 136 H (70-110) mg/dL 11/24/24 11/24/24 Range/Units 07:13 11:26 Sodium 136 L (137-145) mmol/L BUN 35 H (9-20) mg/dL Creatinine 1.54 H (0.66-1.25) mg/dL Glucose 116 H (74-99) mg/dL POC Glucose (mg/dL) 156 H (70-110) mg/dL Microbiology - Last 24 Hours (Table) 11/18/24 16:44 Blood Culture - Final Blood 11/18/24 16:46 Blood Culture - Final Blood Assessment and Plan (1) Ankle osteomyelitis, right Current Visit: Yes Status: Acute Code(s): M86.9 - OSTEOMYELITIS, UNSPECIFIED SNOMED Code(s): 6531451887938847 (2) Charcot foot due to diabetes mellitus Current Visit: No Status: Acute Code(s): E11.610 - TYPE 2 DIABETES MELLITUS W DIABETIC NEUROPATHIC ARTHROPATHY SNOMED Code(s): 031360274 (3) Diabetic foot ulcer Current Visit: No Status: Acute Code(s): E11.621 - TYPE 2 DIABETES MELLITUS WITH FOOT ULCER; L97.509 - NON-PRESSURE CHRONIC ULCER OTH PRT UNSP FOOT W UNSP SEVERITY SNOMED Code(s): 551983658 Plan: 1patient with a complicated history of right Charcot foot and this patient did have multiple surgeries most of his care has been done at [facility] and I do not have any access to those records and the patient is currently dealing with an infection and getting IV vancomycin and ertapenem in the outpatient setting now being admitted to hospital after the patient did have a fall and has been diagnosed with a PE x-rays were suspicious for pneumonia however the patient did not have significant cough or sputum production to be suspicious for pneumonia 2-patient right foot wound to continue with the wound VAC Sunday with a black foam and 125 mmHg 3patient is afebrile, white count has been normal to continue with vancomycin pharmacy dose and ertapenem, and continue supportive care Dictation was produced using [employer] dictation software. please excuse any gramm atical, word or spelling errors. Time with Patient: Less than 30
[2024-11-25 05:52] LABS: Glucose,Whole Blood 145 mg/dL (70-110)
--- NOTE | 2024-11-25 07:20 | XR ---
EXAMINATION TYPE: XR chest 1V DATE OF EXAM: 11/25/2024 COMPARISON: 11/23/2024 CLINICAL INDICATION: Male, 69 years old with history of pleural effusion; TECHNIQUE: Single frontal view of the chest is obtained. FINDINGS: Leftward patient rotation ultrasound unremarkable cardiovascular mediastinal contours. Left PICC tip not clearly seen beyond the expected mid SVC level. Heart borderline in size. Hazy opacity right lowe r lung with trace right effusion. Small left pleural effusion with underlying dense retrocardiac opac ity. IMPRESSION: 1. Limited, rotated exam. Ongoing small left pleural effusion along with dense retrocardiac opacity. 2. Ongoing small right pleural effusion along with hazy right lower lung opacity. [facility], , 11/25/2024 7:18 AM
[2024-11-25 08:15] VITALS: RESP 16
[2024-11-25 08:29] LABS: African American GFR (CKD) 54 (>60 ml/min/1.73 sqM); Anion Gap 6 mmol/L; Blood Urea Nitrogen 34 mg/dL (9-20); Calcium 8.6 mg/dL (8.4-10.2); Carbon Dioxide 28 mmol/L (22-30); Chloride 104 mmol/L (98-107); Glucose 122 mg/dL (74-99); Non-African American GFR(CKD) 47 (>60 ml/min/1.73 sqM); Potassium 4.5 mmol/L (3.5-5.1); Sodium 138 mmol/L (137-145)
--- NOTE | 2024-11-25 11:25 | P.DS ---
Providers Date of admission: 11/18/24 15:56 Expected date of discharge: 11/25/24 Attending physician: Salvador Botello Consults: 11/18/24 15:56 Consult Physician Stat Consulting Provider: Gary Jacques Consult Reason/Comments: pe Do you want consulting provider notified?: Already Contacted Consult Physician Stat Consulting Provider: Mary Chávez Consult Reason/Comments: pe, ekos Do you want consulting provider notified?: Already Contacted 11/18/24 16:58 Consult Physician Routine Consulting Provider: Phyllis Zurita Consult Reason/Comments: on vanc and ertapenem, right foot osteo Do you want consulting provider notified?: Yes Primary care physician: Physician Nonstaff Hospital Course: Discharge diagnosis: Acute submassive PE Acute hypoxic respiratory failure secondary to above Type II NSTEMI secondary to above Iron deficiency anemia Atrial tachycardia CKD stage III at baseline Type 2 diabetes Hypertension Dyslipidemia Recent right ankle reconstruction with a wound VAC Hospital Course: 69-year-old male with history of type 2 diabetes, hypertension, Charcot foot with left BKA and recent right ankle surgery status post wound VAC and currently on IV antibiotics, presenting with shortness of breath and weakness. In the ED, T 97.5, HR 109, RR 18, BP 148/86, 94% on RA. CBC, Coag panel, CMP significant for RBC 3.5, Hg 8.9, Hct 27.3, MCV 78.2, PT 15.2, INR 1.5, APTT 79, Na 132, Cl 97, bicarb 20, BUN 58, Cr 1.82, glu 162. Troponin 0.018. BNP 682. Mag 2.4. Lactic acid 1.9. TSH 2.65. D-Dimer 12.61. Head CT did not show any acute process. Chest CTA showed saddle pulmonary embolism with evidence of right heart strain, bibasilar airspace opacities concerning for pneumonia versus early pulmonary infarct, small bilateral pleural effusions. EKG showed atrial tachycardia, right bundle branch block, S1Q3T3 pattern, significant T wave depressions and anterior septal leads, flattening of T waves in lateral leads. Patient was started on heparin drip and admitted for further workup and management. Cardiology and Pulmonary consulted. Underwent EKOS on 11/20. Echo showed EF 60%, mod-severe pulmonary HTN, mild-mod TR. Heparin drip transitioned to Eliquis on 11/21. Restarted on Vancomycin and Ertapenem for treatment of R foot OM with ID on board. Lower extremity Dopplers negative for DVTs. Chest x-ray does show small right pleural effusion. Mildly hypervolemic. Patient also started on oral Lasix. Being discharged home with close follow-up with cardiology, pulmonology, ID and orthopedic surgery at [facility]. He will continue ertapenem and IV vancomycin. He is on room air at the time of discharge. Patient seen and examined at bedside. Vital signs reviewed and stable. General: nontoxic, no distress, appears at stated age, chronically ill-appearing Derm: warm, dry Head: atraumatic, normocephalic, symmetric Eyes: EOMI, no lid lag, anicteric sclera ENT: Nose and ears atraumatic Neck: No thyromegaly, supple Mouth: no lip lesion, mucus membranes moist Cardiovascular: S1S2 reg, no murmur, no edema Lungs: Clear to auscultation bilateral, no rhonchi, no rales, no wheeze, no accessory muscle use Ext: Left BKA, right foot covered in dressing with a wound VAC. Left arm PICC line. Psych: Alert, oriented, appropriate affect A total of 36 minutes of time were spent preparing this complex discharge summary. Patient was discharged on 11/25/2024 at 1049. Patient Condition at Discharge: Stable Plan - Discharge Summary Discharge Rx Participant: No New Discharge Prescriptions: New Metoprolol Tartrate [Lopressor] 25 mg PO BID #60 tab Apixaban [Eliquis Starter Pack (for VTE)] 5 - 10 mg PO DIRECTED 30 Days #1 each Atorvastatin [Lipitor] 40 mg PO HS #30 tab Furosemide [Lasix] 40 mg PO DAILY #60 tablet Continue amLODIPine [Norvasc] 5 mg PO DAILY Insulin Glargine,Hum.rec.anlog [Lantus Solostar Pen] 5 units SQ HS traMADol HCL 50 mg PO Q6H PRN PRN Reason: Pain Tamsulosin [Flomax] 0.4 mg PO DAILY Vit C/E/Zn/Coppr/Lutein/Zeaxan [Preservision Areds 2 Softgel] 1 cap PO DAILY Vancomycin 1,250 mg IVPB Q48H Ertapenem [INVanz] 1 gm IVPB Q24H metFORMIN HCL [Glucophage] 1,000 mg PO AC-BID ALPRAZolam [Xanax] 1 mg PO TID Sodium Bicarbonate Tab 650 mg PO BID Oxymetazoline 0.05% Nasl [place] [Afrin 0.05% Nasal [place]] 2 spray EA NOSTRIL DAILY PRN PRN Reason: Congestion Multivitamins, Thera [Multivitamin (formulary)] 1 tab PO DAILY Discharge Medication List amLODIPine [Norvasc] 5 mg PO DAILY 08/20/23 [History] metFORMIN HCL [Glucophage] 1,000 mg PO AC-BID 08/20/23 [History] Insulin Glargine,Hum.rec.anlog [Lantus Solostar Pen] 5 units SQ HS 04/12/24 [History] ALPRAZolam [Xanax] 1 mg PO TID 11/18/24 [History] Ertapenem [INVanz] 1 gm IVPB Q24H 11/18/24 [History] Multivitamins, Thera [Multivitamin (formulary)] 1 tab PO DAILY 11/18/24 [History] Oxymetazoline 0.05% Nasl [place] [Afrin 0.05% Nasal [place]] 2 spray EA NOSTRIL DAILY PRN 11/18/24 [History] Sodium Bicarbonate Tab 650 mg PO BID 11/18/24 [History] Tamsulosin [Flomax] 0.4 mg PO DAILY 11/18/24 [History] Vancomycin 1,250 mg IVPB Q48H 11/18/24 [History] Vit C/E/Zn/Coppr/Lutein/Zeaxan [Preservision Areds 2 Softgel] 1 cap PO DAILY 11/18/24 [History] traMADol HCL 50 mg PO Q6H PRN 11/18/24 [History] Apixaban [Eliquis Starter Pack (for VTE)] 5 - 10 mg PO DIRECTED 30 Days #1 each 11/24/24 [Rx] Atorvastatin [Lipitor] 40 mg PO HS #30 tab 11/24/24 [Rx] Metoprolol Tartrate [Lopressor] 25 mg PO BID #60 tab 11/24/24 [Rx] Furosemide [Lasix] 40 mg PO DAILY #60 tablet 11/25/24 [Rx] Follow up Appointment(s)/Referral(s): Mary Chávez MD [STAFF PHYSICIAN] - 1 Week Nonstaff,Physician [Primary Care Provider] - 1-2 days (please call and make appointment) [facility] [NON-STAFF] - 1 Week (agency will call 24-48 hours after d/c to schedule an appointment. ) Phyllis Zurita MD [STAFF PHYSICIAN] - 1 Week Esvin Page MD [STAFF PHYSICIAN] - 1 Week Patient Instructions/Handouts: Pulmonary Embolism (DC) Activity/Diet/Wound Care/Special Instructions: Please see cardiology, pulmonology and your surgeons at [facility]. Discharge Disposition: HOME WITH HOME HEALTH SERVICES
[2024-11-25 11:29] LABS: Glucose,Whole Blood 147 mg/dL (70-110)
[2024-11-25 12:29] VITALS: BP 129/80; PULSE 64; TEMP 97.9
--- NOTE | 2024-11-25 13:01 | P.PN ---
Subjective Progress Note Date: 11/25/24 Principal diagnosis: Reason for follow-up is right ankle osteomyelitis Patient is a 69-year-old male with a past medical history significant for hypertension diabetes mellitus anxiety, he did have a Charcot foot diabetic foot infection status post left below the knee amputation and the patient recently did have multiple surgery on his left foot and ankle area including placement of a titanium car infectious subsequent removal and has been dealing with infection and currently on combination of IV vancomycin and ertapenem brought to the hospital the patient was found to be on the floor has been diagnosed with PE with right heart strain and this patient was status post EKOS procedure and subsequent admission to the ICU. On today's evaluation that is 11/25/2023, Patient is afebrile this morning patient denies having any chest pain shortness of breath or cough, the patient is currently on room air, patient denies any abdominal pain no diarrhea no nausea no vomiting or pain to the right foot and ankle area. Patient did have a creatinine 1.50 no CBC was done today blood culture has been negative Objective - Vital Signs Vital signs: Vital Signs Temp 97.5 F L 11/25/24 08:14 Pulse 68 11/25/24 08:14 Resp 16 11/25/24 08:14 BP 151/78 11/25/24 08:14 Pulse Ox 94 L 11/25/24 08:14 FiO2 Intake & Output 11/24/24 11/25/24 11/25/24 18:59 06:59 18:59 Intake Total 290 30 20 Output Total 1475 1100 300 Balance -1865 -5920 -280 Weight 86 kg Intake: IV 50 30 20 Invasive Line 1 10 Invasive Line 3 20 20 10 Invasive Line 6 10 Invasive Line 7 10 10 10 Oral 240 Output: Urine 1475 1100 300 Other: Voiding Method Urinal Urinal Urinal - Exam GENERAL DESCRIPTION: An elderly male lying in bed in no distress RESPIRATORY SYSTEM: Unlabored breathing , decreased breath sounds at bases HEART: S1 S2 regular rate and rhythm , ABDOMEN: Soft , no tenderness EXTREMITIES: Right foot wound covered with a wound VAC - Labs CBC & Chem 7: 11/23/24 07:37 11/25/24 07:07 Labs: Abnormal Lab Results - Last 24 Hours (Table) 11/24/24 11/24/24 11/24/24 Range/Units 11:26 16:40 21:22 BUN (9-20) mg/dL Creatinine (0.66-1.25) mg/dL Glucose (74-99) mg/dL POC Glucose (mg/dL) 156 H 119 H 142 H (70-110) mg/dL 11/25/24 11/25/24 Range/Units 05:51 07:07 BUN 34 H (9-20) mg/dL Creatinine 1.50 H (0.66-1.25) mg/dL Glucose 122 H (74-99) mg/dL POC Glucose (mg/dL) 145 H (70-110) mg/dL Assessment and Plan (1) Ankle osteomyelitis, right Status: Acute Code(s): M86.9 - OSTEOMYELITIS, UNSPECIFIED SNOMED Code(s): 8285324435264711 (2) Charcot foot due to diabetes mellitus Status: Acute Code(s): E11.610 - TYPE 2 DIABETES MELLITUS W DIABETIC NEUROPATHIC ARTHROPATHY SNOMED Code(s): 052901978 (3) Diabetic foot ulcer Status: Acute Code(s): E11.621 - TYPE 2 DIABETES MELLITUS WITH FOOT ULCER; L97.509 - NON-PRESSURE CHRONIC ULCER OTH PRT UNSP FOOT W UNSP SEVERITY SNOMED Code(s): 842294686 Plan: 1patient with a complicated history of right Charcot foot and this patient did have multiple surgeries most of his care has been done at [facility] and I do not have any access to those records and the patient is currently dealing with an infection and getting IV vancomycin and ertapenem in the outpatient setting now being admitted to hospital after the patient did have a fall and has been diagnosed with a PE x-rays were suspicious for pneumonia however the patient did not have significant cough or sputum production to be suspicious for pneumonia 2-patient right foot wound to continue with the wound VAC Sunday with a black foam and 125 mmHg 3patient is afebrile, white count has been normal, patient be advised to continue with vancomycin pharmacy dose and ertapenem on discharge and to follow- up with his ID physician from [facility] whose care antibiotic were started Dictation was produced using [employer] dictation software. please excuse any grammatical, word or spelling errors. Time with Patient: Less than 30
--- NOTE | 2024-11-25 13:24 | P.PN ---
Subjective HISTORY OF PRESENT ILLNESS: The patient is a 69-year-old male with a history of diabetes, diabetic foot ulcers, hypertension, diabetes, status post left BKA who presented with an acute dyspnea and was found to have bilateral pulmonary embolism. He had evidence of right ventricular strain on his CT scan as well as evidence of pulmonary hypertension on his echocardiogram. He underwent EKOS procedure yesterday. He is stable this morning, he has some dyspnea but denies any chest discomfort, dizziness or palpitations. He appears to be in atrial flutter since admission, he had episodes of rapid ventricular response last night and was initiated on oral beta-scott. His blood pressure is stable. His urinary output has been stable. He has evidence of anemia and chronic kidney disease on admission. November 22: The patient is feeling well this morning, his breathing is stable. He denies any chest discomfort. He feels that his breathing is better overall. He continues to require oxygen supplementation. He continues to be on oral an ticoagulation, his sheath were removed yesterday. Hemodynamically stable. He is in atrial fibrillationflutter with controlled ventricular response. 11/23/2024 Patient examined this morning at the bedside. Patient currently denies chest pain or pressure. He denies shortness of breath at rest. He does report shortness of breath with deep inspiration. Telemetry reveals atrial flutter/fibrillation with a heart rate in the 60s. Vital signs are stable. 11/24/2024 Patient examined this morning at the bedside. Patient currently denies any chest pain or pressure. He denies shortness of breath. He remains on Eliquis. Vital signs are stable. Telemetry reveals atrial flutter/fibrillation with controlled ventricular rate. 11/25/2024 Patient examined this morning at the bedside. Patient currently denies chest pain or pressure. Denies shortness of breath. Vital signs are stable. Patient converted to sinus mechanism and is maintaining sinus mechanism at the time of examination. PHYSICAL EXAM: VITAL SIGNS: Reviewed. GENERAL: Well-developed in no acute distress. NECK: Supple. No JVD or thyromegaly LUNGS: Respirations even and unlabored. Lungs essentially clear to auscultation bilaterally. HEART: Regular rate and rhythm. S1 and S2 heard. EXTREMITIES: Normal range of motion. No clubbing or cyanosis. Peripheral pulses intact. Right lower extremity edema noted. Calvin wrap noted. Left BKA. ASSESSMENT: 1. Status post bilateral pulmonary embolism with associated hypoxemia, status post EKOS procedure, improving 2. Paroxysmal typical atrial flutter/fibrillation with controlled ventricular response, could be exacerbated by the pulmonary embolism, currently maintaining sinus mechanism 3. Status post left BKA and Charcot's foot ulcer 4. History of diabetes 5. Chronic kidney disease 6. Chronic anemia 7. History of hypertension 8. Hyperlipidemia PLAN: Continue oral anticoagulation with Eliquis Continue additional cardiac medications Continue telemetry monitoring Patient is stable for discharge today from a cardiac standpoint Further recommendations pending patient course Nurse practitioner note has been reviewed by physician. Signing provider agrees with the documented findings, assessment, and plan of care documented by E [employer] as a scribe. Objective - Vital Signs Vital signs: Vital Signs Temp 97.5 F L 11/25/24 08:14 Pulse 68 11/25/24 08:14 Resp 16 11/25/24 08:14 BP 151/78 11/25/24 08:14 Pulse Ox 94 L 11/25/24 08:14 FiO2 Intake & Output 11/24/24 11/25/24 11/25/24 18:59 06:59 18:59 Intake Total 290 30 20 Output Total 1475 1100 300 Balance -1185 -1070 -280 Weight 86 kg Intake: IV 50 30 20 Invasive Line 1 10 Invasive Line 3 20 20 10 Invasive Line 6 10 Invasive Line 7 10 10 10 Oral 240 Output: Urine 1475 1100 300 Other: Voiding Method Urinal Urinal Urinal - Labs CBC & Chem 7: 11/23/24 07:37 11/25/24 07:07 Labs: Abnormal Lab Results - Last 24 Hours (Table) 11/24/24 11/24/24 11/24/24 Range/Units 11:26 16:40 21:22 BUN (9-20) mg/dL Creatinine (0.66-1.25) mg/dL Glucose (74-99) mg/dL POC Glucose (mg/dL) 156 H 119 H 142 H (70-110) mg/dL 11/25/24 11/25/24 Range/Units 05:51 07:07 BUN 34 H (9-20) mg/dL Creatinine 1.50 H (0.66-1.25) mg/dL Glucose 122 H (74-99) mg/dL POC Glucose (mg/dL) 145 H (70-110) mg/dL Microbiology - Last 24 Hours (Table) 11/18/24 16:44 Blood Culture - Final Blood 11/18/24 16:46 Blood Culture - Final Blood
--- NOTE | 2024-11-25 21:45 | P.PN ---
Subjective Progress Note Date: 11/25/24 This is a 69-year-old male patient with a known history of diabetes mellitus, hypertension, former smoker, anxiety who was diagnosed with osteomyelitis in September 2024 of the right heel. He is receiving vancomycin and ertapenem in the outpatient setting by visiting nurses. Wound VAC is in place. Yesterday he had slipped to the floor from his chair and was unable to get up. EMS was called and he was brought into the emergency room. Chest x-ray revealed a left basilar infiltrate. Mild pulmonary vascular congestion. CT scan of the brain revealed no acute intracranial process. CT angiogram revealed a saddle pulmonary embolus with evidence of right heart strain with an RV/LV ratio of 1.35. Bibasilar airspace opacities. Atelectasis of the left lung base. Small bilateral effusions. EKG reveals atrial flutter. White count 6.0. Hemoglobin 8.2. Platelets 342. Sodium 133. Potassium 4.5. Bicarb 22. BUN 59. Creatinine 1.91. Glucose 111. Troponin 0.026, 0.038. Viral screen negative. He has been initiated on a heparin drip. Echocardiogram is pending. He is seen today in consultation in the emergency department. Currently resting on the stretcher. Awake and alert in no acute distress. He is maintaining O2 saturations in the 90s on 4 L/min per nasal cannula. He currently denies any worsening shortness of breath, cough or congestion. No hemoptysis. No chest pain. Hemodynamically stable. He has been quite sedentary due to the right heel osteomyelitis and he is a left below the knee amputee. The patient is seen today November 20, 2024 in follow-up in the emergency department. He is awake and alert in no acute distress. Resting fairly comfortable on a stretcher. He is now requiring 10 L high flow nasal cannula. He remains on a heparin drip. He remains on vancomycin and ertapenem. Cardiology is planning possible EKOS today. White count 6.8. Hemoglobin 8.8. Platelets 361. INR 1.2. Sodium 135. Potassium 4.3. Bicarb 19. BUN 54. Creatinine 1.53. Glucose 133. The patient follow-up on the in the intensive care unit. He is status post EKOS procedure. Postoperative day #1. His sheath has been removed. His heparin drip has been transition to Eliquis. He remains on normal staying at 35 mL/h. He is still requiring 10 L high flow nasal cannula to maintain O2 saturation in the 90s. He is continued on vancomycin and ertapenem for his previous infections of the right lower extremity. 321. INR 1.2. Sodium 134. Potassium 4.2. Bicarb 22. BUN 47. Creatinine 1.50. Glucose 111. The patient is seen today November 22, 2024 in follow-up in the intensive care unit. He is a 3 S. over follow patient. He is awake and alert in no acute distress. Sitting up in bed. Maintaining O2 saturations in the 90s on 5 L/min per nasal cannula. He has normal saline at KVO. Anticoagulated with Eliquis. Continued on vancomycin and ertapenem for his right lower extremity wound. Blood cultures revealed no growth. White count 5.3. Hemoglobin 8.7. Bicarb 138. Potassium 4.4. BUN 42. Creatinine 1.44. Glucose 133. Progress note dated November 23, 2024. 69-year-old male seen today in room 369. The patient was admitted with a diagnosis of pulmonary embolism, and had EKOS performed. The patient is currently doing well on 2 L. No IV fluids. The patient denies any respiratory issues including shortness of breath, cough, wheezing, chest tightness, or phlegm production. Current labs include a white count 5.3, hemoglobin 8.5, hematocrit 26.9, and a platelet count of 314,000. PT 14.1 INR 1.3. Sodium 137, potassium 4.5, chlorides 108, CO2 23, BUN 38, creatinine 1.39. Glucose is 131. Calcium is 8.3. On 11/24/2024, the patient is being seen for a follow-up. The patient is calm and comfortable and currently is on room air oxygen with a pulse ox of 91%. No significant shortness of breath at rest. The patient is nonambulatory at this point in time. The patient was also treated for massive bilateral pulmonary embolism and the patient underwent intra-arterial thrombolytic therapy utilizing the EKOS system. He has also bilateral pleural effusions. He was taken off the IV heparin and the patient is currently on anticoagulation with Eliquis 10 mg p.o. twice a day. He continues to have swelling in lower extremities bilaterall y. He has a left BKA when he was receiving outpatient antibiotic therapy for a osteomyelitis and the patient remains on a combination of vancomycin IV Invanz. A wound VAC is still in place. He is also known to have diabetes mellitus type 2, hypertension, peripheral vascular disease, BPH and previous history of atrial flutter. His current cardiac mechanism is A-fib. Echocardiogram done on 2024 shows preserved LV function with an EF around 55 to 60%. Moderate to severe pulmonary hypertension with estimated PA pressure of 52. Chest x-ray from 11/23/2023 shows smaller lung volumes, possibly bilateral pleural effusion as the patient has haziness in the lung base bilaterally. On 11/25/2024, the patient is being seen for a follow-up. The patient is doing well on room air oxygen. Doppler lower extremities were negative. Over the past 24 hours, the patient was diuresed and the patient is a negative fluid balance of 2.2 L over the past 24 hours. Doing well. No specific complaints. BUN 34 with a creatinine of 1.7 and sodium levels at 138. Will likely get discharged home on anticoagulation with Eliquis. The patient will also need to stay on diuretics on outpatient basis recommend daily doses of Lasix 40 mg p.o. daily to optimize his volume status. Objective - Vital Signs Vital signs: Vital Signs Temp 97.5 F L 11/25/24 08:14 Pulse 68 11/25/24 08:14 Resp 16 11/25/24 08:14 BP 151/78 11/25/24 08:14 Pulse Ox 94 L 11/25/24 08:14 FiO2 Intake & Output 11/24/24 11/25/24 11/25/24 18:59 06:59 18:59 Intake Total 290 30 20 Output Total 1475 1100 300 Balance -1185 -6340 -280 Weight 86 kg Intake: IV 50 30 20 Invasive Line 1 10 Invasive Line 3 20 20 10 Invasive Line 6 10 Invasive Line 7 10 10 10 Oral 240 Output: Urine 1475 1100 300 Other: Voiding Method Urinal Urinal Urinal - Exam No acute distress, oriented 3. Currently on room air oxygen HEENT examination is grossly unremarkable. Mucous membranes are moist. No oral lesions. Neck supple. Full range of motion. No adenopathy thyromegaly or neck vein distention. Cardiovascular examination reveals regular rhythm rate. S1-S2 normal. No S3 or S4. No discernible murmur noted. Lungs reveal clear breath sounds. Breath sounds are equal bilaterally. No adventitious lung sounds including wheezes rhonchi or crackles. Breath sounds are quite diminished in lung base bilaterally, suspect bilateral pleural ef fusion lung bases Abdomen soft bowel sounds are heard. No masses or tenderness. Extremities are intact. No cyanosis clubbing and there is significant amount of edema in the right lower extremity, the patient has a left BKA on the left. Skin is without rash or lesion. Neurologic examination is brief but nonfocal. - Labs CBC & Chem 7: 11/23/24 07:37 11/25/24 07:07 Labs: Abnormal Lab Results - Last 24 Hours (Table) 11/24/24 11/24/24 11/25/24 Range/Units 16:40 21:22 05:51 BUN (9-20) mg/dL Creatinine (0.66-1.25) mg/dL Glucose (74-99) mg/dL POC Glucose (mg/dL) 119 H 142 H 145 H (70-110) mg/dL 11/25/24 11/25/24 Range/Units 07:07 11:27 BUN 34 H (9-20) mg/dL Creatinine 1.50 H (0.66-1.25) mg/dL Glucose 122 H (74-99) mg/dL POC Glucose (mg/dL) 147 H (70-110) mg/dL Assessment and Plan Plan: Acute hypoxemic respiratory failure secondary to saddle pulmonary embolism with right heart strain. S/P EKOS November 20, 2024. The patient was taken off the IV heparin and patient is currently on anticoagulation with Eliquis 10 mg p.o. twice a day. The patient is also on room air oxygen. Doppler of the lower extremities has not been checked. Echocardiogram shows moderate to severe pulm hypertension with a PA pressure of around 50 to, preserved LV function. Generalized weakness. Atrial flutter/fibrillation Chronic stage III kidney disease Troponin leak, secondary to pulmonary embolism Anemia of chronic disease Osteomyelitis of the right heel diagnosed in September 2024. Maintained on va ncomycin and ertapenem. The patient is post BKA in the left lower extremity Diabetes mellitus type 2 Hypertension. History of anxiety. BPH. Left below the knee amputee. Poor functional performance based on the above-mentioned multiple comorbidities. Plan: Patient is currently on room air oxygen. Patient is negative fluid balance, responded to diuresis. Obtain Doppler of the lower extremities were negative for DVTs Repeat chest x-ray in the morning no sizable pleural effusion Continue IV Invanz and vancomycin Wound VAC Oral Lasix Anticoagulation with Eliquis Discharge planning is in progress
[2024-11-26] MEDS ORDERED: VANCOMYCIN TROUGH DUE 1 EACH MISC MISCELLANE ONE (20:00)
== END 2024-11-25 12:30 | disposition home health service (06) | DRG 173 ==
LOC: EC 13:06 → SUPCPDRO 13:06 → 3SCARD 15:56 → 2SICU 11-20 11:38 → 3SCARD 11-22 18:09
PROVIDERS: ADMIT Student in an Organized Health Care Education/Training Program; ATTEND Student in an Organized Health Care Education/Training Program
PROC: 02FQ3Z0 Fragmentation of Right Pulmonary Artery, Percutaneous Approach, Ultrasonic (ICD-10-PCS; 2024-11-20)
PROC: 3E03317 Introduction of Other Thrombolytic into Peripheral Vein, Percutaneous Approach (ICD-10-PCS; 2024-11-20)
PROC: 02FR3Z0 Fragmentation of Left Pulmonary Artery, Percutaneous Approach, Ultrasonic (ICD-10-PCS; principal; 2024-11-20 14:10)
DX: I26.92 Saddle embolus of pulmonary artery without acute cor pulmonale (principal); J96.01 Acute respiratory failure with hypoxia; J18.9 Pneumonia, unspecified organism; I21.A1 Myocardial infarction type 2; E87.20 Acidosis, unspecified; E87.1 Hypo-osmolality and hyponatremia; J98.11 Atelectasis; M86.9 Osteomyelitis, unspecified; N17.9 Acute kidney failure, unspecified; I47.19 Other supraventricular tachycardia; L97.419 Non-pressure chronic ulcer of right heel and midfoot with unspecified severity; I48.3 Typical atrial flutter; J90 Pleural effusion, not elsewhere classified; D63.1 Anemia in chronic kidney disease; I27.20 Pulmonary hypertension, unspecified; I48.0 Paroxysmal atrial fibrillation; E11.69 Type 2 diabetes mellitus with other specified complication; N18.30 Chronic kidney disease, stage 3 unspecified; E11.22 Type 2 diabetes mellitus with diabetic chronic kidney disease; E11.610 Type 2 diabetes mellitus with diabetic neuropathic arthropathy; E11.621 Type 2 diabetes mellitus with foot ulcer; Z79.4 Long term (current) use of insulin; Z89.512 Acquired absence of left leg below knee; I12.9 Hypertensive chronic kidney disease with stage 1 through stage 4 chronic kidney disease, or unspecified chronic kidney disease; E78.5 Hyperlipidemia, unspecified; F41.9 Anxiety disorder, unspecified; N40.0 Benign prostatic hyperplasia without lower urinary tract symptoms; I45.10 Unspecified right bundle-branch block; Z79.84 Long term (current) use of oral hypoglycemic drugs; Z79.899 Other long term (current) drug therapy; Z87.891 Personal history of nicotine dependence
CPT/HCPCS: 36415; 36600; 70450; 71045; 71046; 71275; 80048; 80053; 80202; 82550; 82805; 83036; 83540; 83550; 83605; 83735; 83880; 84439; 84443; 84466; 84481; 84484; 85025; 85027; 85045; 85379; 85384; 85610; 85730; 87040; 87449; 87636; 93005; 93306; 93970; 96365; 96366; 96367; 96372; 96375; 99291

== ENCOUNTER 2024-11-28 10:10 | Observation (INO) | payer MEDICARE ==
--- NOTE | 2024-11-28 10:46 | ED ---
Altered Mental Status HPI - General Chief Complaint: Altered Mental Status Stated Complaint: Weakness Time Seen by Provider: 11/28/24 10:35 Source: patient, EMS, RN notes reviewed Mode of arrival: EMS Limitations: no limitations - History of Present Illness Initial Comments: This is a 69 year old male who presents to the emergency department for altered mental status. Patient was discharged from the hospital 3 days ago after being admitted for a saddle pulmonary embolus requiring EKOS and right foot osteomyelitis. He was discharged home with home care services. States that he lives with a roommate and his son checks on him often. He is on IV vancomycin and ertapenem via PICC line for the osteomyelitis and follows with [facility]. He reportedly fell yesterday and EMS was called to help with lift assist. He refused transport at that time. His son went to check on him later in the day yesterday and found him to be altered. EMS was called again, however he continued to refuse transport. Today his son went to check on him and found him to be altered and confused. He was also difficult to arouse and only came to with painful stimuli. His son also noticed that he seemed to be covered in his own urine and feces. EMS was then called and because it was the third time they opted to bring him to the hospital for evaluation. Patient states he is irritated and does not necessarily feel like he needs to be here. States that he is starting to get his strength back but is agreeable to potentially short- term rehab to help with this. They had recommended short-term rehab when he was discharged, but he initially refused. Other than the weakness he denies any complaints such as chest pain or shortness of breath. MD Complaint: altered mental status - Related Data Home Medications Medication Instructions Recorded Confirmed amLODIPine [Norvasc] 5 mg PO DAILY 08/20/23 11/28/24 metFORMIN HCL [Glucophage] 1,000 mg PO AC-BID 08/20/23 11/28/24 Insulin Glargine,Hum.rec.anlog 5 units SQ HS 04/12/24 11/28/24 [Lantus Solostar Pen] ALPRAZolam [Xanax] 1 mg PO TID 11/18/24 11/28/24 Ertapenem [INVanz] 1 gm IVPB Q24H 11/18/24 11/28/24 Multivitamins, Thera [Multivitamin 1 tab PO DAILY 11/18/24 11/28/24 (formulary)] Oxymetazoline 0.05% Nasl [place] 2 spray EA NOSTRIL DAILY PRN 11/18/24 11/28/24 [Afrin 0.05% Nasal [place]] Sodium Bicarbonate Tab 650 mg PO BID 11/18/24 11/28/24 Tamsulosin [Flomax] 0.4 mg PO DAILY 11/18/24 11/28/24 Vancomycin 1,250 mg IVPB Q48H 11/18/24 11/28/24 Vit C/E/Zn/Coppr/Lutein/Zeaxan 1 cap PO DAILY 11/18/24 11/28/24 [Preservision Areds 2 Softgel] traMADol HCL 50 mg PO Q6H PRN 11/18/24 11/28/24 Apixaban [Eliquis Starter Pack See Taper PO DIRECTED 11/28/24 11/28/24 (for VTE)] Previous Rx's Medication Instructions Recorded Atorvastatin [Lipitor] 40 mg PO HS #30 tab 11/24/24 Metoprolol Tartrate [Lopressor] 25 mg PO BID #60 tab 11/24/24 Furosemide [Lasix] 40 mg PO DAILY #60 tablet 11/25/24 Allergies Allergy/AdvReac Type Severity Reaction Status Date / Time bupropion [From Wellbutrin] Allergy Unknown Verified 11/28/24 13:39 varenicline [From Chantix] Allergy Unknown Verified 11/28/24 13:39 Review of Systems ROS Statement: Those systems with pertinent positive or pertinent negative responses have been documented in the HPI. ROS Other: All systems not noted in ROS Statement are negative. Past Medical History Past Medical History: Diabetes Mellitus, Hypertension Additional Past Medical History / Comment(s): Ostemyelitis Sep 2024 History of Any Multi-Drug Resistant Organisms: MRSA Date of last positivie culture/infection: 1997 MDRO Source:: Unsure Past Surgical History: No Surgical Hx Reported Additional Past Surgical History / Comment(s): eye surgery Past Anesthesia/Blood Transfusion Reactions: No Reported Reaction Past Psychological History: Anxiety Smoking Status: Former smoker Past Alcohol Use History: Occasional Past Drug Use History: None Reported General Exam Limitations: no limitations General appearance: alert, in no apparent distress Head exam: Present: atraumatic, normocephalic, normal inspection Eye exam: Present: normal appearance, PERRL, EOMI. Absent: scleral icterus, conjunctival injection, periorbital swelling Respiratory exam: Present: normal lung sounds bilaterally. Absent: respiratory distress, wheezes, rales, rhonchi, stridor Cardiovascular Exam: Present: regular rate, normal rhythm, normal heart sounds. Absent: systolic murmur, diastolic murmur, rubs, gallop, clicks Neurological exam: Present: alert, oriented X3, CN II-XII intact Psychiatric exam: Present: normal affect, normal mood Skin exam: Present: warm, dry, intact, normal color. Absent: rash Course Vital Signs 11/28/24 11/28/24 11/28/24 10:11 12:33 15:00 Temperature 98.2 F Pulse Rate 76 73 72 Respiratory 17 17 17 Rate Blood Pressure 144/78 148/76 140/70 O2 Sat by Pulse 96 95 97 Oximetry Medical Decision Making - Medical Decision Making This is a 69 year old male who presents to the emergency department for altered mental status. Was pt. sent in by a medical professional or institution? @ -No Did you speak to anyone other than the patient for history? @ -EMS provided the majority of the history. Did you review nursing and triage notes? @ -Yes, and I agree, it is accurate with regards to the patient's symptoms. Were old charts reviewed? @ -No Differential Diagnosis? @ -Differential Altered Mental Status: Hypoglycemia, DKA, hypercapnia, ETOH, overdose, CO poisoning, trauma, myxedema coma, HTN encephalopathy, infection, encephalitis, psychosis, intercranial hemorrhage, hepatic encephalopathy, meningitis, CVA, this is not meant to be an all-inclusive list EKG interpreted by me (3pts min.)? @ -EKG interpreted by me demonstrating the following: Sinus rhythm. Ventricular rate 75 bpm, WV interval 156 ms, QRS duration 158 ms, QTc 450 ms. X-rays interpreted by me (1pt min.)? @ -Chest x-ray obtained. My interpretation identifies a left-sided pleural effusion. CT interpreted by me (1pt min.)? @ -CT scan of the brain obtained. My interpretation identifies no evidence of an acute intracranial hemorrhage. U/S interpreted by me (1pt. min.)? @ -Not obtained What testing was considered but not performed? (CT, X-rays, U/S, labs)? Why? @ -None What meds were considered but not given? Why? @ -None Did you discuss the management of the patient with other professionals? @ -Yes, Dr. Moctezuma, who accepts the patient for admission Did you reconcile home meds? @ -Yes Was smoking cessation discussed for >3mins.? @ -No Was critical care preformed (if so, how long)? @ -No Were there social determinants of health that impacted care today? How? (Ho melessness, low income, unemployed, alcoholism, drug addiction, transportation, low edu. Level, literacy, decrease access to med. care, [facility], rehab)? @ -No Was there de-escalation of care discussed even if they declined? (Discuss DNR or withdrawal of care, Hospice)? @ -No What co-morbidities impacted this encounter? (DM, HTN, Smoking, COPD, CAD, Cancer, CVA, Hep., AIDS, mental health diagnosis, sleep apnea, morbid obesity)? @ -DM, hypertension, saddle pulmonary embolus, osteomyelitis Was patient admitted / discharged? @ -Admitted. Given family's concern for patient's altered mentation, we did obtain lab work which was relatively unremarkable. Urinalysis does demonstrate some elevation in white blood cells and bacteria and urine was sent for culture. Patient is already on vancomycin and ertapenem via PICC line for osteomyelitis. CT scan of the brain reveals no acute process. Check x-ray reveals improving aeration on the right with ongoing small to moderate left pleural effusion and adjacent atelectasis and/or consolidation. Overall, findings appear to be stable if not improved from discharge. We discussed disposition and patient states that he does feel that he would benefit from subacute rehab given everything he is dealing with. Patient subsequently admitted to medicine for increasing weakness with failure to thrive. Consult placed for physical and Occupational Therapy as well as case management for subacute rehab. Case discussed with ED attending Dr. Llamas. Undiagnosed new problem with uncertain prognosis? @ -None Drug Therapy requiring intensive monitoring for toxicity (Heparin, Nitro, Insulin, Cardizem)? @ -None Were any procedures done? @ -None Diagnosis/symptom? @ -Weakness, failure to thrive Acute, or Chronic, or Acute on Chronic? @ -Acute Uncomplicated (without systemic symptoms) or Complicated (systemic symptoms)? @ -Complicated Side effects of treatment? @ -None Exacerbation, Progression, or Severe Exacerbation] @ -Not applicable Poses a threat to life or bodily function? @ -Yes, patient is struggling to function. - Lab Data Result diagrams: 11/28/24 10:42 11/28/24 10:42 Lab Results 11/28/24 11/28/24 11/28/24 Range/Units 10:42 10:42 10:42 WBC 7.2 (3.8-10.6) k/uL RBC 3.81 L (4.30-5.90) m/uL Hgb 9.5 L (13.0-17.5) gm/dL Hct 30.3 L (39.0-53.0) % MCV 79.5 L (80.0-100.0) fL MCH 24.9 L (25.0-35.0) pg MCHC 31.4 (31.0-37.0) g/dL RDW 16.4 H (11.5-15.5) % Plt Count 348 (150-450) k/uL MPV 6.8 Neutrophils % 67 % Lymphocytes % 21 % Monocytes % 6 % Eosinophils % 4 % Basophils % 1 % Neutrophils # 4.8 (1.3-7.7) k/uL Lymphocytes # 1.5 (1.0-4.8) k/uL Monocytes # 0.4 (0-1.0) k/uL Eosinophils # 0.3 (0-0.7) k/uL Basophils # 0.0 (0-0.2) k/uL Hypochromasia Moderate Anisocytosis Slight Microcytosis Slight PT 14.3 H (10.0-12.5) sec INR 1.4 H (<1.2) APTT 30.4 H (22.0-30.0) sec Sodium 142 (137-145) mmol/L Potassium 4.2 (3.5-5.1) mmol/L Chloride 107 (98-107) mmol/L Carbon Dioxide 26 (22-30) mmol/L Anion Gap 9 mmol/L BUN 26 H (9-20) mg/dL Creatinine 1.24 (0.66-1.25) mg/dL Est GFR (CKD-EPI)AfAm 68 (>60 ml/min/1.73 sqM) Est GFR (CKD-EPI)NonAf 59 (>60 ml/min/1.73 sqM) Glucose 93 (74-99) mg/dL POC Glucose (mg/dL) (70-110) mg/dL POC Glu Personal Support Worker ID Plasma Lactic Acid Isael (0.7-2.0) mmol/L Calcium 9.3 (8.4-10.2) mg/dL Total Bilirubin 0.5 (0.2-1.3) mg/dL AST 30 (17-59) U/L ALT 16 (4-49) U/L Alkaline Phosphatase 114 (38-126) U/L Troponin I (0.000-0.034) ng/mL Total Protein 6.7 (6.3-8.2) g/dL Albumin 3.5 (3.5-5.0) g/dL Urine Color Urine Appearance (Clear) Urine pH (5.0-8.0) Ur Specific Stanley (1.001-1.035) Urine Protein (Negative) Urine Glucose (UA) (Negative) Urine Ketones (Negative) Urine Blood (Negative) Urine Nitrite (Negative) Urine Bilirubin (Negative) Urine Urobilinogen (<2.0) mg/dL Ur Leukocyte Esterase (Negative) Urine RBC (0-5) /hpf Urine WBC (0-5) /hpf Ur Squamous Epith Cells (0-4) /hpf Urine Bacteria (None) /hpf Urine Opiates Screen (NotDetected) Ur Oxycodone Screen (NotDetected) Urine Methadone Screen (NotDetected) Ur Barbiturates Screen (NotDetected) U Tricyclic Antidepress (NotDetected) Ur Phencyclidine Scrn (NotDetected) Ur Amphetamines Screen (NotDetected) U Methamphetamines Scrn (NotDetected) U Benzodiazepines Scrn (NotDetected) Urine Cocaine Screen (NotDetected) U Marijuana (THC) Screen (NotDetected) Serum Alcohol <10 mg/dL 11/28/24 11/28/24 11/28/24 Range/Units 10:42 10:42 11:09 WBC (3.8-10.6) k/uL RBC (4.30-5.90) m/uL Hgb (13.0-17.5) gm/dL Hct (39.0-53.0) % MCV (80.0-100.0) fL MCH (25.0-35.0) pg MCHC (31.0-37.0) g/dL RDW (11.5-15.5) % Plt Count (150-450) k/uL MPV Neutrophils % % Lymphocytes % % Monocytes % % Eosinophils % % Basophils % % Neutrophils # (1.3-7.7) k/uL Lymphocytes # (1.0-4.8) k/uL Monocytes # (0-1.0) k/uL Eosinophils # (0-0.7) k/uL Basophils # (0-0.2) k/uL Hypochromasia Anisocytosis Microcytosis PT (10.0-12.5) sec INR (<1.2) APTT (22.0-30.0) sec Sodium (137-145) mmol/L Potassium (3.5-5.1) mmol/L Chloride (98-107) mmol/L Carbon Dioxide (22-30) mmol/L Anion Gap mmol/L BUN (9-20) mg/dL Creatinine (0.66-1.25) mg/dL Est GFR (CKD-EPI)AfAm (>60 ml/min/1.73 sqM) Est GFR (CKD-EPI)NonAf (>60 ml/min/1.73 sqM) Glucose (74-99) mg/dL POC Glucose (mg/dL) (70-110) mg/dL POC Glu Personal Support Worker ID Plasma Lactic Acid Isael 0.9 (0.7-2.0) mmol/L Calcium (8.4-10.2) mg/dL Total Bilirubin (0.2-1.3) mg/dL AST (17-59) U/L ALT (4-49) U/L Alkaline Phosphatase (38-126) U/L Troponin I <0.012 (0.000-0.034) ng/mL Total Protein (6.3-8.2) g/dL Albumin (3.5-5.0) g/dL Urine Color Colorless Urine Appearance Clear (Clear) Urine pH 7.5 (5.0-8.0) Ur Specific Stanley 1.007 (1.001-1.035) Urine Protein Trace H (Negative) Urine Glucose (UA) Trace H (Negative) Urine Ketones Negative (Negative) Urine Blood Negative (Negative) Urine Nitrite Negative (Negative) Urine Bilirubin Negative (Negative) Urine Urobilinogen <2.0 (<2.0) mg/dL Ur Leukocyte Esterase Small H (Negative) Urine RBC 1 (0-5) /hpf Urine WBC 23 H (0-5) /hpf Ur Squamous Epith Cells <1 (0-4) /hpf Urine Bacteria Rare H (None) /hpf Urine Opiates Screen Not Detected (NotDetected) Ur Oxycodone Screen Not Detected (NotDetected) Urine Methadone Screen Not Detected (NotDetected) Ur Barbiturates Screen Not Detected (NotDetected) U Tricyclic Antidepress Not Detected (NotDetected) Ur Phencyclidine Scrn Not Detected (NotDetected) Ur Amphetamines Screen Not Detected (NotDetected) U Methamphetamines Scrn Not Detected (NotDetected) U Benzodiazepines Scrn Detected H (NotDetected) Urine Cocaine Screen Not Detected (NotDetected) U Marijuana (THC) Screen Not Detected (NotDetected) Serum Alcohol mg/dL 11/28/24 Range/Units 11:43 WBC (3.8-10.6) k/uL RBC (4.30-5.90) m/uL Hgb (13.0-17.5) gm/dL Hct (39.0-53.0) % MCV (80.0-100.0) fL MCH (25.0-35.0) pg MCHC (31.0-37.0) g/dL RDW (11.5-15.5) % Plt Count (150-450) k/uL MPV Neutrophils % % Lymphocytes % % Monocytes % % Eosinophils % % Basophils % % Neutrophils # (1.3-7.7) k/uL Lymphocytes # (1.0-4.8) k/uL Monocytes # (0-1.0) k/uL Eosinophils # (0-0.7) k/uL Basophils # (0-0.2) k/uL Hypochromasia Anisocytosis Microcytosis PT (10.0-12.5) sec INR (<1.2) APTT (22.0-30.0) sec Sodium (137-145) mmol/L Potassium (3.5-5.1) mmol/L Chloride (98-107) mmol/L Carbon Dioxide (22-30) mmol/L Anion Gap mmol/L BUN (9-20) mg/dL Creatinine (0.66-1.25) mg/dL Est GFR (CKD-EPI)AfAm (>60 ml/min/1.73 sqM) Est GFR (CKD-EPI)NonAf (>60 ml/min/1.73 sqM) Glucose (74-99) mg/dL POC Glucose (mg/dL) 94 (70-110) mg/dL POC Glu Personal Support Worker ID February Plasma Lactic Acid Isael (0.7-2.0) mmol/L Calcium (8.4-10.2) mg/dL Total Bilirubin (0.2-1.3) mg/dL AST (17-59) U/L ALT (4-49) U/L Alkaline Phosphatase (38-126) U/L Troponin I (0.000-0.034) ng/mL Total Protein (6.3-8.2) g/dL Albumin (3.5-5.0) g/dL Urine Color Urine Appearance (Clear) Urine pH (5.0-8.0) Ur Specific Stanley (1.001-1.035) Urine Protein (Negative) Urine Glucose (UA) (Negative) Urine Ketones (Negative) Urine Blood (Negative) Urine Nitrite (Negative) Urine Bilirubin (Negative) Urine Urobilinogen (<2.0) mg/dL Ur Leukocyte Esterase (Negative) Urine RBC (0-5) /hpf Urine WBC (0-5) /hpf Ur Squamous Epith Cells (0-4) /hpf Urine Bacteria (None) /hpf Urine Opiates Screen (NotDetected) Ur Oxycodone Screen (NotDetected) Urine Methadone Screen (NotDetected) Ur Barbiturates Screen (NotDetected) U Tricyclic Antidepress (NotDetected) Ur Phencyclidine Scrn (NotDetected) Ur Amphetamines Screen (NotDetected) U Methamphetamines Scrn (NotDetected) U Benzodiazepines Scrn (NotDetected) Urine Cocaine Screen (NotDetected) U Marijuana (THC) Screen (NotDetected) Serum Alcohol mg/dL - Radiology Data Radiology results: report reviewed, image reviewed Disposition Clinical Impression: Weakness, Failure to thrive Disposition: ADMITTED IP TO THIS HOSP
--- NOTE | 2024-11-28 11:21 | CT ---
EXAMINATION TYPE: CT brain wo con DATE OF EXAM: 11/28/2024 COMPARISON: CT brain November 18, 2024 CLINICAL INDICATION: Male, 69 years old with history of Altered mental status; PHH, AMS. TECHNIQUE: CT scan of the head is performed without contrast. CT DLP: 1122.4 mGycm Automated exposure control for dose reduction was used. FINDINGS: There is no acute intracranial hemorrhage or midline shift identified. There is mild diff use ventricular and sulcal prominence redemonstrated. There is mild low-attenuation in the periventr icular white matter redemonstrated. Bilateral aphakia is redemonstrated. Tiny mucous retention cyst o r polyp in the right maxillary sinus axial image 6 is redemonstrated. IMPRESSION: No acute intracranial hemorrhage or midline shift. No significant change from most rece nt prior CT. [facility], , 11/28/2024 11:19 AM
--- NOTE | 2024-11-28 11:23 | XR ---
EXAMINATION TYPE: XR chest 2V DATE OF EXAM: 11/28/2024 11:18 AM COMPARISON: 11/25/2024 CLINICAL INDICATION: Male, 69 years old with confusion, history of altered mental status, , TECHNIQUE: AP and lateral views FINDINGS: Hazy densities relating to overlying soft tissue and portable technique. There is a left PICC line bu t it is not well seen beyond the midline. Some improving aeration on the right. Ongoing small to mode rate left pleural effusion with left lower lung opacity. IMPRESSION: Improving aeration on the right. However, there is ongoing small to moderate left pleural effusion wi th adjacent atelectasis and/or consolidation. [facility], , 11/28/2024 11:21 AM
[2024-11-28 11:27] LABS: Appearance,Urine Clear (Clear); Bacteria,Urine Rare /hpf; Bilirubin,Urine Negative (Negative); Blood,Urine Negative (Negative); Color,Urine Colorless; Glucose,Urine (UA) Trace (Negative); Ketones,Urine Negative (Negative); Leukocyte Esterase,Urine Small (Negative); Nitrite,Urine Negative (Negative); PH, Urine 7.5 (5.0-8.0); Protein,Urine Trace (Negative); RBC,Urine 1 /hpf (0-5); Specific Gravity,Urine 1.007 (1.001-1.035); Squamous Epithelial Cell,Urine <1 /hpf (0-4); Urobilinogen,Urine <2.0 mg/dL (<2.0); WBC,Urine 23 /hpf (0-5)
[2024-11-28 11:43] LABS: Amphetamine Screen,Urine Not Detected (NotDetected); Barbiturate Screen,Urine Not Detected (NotDetected); Benzodiazepines Screen,Urine Detected (NotDetected); Cocaine Screen,Urine Not Detected (NotDetected); Methadone Screen, Urine Not Detected (NotDetected); Opiate Screen,Urine Not Detected (NotDetected); Oxycodone Screen, Urine Not Detected (NotDetected); Phencyclidine Screen,Urine Not Detected (NotDetected); Tricyclic Antidepressant,Urine Not Detected (NotDetected); Urn Cannabinoid Scrn Not Detected (NotDetected)
[2024-11-28 11:44] LABS: Glucose,Whole Blood 94 mg/dL (70-110)
[2024-11-28 11:51] LABS: Anisocytosis Slight; Basophils % (A) 1 %; Eosinophils # (A) 0.3 k/uL (0-0.7); Eosinophils % (A) 4 %; HCT 30.3 % (39.0-53.0); HGB 9.5 gm/dL (13.0-17.5); Hypochromasia Moderate; Lymphocytes # (A) 1.5 k/uL (1.0-4.8); Lymphocytes % (A) 21 %; MCH 24.9 pg (25.0-35.0); MCHC 31.4 g/dL (31.0-37.0); MCV 79.5 fL (80.0-100.0); Mean Platelet Volume 6.8; Microcytosis Slight; Monocytes # (A) 0.4 k/uL (0-1.0); Monocytes % (A) 6 %; Neutrophils # (A) 4.8 k/uL (1.3-7.7); Neutrophils % (A) 67 %; Platelet Count 348 k/uL (150-450); RBC 3.81 m/uL (4.30-5.90); RDW 16.4 % (11.5-15.5); WBC 7.2 k/uL (3.8-10.6)
[2024-11-28 12:03] LABS: ALT 16 U/L (4-49); AST 30 U/L (17-59); African American GFR (CKD) 68 (>60 ml/min/1.73 sqM); Albumin 3.5 g/dL (3.5-5.0); Alcohol <10 mg/dL; Alkaline Phosphatase 114 U/L (38-126); Anion Gap 9 mmol/L; Blood Urea Nitrogen 26 mg/dL (9-20); Calcium 9.3 mg/dL (8.4-10.2); Carbon Dioxide 26 mmol/L (22-30); Chloride 107 mmol/L (98-107); Glucose 93 mg/dL (74-99); Non-African American GFR(CKD) 59 (>60 ml/min/1.73 sqM); Potassium 4.2 mmol/L (3.5-5.1); Sodium 142 mmol/L (137-145); Total Bilirubin 0.5 mg/dL (0.2-1.3); Total Protein 6.7 g/dL (6.3-8.2)
[2024-11-28 12:12] LABS: INR 1.4 (<1.2); Partial Thromboplastin Time 30.4 sec (22.0-30.0); Prothrombin Time 14.3 sec (10.0-12.5)
[2024-11-28] MEDS ORDERED: MORPHINE SULFATE 4 MG/ML SYRINGE IV PRN (13:01)
[2024-11-28] MEDS ORDERED: NALOXONE 0.4 MG/ML 1 ML VIAL IV PRN (13:01)
[2024-11-28] MEDS ORDERED: ONDANSETRON 4 MG/2 ML VIAL IVP PRN (13:01)
[2024-11-28] MEDS ORDERED: HYDROcodone/APAP 5-325MG 1 EACH TAB PO PRN (13:01)
[2024-11-28] MEDS ORDERED: OXYMETAZOLINE 0.05% NASL SPRAY 1 SPRAY BOTTLE EA NOSTRIL PRN (13:51)
[2024-11-28] MEDS ORDERED: VANCOMYCIN IV PER PHARMACY 1 EACH MISC MISCELLANE PRN (15:05)
[2024-11-28] MEDS: ALPRAZolam 1 MG TAB PO SCH (15:35)
[2024-11-28] MEDS: Apixaban Initiation Dose--VTE 5 MG TAB PO SCH (15:35)
[2024-11-28] MEDS: ERTAPENEM 1 GM in SODIUM CHLORIDE 0.9% 50 ML IVPB SCH (15:36)
[2024-11-28] MEDS: ERTAPENEM 1 GM VIAL IVPB SCH (16:57)
[2024-11-28] MEDS: VANCOMYCIN 500 MG IVPB SCH (16:58)
[2024-11-28] MEDS: VANCOMYCIN 1,250 MG in SODIUM CHLORIDE 0.9% 250 ML IVPB SCH (17:00)
[2024-11-28] MEDS: metFORMIN 500 MG TAB PO SCH (18:06)
[2024-11-28] MEDS ORDERED: ZINC OXIDE PASTE (Z-GUARD) 1 APPLIC TOPICAL PRN (21:01)
[2024-11-28 21:22] LABS: Glucose,Whole Blood 98 mg/dL (70-110)
[2024-11-28] MEDS: ATORVASTATIN 40 MG TAB PO SCH (22:12)
[2024-11-28] MEDS: METOPROLOL TARTRATE 25 MG TAB PO SCH (22:13)
[2024-11-28] MEDS: INSULIN DETEMIR (LEVEMIR) 100 UNIT/ML SYR SQ SCH (22:13)
[2024-11-28] MEDS: SODIUM BICARBONATE TAB 650 MG TAB PO SCH (22:13)
[2024-11-28] MEDS: traMADol 50 MG TAB PO PRN (22:17)
[2024-11-29 05:10] LABS: African American GFR (CKD) 71 (>60 ml/min/1.73 sqM); Non-African American GFR(CKD) 61 (>60 ml/min/1.73 sqM)
[2024-11-29 06:46] LABS: Glucose,Whole Blood 87 mg/dL (70-110)
[2024-11-29] MEDS: VIT A,C & E-LUTEIN-MINERALS 1 EACH TAB PO SCH (08:48)
[2024-11-29] MEDS: PANTOPRAZOLE 40 MG/10 ML VIAL IV SCH (08:48)
[2024-11-29] MEDS: TAMSULOSIN 0.4 MG CAP.ER.24H PO SCH (08:48)
[2024-11-29] MEDS: FUROSEMIDE 40 MG TAB PO SCH (08:48)
[2024-11-29] MEDS: MULTIVITAMINS, THERA 1 EACH TAB PO SCH (08:48)
[2024-11-29] MEDS: amLODIPine 5 MG TAB PO SCH (08:48)
[2024-11-29] MEDS ORDERED: DEXTROSE 50% SYRINGE 50 ML IVP PRN ×2 (09:58)
[2024-11-29 10:47] LABS: Glucose,Whole Blood 101 mg/dL (70-110)
[2024-11-29 11:48] VITALS: BMI 41.1
[2024-11-29] MEDS: INSULIN ASPART (NovoLOG) 100 UNIT/ML VIAL SQ SCH (12:01)
--- NOTE | 2024-11-29 13:13 | P.HPIM ---
History of Present Illness H&P Date: 11/29/24 History of present illness; patient is a 69-year-old male with past medical history significant for recent PE status post EKOS, type 2 diabetes, hypertension, Charcot foot with left BKA and recent right ankle surgery status post wound VAC and currently on IV antibiotics who presented the hospital for generalized weakness, confusion and inability to take care of himself. Patient was discharged on 11/25 after being treated for saddle PE and underwentt EKOS on 11/20, patient was discharged on Eliquis. Patient was found to be confused by his son and apparently had a fall yesterday, EMS was called at that time but patient refused transfer to ER. Patient son again went to check on him and was found to him to be confused but again patient refused. Later when son went again patient was covered in his own feces and very confused at that time EMS was called and patient brought to the ER Initial lab work done in the ER showed WBC 7.2, hemoglobin 9.5, platelet count 348, sodium 142, potassium 4.2, BUN 23, creatinine 1.24, glucose 93, lactate 0.9, calcium 9.3, bilirubin 0.5, AST 30, ALT 16 UA done showed small amount of leukocyte Estrace, urine WBC 23 Urine drug screen positive for benzos Serum alcohol level less than 10 EKG done in the ER showed heart rate of 75, no ST segment elevation or depression seen, no T-wave inversions seen. Chest x-ray done in the ER showed improved aeration of the right however there i small to moderate left pleural effusion CT head done showed no acute intracranial process, no significant change from most recent prior CT Patient admitted to internal medicine service REVIEW OF SYSTEMS: CONSTITUTIONAL: As mentioned above HEENT: No recent visual problems or hearing problems. Denied any sore throat. CARDIOVASCULAR: No chest pain, orthopnea, PND, no palpitations, no syncope. PULMONARY: No shortness of breath, no cough, no hemoptysis. GASTROINTESTINAL: No diarrhea, no nausea, no vomiting, no abdominal pain. NEUROLOGICAL: No headaches, no weakness, no numbness. HEMATOLOGICAL: Denies any bleeding or petechiae. GENITOURINARY: Denies any burning micturition, frequency, or urgency. MUSCULOSKELETAL/RHEUMATOLOGICAL: Denies any joint pain, swelling, or any muscle pain. ENDOCRINE: Denies any polyuria or polydipsia. The rest of the 14-point review of systems is negative. PHYSICAL EXAMINATION: GENERAL: The patient is alert and oriented x3, not in any acute distress. Well developed, well nourished. HEENT: Pupils are round and equally reacting to light. EOMI. No scleral icterus. No conjunctival pallor. Normocephalic, atraumatic. No pharyngeal erythema. No thyromegaly. CARDIOVASCULAR: S1 and S2 present. No murmurs, rubs, or gallops. PULMONARY: Chest is clear to auscultation, no wheezing or crackles. ABDOMEN: Soft, nontender, nondistended, normoactive bowel sounds. No palpable organomegaly. MUSCULOSKELETAL: Left BKA, right foot dressing. EXTREMITIES: No cyanosis, clubbing, or pedal edema. NEUROLOGICAL: Gross neurological examination did not reveal any focal deficits. SKIN: No rashes. Assessment and plan Debility Failure to thrive Acute metabolic encephalopathy Iron deficiency anemia Atrial tachycardia CKD stage III at baseline Type 2 diabetes Hypertension Dyslipidemia Recent right ankle reconstruction with a wound VAC Monitor vital signs Monitor CBC Monitor CMP Continue telemetry monitoring Resume ertapenem and vancomycin Resume Eliquis Consult PT Consult OT Consult case management Consult ID Labs and medication were reviewed.. Continue same treatment. Continue with symptomatic treatment. Resume home medication. Monitor labs and vitals. DVT and GI prophylaxis. Further recommendations as per clinical course of the patient Dictation was produced using [employer] dictation software. please excuse any grammatical, word or spelling errors. Past Medical History Past Medical History: Diabetes Mellitus, Hypertension Additional Past Medical History / Comment(s): Ostemyelitis Sep 2024 History of Any Multi-Drug Resistant Organisms: MRSA Date of last positivie culture/infection: 1997 MDRO Source:: Unsure Past Surgical History: No Surgical Hx Reported Additional Past Surgical History / Comment(s): eye surgery Past Anesthesia/Blood Transfusion Reactions: No Reported Reaction Past Psychological History: Anxiety Smoking Status: Former smoker Past Alcohol Use History: Occasional Past Drug Use History: None Reported Medications and Allergies Home Medications Medication Instructions Recorded Confirmed Type amLODIPine [Norvasc] 5 mg PO DAILY 08/20/23 11/28/24 History metFORMIN HCL [Glucophage] 1,000 mg PO AC-BID 08/20/23 11/28/24 History Insulin Glargine,Hum.rec.anlog 5 units SQ HS 04/12/24 11/28/24 History [Lantus Solostar Pen] ALPRAZolam [Xanax] 1 mg PO TID 11/18/24 11/28/24 History Ertapenem [INVanz] 1 gm IVPB Q24H 11/18/24 11/28/24 History Multivitamins, Thera [Multivitamin 1 tab PO DAILY 11/18/24 11/28/24 History (formulary)] Oxymetazoline 0.05% Nasl [place] 2 spray EA NOSTRIL DAILY PRN 11/18/24 11/28/24 History [Afrin 0.05% Nasal [place]] Sodium Bicarbonate Tab 650 mg PO BID 11/18/24 11/28/24 History Tamsulosin [Flomax] 0.4 mg PO DAILY 11/18/24 11/28/24 History Vancomycin 1,250 mg IVPB Q48H 11/18/24 11/28/24 History Vit C/E/Zn/Coppr/Lutein/Zeaxan 1 cap PO DAILY 11/18/24 11/28/24 History [Preservision Areds 2 Softgel] traMADol HCL 50 mg PO Q6H PRN 11/18/24 11/28/24 History Atorvastatin [Lipitor] 40 mg PO HS #30 tab 11/24/24 11/28/24 Rx Metoprolol Tartrate [Lopressor] 25 mg PO BID #60 tab 11/24/24 11/28/24 Rx Furosemide [Lasix] 40 mg PO DAILY #60 tablet 11/25/24 11/28/24 Rx Apixaban [Eliquis Starter Pack See Taper PO DIRECTED 11/28/24 11/28/24 History (for VTE)] Allergies Allergy/AdvReac Type Severity Reaction Status Date / Time bupropion [From Wellbutrin] Allergy Unknown Verified 11/28/24 13:39 varenicline [From Chantix] Allergy Unknown Verified 11/28/24 13:39 Physical Exam Vitals: Vital Signs Temp Pulse Pulse Resp BP BP Pulse Ox 11/29/24 07:09 97.4 F L 69 17 136/68 94 L 11/29/24 04:10 99.2 F 71 18 122/65 11/28/24 19:40 97.9 F 83 18 157/78 11/28/24 18:00 89 17 154/77 98 11/28/24 15:00 72 17 140/70 97 11/28/24 12:33 73 17 148/76 95 11/28/24 10:11 98.2 F 76 17 144/78 96 Intake and Output 11/28/24 11/29/24 11/29/24 22:59 06:59 14:59 Intake Total 1600 Output Total 4 Balance 1596 Intake: Oral 1600 Output: Urine 4 Other: Voiding Method Urinal # Voids 1 1,800 # Bowel Movements 1 1 Weight 130.181 kg Results CBC & Chem 7: 11/28/24 10:42 11/29/24 04:33 Labs: Abnormal Lab Results - Last 24 Hours (Table) 11/28/24 11/28/24 11/28/24 Range/Units 10:42 10:42 10:42 RBC 3.81 L (4.30-5.90) m/uL Hgb 9.5 L (13.0-17.5) gm/dL Hct 30.3 L (39.0-53.0) % MCV 79.5 L (80.0-100.0) fL MCH 24.9 L (25.0-35.0) pg RDW 16.4 H (11.5-15.5) % PT 14.3 H (10.0-12.5) sec INR 1.4 H (<1.2) APTT 30.4 H (22.0-30.0) sec BUN 26 H (9-20) mg/dL Urine Protein (Negative) Urine Glucose (UA) (Negative) Ur Leukocyte Esterase (Negative) Urine WBC (0-5) /hpf Urine Bacteria (None) /hpf U Benzodiazepines Scrn (NotDetected) 11/28/24 Range/Units 11:09 RBC (4.30-5.90) m/uL Hgb (13.0-17.5) gm/dL Hct (39.0-53.0) % MCV (80.0-100.0) fL MCH (25.0-35.0) pg RDW (11.5-15.5) % PT (10.0-12.5) sec INR (<1.2) APTT (22.0-30.0) sec BUN (9-20) mg/dL Urine Protein Trace H (Negative) Urine Glucose (UA) Trace H (Negative) Ur Leukocyte Esterase Small H (Negative) Urine WBC 23 H (0-5) /hpf Urine Bacteria Rare H (None) /hpf U Benzodiazepines Scrn Detected H (NotDetected) Thrombosis Risk Factor Assmnt - Choose All That Apply Any of the Below Risk Factors Present?: Yes Each Risk Factor Represents 2 Points: Age 61-74 years Thrombosis Risk Factor Assessment Total Risk Factor Score: 2 Thrombosis Risk Factor Assessment Level: Low Risk
[2024-11-29 16:51] LABS: Glucose,Whole Blood 121 mg/dL (70-110)
[2024-11-29 20:49] LABS: Glucose,Whole Blood 130 mg/dL (70-110)
[2024-11-30 03:29] LABS: ALT 12 U/L (4-49); AST 18 U/L (17-59); African American GFR (CKD) 53 (>60 ml/min/1.73 sqM); Alkaline Phosphatase 92 U/L (38-126); Anion Gap 7 mmol/L; Blood Urea Nitrogen 27 mg/dL (9-20); Calcium 8.9 mg/dL (8.4-10.2); Carbon Dioxide 26 mmol/L (22-30); Chloride 106 mmol/L (98-107); Globulin 2.9 g/dL; Glucose 90 mg/dL (74-99); Non-African American GFR(CKD) 46 (>60 ml/min/1.73 sqM); Potassium 4.4 mmol/L (3.5-5.1); Sodium 139 mmol/L (137-145); Total Bilirubin 0.2 mg/dL (0.2-1.3); Total Protein 5.9 g/dL (6.3-8.2)
[2024-11-30 06:25] LABS: Glucose,Whole Blood 97 mg/dL (70-110)
--- NOTE | 2024-11-30 08:23 | P.CONS ---
History of Present Illness - Reason for Consult Consult date: 11/29/24 Osteomyelitis on IV antibiotics Requesting physician: Low Quintero - Chief Complaint Fall x 1 day - History of Present Illness Patient is a 69-year-old male with a past medical history significant for hypertension diabetes mellitus anxiety, he did have a Charcot foot diabetic foot infection status post left below the knee amputation and the patient recently did have multiple surgery on his left foot and ankle area including placement of a titanium titanium lexi, subsequent removal and has been dealing with infection and currently on combination of IV vancomycin and ertapenem and recent admission to the hospital with the patient was diagnosed with the PE stabilized subsequent discharged home now presenting back to the hospital after apparently the patient did have a fall and was not able to get up EMS was called and and the patient has been brought to the hospital for further evaluation patient did not recall passing out patient denies having any fever or any chills no headache no chest pain shortness of breath or cough no nausea no vomiting no abdominal pain no diarrhea patient denies having any pain to the right foot to mention home care nurse was not able to change his wound VAC yesterday. On presentation to hospital patient was afebrile no fever Recorded subsequently patient was mildly bradycardic but not hypotensive or hypoxic he did have white count of 7.2 creatinine is 1.24 electrolyte has been normal urine is mildly positive urine to screen was positive for benzo patient has been continued on ertapenem and vancomycin infectious disease was consulted for further management of antibiotic therapy Review of Systems Positive point and negatives has been mentioned in the HPI, complete review of systems was performed and all other systems are negative 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:: 1997 MDRO Source:: Unsure Past Surgical History: No Surgical Hx Reported Additional Past Surgical History / Comment(s): eye surgery Past Anesthesia/Blood Transfusion Reactions: No Reported Reaction Past Psychological History: Anxiety Smoking Status: Former smoker Past Alcohol Use History: Occasional Past Drug Use History: None Reported Medications and Allergies Home Medications Medication Instructions Recorded Confirmed Type amLODIPine [Norvasc] 5 mg PO DAILY 08/20/23 11/28/24 History metFORMIN HCL [Glucophage] 1,000 mg PO AC-BID 08/20/23 11/28/24 History Insulin Glargine,Hum.rec.anlog 5 units SQ HS 04/12/24 11/28/24 History [Lantus Solostar Pen] ALPRAZolam [Xanax] 1 mg PO TID 11/18/24 11/28/24 History Ertapenem [INVanz] 1 gm IVPB Q24H 11/18/24 11/28/24 History Multivitamins, Thera [Multivitamin 1 tab PO DAILY 11/18/24 11/28/24 History (formulary)] Oxymetazoline 0.05% Nasl [place] 2 spray EA NOSTRIL DAILY PRN 11/18/24 11/28/24 History [Afrin 0.05% Nasal [place]] Sodium Bicarbonate Tab 650 mg PO BID 11/18/24 11/28/24 History Tamsulosin [Flomax] 0.4 mg PO DAILY 11/18/24 11/28/24 History Vancomycin 1,250 mg IVPB Q48H 11/18/24 11/28/24 History Vit C/E/Zn/Coppr/Lutein/Zeaxan 1 cap PO DAILY 11/18/24 11/28/24 History [Preservision Areds 2 Softgel] traMADol HCL 50 mg PO Q6H PRN 11/18/24 11/28/24 History Atorvastatin [Lipitor] 40 mg PO HS #30 tab 11/24/24 11/28/24 Rx Metoprolol Tartrate [Lopressor] 25 mg PO BID #60 tab 11/24/24 11/28/24 Rx Furosemide [Lasix] 40 mg PO DAILY #60 tablet 11/25/24 11/28/24 Rx Apixaban [Eliquis Starter Pack See Taper PO DIRECTED 11/28/24 11/28/24 History (for VTE)] Allergies Allergy/AdvReac Type Severity Reaction Status Date / Time bupropion [From Wellbutrin] Allergy Unknown Verified 11/28/24 13:39 [email or web address] [From Chantix] Allergy Unknown Verified 11/28/24 13:39 Physical Exam Vitals: Vital Signs Temp Pulse Pulse Resp BP BP Pulse Ox 11/29/24 08:45 69 17 11/29/24 07:09 97.4 F L 69 17 136/68 94 L 11/29/24 04:10 99.2 F 71 18 122/65 11/28/24 19:40 97.9 F 83 18 157/78 11/28/24 18:00 89 17 154/77 98 11/28/24 15:00 72 17 140/70 97 Intake and Output 11/28/24 11/29/24 11/29/24 22:59 06:59 14:59 Intake Total 1600 Output Total 4 650 Balance 1596 -650 Intake: Oral 1600 Output: Urine 4 650 Other: Voiding Method Urinal Urinal # Voids 1 1,800 # Bowel Movements 1 1 Weight 130.181 kg 130.181 kg GENERAL DESCRIPTION: Middle-aged male lying in bed, no distress. No tachypnea or accessory muscle of respiration use. HEENT: Shows Pallor , no scleral icterus. Oral mucous membrane is dry. No pharyngeal erythema or thrush NECK: Trachea central, no thyromegaly. LUNGS: Unlabored breathing. Clear to auscultation anteriorly. No wheeze or crackle. HEART: S1, S2, regular rate and rhythm. No loud murmur ABDOMEN: Soft, no tenderness , guarding or rigidity, no organomegaly EXTREMITIES: Right foot wound is currently covered with a wound VAC SKIN: No rash, no masses palpable. NEUROLOGICAL: The patient is awake, alert, oriented x3, mood and affect normal. Results CBC & Chem 7: 11/28/24 10:42 11/30/24 02:41 Assessment and Plan (1) Ankle osteomyelitis, right Current Visit: No Status: Acute Code(s): M86.9 - OSTEOMYELITIS, UNSPECIFIED SNOMED Code(s): 8456747033626792 (2) Cellulitis of right foot Current Visit: No Status: Acute Code(s): L03.115 - CELLULITIS OF RIGHT LOWER LIMB SNOMED Code(s): 68634113015380071 (3) Diabetic foot ulcer Current Visit: No Status: Acute Code(s): E11.621 - TYPE 2 DIABETES MELLITUS WITH FOOT ULCER; L97.509 - NON-PRESSURE CHRONIC ULCER OTH PRT UNSP FOOT W UNSP SEVERITY SNOMED Code(s): 765376539 Plan: 1patient with a complicated history of right foot and ankle Charcot foot with multiple surgeries and is currently being treated with osteomyelitis, patient received most of his care for the right foot and ankle area at [facility] and is currently on a combination of IV vancomycin pharmacy to dose and Invanz now being admitted to the hospital after he did have a fall with no fever or elevated white count 2the patient wound VAC will be changed Sunday black foam continues pressure 125 mmHg 3vancomycin pharmacy to dose target trough of 15 while watching kidney function and Vanco trough closely and Invanz 1 g daily will be continued to finish his course of therapy We will follow on clinical condition and cultures to further adjust medication if needed Thank you for this consultation we will follow the patient along with you Dictation was produced using [employer] dictation software. please excuse any grammatical, word or spelling errors. Time with Patient: Greater than 30
[2024-11-30 09:27] LABS: Basophils # (A) 0.05 X 10*3/uL (0.00-0.10); Basophils % (A) 0.8 %; Eosinophils # (A) 0.23 X 10*3/uL (0.04-0.35); Eosinophils % (A) 3.5 %; HCT 27.8 % (39.6-50.0); HGB 8.3 g/dL (13.0-17.0); Lymphocytes # (A) 1.62 X 10*3/uL (0.90-5.00); Lymphocytes % (A) 24.5 %; MCH 24.1 pg (27.0-32.0); MCHC 29.9 g/dL (32.0-37.0); MCV 80.8 FL (80.0-97.0); Mean Platelet Volume 9.5 FL (9.5-12.2); Monocytes # (A) 0.59 X 10*3/uL (0.20-1.00); Monocytes % (A) 8.9 %; NRBC Per 100 WBC 0 X 10*3/uL (0.00-0.01); Neutrophils # (A) 4.09 X 10*3/uL (1.80-7.70); Neutrophils % (A) 61.8 %; Platelet Count 281 X 10*3/uL (140-440); RBC 3.44 X 10*6/uL (4.40-5.60); WBC 6.61 X 10*3/uL (4.50-10.00)
[2024-11-30 11:21] LABS: Glucose,Whole Blood 104 mg/dL (70-110)
--- NOTE | 2024-11-30 12:55 | P.PN ---
Subjective Progress Note Date: 11/30/24 patient is a 69-year-old male with past medical history significant for recent PE status post EKOS, type 2 diabetes, hypertension, Charcot foot with left BKA and recent right ankle surgery status post wound VAC and currently on IV antibiotics who presented the hospital for generalized weakness, confusion and inability to take care of himself. Patient was discharged on 11/25 after being treated for saddle PE and underwentt EKOS on 11/20, patient was discharged on Eliquis. Patient was found to be confused by his son and apparently had a fall yesterday, EMS was called at that time but patient refused transfer to ER. Patient son again went to check on him and was found to him to be confused but again patient refused. Later when son went again patient was covered in his own feces and very confused at that time EMS was called and patient brought to the ER Initial lab work done in the ER showed WBC 7.2, hemoglobin 9.5, platelet count 348, sodium 142, potassium 4.2, BUN 23, creatinine 1.24, glucose 93, lactate 0.9, calcium 9.3, bilirubin 0.5, AST 30, ALT 16 UA done showed small amount of leukocyte Estrace, urine WBC 23 Urine drug screen positive for benzos Serum alcohol level less than 10 EKG done in the ER showed heart rate of 75, no ST segment elevation or depression seen, no T-wave inversions seen. Chest x-ray done in the ER showed improved aeration of the right however there i small to moderate left pleural effusion CT head done showed no acute intracranial process, no significant change from most recent prior CT Patient admitted to internal medicine service 11/30. Patient seen and examined. States he feels better compared to yesterday. Waiting on placement to rehab facility REVIEW OF SYSTEMS: CONSTITUTIONAL: No fever, no malaise,. CARDIOVASCULAR: No chest pain, no palpitations, no syncope. PULMONARY: No shortness of breath, no cough, GASTROINTESTINAL: No diarrhea, no nausea, no vomiting, no abdominal pain. NEUROLOGICAL: No headaches, no weakness, PHYSICAL EXAMINATION: GENERAL: The patient is alert and oriented x3, not in any acute distress. Well developed, well nourished. HEENT: Pupils are round and equally reacting to light. EOMI. No scleral icterus. No conjunctival pallor. Normocephalic, atraumatic. No pharyngeal erythema. No thyromegaly. CARDIOVASCULAR: S1 and S2 present. No murmurs, rubs, or gallops. PULMONARY: Chest is clear to auscultation, no wheezing or crackles. ABDOMEN: Soft, nontender, nondistended, normoactive bowel sounds. No palpable organomegaly. MUSCULOSKELETAL: Left BKA, right foot dressing. EXTREMITIES: No cyanosis, clubbing, or pedal edema. NEUROLOGICAL: Gross neurological examination did not reveal any focal deficits. SKIN: No rashes. Assessment and plan Debility Failure to thrive Acute metabolic encephalopathy Iron deficiency anemia Atrial tachycardia CKD stage III at baseline Type 2 diabetes Hypertension Dyslipidemia Recent right ankle reconstruction with a wound VAC Monitor vital signs Monitor CBC Monitor CMP Continue telemetry monitoring Continue wound care Continue wound VAC Continue pharmacy vancomycin and Invanz ID following Case management consulted for placement to rehab Labs and medication were reviewed.. Continue same treatment. Continue with symptomatic treatment. Resume home medication. Monitor labs and vitals. DVT and GI prophylaxis. Further recommendations as per clinical course of the patient Dictation was produced using [employer] dictation software. please excuse any grammatical, word or spelling errors. Objective - Vital Signs Vital signs: Vital Signs Temp 98.2 F 11/30/24 07:25 Pulse 64 11/30/24 07:25 Resp 17 11/30/24 09:20 BP 126/63 11/30/24 07:25 Pulse Ox 95 11/30/24 07:25 FiO2 Intake & Output 11/29/24 11/30/24 11/30/24 18:59 06:59 18:59 Output Total 650 600 500 Balance -650 -600 -500 Weight 130.181 kg Output: Drainage 0 Right Foot 0 Urine 650 600 500 Stool 0 0 Other: Voiding Method Urinal Urinal Urinal # Voids 4 1 - Labs CBC & Chem 7: 11/30/24 02:41 11/30/24 02:41 Labs: Abnormal Lab Results - Last 24 Hours (Table) 11/29/24 11/29/24 11/30/24 Range/Units 16:50 20:48 02:41 RBC (4.40-5.60) X 10*6/uL Hgb (13.0-17.0) g/dL Hct (39.6-50.0) % MCH (27.0-32.0) pg MCHC (32.0-37.0) g/dL RDW (11.5-14.5) % BUN (9-20) mg/dL Creatinine (0.66-1.25) mg/dL POC Glucose (mg/dL) 121 H 130 H (70-110) mg/dL Hemoglobin A1c 6.1 H (<=6.0) % Total Protein (6.3-8.2) g/dL Albumin (3.5-5.0) g/dL 11/30/24 11/30/24 Range/Units 02:41 02:41 RBC 3.44 L (4.40-5.60) X 10*6/uL Hgb 8.3 L (13.0-17.0) g/dL Hct 27.8 L (39.6-50.0) % MCH 24.1 L (27.0-32.0) pg MCHC 29.9 L (32.0-37.0) g/dL RDW 16.0 H (11.5-14.5) % BUN 27 H (9-20) mg/dL Creatinine 1.52 H (0.66-1.25) mg/dL POC Glucose (mg/dL) (70-110) mg/dL Hemoglobin A1c (<=6.0) % Total Protein 5.9 L (6.3-8.2) g/dL Albumin 3.0 L (3.5-5.0) g/dL
--- NOTE | 2024-11-30 14:43 | P.PN ---
Subjective Progress Note Date: 11/30/24 Principal diagnosis: Reason for follow-up is right foot wound/osteomyelitis Patient is a 69-year-old male with a past medical history significant for hypertension diabetes mellitus anxiety, he did have a Charcot foot diabetic foot infection status post left below the knee amputation and the patient recently did have multiple surgery on his left foot and ankle area including placement of a titanium titanium lexi, subsequent removal and has been dealing with infection and currently on combination of IV vancomycin and ertapenem has been brought to the hospital concerning for fall and mental status changes. On today's evaluation that is 11/30/2024, Patient is afebrile patient is currently on room air and denies having any shortness of breath, the patient denies any chest pain or cough, the patient denies any nausea vomiting did not have any abdominal pain and no diarrhea and denies any worsening pain to the right foot wound. Patient white count 6.61 creatinine is 1.52 Objective - Vital Signs Vital signs: Vital Signs Temp 98.2 F 11/30/24 07:25 Pulse 64 11/30/24 07:25 Resp 17 11/30/24 09:20 BP 126/63 11/30/24 07:25 Pulse Ox 95 11/30/24 07:25 FiO2 Intake & Output 11/29/24 11/30/24 11/30/24 18:59 06:59 18:59 Output Total 228 095 8714 Balance -650 -600 -1100 Weight 130.181 kg Output: Drainage 0 Right Foot 0 Urine 026 696 1367 Stool 0 0 Other: Voiding Method Urinal Urinal Urinal # Voids 4 1 - Exam GENERAL DESCRIPTION: An elderly male lying in bed in no distress RESPIRATORY SYSTEM: Unlabored breathing , decreased breath sounds at bases HEART: S1 S2 regular rate and rhythm , ABDOMEN: Soft , no tenderness EXTREMITIES: Right foot wound is covered with wound VAC t - Labs CBC & Chem 7: 11/30/24 02:41 11/30/24 02:41 Labs: Abnormal Lab Results - Last 24 Hours (Table) 11/29/24 11/29/24 11/30/24 Range/Units 16:50 20:48 02:41 RBC (4.40-5.60) X 10*6/uL Hgb (13.0-17.0) g/dL Hct (39.6-50.0) % MCH (27.0-32.0) pg MCHC (32.0-37.0) g/dL RDW (11.5-14.5) % BUN (9-20) mg/dL Creatinine (0.66-1.25) mg/dL POC Glucose (mg/dL) 121 H 130 H (70-110) mg/dL Hemoglobin A1c 6.1 H (<=6.0) % Total Protein (6.3-8.2) g/dL Albumin (3.5-5.0) g/dL 11/30/24 11/30/24 Range/Units 02:41 02:41 RBC 3.44 L (4.40-5.60) X 10*6/uL Hgb 8.3 L (13.0-17.0) g/dL Hct 27.8 L (39.6-50.0) % MCH 24.1 L (27.0-32.0) pg MCHC 29.9 L (32.0-37.0) g/dL RDW 16.0 H (11.5-14.5) % BUN 27 H (9-20) mg/dL Creatinine 1.52 H (0.66-1.25) mg/dL POC Glucose (mg/dL) (70-110) mg/dL Hemoglobin A1c (<=6.0) % Total Protein 5.9 L (6.3-8.2) g/dL Albumin 3.0 L (3.5-5.0) g/dL Assessment and Plan (1) Ankle osteomyelitis, right Current Visit: No Status: Acute Code(s): M86.9 - OSTEOMYELITIS, UNSPECIFIED SNOMED Code(s): 9869697326694359 (2) Cellulitis of right foot Current Visit: No Status: Acute Code(s): L03.115 - CELLULITIS OF RIGHT LOWER LIMB SNOMED Code(s): 80590365554181214 (3) Diabetic foot ulcer Current Visit: No Status: Acute Code(s): E11.621 - TYPE 2 DIABETES MELLITUS WITH FOOT ULCER; L97.509 - NON-PRESSURE CHRONIC ULCER OTH PRT UNSP FOOT W UNSP SEVERITY SNOMED Code(s): 243598154 Plan: 1patient with a complicated history of right foot and ankle Charcot foot with multiple surgeries and is currently being treated with osteomyelitis, patient received most of his care for the right foot and ankle area at [facility] and is currently on a combination of IV vancomycin pharmacy to dose and Invanz now being admitted to the hospital after he did have a fall with no fever or elevated white count 2the patient wound VAC was changed and will continue with the change Sunday 3patient will be treated with vancomycin pharmacy to dose target trough of 15 while watching kidney function and Vanco trough closely and Invanz 1 g daily. Try to get some information from [facility] regarding his start and end date of his antibiotic therapy Dictation was produced using [employer] dictation software. please excuse any grammatical, word or spelling errors. Time with Patient: Less than 30
[2024-11-30 16:36] LABS: Glucose,Whole Blood 105 mg/dL (70-110)
[2024-11-30 20:54] LABS: Glucose,Whole Blood 87 mg/dL (70-110)
[2024-12-01] MEDS: ACETAMINOPHEN TAB 325 MG TAB PO PRN (03:46)
[2024-12-01 04:40] LABS: African American GFR (CKD) 55 (>60 ml/min/1.73 sqM); C Reactive Protein 1.6 mg/dL (<1.0); Non-African American GFR(CKD) 48 (>60 ml/min/1.73 sqM)
[2024-12-01 06:32] LABS: Glucose,Whole Blood 122 mg/dL (70-110)
--- NOTE | 2024-12-01 09:41 | P.CNOR ---
History of Present Illness - HPI Consult date: 12/01/24 History of present illness: This is a 69-year-old male who was admitted for weakness. Orthopedics is consulted due to recent surgery for his right foot at an outside facility. Patient is seen and evaluated at bedside today. Patient states that his surgery was done at [facility] and he has outpatient follow-ups in place. Patient is also being followed by infectious disease for an infection of a right foot wound. Patient denies any fever/chills, chest pain, shortness breath, or abdominal pain. Review of Systems See HPI. 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:: 1997 MDRO Source:: Unsure Past Surgical History: No Surgical Hx Reported Additional Past Surgical History / Comment(s): eye surgery Past Anesthesia/Blood Transfusion Reactions: No Reported Reaction Past Psychological History: Anxiety Smoking Status: Former smoker Past Alcohol Use History: Occasional Past Drug Use History: None Reported Medications and Allergies Home Medications Medication Instructions Recorded Confirmed Type amLODIPine [Norvasc] 5 mg PO DAILY 08/20/23 11/28/24 History metFORMIN HCL [Glucophage] 1,000 mg PO AC-BID 08/20/23 11/28/24 History Insulin Glargine,Hum.rec.anlog 5 units SQ HS 04/12/24 11/28/24 History [Lantus Solostar Pen] ALPRAZolam [Xanax] 1 mg PO TID 11/18/24 11/28/24 History Ertapenem [INVanz] 1 gm IVPB Q24H 11/18/24 11/28/24 History Multivitamins, Thera [Multivitamin 1 tab PO DAILY 11/18/24 11/28/24 History (formulary)] Oxymetazoline 0.05% Nasl [place] 2 spray EA NOSTRIL DAILY PRN 11/18/24 11/28/24 History [Afrin 0.05% Nasal [place]] Sodium Bicarbonate Tab 650 mg PO BID 11/18/24 11/28/24 History Tamsulosin [Flomax] 0.4 mg PO DAILY 11/18/24 11/28/24 History Vancomycin 1,250 mg IVPB Q48H 11/18/24 11/28/24 History Vit C/E/Zn/Coppr/Lutein/Zeaxan 1 cap PO DAILY 11/18/24 11/28/24 History [Preservision Areds 2 Softgel] traMADol HCL 50 mg PO Q6H PRN 11/18/24 11/28/24 History Atorvastatin [Lipitor] 40 mg PO HS #30 tab 11/24/24 11/28/24 Rx Metoprolol Tartrate [Lopressor] 25 mg PO BID #60 tab 11/24/24 11/28/24 Rx Furosemide [Lasix] 40 mg PO DAILY #60 tablet 11/25/24 11/28/24 Rx Apixaban [Eliquis Starter Pack See Taper PO DIRECTED 11/28/24 11/28/24 History (for VTE)] Allergies Allergy/AdvReac Type Severity Reaction Status Date / Time bupropion [From Wellbutrin] Allergy Unknown Verified 11/28/24 13:39 [email or web address] [From Chantix] Allergy Unknown Verified 11/28/24 13:39 Physical Examination On exam patient is resting comfortably in bed in no acute distress. Patient is alert and oriented 3. Right lower extremity: There is a clean dressing in place over the right foot. Wound VAC present. Patient has good motion of the toes of the right foot. The right lower extremity is warm and well-perfused. Results - Labs Labs: Abnormal Lab Results - Last 24 Hours (Table) 11/30/24 12/01/24 12/01/24 Range/Units 02:41 03:04 03:04 ESR 40 H (0-20) mm/Hr Creatinine 1.47 H (0.66-1.25) mg/dL POC Glucose (mg/dL) (70-110) mg/dL Hemoglobin A1c 6.1 H (<=6.0) % C-Reactive Protein 1.6 H (<1.0) mg/dL 12/01/24 Range/Units 06:31 ESR (0-20) mm/Hr Creatinine (0.66-1.25) mg/dL POC Glucose (mg/dL) 122 H (70-110) mg/dL Hemoglobin A1c (<=6.0) % C-Reactive Protein (<1.0) mg/dL H & H 11/28/24 11/30/24 Range/Units 10:42 02:41 Hgb 9.5 L 8.3 L (13.0-17.5) gm/dL Hct 30.3 L 27.8 L (39.0-53.0) % Coagulation 11/28/24 Range/Units 10:42 INR 1.4 H (<1.2) Result Diagrams: 11/30/24 02:41 12/01/24 03:04 Assessment and Plan (1) Failure to thrive Current Visit: Yes Status: Acute Code(s): ZAE9842 - SNOMED Code(s): 66713512 (2) Weakness Current Visit: Yes Status: Acute Code(s): R53.1 - WEAKNESS SNOMED Code(s): 21609579 (3) Cellulitis of right foot Current Visit: No Status: Acute Code(s): L03.115 - CELLULITIS OF RIGHT LOWER LIMB SNOMED Code(s): 72506205377463955 Plan: 1. Patient had surgery for the right foot done at [facility] and states that he has been following with them as an outpatient. Recommend follow-up with his surgeon for any recommendations regarding the right foot. Infectious disease is managing wound care and antibiotics. We will sign off.
[2024-12-01 11:25] LABS: Glucose,Whole Blood 99 mg/dL (70-110)
[2024-12-01] MEDS: ALTEPLASE 2 MG VIAL (CATHFLO) MISCELLANE STA (14:15)
[2024-12-01] MEDS: VANCOMYCIN TROUGH DUE 1 EACH MISC MISCELLANE ONE (15:35)
[2024-12-01 16:30] LABS: Glucose,Whole Blood 96 mg/dL (70-110)
--- NOTE | 2024-12-01 16:32 | P.CONS ---
History of Present Illness - Reason for Consult Consult date: 12/01/24 rehab recommendations - Chief Complaint debility - History of Present Illness Patient is a 69 yo M who lives in a modular home with 5 TORRES with 1 HR. He lives alone but has a friend who has been staying with him. He was previously independent with all ADLs, has a tub with shower chair. He has had his left prosthesis since January. His friend is unable to assist him physically. He has a son that checks in on him. Patient presented to the hospital with complaints of AMS and recent fall. Patient declined multiple transfers to the hospital while at home. He had a recent hospital stay for bilateral saddle PE requiring EKOS and right foot osteomyelitis. He has been treating with [facility] for his recent right foot surgery and has a wound vac. During his previous stay he was recommended to go to rehab but he refused. Per case management records, patient has a copay for NATALIE and the home care [facility] is no longer able to provide IV management at home due to his current antibiotics. Per Case management, IV abx thru 12/11/24. PM&R consulted for rehab recommendations. Patient is mod assist with bathing and transfers, UB dressing supervision, LB dressing max assist, toilet max assist. 12/01/24: patient states he is doing 'ok', feeling a bit better. He denies CP, SOB, and abdominal pain. Denies issues with bowel and bladder. LBM today. He has no current complaints of pain, but admits he has left phantom limb pain at times. He also admits to numbness in his finger tips, worse in the winter, better in the summer. Discussed with patient that he will have a copay of 440$ a day for days 1-6 for IPR and then he is covered at 100%. He will have a copay for NATALIE as well. He would prefer to got to IPR. Review of Systems as above in subjective. 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:: 1997 MDRO Source:: Unsure Past Surgical History: No Surgical Hx Reported Additional Past Surgical History / Comment(s): eye surgery Past Anesthesia/Blood Transfusion Reactions: No Reported Reaction Past Psychological History: Anxiety Smoking Status: Former smoker Past Alcohol Use History: Occasional Past Drug Use History: None Reported Medications and Allergies Home Medications Medication Instructions Recorded Confirmed Type amLODIPine [Norvasc] 5 mg PO DAILY 08/20/23 11/28/24 History metFORMIN HCL [Glucophage] 1,000 mg PO AC-BID 08/20/23 11/28/24 History Insulin Glargine,Hum.rec.anlog 5 units SQ HS 04/12/24 11/28/24 History [Lantus Solostar Pen] ALPRAZolam [Xanax] 1 mg PO TID 11/18/24 11/28/24 History Ertapenem [INVanz] 1 gm IVPB Q24H 11/18/24 11/28/24 History Multivitamins, Thera [Multivitamin 1 tab PO DAILY 11/18/24 11/28/24 History (formulary)] Oxymetazoline 0.05% Nasl [place] 2 spray EA NOSTRIL DAILY PRN 11/18/24 11/28/24 History [Afrin 0.05% Nasal [place]] Sodium Bicarbonate Tab 650 mg PO BID 11/18/24 11/28/24 History Tamsulosin [Flomax] 0.4 mg PO DAILY 11/18/24 11/28/24 History Vancomycin 1,250 mg IVPB Q48H 11/18/24 11/28/24 History Vit C/E/Zn/Coppr/Lutein/Zeaxan 1 cap PO DAILY 11/18/24 11/28/24 History [Preservision Areds 2 Softgel] traMADol HCL 50 mg PO Q6H PRN 11/18/24 11/28/24 History Atorvastatin [Lipitor] 40 mg PO HS #30 tab 11/24/24 11/28/24 Rx Metoprolol Tartrate [Lopressor] 25 mg PO BID #60 tab 11/24/24 11/28/24 Rx Furosemide [Lasix] 40 mg PO DAILY #60 tablet 11/25/24 11/28/24 Rx Apixaban [Eliquis Starter Pack See Taper PO DIRECTED 11/28/24 11/28/24 History (for VTE)] Allergies Allergy/AdvReac Type Severity Reaction Status Date / Time bupropion [From Wellbutrin] Allergy Unknown Verified 11/28/24 13:39 varenicline [From Chantix] Allergy Unknown Verified 11/28/24 13:39 Physical Exam Vitals: Vital Signs Temp Pulse Resp BP Pulse Ox 12/01/24 14:00 98.2 F 64 17 136/68 96 12/01/24 08:00 97.6 F 66 17 123/61 93 L 12/01/24 03:30 98.3 F 64 15 132/69 95 11/30/24 19:35 98.3 F 63 19 114/66 95 Intake and Output 11/30/24 12/01/24 12/01/24 22:59 06:59 14:59 Intake Total 1530 1620 Output Total 1550 1600 Balance -20 20 Intake: Oral 1530 1620 Output: Urine 1550 1600 Other: Voiding Method Urinal General: WDWN male, alert, NAD, laying in bed HEENT: head normocephalic, atraumatic; moist mucous membranes, external ears intact with hearing intact to conversational speech Neck: supple CV: no acute cardiac distress Lungs: even and non labored respirations on RA Abdomen: soft, NT, ND MSK: full ROM bilateral UE, Right LE with wound vac on foot, left BKA, charcot right foot MMT: Bilateral SABD, EF, EE, HG 5/5; L HF 5/5 and KE 5/5, R HF 4/5, KE 4+/5, DF 3/5, EHL 0/5 Neuro:Alert, conversational, speech is clear and fluent. CN 2-12 grossly intact Psych: mood calm, affect appropriate Extremities: right LE edema Skin: intact where exposed except for left foot-wound vac Results CBC & Chem 7: 11/30/24 02:41 12/01/24 03:04 Labs: Abnormal Lab Results - Last 24 Hours (Table) 12/01/24 12/01/24 12/01/24 Range/Units 03:04 03:04 06:31 ESR 40 H (0-20) mm/Hr Creatinine 1.47 H (0.66-1.25) mg/dL POC Glucose (mg/dL) 122 H (70-110) mg/dL C-Reactive Protein 1.6 H (<1.0) mg/dL Microbiology - Last 24 Hours (Table) 11/29/24 22:14 Urine Culture - Final Urine,Clean Catch Assessment and Plan Assessment: #Debility secondary to right foot osteomyelitis with recent right ankle reconstruction -wound vac -IV abx, per case management thru 12/11 (Vanco and Ertepenem) #Recent bilateral saddle PE #Fall # Impaired gait and ADLs secondary to above #History of left BKA #Failure to thrive #Acute metabolic encephalopathy #Iron deficiency anemia #Atrial tachycardia #Cormorbidities: CKD stage III at baseline, Type 2 diabetes, Hypertension, Dyslipidemia #Pain Management -[place] prn, MSIR IV prn, Tramadol prn, Tylenol prn #DVT proph -Eliquis # Your medical dx and management Dispo: Patient performing below baseline level of function, Will need to confirm IV abx to end 12/11/24 as patient is unable to manage IV abx at home. patient states he is agreeable to copay for IPR, will still need insurance authoriz ation, will communicate this with [facility] IPR liaison Thank you for consulting our services, patient seen and examined in collaboration with Dr Hancock.
[2024-12-01 20:37] LABS: Glucose,Whole Blood 110 mg/dL (70-110)
[2024-12-02 04:45] LABS: African American GFR (CKD) 62 (>60 ml/min/1.73 sqM); Non-African American GFR(CKD) 54 (>60 ml/min/1.73 sqM)
[2024-12-02 05:46] LABS: Anion Gap 5 mmol/L; Blood Urea Nitrogen 40 mg/dL (9-20); Calcium 8.7 mg/dL (8.4-10.2); Carbon Dioxide 28 mmol/L (22-30); Chloride 103 mmol/L (98-107); Glucose 86 mg/dL (74-99); Magnesium 1.5 mg/dL (1.6-2.3); Sodium 136 mmol/L (137-145)
[2024-12-02 06:20] LABS: Glucose,Whole Blood 93 mg/dL (70-110)
--- NOTE | 2024-12-02 06:40 | P.PN ---
Subjective Progress Note Date: 12/01/24 patient is a 69-year-old male with past medical history significant for recent PE status post EKOS, type 2 diabetes, hypertension, Charcot foot with left BKA and recent right ankle surgery status post wound VAC and currently on IV antibiotics who presented the hospital for generalized weakness, confusion and inability to take care of himself. Patient was discharged on 11/25 after being treated for saddle PE and underwentt EKOS on 11/20, patient was discharged on Eliquis. Patient was found to be confused by his son and apparently had a fall yesterday, EMS was called at that time but patient refused transfer to ER. Patient son again went to check on him and was found to him to be confused but again patient refused. Later when son went again patient was covered in his own feces and very confused at that time EMS was called and patient brought to the ER Initial lab work done in the ER showed WBC 7.2, hemoglobin 9.5, platelet count 348, sodium 142, potassium 4.2, BUN 23, creatinine 1.24, glucose 93, lactate 0.9, calcium 9.3, bilirubin 0.5, AST 30, ALT 16 UA done showed small amount of leukocyte Estrace, urine WBC 23 Urine drug screen positive for benzos Serum alcohol level less than 10 EKG done in the ER showed heart rate of 75, no ST segment elevation or depression seen, no T-wave inversions seen. Chest x-ray done in the ER showed improved aeration of the right however there i small to moderate left pleural effusion CT head done showed no acute intracranial process, no significant change from most recent prior CT Patient admitted to internal medicine service 11/30. Patient seen and examined. States he feels better compared to yesterday. Waiting on placement to rehab facility 12/01/2024 Patient is seen in follow-up today continued on antibiotics with infectious disease following. Patient with significant weakness and concerns of going home being unable to take care of himself with case management/social work following and has placed a referral to inpatient rehab. Patient will be of benefit for continued strength and mobility and will await consult. Patient will require insurance authorization as well. Patient is afebrile denies chest pain or shortness of breath and is continued with local wound care. REVIEW OF SYSTEMS: CONSTITUTIONAL: No fever, no malaise,. CARDIOVASCULAR: No chest pain, no palpitations, no syncope. PULMONARY: No shortness of breath, no cough, GASTROINTESTINAL: No diarrhea, no nausea, no vomiting, no abdominal pain. NEUROLOGICAL: No headaches, reports of generalized weakness PHYSICAL EXAMINATION: GENERAL: The patient is alert and oriented x3, not in any acute distress. Well developed, elderly appearing, morbidly obese HEENT: Pupils are round and equally reacting to light. EOMI. No scleral icterus. No conjunctival pallor. Normocephalic, atraumatic. No pharyngeal erythema. No thyromegaly. CARDIOVASCULAR: S1 and S2 muffled PULMONARY: Diminished breath sounds bilaterally otherwise chest is clear to auscultation, no wheezing or crackles. ABDOMEN: Soft, obese, nontender, nondistended, normoactive bowel sounds. No palpable organomegaly. MUSCULOSKELETAL: Left BKA, right foot dressing with wound VAC. EXTREMITIES: No cyanosis, clubbing, or pedal edema. NEUROLOGICAL: Gross neurological examination did not reveal any focal deficits. Diffusely weak SKIN: No rashes. Assessment: Debility with generalized weakness and gait dysfunction Failure to thrive Acute metabolic encephalopathy Iron deficiency anemia Atrial tachycardia CKD stage III at baseline Type 2 diabetes Hypertension Dyslipidemia Recent right ankle reconstruction with a wound VAC, continued on IV antibiotic therapy Morbid obesity with a BMI of 41.2 GI prophylaxis DVT prophylaxis Full code Plan: Patient is continued on antibiotics with infectious disease following and will continue local wound care along with wound VAC Case management following working on ECF and possibly care on inpatient rehab for continued strength and mobility. Referral was placed and awaiting consult and will also require insurance authorization Recommend PT/OT therapy daily Will follow-up with case management regarding insurance authorization Follow-up on repeat labs The impression and plan of care has been dictated by Lynn Pulido, Nurse Practitioner as directed. Dr. Sabrina MD I have performed a history and examination and MDM of this patient, discussed the same with the dictator, and agree with the dictator's assessment and plan as written ,documented as a scribe. Based on total visit time, I have performed more than 50% of the visit. Objective - Vital Signs Vital signs: Vital Signs Temp 97.6 F 12/01/24 08:00 Pulse 66 12/01/24 08:00 Resp 17 12/01/24 08:00 BP 123/61 12/01/24 08:00 Pulse Ox 93 L 12/01/24 08:00 FiO2 Intake & Output 11/30/24 12/01/24 12/01/24 18:59 06:59 18:59 Intake Total 3150 Output Total 2199 2049 Balance -2199 1099 Intake: Oral 3150 Output: Drainage 0 Right Foot 0 Urine 2199 2049 Stool 0 Other: Voiding Method Urinal Urinal # Voids 1 - Labs CBC & Chem 7: 11/30/24 02:41 12/02/24 03:59 Labs: Abnormal Lab Results - Last 24 Hours (Table) 12/01/24 12/01/24 12/01/24 Range/Units 03:04 03:04 06:31 ESR 40 H (0-20) mm/Hr Creatinine 1.47 H (0.66-1.25) mg/dL POC Glucose (mg/dL) 122 H (70-110) mg/dL C-Reactive Protein 1.6 H (<1.0) mg/dL
[2024-12-02] MEDS: MAGNESIUM SULFATE-D5W PMX 1 GM in DEXTROSE/WATER 1 100ML.BAG IVPB SCH (06:54)
[2024-12-02 11:17] LABS: Glucose,Whole Blood 124 mg/dL (70-110)
[2024-12-02 16:37] LABS: Glucose,Whole Blood 121 mg/dL (70-110)
[2024-12-02 20:23] LABS: Glucose,Whole Blood 111 mg/dL (70-110)
[2024-12-03 05:32] LABS: African American GFR (CKD) 63 (>60 ml/min/1.73 sqM); Anion Gap 6 mmol/L; Blood Urea Nitrogen 39 mg/dL (9-20); Calcium 8.5 mg/dL (8.4-10.2); Carbon Dioxide 27 mmol/L (22-30); Chloride 102 mmol/L (98-107); Glucose 84 mg/dL (74-99); Non-African American GFR(CKD) 54 (>60 ml/min/1.73 sqM); Potassium 3.8 mmol/L (3.5-5.1); Sodium 135 mmol/L (137-145)
--- NOTE | 2024-12-03 05:51 | P.PN ---
Subjective Progress Note Date: 12/02/24 patient is a 69-year-old male with past medical history significant for recent PE status post EKOS, type 2 diabetes, hypertension, Charcot foot with left BKA and recent right ankle surgery status post wound VAC and currently on IV antibiotics who presented the hospital for generalized weakness, confusion and inability to take care of himself. Patient was discharged on 11/25 after being treated for saddle PE and underwentt EKOS on 11/20, patient was discharged on Eliquis. Patient was found to be confused by his son and apparently had a fall yesterday, EMS was called at that time but patient refused transfer to ER. Patient son again went to check on him and was found to him to be confused but again patient refused. Later when son went again patient was covered in his own feces and very confused at that time EMS was called and patient brought to the ER Initial lab work done in the ER showed WBC 7.2, hemoglobin 9.5, platelet count 348, sodium 142, potassium 4.2, BUN 23, creatinine 1.24, glucose 93, lactate 0.9, calcium 9.3, bilirubin 0.5, AST 30, ALT 16 UA done showed small amount of leukocyte Estrace, urine WBC 23 Urine drug screen positive for benzos Serum alcohol level less than 10 EKG done in the ER showed heart rate of 75, no ST segment elevation or depression seen, no T-wave inversions seen. Chest x-ray done in the ER showed improved aeration of the right however there i small to moderate left pleural effusion CT head done showed no acute intracranial process, no significant change from most recent prior CT Patient admitted to internal medicine service 11/30. Patient seen and examined. States he feels better compared to yesterday. Waiting on placement to rehab facility 12/01/2024 Patient is seen in follow-up today continued on antibiotics with infectious disease following. Patient with significant weakness and concerns of going home being unable to take care of himself with case management/social work following and has placed a referral to inpatient rehab. Patient will be of benefit for continued strength and mobility and will await consult. Patient will require insurance authorization as well. Patient is afebrile denies chest pain or shortness of breath and is continued with local wound care. 12/02/2024 Patient is seen and evaluated in follow-up being followed by infectious disease. Patient is continued on IV antibiotics and does have a PICC line and [facility] is to continue on antibiotic therapy until December 11, 2024. Patient is planning on going to inpatient rehab at [facility] and has been accepted pending insurance authorization. Patient does also have a co-pay and is willing to pay. Case management following and authorization was submitted and remains pending. Patient is afebrile denies chest pain or shortness of breath. Continue with local wound care and also elevate lower e xtremities while at rest. Will follow-up with repeat labs to monitor kidney functions. Replace electrolytes per protocol. REVIEW OF SYSTEMS: CONSTITUTIONAL: No fever, no malaise,. CARDIOVASCULAR: No chest pain, no palpitations, no syncope. PULMONARY: No shortness of breath, no cough, GASTROINTESTINAL: No diarrhea, no nausea, no vomiting, no abdominal pain. NEUROLOGICAL: No headaches, reports of generalized weakness PHYSICAL EXAMINATION: GENERAL: The patient is alert and oriented x3, not in any acute distress. Well developed, elderly appearing, morbidly obese HEENT: Pupils are round and equally reacting to light. EOMI. No scleral icterus. No conjunctival pallor. Normocephalic, atraumatic. No pharyngeal erythema. No thyromegaly. CARDIOVASCULAR: S1 and S2 muffled PULMONARY: Diminished breath sounds bilaterally otherwise chest is clear to auscultation, no wheezing or crackles. ABDOMEN: Soft, obese, nontender, nondistended, normoactive bowel sounds. No palpable organomegaly. MUSCULOSKELETAL: Left BKA, right foot dressing with wound VAC. EXTREMITIES: No cyanosis, clubbing, or pedal edema. NEUROLOGICAL: Gross neurological examination did not reveal any focal deficits. Diffusely weak SKIN: No rashes. Assessment: Debility with generalized weakness and gait dysfunction Acute metabolic encephalopathy, improved Iron deficiency anemia Atrial tachycardia CKD stage III at baseline History of recent saddle PE requiring EKOS in November 2024, maintained on Eliquis Type 2 diabetes Hypertension Dyslipidemia Recent right ankle reconstruction with a wound VAC, continued on IV antibiotic therapy until 12/11/2024 Morbid obesity with a BMI of 41.2 GI prophylaxis DVT prophylaxis Full code Plan: Patient is continued on antibiotics with infectious disease following and will continue local wound care along with wound VAC. According to case management patient will continue to require IV antibiotic therapy until December 11, 2024 per [facility] recommendations from previous recent right ankle reconstruction done at [facility]. Patient was evaluated by orthopedics while here and will follow-up with [facility] surgeon outpatient. No surgical interventions planned at this time and will continue on wound VAC and local wound care. Case management following and patient has been accepted at [facility] pending insurance authorization. Patient also has a co-pay to meet and is agreeable to pay this. Insurance authorization remains pending as of today Continue with gentle hydration and will follow-up on repeat labs as kidney functions have a creatinine that is mildly elevated. Patient does have history of chronic kidney disease. Recommend PT/OT therapy daily and encourage sitting up in the chair and out of bed more often. Patient to continue with wound VAC and elevating lower extremities while at rest Will follow-up with case management regarding insurance authorization in the a.m. Patient does continue with a PICC line and will discuss further with infectious disease about discharge planning Possible discharge in the next 24 to 48 hours once insurance authorization is obtained to [facility] The impression and plan of care has been dictated by Lynn Pulido, Nurse Practitioner as directed. Dr. Rhianna MD I have performed a history and examination and MDM of this patient, discussed the same with the dictator, and agree with the dictator's assessment and plan as written ,documented as a scribe. Based on total visit time, I have performed more than 50% of the visit. Objective - Vital Signs Vital signs: Vital Signs Temp 100.3 F H 12/03/24 02:23 Pulse 78 12/03/24 02:23 Resp 16 12/03/24 02:23 BP 123/65 12/03/24 02:23 Pulse Ox 92 L 12/03/24 02:23 FiO2 Intake & Output 12/02/24 12/02/24 12/03/24 06:59 18:59 06:59 Output Total 951 601 975 Balance -951 601 975 Weight 130.181 kg Output: Urine 950 600 975 Stool 1 1 Other: Voiding Method Urinal # Voids 3 - Labs CBC & Chem 7: 11/30/24 02:41 12/03/24 04:11 Labs: Abnormal Lab Results - Last 24 Hours (Table) 12/02/24 12/02/24 12/02/24 Range/Units 03:59 11:16 16:35 Sodium 136 L (137-145) mmol/L BUN 40 H (9-20) mg/dL Creatinine (0.66-1.25) mg/dL POC Glucose (mg/dL) 124 H 121 H (70-110) mg/dL Magnesium 1.5 L (1.6-2.3) mg/dL 12/02/24 12/03/24 Range/Units 20:22 04:11 Sodium 135 L (137-145) mmol/L BUN 39 H (9-20) mg/dL Creatinine 1.33 H (0.66-1.25) mg/dL POC Glucose (mg/dL) 111 H (70-110) mg/dL Magnesium (1.6-2.3) mg/dL
[2024-12-03 06:16] LABS: Glucose,Whole Blood 95 mg/dL (70-110)
--- NOTE | 2024-12-03 07:48 | P.PN ---
Subjective Progress Note Date: 12/01/24 Principal diagnosis: Reason for follow-up is right foot wound/osteomyelitis Patient is a 69-year-old male with a past medical history significant for hypertension diabetes mellitus anxiety, he did have a Charcot foot diabetic foot infection status post left below the knee amputation and the patient recently did have multiple surgery on his left foot and ankle area including placement of a titanium titanium lexi, subsequent removal and has been dealing with infection and currently on combination of IV vancomycin and ertapenem has been brought to the hospital concerning for fall and mental status changes. On today's evaluation that is 12/01/2023, patient has been afebrile, patient is breathing comfortably and is currently on room air, patient denies having any s ignificant cough no chest pain, patient denies nausea vomiting or diarrhea and no abdominal pain and denies pain to the right foot wound area. Patient did have a creatinine 1.34 cm 40 no CBC was done today Objective - Vital Signs Vital signs: Vital Signs Temp 97.6 F 12/01/24 08:00 Pulse 66 12/01/24 08:00 Resp 17 12/01/24 08:00 BP 123/61 12/01/24 08:00 Pulse Ox 93 L 12/01/24 08:00 FiO2 Intake & Output 11/30/24 12/01/24 12/01/24 18:59 06:59 18:59 Intake Total 3150 Output Total 2200 2049 Balance -220 1100 Intake: Oral 3150 Output: Drainage 0 Right Foot 0 Urine 2199 2049 Stool 0 Other: Voiding Method Urinal Urinal # Voids 1 - Exam GENERAL DESCRIPTION: An elderly male lying in bed in no distress RESPIRATORY SYSTEM: Unlabored breathing , decreased breath sounds at bases HEART: S1 S2 regular rate and rhythm , ABDOMEN: Soft , no tenderness EXTREMITIES: Right foot wound is covered with wound VAC t - Labs CBC & Chem 7: 11/30/24 02:41 12/03/24 04:11 Labs: Abnormal Lab Results - Last 24 Hours (Table) 12/01/24 12/01/24 12/01/24 Range/Units 03:04 03:04 06:31 ESR 40 H (0-20) mm/Hr Creatinine 1.47 H (0.66-1.25) mg/dL POC Glucose (mg/dL) 122 H (70-110) mg/dL C-Reactive Protein 1.6 H (<1.0) mg/dL Microbiology - Last 24 Hours (Table) 11/29/24 22:14 Urine Culture - Final Urine,Clean Catch Assessment and Plan (1) Ankle osteomyelitis, right Current Visit: No Status: Acute Code(s): M86.9 - OSTEOMYELITIS, UNSPECIFIED SNOMED Code(s): 3379110780014414 (2) Cellulitis of right foot Current Visit: No Status: Acute Code(s): L03.115 - CELLULITIS OF RIGHT LOWER LIMB SNOMED Code(s): 90563711669329803 (3) Diabetic foot ulcer Current Visit: No Status: Acute Code(s): E11.621 - TYPE 2 DIABETES MELLITUS WITH FOOT ULCER; L97.509 - NON-PRESSURE CHRONIC ULCER OTH PRT UNSP FOOT W UNSP SEVERITY SNOMED Code(s): 292836110 Plan: 1patient with a complicated history of right foot and ankle Charcot foot with multiple surgeries and is currently being treated with osteomyelitis, patient received most of his care for the right foot and ankle area at [facility] and is currently on a combination of IV vancomycin pharmacy to dose and Invanz now being admitted to the hospital after he did have a fall with no fever or elevated white count 2the patient wound VAC was changed and will continue with the change Sunday 3patient is afebrile white count has been normal, continue vancomycin pharmacy to dose target trough of 15 while watching kidney function and Vanco trough closely and Invanz 1 g daily. Dictation was produced using [employer] dictation software. please excuse any grammatical, word or spelling errors. Time with Patient: Less than 30
--- NOTE | 2024-12-03 07:49 | P.PN ---
Subjective Progress Note Date: 12/02/24 Principal diagnosis: Reason for follow-up is right foot wound/osteomyelitis Patient is a 69-year-old male with a past medical history significant for hypertension diabetes mellitus anxiety, he did have a Charcot foot diabetic foot infection status post left below the knee amputation and the patient recently did have multiple surgery on his left foot and ankle area including placement of a titanium titanium lexi, subsequent removal and has been dealing with infection and currently on combination of IV vancomycin and ertapenem has been brought to the hospital concerning for fall and mental status changes. On today's evaluation that is 12/02/2023, Patient is afebrile this morning patient denies having any chest pain shortness of breath or cough, the patient is currently on room air, patient denies any abdominal pain no diarrhea no nausea no vomiting, no new symptoms. Patient did have a creatinine 1.33 Objective - Vital Signs Vital signs: Vital Signs Temp 98.8 F 12/02/24 13:20 Pulse 69 12/02/24 13:20 Resp 16 12/02/24 13:20 BP 123/64 12/02/24 13:20 Pulse Ox 96 12/02/24 13:20 FiO2 Intake & Output 12/01/24 12/02/24 12/02/24 18:59 06:59 18:59 Intake Total 300 Output Total 1999 950 Balance -1700 -950 Weight 130.181 kg Intake: Intake, IV Titration 300 Amount Ertapenem 1 gm In Sodium 50 Chloride 0.9% 50 ml @ 100 mls/hr IVPB DAILY@1500 [facility] Rx#:[id number] Vancomycin 1,250 mg In 250 Sodium Chloride 0.9% 250 ml @ 125 mls/hr IVPB Q24HR@1600 [facility] Rx#: [id number] Output: Urine 1999 950 - Exam GENERAL DESCRIPTION: An elderly male lying in bed in no distress RESPIRATORY SYSTEM: Unlabored breathing , decreased breath sounds at bases HEART: S1 S2 regular rate and rhythm , ABDOMEN: Soft , no tenderness EXTREMITIES: Right foot wound is covered with wound VAC t - Labs CBC & Chem 7: 11/30/24 02:41 12/03/24 04:11 Labs: Abnormal Lab Results - Last 24 Hours (Table) 12/02/24 12/02/24 Range/Units 03:59 11:16 Sodium 136 L (137-145) mmol/L BUN 40 H (9-20) mg/dL Creatinine 1.34 H (0.66-1.25) mg/dL POC Glucose (mg/dL) 124 H (70-110) mg/dL Magnesium 1.5 L (1.6-2.3) mg/dL Microbiology - Last 24 Hours (Table) 11/29/24 22:14 Urine Culture - Final Urine,Clean Catch Assessment and Plan (1) Ankle osteomyelitis, right Current Visit: No Status: Acute Code(s): M86.9 - OSTEOMYELITIS, UNSPECIFIED SNOMED Code(s): 6770753519687229 (2) Cellulitis of right foot Current Visit: No Status: Acute Code(s): L03.115 - CELLULITIS OF RIGHT LOWER LIMB SNOMED Code(s): 63263282564449220 (3) Diabetic foot ulcer Current Visit: No Status: Acute Code(s): E11.621 - TYPE 2 DIABETES MELLITUS WITH FOOT ULCER; L97.509 - NON-PRESSURE CHRONIC ULCER OTH PRT UNSP FOOT W UNSP SEVERITY SNOMED Code(s): 421954362 Plan: 1patient with a complicated history of right foot and ankle Charcot foot with multiple surgeries and is currently being treated with osteomyelitis, patient received most of his care for the right foot and ankle area at [facility] and is currently on a combination of IV vancomycin pharmacy to dose and Invanz now being admitted to the hospital after he did have a fall with no fever or elevated white count 2the patient wound VAC was changed and will continue with the change Sunday 3patient is afebrile white count has been normal, continue vancomycin pharmacy to dose target trough of 15 while watching kidney function and Vanco trough closely and Invanz 1 g daily with the last day of antibiotic being 12/11/2024 as per discussion with the case resource manager and REGISTERED NURSES for admitting team currently waiting for placement. Dictation was produced using [employer] software. please excuse any grammatical, word or spelling errors. Time with Patient: Less than 30
[2024-12-03 10:16] LABS: Anisocytosis Slight; Basophils % (A) 1 %; Eosinophils # (A) 0.1 k/uL (0-0.7); Eosinophils % (A) 2 %; HCT 25.3 % (39.0-53.0); HGB 8.1 gm/dL (13.0-17.5); Hypochromasia Slight; Lymphocytes # (A) 0.6 k/uL (1.0-4.8); Lymphocytes % (A) 19 %; MCH 25.1 pg (25.0-35.0); MCHC 31.8 g/dL (31.0-37.0); MCV 78.9 fL (80.0-100.0); Mean Platelet Volume 8.3; Microcytosis Slight; Monocytes # (A) 0.3 k/uL (0-1.0); Monocytes % (A) 11 %; Neutrophils % (A) 66 %; Platelet Count 240 k/uL (150-450); RDW 16.1 % (11.5-15.5); WBC 3.1 k/uL (3.8-10.6)
[2024-12-03 11:39] LABS: Glucose,Whole Blood 111 mg/dL (70-110)
--- NOTE | 2024-12-03 13:21 | XR ---
EXAMINATION TYPE: XR chest 1V portable DATE OF EXAM: 12/03/2024 1:05 PM COMPARISON: Chest radiographs from 11/28/2024 CLINICAL INDICATION: Male, 69 years old with history of Shortness of breath; TECHNIQUE: XR chest 1V portable Frontal view of the chest. FINDINGS: Lungs/Pleura: There is no evidence of pleural effusion, focal consolidation, or pneumothorax. Pulmonary vascularity: Unremarkable. Heart/mediastinum: Cardiomediastinal silhouette is unremarkable. Musculoskeletal: Degenerative changes of the shoulder joints. Other findings: None IMPRESSION: No acute cardiopulmonary disease/process. [facility], , 12/03/2024 1:18 PM
[2024-12-03 16:22] LABS: Glucose,Whole Blood 144 mg/dL (70-110)
[2024-12-03 20:32] LABS: Glucose,Whole Blood 119 mg/dL (70-110)
--- NOTE | 2024-12-03 20:55 | P.PN ---
Subjective Progress Note Date: 12/03/24 patient is a 69-year-old male with past medical history significant for recent PE status post EKOS, type 2 diabetes, hypertension, Charcot foot with left BKA and recent right ankle surgery status post wound VAC and currently on IV antibiotics who presented the hospital for generalized weakness, confusion and inability to take care of himself. Patient was discharged on 11/25 after being treated for saddle PE and underwentt EKOS on 11/20, patient was discharged on Eliquis. Patient was found to be confused by his son and apparently had a fall yesterday, EMS was called at that time but patient refused transfer to ER. Patient son again went to check on him and was found to him to be confused but again patient refused. Later when son went again patient was covered in his own feces and very confused at that time EMS was called and patient brought to the ER Initial lab work done in the ER showed WBC 7.2, hemoglobin 9.5, platelet count 348, sodium 142, potassium 4.2, BUN 23, creatinine 1.24, glucose 93, lactate 0.9, calcium 9.3, bilirubin 0.5, AST 30, ALT 16 UA done showed small amount of leukocyte Estrace, urine WBC 23 Urine drug screen positive for benzos Serum alcohol level less than 10 EKG done in the ER showed heart rate of 75, no ST segment elevation or depression seen, no T-wave inversions seen. Chest x-ray done in the ER showed improved aeration of the right however there i small to moderate left pleural effusion CT head done showed no acute intracranial process, no significant change from most recent prior CT Patient admitted to internal medicine service 11/30. Patient seen and examined. States he feels better compared to yesterday. Waiting on placement to rehab facility 12/01/2024 Patient is seen in follow-up today continued on antibiotics with infectious disease following. Patient with significant weakness and concerns of going home being unable to take care of himself with case management/social work following and has placed a referral to inpatient rehab. Patient will be of benefit for continued strength and mobility and will await consult. Patient will require insurance authorization as well. Patient is afebrile denies chest pain or luke rtness of breath and is continued with local wound care. 12/02/2024 Patient is seen and evaluated in follow-up being followed by infectious disease. Patient is continued on IV antibiotics and does have a PICC line and per case management from [facility] patient is to continue on antibiotic therapy until December 11, 2024. Patient is planning on going to inpatient rehab at [facility] and has been accepted pending insurance authorization. Patient does also have a co-pay and is willing to pay. Case management following and authorization was submitted and remains pending. Patient is afebrile denies chest pain or shortness of breath. Continue with local wound care and also elevate lower extr emities while at rest. Will follow-up with repeat labs to monitor kidney functions. Replace electrolytes per protocol. 12/03/2024 Patient evaluated in follow up sitting up in the chair. No acute complaints. He is still pending insurance authorization for DC to [facility]. He continues on IV antibiotic therapy and will continue until December 11 2024. Patient expresses concern that he should be having a follow up soon with his surgeon at as he states the wound vac should be off and he should be in a cast at this time. Patient does not recall the surgeons name today and will work on getting the name. REVIEW OF SYSTEMS: CONSTITUTIONAL: No fever, no malaise,. CARDIOVASCULAR: No chest pain, no palpitations, no syncope. PULMONARY: No shortness of breath, no cough, GASTROINTESTINAL: No diarrhea, no nausea, no vomiting, no abdominal pain. NEUROLOGICAL: No headaches, reports of generalized weakness PHYSICAL EXAMINATION: GENERAL: The patient is alert and oriented x3, not in any acute distress. Well developed, elderly appearing, morbidly obese HEENT: Pupils are round and equally reacting to light. EOMI. No scleral icterus. No conjunctival pallor. Normocephalic, atraumatic. No pharyngeal erythema. No thyromegaly. CARDIOVASCULAR: S1 and S2 muffled PULMONARY: Diminished breath sounds bilaterally otherwise chest is clear to auscultation, no wheezing or crackles. ABDOMEN: Soft, obese, nontender, nondistended, normoactive bowel sounds. No palpable organomegaly. MUSCULOSKELETAL: Left BKA, right foot dressing with wound VAC. EXTREMITIES: No cyanosis, clubbing, or pedal edema. NEUROLOGICAL: Gross neurological examination did not reveal any focal deficits. Diffusely weak SKIN: No rashes. Assessment: Debility with generalized weakness and gait dysfunction Acute metabolic encephalopathy, improved Iron deficiency anemia Atrial tachycardia CKD stage III at baseline History of recent saddle PE requiring EKOS in November 2024, maintained on Eliquis Type 2 diabetes Hypertension Dyslipidemia Recent right ankle reconstruction with a wound VAC, continued on IV antibiotic therapy until 12/11/2024 Morbid obesity with a BMI of 41.2 GI prophylaxis DVT prophylaxis Full code Plan: Patient is continued on antibiotics with infectious disease following and will continue local wound care along with wound VAC. According to case management patient will continue to require IV antibiotic therapy until December 11, 2024 per [facility] recommendations from previous recent right ankle reconstruction done at [facility]. Patient was evaluated by orthopedics while here and will follow-up with [facility] surgeon outpatient. No surgical interventions planned at this time and will continue on wound VAC and local wound care. Case management following and patient has been accepted at [facility] pending insurance authorization. Patient also has a co-pay to meet and is agreeable to pay this. Insurance authorization remains pending as of today Continue with gentle hydration and will follow-up on repeat labs as kidney functions have a creatinine that is mildly elevated. Patient does have history of chronic kidney disease. Recommend PT/OT therapy daily and encourage sitting up in the chair and out of bed more often. Patient to continue with wound VAC and elevating lower extremities while at rest Will follow-up with case management regarding insurance authorization in the a.m. Patient does continue with a PICC line and will discuss further with infectious disease about discharge planning Possible discharge in the next 24 to 48 hours once insurance authorization is obtained to [facility] The impression and plan of care has been dictated by Sherron Rutherford , Nurse Practitioner as directed. Dr. Rhianna MD I have performed a history and examination and MDM of this patient, discussed the same with the dictator, and agree with the dictator's assessment and plan as written ,documented as a scribe. Based on total visit time, I have performed more than 50% of the visit. Objective - Vital Signs Vital signs: Vital Signs Temp 98.3 F 12/03/24 06:17 Pulse 64 12/03/24 06:17 Resp 16 12/03/24 06:17 BP 119/68 12/03/24 06:17 Pulse Ox 94 L 12/03/24 06:17 FiO2 Intake & Output 12/02/24 12/03/24 12/03/24 18:59 06:59 18:59 Output Total 601 1275 Balance -601 -1275 Weight 130.181 kg Output: Urine 600 1275 Stool 1 Other: # Voids 3 - Labs CBC & Chem 7: 12/03/24 04:11 12/03/24 04:11 Labs: Abnormal Lab Results - Last 24 Hours (Table) 12/02/24 12/02/24 12/03/24 Range/Units 16:35 20:22 04:11 WBC (3.8-10.6) k/uL RBC (4.30-5.90) m/uL Hgb (13.0-17.5) gm/dL Hct (39.0-53.0) % MCV (80.0-100.0) fL RDW (11.5-15.5) % Lymphocytes # (1.0-4.8) k/uL Sodium 135 L (137-145) mmol/L BUN 39 H (9-20) mg/dL Creatinine 1.33 H (0.66-1.25) mg/dL POC Glucose (mg/dL) 121 H 111 H (70-110) mg/dL 12/03/24 12/03/24 Range/Units 04:11 11:38 WBC 3.1 L (3.8-10.6) k/uL RBC 3.20 L (4.30-5.90) m/uL Hgb 8.1 L (13.0-17.5) gm/dL Hct 25.3 L (39.0-53.0) % MCV 78.9 L (80.0-100.0) fL RDW 16.1 H (11.5-15.5) % Lymphocytes # 0.6 L (1.0-4.8) k/uL Sodium (137-145) mmol/L BUN (9-20) mg/dL Creatinine (0.66-1.25) mg/dL POC Glucose (mg/dL) 111 H (70-110) mg/dL Assessment and Plan Time with Patient: Less than 30
[2024-12-04 05:22] LABS: Basophils % (A) 1 %; Eosinophils # (A) 0.1 k/uL (0-0.7); Eosinophils % (A) 3 %; HCT 28.4 % (39.0-53.0); HGB 9.2 gm/dL (13.0-17.5); Lymphocytes # (A) 1.2 k/uL (1.0-4.8); Lymphocytes % (A) 26 %; MCHC 32.5 g/dL (31.0-37.0); Mean Platelet Volume 7.7; Microcytosis Slight; Monocytes # (A) 0.4 k/uL (0-1.0); Monocytes % (A) 9 %; Neutrophils # (A) 2.7 k/uL (1.3-7.7); Neutrophils % (A) 60 %; Platelet Count 234 k/uL (150-450); RBC 3.69 m/uL (4.30-5.90); WBC 4.5 k/uL (3.8-10.6)
[2024-12-04 06:15] LABS: African American GFR (CKD) 66 (>60 ml/min/1.73 sqM); Anion Gap 6 mmol/L; Blood Urea Nitrogen 40 mg/dL (9-20); Calcium 8.5 mg/dL (8.4-10.2); Carbon Dioxide 30 mmol/L (22-30); Chloride 101 mmol/L (98-107); Glucose 91 mg/dL (74-99); Non-African American GFR(CKD) 57 (>60 ml/min/1.73 sqM); Sodium 137 mmol/L (137-145)
[2024-12-04 06:27] LABS: Glucose,Whole Blood 105 mg/dL (70-110)
--- NOTE | 2024-12-04 09:42 | P.DS ---
Providers Date of admission: 11/28/24 12:44 Attending physician: Low Quintero MD Consults: 11/29/24 09:57 Consult Physician Routine Consulting Provider: Phyllis Zurita Consult Reason/Comments: osteomyelitis, on IV Abx Do you want consulting provider notified?: Yes 12/01/24 11:44 Consult Physician Routine Consulting Provider: Skip Collazo Consult Reason/Comments: IPR Do you want consulting provider notified?: Yes Primary care physician: Barrington Swanson [place] [facility] Course: Final Diagnosis Debility with generalized weakness and gait dysfunction Acute metabolic encephalopathy, improved Iron deficiency anemia Atrial tachycardia CKD stage III at baseline History of recent saddle PE requiring EKOS in November 2024, maintained on Eliquis Type 2 diabetes Hypertension Dyslipidemia Recent right ankle reconstruction with a wound VAC, continued on IV antibiotic therapy until 12/11/2024 Morbid obesity with a BMI of 41.2 Discharge Disposition Patient stable for discharge to inpatient rehabilitation center at [facility]. Patient is continued on antibiotics with infectious disease following and will continue local wound care along with wound VAC. According to case management patient will continue to require IV antibiotic therapy until December 11, 2024 per [facility] recommendations from previous recent right ankle reconstruction done at [facility]. Patient was evaluated by orthopedics while here and will follow-up with [facility] surgeon outpatient. No surgical interventions planned at this time and will continue on wound VAC and local wound care. Continue IV antibiotics with IV ertapenem and IV vancomycin daily for the next 7 days as prior recommended. PICC Line in place. Wound VAC instructions to the right foot include 125 mmHg medium intensity with granufoam silver Hospital Course patient is a 69-year-old male with past medical history significant for recent PE status post EKOS, type 2 diabetes, hypertension, Charcot foot with left BKA and recent right ankle surgery status post wound VAC and currently on IV antibiotics who presented the hospital for generalized weakness, confusion and inability to take care of himself. Patient was discharged on 11/25 after being treated for saddle PE and underwentt EKOS on 11/20, patient was discharged on Eliquis. Patient was found to be confused by his son and apparently had a fall yesterday, EMS was called at that time but patient refused transfer to ER. Patient son again went to check on him and was found to him to be confused but again patient refused. Later when son went again patient was covered in his own feces and very confused at that time EMS was called and patient brought to the ER Initial lab work done in the ER showed WBC 7.2, hemoglobin 9.5, platelet count 348, sodium 142, potassium 4.2, BUN 23, creatinine 1.24, glucose 93, lactate 0.9, calcium 9.3, bilirubin 0.5, AST 30, ALT 16. Chest x-ray done in the ER showed improved aeration of the right however there i small to moderate left pleural effusion. CT head done showed no acute intracranial process, no significant change from most recent prior CT. Patient admitted to IM service. Patient is continued on IV antibiotics and does have a PICC line and per case management from [facility] patient is to continue on antibiotic therapy until December 11, 2024. Patient is planning on going to inpatient rehab at [facility] and has been accepted pending insurance authorization. Patient does also have a co-pay and is willing to pay. Case management following and authorization was submitted and remains pending. Patient is afebrile denies chest pain or shortness of breath. Continue with local wound care and also elevate lower extremities while at rest. Patient to continue eliquis at 5 mg PO twice daily. He needs to follow up with his surgeon from [facility]. He has no chest pain or shortness of breath. Once insurance authorization is obtained patient will discharge to [facility] rehabilitation. Please see medication reconciliation for a list of current medications. Thank you for allowing us to participate in the care of this patient. The impression and plan of care has been dictated by Nurse Hope Sahuitioner as directed. Dr. Rhianna MD I have performed a history and physical examination and medical decision making of this patient, discussed the same with the dictator, and agree with the dictat ors assessment and plan as written, documented as a scribe. Based on total visit time, I have performed more than 50% of this visit. Patient Condition at Discharge: Stable Plan - Discharge Summary New Discharge Prescriptions: New Ertapenem [INVanz] 1 gm IVPB DAILY@1500 7 Days #7 each Vancomycin 1,250 mg IVPB Q24HR@1600 7 Days #7 each Apixaban [Eliquis] 5 mg PO BID #60 tab Continue amLODIPine [Norvasc] 5 mg PO DAILY Insulin Glargine,Hum.rec.anlog [Lantus Solostar Pen] 5 units SQ HS Tamsulosin [Flomax] 0.4 mg PO DAILY Vit C/E/Zn/Coppr/Lutein/Zeaxan [Preservision Areds 2 Softgel] 1 cap PO DAILY Metoprolol Tartrate [Lopressor] 25 mg PO BID #60 tab traMADol HCL 50 mg PO Q6H PRN #4 tab PRN Reason: Pain ALPRAZolam [Xanax] 1 mg PO TID #6 tab metFORMIN HCL [Glucophage] 1,000 mg PO AC-BID Sodium Bicarbonate Tab 650 mg PO BID Oxymetazoline 0.05% Nasl [place] [Afrin 0.05% Nasal [place]] 2 spray EA NOSTRIL DAILY PRN PRN Reason: Congestion Multivitamins, Thera [Multivitamin (formulary)] 1 tab PO DAILY Atorvastatin [Lipitor] 40 mg PO HS #30 tab Furosemide [Lasix] 40 mg PO DAILY #60 tablet Discontinued Vancomycin 1,250 mg IVPB Q48H Ertapenem [INVanz] 1 gm IVPB Q24H Apixaban [Eliquis Starter Pack (for VTE)] See Taper PO DIRECTED Discharge Medication List amLODIPine [Norvasc] 5 mg PO DAILY 08/20/23 [History] metFORMIN HCL [Glucophage] 1,000 mg PO AC-BID 08/20/23 [History] Insulin Glargine,Hum.rec.anlog [Lantus Solostar Pen] 5 units SQ HS 04/12/24 [History] Multivitamins, Thera [Multivitamin (formulary)] 1 tab PO DAILY 11/18/24 [History] Oxymetazoline 0.05% Nasl [place] [Afrin 0.05% Nasal [place]] 2 spray EA NOSTRIL DAILY PRN 11/18/24 [History] Sodium Bicarbonate Tab 650 mg PO BID 11/18/24 [History] Tamsulosin [Flomax] 0.4 mg PO DAILY 11/18/24 [History] Vit C/E/Zn/Coppr/Lutein/Zeaxan [Preservision Areds 2 Softgel] 1 cap PO DAILY 11/18/24 [History] Atorvastatin [Lipitor] 40 mg PO HS #30 tab 11/24/24 [Rx] Metoprolol Tartrate [Lopressor] 25 mg PO BID #60 tab 11/24/24 [Rx] Furosemide [Lasix] 40 mg PO DAILY #60 tablet 11/25/24 [Rx] ALPRAZolam [Xanax] 1 mg PO TID #6 tab 12/03/24 [Rx] Apixaban [Eliquis] 5 mg PO BID #60 tab 12/03/24 [Rx] Ertapenem [INVanz] 1 gm IVPB DAILY@1500 7 Days #7 each 12/03/24 [Rx] Vancomycin 1,250 mg IVPB Q24HR@1600 7 Days #7 each 12/03/24 [Rx] traMADol HCL 50 mg PO Q6H PRN #4 tab 12/03/24 [Rx] Follow up Appointment(s)/Referral(s): Barrington Swanson MD [Primary Care Provider] - 1-2 days Ambulatory/Diagnostic Orders: Basic Metabolic Panel [LAB.AMB] Time Frame: 3 Days, Location: None Selected Complete Blood Count w/diff [LAB.AMB] Location: None Selected Activity/Diet/Wound Care/Special Instructions: Continue IV vancomycin and IV invanz daily for the next 7 days with the end date of 12/11/2024 Follow up with your surgeon out of [facility] as soon as possible Continue with the zinc barrier paste to the stage II pressure injury on the buttock and recommend continued pressure offloading. Discharge Disposition: TRANSFER TO SNF/ECF
[2024-12-04 11:52] LABS: Glucose,Whole Blood 138 mg/dL (70-110)
--- NOTE | 2024-12-04 15:41 | P.PN ---
Subjective Progress Note Date: 12/04/24 Principal diagnosis: Reason for follow-up is right foot wound/osteomyelitis Patient is a 69-year-old male with a past medical history significant for hypertension diabetes mellitus anxiety, he did have a Charcot foot diabetic foot infection status post left below the knee amputation and the patient recently did have multiple surgery on his left foot and ankle area including placement of a titanium titanium lexi, subsequent removal and has been dealing with infection and currently on combination of IV vancomycin and ertapenem has been brought to the hospital concerning for fall and mental status changes. On today's evaluation that is 12/04/2024,the patient remains to be afebrile, patient is on room air not requiring supplemental oxygen and denies any shortness of breath no chest pain still complaining of some cough and sputum production.Patient denies having any nausea or vomiting, no abdominal pain and no diarrhea has been reported Chest x-ray reported negative for acute infiltrate Objective - Vital Signs Vital signs: Vital Signs Temp 97.1 F L 12/04/24 13:26 Pulse 62 12/04/24 13:26 Resp 16 12/04/24 13:26 BP 116/56 12/04/24 13:26 Pulse Ox 98 12/04/24 13:26 FiO2 Intake & Output 12/03/24 12/04/24 12/04/24 18:59 06:59 18:59 Intake Total 1500 Output Total 900 1500 1 Balance 600 -1500 -1 Intake: Oral 1500 Output: Urine 900 1500 Stool 1 Other: Voiding Method Urinal Urinal - Exam GENERAL DESCRIPTION: An elderly male lying in bed in no distress RESPIRATORY SYSTEM: Unlabored breathing , decreased breath sounds at bases HEART: S1 S2 regular rate and rhythm , ABDOMEN: Soft , no tenderness EXTREMITIES: Right foot wound is covered with wound VAC t - Labs CBC & Chem 7: 12/04/24 04:51 12/04/24 04:51 Labs: Abnormal Lab Results - Last 24 Hours (Table) 12/03/24 12/03/24 12/04/24 Range/Units 16:21 20:30 04:51 RBC 3.69 L (4.30-5.90) m/uL Hgb 9.2 L (13.0-17.5) gm/dL Hct 28.4 L (39.0-53.0) % MCV 77.0 L (80.0-100.0) fL RDW 16.0 H (11.5-15.5) % BUN (9-20) mg/dL Creatinine (0.66-1.25) mg/dL POC Glucose (mg/dL) 144 H 119 H (70-110) mg/dL 12/04/24 12/04/24 Range/Units 04:51 11:50 RBC (4.30-5.90) m/uL Hgb (13.0-17.5) gm/dL Hct (39.0-53.0) % MCV (80.0-100.0) fL RDW (11.5-15.5) % BUN 40 H (9-20) mg/dL Creatinine 1.27 H (0.66-1.25) mg/dL POC Glucose (mg/dL) 138 H (70-110) mg/dL Assessment and Plan (1) Ankle osteomyelitis, right Current Visit: No Status: Acute Code(s): M86.9 - OSTEOMYELITIS, UNSPECIFIED SNOMED Code(s): 6787148309057512 (2) Cellulitis of right foot Current Visit: No Status: Acute Code(s): L03.115 - CELLULITIS OF RIGHT LOWER LIMB SNOMED Code(s): 79592670064696972 (3) Diabetic foot ulcer Current Visit: No Status: Acute Code(s): E11.621 - TYPE 2 DIABETES MELLITUS WITH FOOT ULCER; L97.509 - NON-PRESSURE CHRONIC ULCER OTH PRT UNSP FOOT W UNSP SEVERITY SNOMED Code(s): 964852102 Plan: 1patient with a complicated history of right foot and ankle Charcot foot with multiple surgeries and is currently being treated with osteomyelitis, patient received most of his care for the right foot and ankle area at [facility] and is currently on a combination of IV vancomycin pharmacy to dose and Invanz now being admitted to the hospital after he did have a fall with no fever or elevated white count 2the patient wound VAC was changed and will continue with the change Sunday 3patient is afebrile white count has been normal, continue vancomycin pharmacy to dose target trough of 15 while watching kidney function and Vanco trough closely and Invanz 1 g daily with the last day of antibiotic being 12/11/2024 4patient complaining of productive cough however chest x-ray negative for any acute infiltrate we will cancel sputum culture Dictation was produced using [employer] dictation software. please excuse any grammatical, word or spelling errors. Time with Patient: Less than 30
--- NOTE | 2024-12-04 15:41 | P.PN ---
Subjective Progress Note Date: 12/03/24 Principal diagnosis: Reason for follow-up is right foot wound/osteomyelitis Patient is a 69-year-old male with a past medical history significant for hypertension diabetes mellitus anxiety, he did have a Charcot foot diabetic foot infection status post left below the knee amputation and the patient recently did have multiple surgery on his left foot and ankle area including placement of a titanium titanium lexi, subsequent removal and has been dealing with infection and currently on combination of IV vancomycin and ertapenem has been brought to the hospital concerning for fall and mental status changes. On today's evaluation that is 12/03/2024,the patient denies any fever or any chills, patient is breathing comfortably on room air, the patient denies chest pain shortness of breath has been complaining of some cough and sputum production, patient denies abdominal pain, no nausea vomiting or diarrhea. No worsening pain to the right foot wound patient white count is 3.1 creatinine is 1.33 Objective - Vital Signs Vital signs: Vital Signs Temp 98.3 F 12/03/24 06:17 Pulse 64 12/03/24 06:17 Resp 16 12/03/24 06:17 BP 119/68 12/03/24 06:17 Pulse Ox 94 L 12/03/24 06:17 FiO2 Intake & Output 12/02/24 12/03/24 12/03/24 18:59 06:59 18:59 Output Total 601 1275 Balance -601 -1275 Weight 130.181 kg Output: Urine 600 1275 Stool 1 Other: # Voids 3 - Exam GENERAL DESCRIPTION: An elderly male lying in bed in no distress RESPIRATORY SYSTEM: Unlabored breathing , decreased breath sounds at bases HEART: S1 S2 regular rate and rhythm , ABDOMEN: Soft , no tenderness EXTREMITIES: Right foot wound is covered with wound VAC t - Labs CBC & Chem 7: 12/04/24 04:51 12/04/24 04:51 Labs: Abnormal Lab Results - Last 24 Hours (Table) 12/02/24 12/02/24 12/03/24 Range/Units 16:35 20:22 04:11 WBC (3.8-10.6) k/uL RBC (4.30-5.90) m/uL Hgb (13.0-17.5) gm/dL Hct (39.0-53.0) % MCV (80.0-100.0) fL RDW (11.5-15.5) % Lymphocytes # (1.0-4.8) k/uL Sodium 135 L (137-145) mmol/L BUN 39 H (9-20) mg/dL Creatinine 1.33 H (0.66-1.25) mg/dL POC Glucose (mg/dL) 121 H 111 H (70-110) mg/dL 12/03/24 12/03/24 Range/Units 04:11 11:38 WBC 3.1 L (3.8-10.6) k/uL RBC 3.20 L (4.30-5.90) m/uL Hgb 8.1 L (13.0-17.5) gm/dL Hct 25.3 L (39.0-53.0) % MCV 78.9 L (80.0-100.0) fL RDW 16.1 H (11.5-15.5) % Lymphocytes # 0.6 L (1.0-4.8) k/uL Sodium (137-145) mmol/L BUN (9-20) mg/dL Creatinine (0.66-1.25) mg/dL POC Glucose (mg/dL) 111 H (70-110) mg/dL Assessment and Plan (1) Ankle osteomyelitis, right Current Visit: No Status: Acute Code(s): M86.9 - OSTEOMYELITIS, UNSPECIFIED SNOMED Code(s): 1269682722102091 (2) Cellulitis of right foot Current Visit: No Status: Acute Code(s): L03.115 - CELLULITIS OF RIGHT LOWER LIMB SNOMED Code(s): 05161092119706392 (3) Diabetic foot ulcer Current Visit: No Status: Acute Code(s): E11.621 - TYPE 2 DIABETES MELLITUS WITH FOOT ULCER; L97.509 - NON-PRESSURE CHRONIC ULCER OTH PRT UNSP FOOT W UNSP SEVERITY SNOMED Code(s): 142047165 Plan: 1patient with a complicated history of right foot and ankle Charcot foot with multiple surgeries and is currently being treated with osteomyelitis, patient received most of his care for the right foot and ankle area at [facility] and is currently on a combination of IV vancomycin pharmacy to dose and Invanz now being admitted to the hospital after he did have a fall with no fever or elevated white count 2the patient wound VAC was changed and will continue with the change Sunday We dnsunday 3patient is afebrile white count has been normal, continue vancomycin pharmacy to dose target trough of 15 while watching kidney function and Vanco trough closely and Invanz 1 g daily with the last day of antibiotic being 12/11/2024 4patient complaining of productive cough we will obtain a chest x-ray and sputum for Gram stain culture Dictation was produced using [employer] dictation software. please excuse any grammatical, word or spelling errors. Time with Patient: Less than 30
[2024-12-04] MEDS: VANCOMYCIN TROUGH DUE 1 EACH MISC MISCELLANE ONE (16:14)
[2024-12-04 16:18] LABS: Glucose,Whole Blood 135 mg/dL (70-110)
[2024-12-04 21:09] LABS: Glucose,Whole Blood 127 mg/dL (70-110)
[2024-12-05 06:25] LABS: Glucose,Whole Blood 91 mg/dL (70-110)
[2024-12-05 11:25] LABS: Glucose,Whole Blood 100 mg/dL (70-110)
[2024-12-05 16:29] LABS: Glucose,Whole Blood 126 mg/dL (70-110)
[2024-12-05 20:31] LABS: Glucose,Whole Blood 133 mg/dL (70-110)
--- NOTE | 2024-12-05 21:16 | P.PN ---
Subjective Progress Note Date: 12/05/24 patient is a 69-year-old male with past medical history significant for recent PE status post EKOS, type 2 diabetes, hypertension, Charcot foot with left BKA and recent right ankle surgery status post wound VAC and currently on IV antibiotics who presented the hospital for generalized weakness, confusion and inability to take care of himself. Patient was discharged on 11/25 after being treated for saddle PE and underwentt EKOS on 11/20, patient was discharged on Eliquis. Patient was found to be confused by his son and apparently had a fall yesterday, EMS was called at that time but patient refused transfer to ER. Patient son again went to check on him and was found to him to be confused but again patient refused. Later when son went again patient was covered in his own feces and very confused at that time EMS was called and patient brought to the ER Initial lab work done in the ER showed WBC 7.2, hemoglobin 9.5, platelet count 348, sodium 142, potassium 4.2, BUN 23, creatinine 1.24, glucose 93, lactate 0.9, calcium 9.3, bilirubin 0.5, AST 30, ALT 16 UA done showed small amount of leukocyte Estrace, urine WBC 23 Urine drug screen positive for benzos Serum alcohol level less than 10 EKG done in the ER showed heart rate of 75, no ST segment elevation or depression seen, no T-wave inversions seen. Chest x-ray done in the ER showed improved aeration of the right however there i small to moderate left pleural effusion CT head done showed no acute intracranial process, no significant change from most recent prior CT Patient admitted to internal medicine service 11/30. Patient seen and examined. States he feels better compared to yesterday. Waiting on placement to rehab facility 12/01/2024 Patient is seen in follow-up today continued on antibiotics with infectious disease following. Patient with significant weakness and concerns of going home being unable to take care of himself with case management/social work following and has placed a referral to inpatient rehab. Patient will be of benefit for continued strength and mobility and will await consult. Patient will require insurance authorization as well. Patient is afebrile denies chest pain or shortness of breath and is continued with local wound care. 12/02/2024 Patient is seen and evaluated in follow-up being followed by infectious disease. Patient is continued on IV antibiotics and does have a PICC line and per case management from [facility] patient is to continue on antibiotic therapy until December 11, 2024. Patient is planning on going to inpatient rehab at [facility] and has been accepted pending insurance authorization. Patient does also have a co-pay and is willing to pay. Case management following and authorization was submitted and remains pending. Patient is afebrile denies chest pain or shortness of breath. Continue with local wound care and also elevate lower e xtremities while at rest. Will follow-up with repeat labs to monitor kidney functions. Replace electrolytes per protocol. 12/03/2024 Patient evaluated in follow up sitting up in the chair. No acute complaints. He is still pending insurance authorization for DC to [facility]. He continues on IV antibiotic therapy and will continue until December 11 2024. Patient expresses concern that he should be having a follow up soon with his surgeon at as he states the wound vac should be off and he should be in a cast at this time. Patient does not recall the surgeons name today and will work on getting the name. 12/05/2024 Patient is seen in follow-up today being followed by infectious disease ro schaefer on antibiotics and does have a PICC line. Patient has been accepted at [facility] and pending insurance authorization at this time. Social work reported that authorization was obtained and start date of 12/06/2024. Patient will discharge to [facility] in 24 hours. Medication reconciliation has been done along with antibiotic and wound care recommendations. Patient is currently afebrile with no reports of chest pain or shortness of breath. Patient does have a co-pay with [facility] and is agreeable. Patient will need outpatient follow-up with his primary surgeon out of [facility] on discharge. REVIEW OF SYSTEMS: CONSTITUTIONAL: No fever, no malaise,. CARDIOVASCULAR: No chest pain, no palpitations, no syncope. PULMONARY: No shortness of breath, no cough, GASTROINTESTINAL: No diarrhea, no nausea, no vomiting, no abdominal pain. NEUROLOGICAL: No headaches, reports of generalized weakness PHYSICAL EXAMINATION: GENERAL: The patient is alert and oriented x3, not in any acute distress. Well developed, elderly appearing, morbidly obese HEENT: Pupils are round and equally reacting to light. EOMI. No scleral icterus. No conjunctival pallor. Normocephalic, atraumatic. No pharyngeal erythema. No thyromegaly. CARDIOVASCULAR: S1 and S2 muffled PULMONARY: Diminished breath sounds bilaterally otherwise chest is clear to auscultation, no wheezing or crackles. ABDOMEN: Soft, obese, nontender, nondistended, normoactive bowel sounds. No palpable organomegaly. MUSCULOSKELETAL: Left BKA, right foot dressing with wound VAC. EXTREMITIES: No cyanosis, clubbing, or pedal edema. NEUROLOGICAL: Gross neurological examination did not reveal any focal deficits. Diffusely weak SKIN: No rashes. Assessment: Debility with generalized weakness and gait dysfunction Acute metabolic encephalopathy, improved Iron deficiency anemia Atrial tachycardia CKD stage III at baseline History of recent saddle PE requiring EKOS in November 2024, maintained on Eliquis Type 2 diabetes Hypertension Dyslipidemia Recent right ankle reconstruction with a wound VAC, continued on IV antibiotic therapy until 12/11/2024 Morbid obesity with a BMI of 41.2 GI prophylaxis DVT prophylaxis Full code Plan: Patient is continued on antibiotics with infectious disease following and will continue local wound care along with wound VAC. According to case management patient will continue to require IV antibiotic therapy until December 11, 2024 per Chema Mo recommendations from previous recent right ankle reconstruction done at [facility]. Patient was evaluated by orthopedics while here and will f ollow-up with Chema Mo surgeon outpatient. No surgical interventions planned at this time and will continue on wound VAC and local wound care. Case management following and patient initially patient was accepted at [facility] pending insurance authorization. Insurance was denied and case management working on ECF. Patient has been accepted by [facility] pending insurance authorization. Patient had received insurance authorization per hospice social worker today with start date 12/06/2024. Patient will go to [facility] in 24 hours. Patient also has a co-pay to meet and is agreeable to pay this. Recommend PT/OT therapy daily and encourage sitting up in the chair and out of bed more often. Patient to continue with wound VAC and elevating lower extremities while at rest Patient does continue with a PICC line and will continue IV antibiotic therapy until least 12/11/2024 as previously instructed by Chema Mo surgeon. Patient will need follow-up with his orthopedic surgeon on discharge for reevaluation. Again insurance authorization has been obtained and patient will discharge to [facility] on 12/06/2024. The impression and plan of care has been dictated by Lynn Pulido , Nurse Practitioner as directed. Dr. Rhianna MD I have performed a history and examination and MDM of this patient, discussed the same with the dictator, and agree with the dictator's assessment and plan as written ,documented as a scribe. Based on total visit time, I have performed more than 50% of the visit. Objective - Vital Signs Vital signs: Vital Signs Temp 98.2 F 12/05/24 08:00 Pulse 59 L 12/05/24 08:00 Resp 18 12/05/24 08:00 BP 128/67 12/05/24 08:00 Pulse Ox 94 L 12/05/24 08:00 FiO2 Intake & Output 12/04/24 12/05/24 12/05/24 18:59 06:59 18:59 Intake Total 950 Output Total 1 500 300 Balance 949 -500 -300 Intake: Intake, IV Titration 250 Amount Vancomycin 1,250 mg In 250 Sodium Chloride 0.9% 250 ml @ 125 mls/hr IVPB Q24HR@1600 [facility] Rx#: [id number] Oral 700 Output: Urine 500 300 Stool 1 Other: Voiding Method Urinal Urinal # Voids 2 - Labs CBC & Chem 7: 12/04/24 04:51 12/04/24 04:51 Labs: Abnormal Lab Results - Last 24 Hours (Table) 12/04/24 12/04/24 12/04/24 Range/Units 11:50 16:16 21:07 POC Glucose (mg/dL) 138 H 135 H 127 H (70-110) mg/dL
--- NOTE | 2024-12-05 22:55 | P.PN ---
Subjective Progress Note Date: 12/05/24 Principal diagnosis: Reason for follow-up is right foot wound/osteomyelitis Patient is a 69-year-old male with a past medical history significant for hypertension diabetes mellitus anxiety, he did have a Charcot foot diabetic foot infection status post left below the knee amputation and the patient recently did have multiple surgery on his left foot and ankle area including placement of a titanium titanium lexi, subsequent removal and has been dealing with infection and currently on combination of IV vancomycin and ertapenem has been brought to the hospital concerning for fall and mental status changes. On today's evaluation that is 12/05/2024, the patient continues to be afebrile, the patient is on room air and breathing comfortably, the Pt denies having any chest pain or cough, the patient denies having any abdominal pain no vomiting or any diarrhea mention feeling better. No new labs has been obtained today Objective - Vital Signs Vital signs: Vital Signs Temp 98.2 F 12/05/24 08:00 Pulse 59 L 12/05/24 08:00 Resp 18 12/05/24 08:00 BP 128/67 12/05/24 08:00 Pulse Ox 94 L 12/05/24 08:00 FiO2 Intake & Output 12/04/24 12/05/24 12/05/24 18:59 06:59 18:59 Intake Total 950 Output Total 1 500 300 Balance 949 -500 -300 Intake: Intake, IV Titration 250 Amount Vancomycin 1,250 mg In 250 Sodium Chloride 0.9% 250 ml @ 125 mls/hr IVPB Q24HR@1600 [facility] Rx#: [id number] Oral 700 Output: Urine 500 300 Stool 1 Other: Voiding Method Urinal Urinal # Voids 2 - Exam GENERAL DESCRIPTION: An elderly male lying in bed in no distress RESPIRATORY SYSTEM: Unlabored breathing , decreased breath sounds at bases HEART: S1 S2 regular rate and rhythm , ABDOMEN: Soft , no tenderness EXTREMITIES: Right foot wound is covered with wound VAC t - Labs CBC & Chem 7: 12/04/24 04:51 12/04/24 04:51 Labs: Abnormal Lab Results - Last 24 Hours (Table) 12/04/24 12/04/24 Range/Units 16:16 21:07 POC Glucose (mg/dL) 135 H 127 H (70-110) mg/dL Assessment and Plan (1) Ankle osteomyelitis, right Current Visit: No Status: Acute Code(s): M86.9 - OSTEOMYELITIS, UNSPECIFIED SNOMED Code(s): 3751803134977231 (2) Cellulitis of right foot Current Visit: No Status: Acute Code(s): L03.115 - CELLULITIS OF RIGHT LOWER LIMB SNOMED Code(s): 75682380975776733 (3) Diabetic foot ulcer Current Visit: No Status: Acute Code(s): E11.621 - TYPE 2 DIABETES MELLITUS WITH FOOT ULCER; L97.509 - NON-PRESSURE CHRONIC ULCER OTH PRT UNSP FOOT W UNSP SEVERITY SNOMED Code(s): 723215825 Plan: 1patient with a complicated history of right foot and ankle Charcot foot with multiple surgeries and is currently being treated with osteomyelitis, patient received most of his care for the right foot and ankle area at [facility] and is currently on a combination of IV vancomycin pharmacy to dose and Invanz now being admitted to the hospital after he did have a fall with no fever or elevated white count 2the patient wound VAC was changed and will continue with the change Sunday 3patient is afebrile white count has been normal, 4patient to continue vancomycin pharmacy to dose target trough of 15 while watching kidney function and Vanco trough closely and Invanz 1 g daily with the last day of antibiotic being 12/11/2024, currently waiting for placement Dictation was produced using [employer] software. please excuse any grammatical, word or spelling errors. Time with Patient: Less than 30
[2024-12-06 06:10] LABS: Glucose,Whole Blood 90 mg/dL (70-110)
[2024-12-06 07:02] LABS: African American GFR (CKD) 71 (>60 ml/min/1.73 sqM); Non-African American GFR(CKD) 61 (>60 ml/min/1.73 sqM)
[2024-12-06 07:12] VITALS: BP 122/57; PULSE 83; RESP 15; TEMP 97.7
--- NOTE | 2024-12-06 11:11 | P.DS ---
Providers Date of admission: 11/28/24 12:44 Attending physician: Low Quintero MD Consults: 11/29/24 09:57 Consult Physician Routine Consulting Provider: Phyllis Zurita Consult Reason/Comments: osteomyelitis, on IV Abx Do you want consulting provider notified?: Yes 12/01/24 11:44 Consult Physician Routine Consulting Provider: Skpi Collazo Consult Reason/Comments: IPR Do you want consulting provider notified?: Yes Primary care physician: Barrington Swanson [facility] Course: Final Diagnosis Debility with generalized weakness and gait dysfunction Acute metabolic encephalopathy, improved Iron deficiency anemia Atrial tachycardia CKD stage III at baseline History of recent saddle PE requiring EKOS in November 2024, maintained on Eliquis Type 2 diabetes Hypertension Dyslipidemia Recent right ankle reconstruction with a wound VAC, continued on IV antibiotic therapy until 12/11/2024 Morbid obesity with a BMI of 41.2 Discharge Disposition Patient stable for discharge to inpatient rehabilitation center at [facility]. Patient is continued on antibiotics with infectious disease following and will continue local wound care along with wound VAC. According to case management patient will continue to require IV antibiotic therapy until December 11, 2024 per [facility] recommendations from previous recent right ankle reconstruction done at [facility]. Patient was evaluated by orthopedics while here and will follow-up with [facility] surgeon outpatient. No surgical interventions planned at this time and will continue on wound VAC and local wound care. Continue IV antibiotics with IV ertapenem and IV vancomycin daily for the next 7 days as prior recommended. PICC Line in place. Wound VAC instructions to the right foot include 125 mmHg medium intensity with granufoam silver Patient to follow up with his ankle surgeon Dr. Huy Winchester at [facility] as soon as possible. [phone] Hospital Course patient is a 69-year-old male with past medical history significant for recent PE status post EKOS, type 2 diabetes, hypertension, Charcot foot with left BKA and recent right ankle surgery status post wound VAC and currently on IV antibiotics who presented the hospital for generalized weakness, confusion and inability to take care of himself. Patient was discharged on 11/25 after being treated for saddle PE and underwentt EKOS on 11/20, patient was discharged on Eliquis. Patient was found to be confused by his son and apparently had a fall yesterday, EMS was called at that time but patient refused transfer to ER. Patient son again went to check on him and was found to him to be confused but again patient refused. Later when son went again patient was covered in his own feces and very confused at that time EMS was called and patient brought to the ER Initial lab work done in the ER showed WBC 7.2, hemoglobin 9.5, platelet count 348, sodium 142, potassium 4.2, BUN 23, creatinine 1.24, glucose 93, lactate 0.9, calcium 9.3, bilirubin 0.5, AST 30, ALT 16. Chest x-ray done in the ER showed improved aeration of the right however there i small to moderate left pleural effusion. CT head done showed no acute intracranial process, no significant change from most recent prior CT. Patient admitted to IM service. Patient is continued on IV antibiotics and does have a PICC line and per case management from [place] patient is to continue on antibiotic therapy until December 11, 2024. Patient is planning on going to inpatient rehab at [facility] and has been accepted pending insurance authorization. Patient does also have a co-pay and is willing to pay. Case management following and authorization was submitted and remains pending. Patient is afebrile denies chest pain or shortness of breath. Continue with local wound care and also elevate lower extremities while at rest. Patient to continue eliquis at 5 mg PO twice daily. He needs to follow up with his surgeon from [place]. He has no chest pain or shortness of breath. Once insurance authorization is obtained patient will discharge to [facility] rehabilitation. Please see medication reconciliation for a list of current medications. Thank you for allowing us to participate in the care of this patient. The impression and plan of care has been dictated by Sherron Rutherford, Nurse Practitioner as directed. Dr. Rhianna MD I have performed a history and physical examination and medical decision making of this patient, discussed the same with the dictator, and agree with the dictators assessment and plan as written, documented as a scribe. Based on total visit time, I have performed more than 50% of this visit. Patient Condition at Discharge: Stable Plan - Discharge Summary New Discharge Prescriptions: New Ertapenem [INVanz] 1 gm IVPB DAILY@1500 7 Days #7 each Vancomycin 1,250 mg IVPB Q24HR@1600 7 Days #7 each Apixaban [Eliquis] 5 mg PO BID #60 tab Continue amLODIPine [Norvasc] 5 mg PO DAILY Insulin Glargine,Hum.rec.anlog [Lantus Solostar Pen] 5 units SQ HS Tamsulosin [Flomax] 0.4 mg PO DAILY Vit C/E/Zn/Coppr/Lutein/Zeaxan [Preservision Areds 2 Softgel] 1 cap PO DAILY Metoprolol Tartrate [Lopressor] 25 mg PO BID #60 tab traMADol HCL 50 mg PO Q6H PRN #4 tab PRN Reason: Pain ALPRAZolam [Xanax] 1 mg PO TID #6 tab metFORMIN HCL [Glucophage] 1,000 mg PO AC-BID Sodium Bicarbonate Tab 650 mg PO BID Oxymetazoline 0.05% Nasl [place] [Afrin 0.05% Nasal [place]] 2 spray EA NOSTRIL DAILY PRN PRN Reason: Congestion Multivitamins, Thera [Multivitamin (formulary)] 1 tab PO DAILY Atorvastatin [Lipitor] 40 mg PO HS #30 tab Furosemide [Lasix] 40 mg PO DAILY #60 tablet Discontinued Vancomycin 1,250 mg IVPB Q48H Ertapenem [INVanz] 1 gm IVPB Q24H Apixaban [Eliquis Starter Pack (for VTE)] See Taper PO DIRECTED Discharge Medication List amLODIPine [Norvasc] 5 mg PO DAILY 08/20/23 [History] metFORMIN HCL [Glucophage] 1,000 mg PO AC-BID 08/20/23 [History] Insulin Glargine,Hum.rec.anlog [Lantus Solostar Pen] 5 units SQ HS 04/12/24 [History] Multivitamins, Thera [Multivitamin (formulary)] 1 tab PO DAILY 11/18/24 [History] Oxymetazoline 0.05% Nasl [place] [Afrin 0.05% Nasal [place]] 2 spray EA NOSTRIL DAILY PRN 11/18/24 [History] Sodium Bicarbonate Tab 650 mg PO BID 11/18/24 [History] Tamsulosin [Flomax] 0.4 mg PO DAILY 11/18/24 [History] Vit C/E/Zn/Coppr/Lutein/Zeaxan [Preservision Areds 2 Softgel] 1 cap PO DAILY 11/18/24 [History] Atorvastatin [Lipitor] 40 mg PO HS #30 tab 11/24/24 [Rx] Metoprolol Tartrate [Lopressor] 25 mg PO BID #60 tab 11/24/24 [Rx] Furosemide [Lasix] 40 mg PO DAILY #60 tablet 11/25/24 [Rx] ALPRAZolam [Xanax] 1 mg PO TID #6 tab 12/03/24 [Rx] Apixaban [Eliquis] 5 mg PO BID #60 tab 12/03/24 [Rx] Ertapenem [INVanz] 1 gm IVPB DAILY@1500 7 Days #7 each 12/03/24 [Rx] Vancomycin 1,250 mg IVPB Q24HR@1600 7 Days #7 each 12/03/24 [Rx] traMADol HCL 50 mg PO Q6H PRN #4 tab 12/03/24 [Rx] Follow up Appointment(s)/Referral(s): Barrington Swanson MD [Primary Care Provider] - 1-2 days (Office is closed at time of discharge. Please call for follow-up appointment.) Ambulatory/Diagnostic Orders: Basic Metabolic Panel [LAB.AMB] Time Frame: 3 Days, Location: None Selected Complete Blood Count w/diff [LAB.AMB] Location: None Selected Activity/Diet/Wound Care/Special Instructions: Continue IV vancomycin and IV invanz daily for the next 7 days with the end date of 12/11/2024 Follow up with your surgeon out of [place] as soon as possible Continue with the zinc barrier paste to the stage II pressure injury on the buttock and recommend continued pressure offloading. Patient to follow up with his ankle surgeon Dr. Huy Winchester at [facility] as soon as possible. [phone]
--- NOTE | 2024-12-06 13:58 | P.PN ---
Subjective Progress Note Date: 12/06/24 Principal diagnosis: Reason for follow-up is right foot wound/osteomyelitis Patient is a 69-year-old male with a past medical history significant for hypertension diabetes mellitus anxiety, he did have a Charcot foot diabetic foot infection status post left below the knee amputation and the patient recently did have multiple surgery on his left foot and ankle area including placement of a titanium titanium lexi, subsequent removal and has been dealing with infection and currently on combination of IV vancomycin and ertapenem has been brought to the hospital concerning for fall and mental status changes. On today's evaluation that is 12/06/2024, patient did not have any fever and denies any chills, patient is breathing comfortably on room air, patient with no chest pain or cough patient did not have any abdominal pain nausea vomiting or any loose stools did not mention any pain to the right foot wound area. Patient did have a creatinine 1.20 no CBC was done today Objective - Vital Signs Vital signs: Vital Signs Temp 97.7 F 12/06/24 07:11 Pulse 83 12/06/24 07:11 Resp 15 12/06/24 07:11 BP 122/57 12/06/24 07:11 Pulse Ox 97 12/06/24 07:11 FiO2 Intake & Output 12/05/24 12/06/24 12/06/24 18:59 06:59 18:59 Output Total 1900 400 Balance -1900 -400 Output: Urine 1900 400 Other: Voiding Method Urinal # Voids 1 - Exam GENERAL DESCRIPTION: An elderly male lying in bed in no distress RESPIRATORY SYSTEM: Unlabored breathing , decreased breath sounds at bases HEART: S1 S2 regular rate and rhythm , ABDOMEN: Soft , no tenderness EXTREMITIES: Right foot wound is covered with wound VAC t - Labs CBC & Chem 7: 12/04/24 04:51 12/06/24 06:08 Labs: Abnormal Lab Results - Last 24 Hours (Table) 12/05/24 12/05/24 Range/Units 16:25 20:29 POC Glucose (mg/dL) 126 H 133 H (70-110) mg/dL Assessment and Plan (1) Ankle osteomyelitis, right Status: Acute Code(s): M86.9 - OSTEOMYELITIS, UNSPECIFIED SNOMED Code(s): 9235337617509607 (2) Cellulitis of right foot Status: Acute Code(s): L03.115 - CELLULITIS OF RIGHT LOWER LIMB SNOMED Code(s): 10820788996558552 (3) Diabetic foot ulcer Status: Acute Code(s): E11.621 - TYPE 2 DIABETES MELLITUS WITH FOOT ULCER; L97.509 - NON-PRESSURE CHRONIC ULCER OTH PRT UNSP FOOT W UNSP SEVERITY SNOMED Code(s): 932577062 Plan: 1patient with a complicated history of right foot and ankle Charcot foot with multiple surgeries and is currently being treated with osteomyelitis, patient received most of his care for the right foot and ankle area at [facility] and is currently on a combination of IV vancomycin pharmacy to dose and Invanz now being admitted to the hospital after he did have a fall with no fever or elevated white count 2the patient wound VAC was changed and will continue with the change Sunday 3patient is afebrile white count has been normal, 4patient getting discharged on vancomycin pharmacy to dose target trough of 15 and Invanz 1 g daily with the last day of antibiotic being 12/11/2024, needs to follow-up with ID physician at [facility] before 12/11/2024 to make sure he does not need further antibiotic therapy Dictation was produced using [employer] dictation software. please excuse any gr ammatical, word or spelling errors. Time with Patient: Less than 30
[2024-12-08] MEDS ORDERED: VANCOMYCIN TROUGH DUE 1 EACH MISC MISCELLANE ONE (15:00)
== END 2024-12-06 13:29 ==
LOC: EC 10:10 → 4SSUR 12:44 → INTOOBSV 12:44 → 4SSUR 17:43
PROVIDERS: ADMIT Internal Medicine; ATTEND Internal Medicine
DX: G93.41 Metabolic encephalopathy (principal); M86.8X7 Other osteomyelitis, ankle and foot; D50.9 Iron deficiency anemia, unspecified; E11.610 Type 2 diabetes mellitus with diabetic neuropathic arthropathy; I12.9 Hypertensive chronic kidney disease with stage 1 through stage 4 chronic kidney disease, or unspecified chronic kidney disease; N18.30 Chronic kidney disease, stage 3 unspecified; E11.22 Type 2 diabetes mellitus with diabetic chronic kidney disease; E11.621 Type 2 diabetes mellitus with foot ulcer; L97.509 Non-pressure chronic ulcer of other part of unspecified foot with unspecified severity; E11.628 Type 2 diabetes mellitus with other skin complications; L03.115 Cellulitis of right lower limb; J90 Pleural effusion, not elsewhere classified; I47.19 Other supraventricular tachycardia; E78.5 Hyperlipidemia, unspecified; F41.9 Anxiety disorder, unspecified; E66.01 Morbid (severe) obesity due to excess calories; Z68.41 Body mass index [BMI] 40.0-44.9, adult; G54.6 Phantom limb syndrome with pain; R26.9 Unspecified abnormalities of gait and mobility; R62.7 Adult failure to thrive; R53.81 Other malaise; W19.XXXA Unspecified fall, initial encounter; Z79.84 Long term (current) use of oral hypoglycemic drugs; Z79.2 Long term (current) use of antibiotics; Z79.4 Long term (current) use of insulin; Z79.899 Other long term (current) drug therapy; Z88.8 Allergy status to other drugs, medicaments and biological substances; Z95.828 Presence of other vascular implants and grafts; Z87.891 Personal history of nicotine dependence; Z86.711 Personal history of pulmonary embolism; Z89.512 Acquired absence of left leg below knee; Z98.890 Other specified postprocedural states
CPT/HCPCS: 96376 ×7; 96365 ×2; 96366 ×8; 96367 ×2; 96375; 96368; 99285; 36415; 93005; 97530 ×6; 97162; 97166; 80053 ×2; 80048 ×3; 85652; 82565 ×3; 83605; 83735; 84484; 85025 ×4; 80202 ×3; 85610; 85730; 86140; 81001; 80306; 80320; 87086; 83036; 71045; 71046; 70450; G0378 ×2; J3370 ×8; J1335 ×8; J3475; J2997; J2470 ×8